=== PATIENT | female | born 1955 | race Caucasian/White ===

== ENCOUNTER 2020-07-22 12:27 | Emergency (ER) | payer MEDICARE, OTHER ==
[2020-07-22 12:44] VITALS: TEMP 98.1
--- NOTE | 2020-07-22 12:52 | ED ---
General Adult HPI - General Chief complaint: Fall Stated complaint: Seizure Time Seen by Provider: 07/22/20 12:30 Source: family, EMS Mode of arrival: EMS Limitations: language barrier, altered mental status - History of Present Illness Initial comments: Patient is a pleasant 65-year-old female presenting to the emergency Department with family with concerns for possible fall/seizure. Patient was yelling and was found on the ground. No seizure was witnessed. Patient does have history of seizures and does get approximately 4 per year with similar type episodes. Patient described symptoms of shaking to family that she previously described with seizures. Patient does have history of previous head injury. Patient has chronic right-sided neglect and some weakness. Patient has difficulty with interpreting pain. Family had difficulty getting patient up off the floor and therefore called EMS. Patient is a poor historian however denies any s ignificant discomfort at this time. Patient was earlier complaining of discomfort of her left lower leg. No head injury. Patient denies headache. Family adds that patient did recently have her antiepileptic medication levels checked however does not know results. - Related Data Home Medications Medication Instructions Recorded Confirmed ALPRAZolam [Xanax] 0.25 mg PO BID PRN 07/22/20 07/22/20 Ascorbic Acid [Vitamin C] 500 mg PO DAILY@89907/22/20 07/22/20 Cholecalciferol [Vitamin D3 (25 25 mcg PO DAILY@0707/22/20 07/22/20 Mcg = 1000 Iu)] Divalproex ER [Depakote ER] 500 mg PO TID 07/22/20 07/22/20 Lacosamide [Vimpat] 300 mg PO HS@89907/22/20 07/22/20 OLANZapine [ZyPREXA] 5 mg PO HS@0907/22/20 07/22/20 Phenytoin Sodium Extended 300 mg PO DAILY@89907/22/20 07/22/20 [Dilantin] Allergies Allergy/AdvReac Type Severity Reaction Status Date / Time cephalexin [From Keflex] Allergy Rash/Hives Verified 07/22/20 13:50 latex Allergy Rash/Hives Verified 07/22/20 13:50 Review of Systems ROS Statement: Those systems with pertinent positive or pertinent negative responses have been documented in the HPI. ROS Other: All systems not noted in ROS Statement are negative. Constitutional: Denies: fever Eyes: Denies: eye pain ENT: Denies: ear pain Respiratory: Reports: cough (Minimal). Denies: dyspnea Cardiovascular: Denies: chest pain Endocrine: Denies: fatigue Gastrointestinal: Denies: abdominal pain Genitourinary: Denies: dysuria Musculoskeletal: Reports: as per HPI. Denies: back pain Skin: Denies: rash Neurological: Denies: headache, weakness Past Medical History Past Medical History: Seizure Disorder Additional Past Medical History / Comment(s): brain injury, perforated colon with infection, frontal lobectomy, right sided neglect, expressive aphasia, History of Any Multi-Drug Resistant Organisms: None Reported Past Surgical History: Breast Surgery Additional Past Surgical History / Comment(s): frontal lobectomy, perforated bowel. Past Psychological History: No Psychological Hx Reported Smoking Status: Never smoker Past Alcohol Use History: None Reported Past Drug Use History: None Reported General Exam Limitations: altered mental status General appearance: alert, in no apparent distress Head exam: Present: atraumatic Eye exam: Present: normal appearance, PERRL, EOMI ENT exam: Present: normal oropharynx Neck exam: Present: normal inspection. Absent: tenderness Respiratory exam: Present: normal lung sounds bilaterally Cardiovascular Exam: Present: regular rate, normal rhythm GI/Abdominal exam: Present: soft. Absent: tenderness Extremities exam: Present: normal inspection, full ROM. Absent: tenderness Neurological exam: Present: alert, CN II-XII intact. Absent: motor sensory deficit Expanded Neurological exam: Present: protecting the airway Motor strength exam: RUE: 5, LUE: 5, RLE: 5, LLE: 5 Psychiatric exam: Present: normal affect, normal mood Skin exam: Present: normal color Course Vital Signs 07/22/20 07/22/20 12:32 13:46 Temperature 98.1 F Pulse Rate 58 L 52 L Respiratory 18 16 Rate Blood Pressure 111/63 111/62 O2 Sat by Pulse 92 L 99 Oximetry - Reevaluation(s) Reevaluation #1: 07/22/20 12:50 Recommended computed tomography scan of brain and cervical spine however family refuses. Patient does not demonstrate ability to make her own medical decisions. EKG Findings - EKG Comments: EKG Findings:: Sinus tachycardia with rate of 55. MS 172. QRS 92. QT 458. QTC 4:30. Left axis. Normal QRS. Lateral T wave inversion. Medical Decision Making - Medical Decision Making Patient reevaluated and resting comfortably in bed. Patient does have flipped T waves on EKG, unclear if these are new or not. No previous EKG available. This was brought up to the family who is also unaware of this. Patient has not had any chest pain or symptoms recently. Case was discussed with Dr. Madina Frias who is covering for Dr. Morales and comfortable with discharge and outpatient workup. This was stressed to patient and family and they do request to be discharged. They were offered admission for further evaluation in the hospital however refus es. Patient will be ambulated prior to discharge. - Lab Data Result diagrams: 07/22/20 14:11 07/22/20 14:11 Lab Results 07/22/20 07/22/20 07/22/20 Range/Units 14:11 14:11 14:11 WBC 6.3 (3.8-10.6) k/uL RBC 4.04 (3.80-5.40) m/uL Hgb 14.0 (11.4-16.0) gm/dL Hct 42.2 (34.0-46.0) % MCV 104.4 H (80.0-100.0) fL MCH 34.6 (25.0-35.0) pg MCHC 33.1 (31.0-37.0) g/dL RDW 13.1 (11.5-15.5) % Plt Count 176 (150-450) k/uL MPV 8.0 Neutrophils % 74 % Lymphocytes % 16 % Monocytes % 8 % Eosinophils % 1 % Basophils % 0 % Neutrophils # 4.7 (1.3-7.7) k/uL Lymphocytes # 1.0 (1.0-4.8) k/uL Monocytes # 0.5 (0-1.0) k/uL Eosinophils # 0.0 (0-0.7) k/uL Basophils # 0.0 (0-0.2) k/uL Macrocytosis Slight PT 11.5 (9.0-12.0) sec INR 1.1 (<1.2) APTT 18.7 L (22.0-30.0) sec Sodium 140 (137-145) mmol/L Potassium 4.5 (3.5-5.1) mmol/L Chloride 106 (98-107) mmol/L Carbon Dioxide 26 (22-30) mmol/L Anion Gap 8 mmol/L BUN 14 (7-17) mg/dL Creatinine 0.77 (0.52-1.04) mg/dL Est GFR (CKD-EPI)AfAm >90 (>60 ml/min/1.73 sqM) Est GFR (CKD-EPI)NonAf 82 (>60 ml/min/1.73 sqM) Glucose 93 (74-99) mg/dL Calcium 9.3 (8.4-10.2) mg/dL Magnesium 1.8 (1.6-2.3) mg/dL Total Bilirubin 0.3 (0.2-1.3) mg/dL AST 62 H (14-36) U/L ALT 36 H (4-34) U/L Alkaline Phosphatase 84 (38-126) U/L Troponin I (0.000-0.034) ng/mL Total Protein 7.4 (6.3-8.2) g/dL Albumin 4.3 (3.5-5.0) g/dL Valproic Acid ug/mL 07/22/20 07/22/20 Range/Units 14:11 14:19 WBC (3.8-10.6) k/uL RBC (3.80-5.40) m/uL Hgb (11.4-16.0) gm/dL Hct (34.0-46.0) % MCV (80.0-100.0) fL MCH (25.0-35.0) pg MCHC (31.0-37.0) g/dL RDW (11.5-15.5) % Plt Count (150-450) k/uL MPV Neutrophils % % Lymphocytes % % Monocytes % % Eosinophils % % Basophils % % Neutrophils # (1.3-7.7) k/uL Lymphocytes # (1.0-4.8) k/uL Monocytes # (0-1.0) k/uL Eosinophils # (0-0.7) k/uL Basophils # (0-0.2) k/uL Macrocytosis PT (9.0-12.0) sec INR (<1.2) APTT (22.0-30.0) sec Sodium (137-145) mmol/L Potassium (3.5-5.1) mmol/L Chloride (98-107) mmol/L Carbon Dioxide (22-30) mmol/L Anion Gap mmol/L BUN (7-17) mg/dL Creatinine (0.52-1.04) mg/dL Est GFR (CKD-EPI)AfAm (>60 ml/min/1.73 sqM) Est GFR (CKD-EPI)NonAf (>60 ml/min/1.73 sqM) Glucose (74-99) mg/dL Calcium (8.4-10.2) mg/dL Magnesium (1.6-2.3) mg/dL Total Bilirubin (0.2-1.3) mg/dL AST (14-36) U/L ALT (4-34) U/L Alkaline Phosphatase (38-126) U/L Troponin I <0.012 (0.000-0.034) ng/mL Total Protein (6.3-8.2) g/dL Albumin (3.5-5.0) g/dL Valproic Acid 90.7 ug/mL - Radiology Data Radiology results: image reviewed (Chest x-ray, pelvis x-ray, left tib-fib, and right humerus x-ray revealed no acute abnormality.) Disposition Clinical Impression: Fall Disposition: HOME SELF-CARE Condition: Stable Instructions (If sedation given, give patient instructions): Fall Prevention for Older Adults (ED) Additional Instructions: Please do follow-up with primary care physician in the next day or 2 for recheck. Have primary care physician review report from today and EKG. Return for chest pain, increased falls, seizures, worsening or changing symptoms or other concerns. Is patient prescribed a controlled substance at d/c from ED?: No Referrals: Jayy Sarmiento MD [Primary Care Provider] - 1-2 days Time of Disposition: 15:54
--- NOTE | 2020-07-22 13:38 | XR ---
EXAMINATION TYPE: XR humerus RT DATE OF EXAM: 07/22/2020 CLINICAL HISTORY: Pain after fall injury and seizure. TECHNIQUE: Two views of the right humerus are obtained. COMPARISON: None. FINDINGS: Osseous structures are demineralized which is noted to lower radiographic sensitivity. In a ddition overlying clothing or blanket material makes evaluation slightly suboptimal. There is no acut e fracture or dislocation seen in the right humerus. The visualized right shoulder and elbow joints appear within normal limits. IMPRESSION: No acute fracture or dislocation is evident in the right humerus.
--- NOTE | 2020-07-22 13:39 | XR ---
EXAMINATION TYPE: XR chest 2V DATE OF EXAM: 07/22/2020 COMPARISON: Chest x-ray October 20, 2011 HISTORY: Pain after fall injury. TECHNIQUE: Frontal and lateral views of the chest are obtained. FINDINGS: There is mild chronic medical changes without suspicious new focal air space opacity, pleu ral effusion, or pneumothorax seen. The cardiac silhouette size is stable and upper limits of normal . The osseous structures remain demineralized. IMPRESSION: No acute cardiopulmonary process.
[2020-07-22 13:47] VITALS: PULSE 52
--- NOTE | 2020-07-22 13:47 | XR ---
Left leg HISTORY: Trauma and pain Frontal and lateral views of the left leg Bone mineralization is reduced. There are overlying artifacts. There is a plantar calcaneus spur. Ent hesophyte present at the insertion of the Achilles tendon. Or soft tissue swelling. Impression: No fracture or dislocation is evident.
--- NOTE | 2020-07-22 13:53 | XR ---
AP pelvis HISTORY: Trauma and pain To go frontal view the pelvis, comparison to abdomen 07/25/2009 Bone mineralization is reduced. Joint spaces and alignment are maintained. Probable phleboliths prese nt within the pelvis. Degenerative disc change present in the visualized spine. IMPRESSION: No radiographically apparent fracture or dislocation, follow-up as indicated.
[2020-07-22 14:34] LABS: Basophils % (A) 0 %; Eosinophils % (A) 1 %; HCT 42.2 % (34.0-46.0); Lymphocytes % (A) 16 %; MCH 34.6 pg (25.0-35.0); MCHC 33.1 g/dL (31.0-37.0); MCV 104.4 fL (80.0-100.0); Macrocytosis Slight; Monocytes # (A) 0.5 k/uL (0-1.0); Monocytes % (A) 8 %; Neutrophils # (A) 4.7 k/uL (1.3-7.7); Neutrophils % (A) 74 %; Platelet Count 176 k/uL (150-450); RBC 4.04 m/uL (3.80-5.40); RDW 13.1 % (11.5-15.5); WBC 6.3 k/uL (3.8-10.6)
[2020-07-22 14:35] LABS: ALT 36 U/L (4-34); AST 62 U/L (14-36); African American GFR (CKD) >90 (>60 ml/min/1.73 sqM); Albumin 4.3 g/dL (3.5-5.0); Alkaline Phosphatase 84 U/L (38-126); Anion Gap 8 mmol/L; Blood Urea Nitrogen 14 mg/dL (7-17); Calcium 9.3 mg/dL (8.4-10.2); Carbon Dioxide 26 mmol/L (22-30); Chloride 106 mmol/L (98-107); Glucose 93 mg/dL (74-99); Magnesium 1.8 mg/dL (1.6-2.3); Non-African American GFR(CKD) 82 (>60 ml/min/1.73 sqM); Potassium 4.5 mmol/L (3.5-5.1); Sodium 140 mmol/L (137-145); Total Bilirubin 0.3 mg/dL (0.2-1.3); Total Protein 7.4 g/dL (6.3-8.2)
[2020-07-22 14:50] LABS: INR 1.1 (<1.2); Prothrombin Time 11.5 sec (9.0-12.0)
[2020-07-22 14:51] LABS: Partial Thromboplastin Time 18.7 sec (22.0-30.0)
[2020-07-22 16:28] VITALS: BP 111/61; RESP 18
== END 2020-07-22 16:20 | disposition home or self-care (01) ==
LOC: EC 12:27
DX: Z04.3 Encounter for examination and observation following other accident (principal); G40.909 Epilepsy, unspecified, not intractable, without status epilepticus
CPT/HCPCS: 36415; 71046; 72170; 80053; 80164; 83735; 84484; 85025; 85610; 85730; 93005; 99284

== ENCOUNTER 2021-01-18 12:01 | Observation (INO) | payer MEDICARE, OTHER ==
[2021-01-18] MEDS ORDERED: SODIUM CHLORIDE 0.9% 1,000 ML IV STA (12:15)
--- NOTE | 2021-01-18 12:27 | ED ---
Weakness HPI - General Chief complaint: Weakness Stated complaint: weakness Time Seen by Provider: 01/18/21 12:04 Source: EMS Mode of arrival: EMS Limitations: no limitations - History of Present Illness Initial comments: Patient presents with report of lethargy and weakness. The patient doesn't answer questions appropriately. She has a history of dementia and brain surgery. She doesn't present further details. No one else in attendance provide more information. - Related Data Home Medications Medication Instructions Recorded Confirmed ALPRAZolam [Xanax] 0.25 mg PO BID PRN 07/22/20 01/18/21 Divalproex ER [Depakote ER] 500 mg PO TID 07/22/20 01/18/21 Lacosamide [Vimpat] 150 mg PO BID 07/22/20 01/18/21 OLANZapine [ZyPREXA] 5 mg PO HS@0900 07/22/20 01/18/21 Phenytoin Sodium Extended 300 mg PO DAILY@0900 07/22/20 01/18/21 [Dilantin] Benzonatate [Tessalon Perles] 100 - 200 mg PO TID PRN 01/18/21 01/18/21 Ergocalciferol [Vitamin D2 (1250 1,250 mcg PO [place]STA 01/18/21 01/18/21 Mcg = 63821 Iu)] Famotidine [Pepcid] 20 mg PO DAILY 01/18/21 01/18/21 Ferrous Sulfate [Feosol] 325 mg PO DAILY 01/18/21 01/18/21 Fexofenadine HCl 180 mg PO DAILY 01/18/21 01/18/21 Folic Acid 0.4 mg PO DAILY 01/18/21 01/18/21 L.acidoph,Paracasei, B.lactis 1 cap PO DAILY 01/18/21 01/18/21 [Probiotic] Allergies Allergy/AdvReac Type Severity Reaction Status Date / Time cephalexin [From Keflex] Allergy Rash/Hives Verified 01/18/21 12:54 latex Allergy Rash/Hives Verified 01/18/21 12:54 Review of Systems ROS Statement: Those systems with pertinent positive or pertinent negative responses have been documented in the HPI. ROS Other: All systems not noted in ROS Statement are negative. Past Medical History Past Medical History: Seizure Disorder Additional Past Medical History / Comment(s): brain injury, perforated colon with infection, frontal lobectomy, right sided neglect, expressive aphasia, History of Any Multi-Drug Resistant Organisms: None Reported Past Surgical History: Breast Surgery Additional Past Surgical History / Comment(s): frontal lobectomy, perforated bowel. Past Psychological History: No Psychological Hx Reported Smoking Status: Never smoker Past Alcohol Use History: None Reported Past Drug Use History: None Reported General Exam Limitations: altered mental status, physical limitation General appearance: alert Head exam: Present: atraumatic Eye exam: Present: EOMI Pupils: Present: normal accommodation ENT exam: Present: normal exam Neck exam: Present: normal inspection Respiratory exam: Present: normal lung sounds bilaterally. Absent: respiratory distress Cardiovascular Exam: Present: regular rate, normal rhythm GI/Abdominal exam: Present: soft. Absent: tenderness Rectal exam: Present: deferred Extremities exam: Present: normal inspection. Absent: tenderness Back exam: Present: normal inspection Neurological exam: Present: alert. Absent: oriented X3 Skin exam: Present: warm, dry Course Vital Signs 01/18/21 01/18/21 01/18/21 12:02 13:32 14:52 Temperature 98.8 F Pulse Rate 82 83 71 Respiratory 18 18 20 Rate Blood Pressure 104/39 104/66 131/67 O2 Sat by Pulse 96 100 Oximetry 01/18/21 15:56 Temperature Pulse Rate 71 Respiratory 20 Rate Blood Pressure 127/71 O2 Sat by Pulse 100 Oximetry EKG Findings - EKG Comments: EKG Findings:: Twelve-lead EKG shows ventricular rate 78 beats per minute, no ST elevation or depression, QRS Compazine normal there do appear to be P waves on my evaluation of the EKG, although the electronic interpretation suggested a ju nctional rhythm. This is interpreted by me as a normal sinus rhythm. Medical Decision Making - Medical Decision Making Patient remains symptomatically. I think she will require GI consult. She will be admitted to the hospital. - Lab Data Result diagrams: 01/18/21 13:07 01/18/21 13:07 Lab Results 01/18/21 01/18/21 01/18/21 Range/Units 13:07 13:07 13:07 WBC 9.6 (3.8-10.6) k/uL RBC 3.74 L (3.80-5.40) m/uL Hgb 12.9 (11.4-16.0) gm/dL Hct 37.8 (34.0-46.0) % MCV 101.3 H (80.0-100.0) fL MCH 34.6 (25.0-35.0) pg MCHC 34.2 (31.0-37.0) g/dL RDW 12.5 (11.5-15.5) % Plt Count 305 (150-450) k/uL MPV 8.7 Neutrophils % 83 % Lymphocytes % 6 % Monocytes % 10 % Eosinophils % 0 % Basophils % 0 % Neutrophils # 8.0 H (1.3-7.7) k/uL Lymphocytes # 0.6 L (1.0-4.8) k/uL Monocytes # 0.9 (0-1.0) k/uL Eosinophils # 0.0 (0-0.7) k/uL Basophils # 0.0 (0-0.2) k/uL PT 10.6 (9.0-12.0) sec INR 1.0 (<1.2) APTT 22.6 (22.0-30.0) sec Sodium (137-145) mmol/L Potassium (3.5-5.1) mmol/L Chloride (98-107) mmol/L Carbon Dioxide (22-30) mmol/L Anion Gap mmol/L BUN (7-17) mg/dL Creatinine (0.52-1.04) mg/dL Est GFR (CKD-EPI)AfAm (>60 ml/min/1.73 sqM) Est GFR (CKD-EPI)NonAf (>60 ml/min/1.73 sqM) Glucose (74-99) mg/dL Plasma Lactic Acid Willy (0.7-2.0) mmol/L Calcium (8.4-10.2) mg/dL Magnesium (1.6-2.3) mg/dL Total Bilirubin (0.2-1.3) mg/dL AST (14-36) U/L ALT (4-34) U/L Alkaline Phosphatase (38-126) U/L Troponin I (0.000-0.034) ng/mL NT-Pro-B Natriuret Pep pg/mL Total Protein (6.3-8.2) g/dL Albumin (3.5-5.0) g/dL Urine Color Yellow Urine Appearance Clear (Clear) Urine pH 5.5 (5.0-8.0) Ur Specific [place] 1.021 (1.001-1.035) Urine Protein Trace H (Negative) Urine Glucose (UA) Negative (Negative) Urine Ketones Trace H (Negative) Urine Blood Negative (Negative) Urine Nitrite Negative (Negative) Urine Bilirubin Negative (Negative) Urine Urobilinogen <2.0 (<2.0) mg/dL Ur Leukocyte Esterase Trace H (Negative) Urine RBC 2 (0-5) /hpf Urine WBC 3 (0-5) /hpf Ur Squamous Epith Cells 1 (0-4) /hpf Hyaline Casts 15 H (0-2) /lpf Urine Mucus Rare H (None) /hpf 01/18/21 01/18/21 01/18/21 Range/Units 13:07 13:07 13:07 WBC (3.8-10.6) k/uL RBC (3.80-5.40) m/uL Hgb (11.4-16.0) gm/dL Hct (34.0-46.0) % MCV (80.0-100.0) fL MCH (25.0-35.0) pg MCHC (31.0-37.0) g/dL RDW (11.5-15.5) % Plt Count (150-450) k/uL MPV Neutrophils % % Lymphocytes % % Monocytes % % Eosinophils % % Basophils % % Neutrophils # (1.3-7.7) k/uL Lymphocytes # (1.0-4.8) k/uL Monocytes # (0-1.0) k/uL Eosinophils # (0-0.7) k/uL Basophils # (0-0.2) k/uL PT (9.0-12.0) sec INR (<1.2) APTT (22.0-30.0) sec Sodium 137 (137-145) mmol/L Potassium 3.7 (3.5-5.1) mmol/L Chloride 102 (98-107) mmol/L Carbon Dioxide 23 (22-30) mmol/L Anion Gap 12 mmol/L BUN 14 (7-17) mg/dL Creatinine 0.75 (0.52-1.04) mg/dL Est GFR (CKD-EPI)AfAm >90 (>60 ml/min/1.73 sqM) Est GFR (CKD-EPI)NonAf 85 (>60 ml/min/1.73 sqM) Glucose 121 H (74-99) mg/dL Plasma Lactic Acid Willy 1.5 (0.7-2.0) mmol/L Calcium 9.4 (8.4-10.2) mg/dL Magnesium 1.8 (1.6-2.3) mg/dL Total Bilirubin 0.3 (0.2-1.3) mg/dL AST 22 (14-36) U/L ALT 10 (4-34) U/L Alkaline Phosphatase 88 (38-126) U/L Troponin I <0.012 (0.000-0.034) ng/mL NT-Pro-B Natriuret Pep pg/mL Total Protein 7.2 (6.3-8.2) g/dL Albumin 3.9 (3.5-5.0) g/dL Urine Color Urine Appearance (Clear) Urine pH (5.0-8.0) Ur Specific [place] (1.001-1.035) Urine Protein (Negative) Urine Glucose (UA) (Negative) Urine Ketones (Negative) Urine Blood (Negative) Urine Nitrite (Negative) Urine Bilirubin (Negative) Urine Urobilinogen (<2.0) mg/dL Ur Leukocyte Esterase (Negative) Urine RBC (0-5) /hpf Urine WBC (0-5) /hpf Ur Squamous Epith Cells (0-4) /hpf Hyaline Casts (0-2) /lpf Urine Mucus (None) /hpf 01/18/21 Range/Units 13:07 WBC (3.8-10.6) k/uL RBC (3.80-5.40) m/uL Hgb (11.4-16.0) gm/dL Hct (34.0-46.0) % MCV (80.0-100.0) fL MCH (25.0-35.0) pg MCHC (31.0-37.0) g/dL RDW (11.5-15.5) % Plt Count (150-450) k/uL MPV Neutrophils % % Lymphocytes % % Monocytes % % Eosinophils % % Basophils % % Neutrophils # (1.3-7.7) k/uL Lymphocytes # (1.0-4.8) k/uL Monocytes # (0-1.0) k/uL Eosinophils # (0-0.7) k/uL Basophils # (0-0.2) k/uL PT (9.0-12.0) sec INR (<1.2) APTT (22.0-30.0) sec Sodium (137-145) mmol/L Potassium (3.5-5.1) mmol/L Chloride (98-107) mmol/L Carbon Dioxide (22-30) mmol/L Anion Gap mmol/L BUN (7-17) mg/dL Creatinine (0.52-1.04) mg/dL Est GFR (CKD-EPI)AfAm (>60 ml/min/1.73 sqM) Est GFR (CKD-EPI)NonAf (>60 ml/min/1.73 sqM) Glucose (74-99) mg/dL Plasma Lactic Acid Willy (0.7-2.0) mmol/L Calcium (8.4-10.2) mg/dL Magnesium (1.6-2.3) mg/dL Total Bilirubin (0.2-1.3) mg/dL AST (14-36) U/L ALT (4-34) U/L Alkaline Phosphatase (38-126) U/L Troponin I (0.000-0.034) ng/mL NT-Pro-B Natriuret Pep 518 pg/mL Total Protein (6.3-8.2) g/dL Albumin (3.5-5.0) g/dL Urine Color Urine Appearance (Clear) Urine pH (5.0-8.0) Ur Specific [place] (1.001-1.035) Urine Protein (Negative) Urine Glucose (UA) (Negative) Urine Ketones (Negative) Urine Blood (Negative) Urine Nitrite (Negative) Urine Bilirubin (Negative) Urine Urobilinogen (<2.0) mg/dL Ur Leukocyte Esterase (Negative) Urine RBC (0-5) /hpf Urine WBC (0-5) /hpf Ur Squamous Epith Cells (0-4) /hpf Hyaline Casts (0-2) /lpf Urine Mucus (None) /hpf Disposition Clinical Impression: GI bleed Disposition: ADMITTED IP TO THIS [facility] Referrals: Jayy Sarmiento MD [Primary Care Provider] - 1-2 days
[2021-01-18 13:29] LABS: Basophils % (A) 0 %; Eosinophils % (A) 0 %; HCT 37.8 % (34.0-46.0); HGB 12.9 gm/dL (11.4-16.0); Lymphocytes # (A) 0.6 k/uL (1.0-4.8); Lymphocytes % (A) 6 %; MCH 34.6 pg (25.0-35.0); MCHC 34.2 g/dL (31.0-37.0); MCV 101.3 fL (80.0-100.0); Mean Platelet Volume 8.7; Monocytes # (A) 0.9 k/uL (0-1.0); Monocytes % (A) 10 %; Neutrophils % (A) 83 %; Platelet Count 305 k/uL (150-450); RBC 3.74 m/uL (3.80-5.40); RDW 12.5 % (11.5-15.5); WBC 9.6 k/uL (3.8-10.6)
--- NOTE | 2021-01-18 13:35 | XR ---
EXAMINATION TYPE: XR chest 1V portable DATE OF EXAM: 01/18/2021 COMPARISON: 07/22/2020 INDICATION: Weakness TECHNIQUE: Single frontal view of the chest is obtained. FINDINGS: The heart size is normal. The pulmonary vasculature is normal. There may be some subtle increase lung markings at the right apex. This could be due to rotation as w ell. Follow up exams can be performed as clinically indicated. IMPRESSION: 1. Minimal increased opacity to the right upper lung field can be related to atelectasis or early pne umonia. There is some rotation on this exam which could create artifact. Follow up exams as clinicall y indicated.
[2021-01-18 13:43] LABS: ALT 10 U/L (4-34); AST 22 U/L (14-36); African American GFR (CKD) >90 (>60 ml/min/1.73 sqM); Albumin 3.9 g/dL (3.5-5.0); Alkaline Phosphatase 88 U/L (38-126); Anion Gap 12 mmol/L; Blood Urea Nitrogen 14 mg/dL (7-17); Calcium 9.4 mg/dL (8.4-10.2); Carbon Dioxide 23 mmol/L (22-30); Chloride 102 mmol/L (98-107); Glucose 121 mg/dL (74-99); Magnesium 1.8 mg/dL (1.6-2.3); Non-African American GFR(CKD) 85 (>60 ml/min/1.73 sqM); Potassium 3.7 mmol/L (3.5-5.1); Sodium 137 mmol/L (137-145); Total Bilirubin 0.3 mg/dL (0.2-1.3); Total Protein 7.2 g/dL (6.3-8.2)
[2021-01-18 13:47] LABS: Partial Thromboplastin Time 22.6 sec (22.0-30.0); Prothrombin Time 10.6 sec (9.0-12.0)
[2021-01-18 17:22] LABS: Appearance,Urine Clear (Clear); Bilirubin,Urine Negative (Negative); Blood,Urine Negative (Negative); Color,Urine Yellow; Glucose,Urine (UA) Negative (Negative); Hyaline Casts,Urine 15 /lpf (0-2); Ketones,Urine Trace (Negative); Leukocyte Esterase,Urine Trace (Negative); Mucus,Urine Rare /hpf; Nitrite,Urine Negative (Negative); PH, Urine 5.5 (5.0-8.0); Protein,Urine Trace (Negative); RBC,Urine 2 /hpf (0-5); Specific Gravity,Urine 1.021 (1.001-1.035); Squamous Epithelial Cell,Urine 1 /hpf (0-4); Urobilinogen,Urine <2.0 mg/dL (<2.0); WBC,Urine 3 /hpf (0-5)
[2021-01-18] MEDS ORDERED: NALOXONE 0.4 MG/ML 1 ML VIAL IV PRN (18:31)
[2021-01-18] MEDS ORDERED: ONDANSETRON 4 MG/2 ML VIAL IVP PRN (18:31)
[2021-01-18] MEDS ORDERED: ALPRAZolam 0.25 MG TAB PO PRN (18:35)
[2021-01-18] MEDS ORDERED: PANTOPRAZOLE 40 MG/10 ML VIAL IVP ONE (19:27)
[2021-01-18 19:46] LABS: Basophils % (A) 0 %; Eosinophils % (A) 0 %; HCT 31.6 % (34.0-46.0); Lymphocytes # (A) 1.3 k/uL (1.0-4.8); Lymphocytes % (A) 17 %; MCHC 34.8 g/dL (31.0-37.0); MCV 100.7 fL (80.0-100.0); Mean Platelet Volume 8.1; Monocytes # (A) 0.9 k/uL (0-1.0); Monocytes % (A) 12 %; Neutrophils # (A) 5.2 k/uL (1.3-7.7); Neutrophils % (A) 69 %; Platelet Count 274 k/uL (150-450); RBC 3.14 m/uL (3.80-5.40); RDW 12.5 % (11.5-15.5); WBC 7.6 k/uL (3.8-10.6)
[2021-01-18] MEDS: LACOSAMIDE 150 MG TABLET PO SCH (21:12)
[2021-01-18] MEDS: DIVALPROEX ER 500 MG TAB.ER.24H PO SCH (21:13)
[2021-01-18] MEDS: SODIUM CHLORIDE 0.9% 1,000 ML IV SCH (21:13)
[2021-01-19] MEDS: SODIUM CHLORIDE 0.9% 1,000 ML IV SCH ×4 (01:25→22:10)
[2021-01-19] MEDS ORDERED: FERROUS SULFATE 325 MG TAB PO SCH (09:00)
[2021-01-19] MEDS: LACOSAMIDE 150 MG TABLET PO SCH ×2 (10:19→22:10)
[2021-01-19] MEDS: PANTOPRAZOLE 40 MG TABLET PO SCH ×2 (10:19→17:05)
[2021-01-19] MEDS: PHENYTOIN SODIUM EXTENDED 100 MG CAP PO SCH (10:19)
[2021-01-19] MEDS: DIVALPROEX ER 500 MG TAB.ER.24H PO SCH ×3 (10:19→22:10)
[2021-01-19] MEDS: OLANZapine 5 MG TAB PO SCH (10:19)
[2021-01-19] MEDS: LORATADINE 10 MG TAB PO SCH (10:19)
--- NOTE | 2021-01-19 12:03 | P.CONS ---
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 The patient herself has a history of colitis according to her sister who I spoke to over the phone. Her sister Rosalia is the patient's DURABLE POWER OF MANUGRAPHER and caregiver. She states that the patient had a bowel movement yesterday and was bright red, had complaints that her stomach hurt, she was pale and diaphoretic. She brought the patient to emergency room for further evaluation. No imaging was completed. WBC 9.6 hemoglobin 12.9 hematocrit 37 platelet count 305,000 pain are 1.0.i nfluenza A and B not detected RSV not detected as well as COVID-19 PCR not detected.the patient has had several soft bowel movement since admitted to the hospital. They have all been brown to greenish in color. Patient denies any nausea or vomiting. She has not been complaining of any abdominal pain. Patient was afebrile. Repeat labs today show hemoglobin 11.0. The patient's sister states her last colonoscopy was in 2008 which at that time she had a perforated colon and Colitis which led to an infection was believed to go to the brain. The patient had been following with Dr. Salmeron and has had a sigmoidoscopy which she states was normal. Review of Systems REVIEW OF SYSTEMS: CARDIOPULMONARY: No chest pain or shortness of breath. Gastrointestinal: Lower abdominal pain yesterday.. No nausea or vomiting. No hematemesis, coffee-ground emesis. Bright red blood per rectum in the toilet per patient's sister's report. Loose bowels over the last 1 week. GENITOURINARY: No dysuria or hematuria. MUSCULOSKELETAL: Reports normal range of motion., Joint pain. SKIN: No rashes. No jaundice. ENDOCRINE: No chills, fevers. No excessive weight gain or loss. No polydipsia or polyuria. PSYCHIATRIC: Unremarkable. NEUROLOGY: No change in mental status. Denies dizziness, headache. ENT: Vision unremarkable. CONSTITUTIONAL: No recent weight loss. No fever, chills, night sweats. Past Medical History Past Medical History: Seizure Disorder Additional Past Medical History / Comment(s): brain injury, perforated colon with infection, frontal lobectomy, right sided neglect, expressive aphasia, History of Any Multi-Drug Resistant Organisms: None Reported Past Surgical History: Breast Surgery Additional Past Surgical History / Comment(s): frontal lobectomy, perforated bowel. Past Psychological History: No Psychological Hx Reported Smoking Status: Never smoker Past Alcohol Use History: None Reported Past Drug Use History: None Reported Medications and Allergies Home Medications Medication Instructions Recorded Confirmed Type ALPRAZolam [Xanax] 0.25 mg PO BID PRN 07/22/20 01/18/21 History Divalproex ER [Depakote ER] 500 mg PO TID 07/22/20 01/18/21 History Lacosamide [Vimpat] 150 mg PO BID 07/22/20 01/18/21 History OLANZapine [ZyPREXA] 5 mg PO HS@0900 07/22/20 01/18/21 History Phenytoin Sodium Extended 300 mg PO DAILY@0900 07/22/20 01/18/21 History [Dilantin] Benzonatate [Tessalon Perles] 100 - 200 mg PO TID PRN 01/18/21 01/18/21 History Ergocalciferol [Vitamin D2 (1250 1,250 mcg PO ACOSTA 01/18/21 01/18/21 History Mcg = 96156 Iu)] Famotidine [Pepcid] 20 mg PO DAILY 01/18/21 01/18/21 History Ferrous Sulfate [Feosol] 325 mg PO DAILY 01/18/21 01/18/21 History Fexofenadine HCl 180 mg PO DAILY 01/18/21 01/18/21 History Folic Acid 0.4 mg PO DAILY 01/18/21 01/18/21 History L.acidoph,Paracasei, B.lactis 1 cap PO DAILY 01/18/21 01/18/21 History [Probiotic] Allergies Allergy/AdvReac Type Severity Reaction Status Date / Time cephalexin [From Keflex] Allergy Rash/Hives Verified 01/18/21 12:54 latex Allergy Rash/Hives Verified 01/18/21 12:54 Physical Exam Vitals: Vital Signs Temp Pulse Pulse Resp BP BP Pulse Ox 01/19/21 02:00 97.9 F 75 94/58 96 01/18/21 20:15 98.0 F 76 20 109/64 97 01/18/21 18:30 73 20 111/57 98 01/18/21 15:56 71 20 127/71 100 01/18/21 14:52 71 20 131/67 100 01/18/21 13:32 98.8 F 83 18 104/66 96 01/18/21 12:02 82 18 104/39 Intake and Output 01/18/21 01/19/21 01/19/21 22:59 06:59 14:59 Other: Voiding Method Diaper # Voids 1 # Bowel Movements 1 1 Weight 72.575 kg General appearance: The patient is alert, oriented, appears in no acute distress. HET: Head is normocephalic and atraumatic. Conjunctiva pink. Sclera anicteric. Neck: Supple without lymphadenopathy. Trachea midline. Heart: S1 S2. Regular rate and rhythm. Lungs: Clear to auscultation. Abdomen: Soft, nontender, nondistended with bowel sounds. No guarding or rigidity. Skin: No rashes. No jaundice. Extremities: Normal skin color and turgor. No pedal edema. Neurological: No focal deficits. Alert and oriented x3. Results CBC & Chem 7: 01/18/21 19:18 01/18/21 13:07 Labs: Abnormal Lab Results - Last 24 Hours (Table) 01/18/21 01/18/21 01/18/21 Range/Units 13:07 13:07 13:07 RBC 3.74 L (3.80-5.40) m/uL Hgb (11.4-16.0) gm/dL Hct (34.0-46.0) % MCV 101.3 H (80.0-100.0) fL Neutrophils # 8.0 H (1.3-7.7) k/uL Lymphocytes # 0.6 L (1.0-4.8) k/uL Glucose 121 H (74-99) mg/dL Urine Protein Trace H (Negative) Urine Ketones Trace H (Negative) Ur Leukocyte Esterase Trace H (Negative) Hyaline Casts 15 H (0-2) /lpf Urine Mucus Rare H (None) /hpf 01/18/21 Range/Units 19:18 RBC 3.14 L (3.80-5.40) m/uL Hgb 11.0 L (11.4-16.0) gm/dL Hct 31.6 L (34.0-46.0) % MCV 100.7 H (80.0-100.0) fL Neutrophils # (1.3-7.7) k/uL Lymphocytes # (1.0-4.8) k/uL Glucose (74-99) mg/dL Urine Protein (Negative) Urine Ketones (Negative) Ur Leukocyte Esterase (Negative) Hyaline Casts (0-2) /lpf Urine Mucus (None) /hpf Assessment and Plan (1) GI bleed Narrative/Plan: 66-year-old female who presented to the emergency department by her sister who had one episode of bright red blood in the toilet. Apparently the patient had been having some loose stools throughout the week and yesterday had an episode of bright red blood in the toilet with the patient complaining of abdominal pain. She had no associated nausea or vomiting. However did become pale and clammy. The report from the sister. The patient has a history in 2008 where she had colitis and underwent a colonoscopy which she had a perforated colon which led to infection and subsequent possible brain infection with seizures and had to undergo a lobectomy. The patient is under the care of her sister. She states that her last colonoscopy was done in 2008 at that time. Since then she is followed with Dr.Bawari chan since undergone a sigmoidoscopy which she states had been normal. Patient does not take any medications for colitis. She is not on any blood thinners. She has no history of peptic ulcer disease. She's had no sick contacts, fevers, or chills. The patient's sister states that they do not want to proceed with the colonoscopy unless absolutely necessary. At this time the patient has no complaints of abdominal pain. She's had no further rectal bleeding or blood in her stool. Actually she's had a couple loose brown stools since admission. Hemoglobin is stable at 10.0. We will collect stool studies. Possible etiology includes acute colitis, possibly infectious, inflammatory, or ischemic. Current Visit: Yes Status: Acute Code(s): K92.2 - GASTROINTESTINAL HEMORR VERITO, UNSPECIFIED SNOMED Code(s): 34303881 (2) Abdominal pain Current Visit: Yes Status: Acute Code(s): R10.9 - UNSPECIFIED ABDOMINAL PAIN SNOMED Code(s): 81541823 (3) Diarrhea Narrative/Plan: C-diff and stool cultures ordered Current Visit: Yes Status: Acute Code(s): R19.7 - DIARRHEA, UNSPECIFIED SNOMED Code(s): 84987492 Plan: 1. Continue symptomatic and supportive care 2. Diet as tolerated 3. Continue to monitor for signs and symptoms of GI bleed 4. C. diff and stool cultures ordered 5. GI bleed likely related to acute colitis or diverticular bleed. No further bleeding noted. No plans on colonoscopy at this time. 6. If C-diff negative may start imodium 1-2 tabs every 6 hours PRN Thank you for this consultation, the patient is cleared by gastroenterolgy for discharge once otherwise medically stable. Dr. Miguel Guevara I agree with the dictator's note, documented as a scribe by Shirley Christine.
--- NOTE | 2021-01-19 21:14 | P.HPIM ---
History of Present Illness H&P Date: 01/19/21 Chief Complaint: Blood per rectum. Patient is a 66-year-old female with known history of CVA, frontal lobectomy, right-sided neglect and expressive aphasia seizure disorder, history of perforated colon with infection who is currently being cared by his sister was brought to the hospital with complaints of bright red blood per rectum and generalized weakness. According to her sister patient has been having diarrhea for the past 4 to 5 days. Yesterday she was having bright red blood per rectum, followed by abdominal discomfort and she was pale and diaphoretic And felt very weak and is unable to walk by herself. Loss of appetite recently. Patient was brought to ER for further evaluation. Patient is a poor historian. Denied any complaints of chest pain or shortness of breath. No complaints of abdominal pain currently. Denies any cough or sputum production. Patient has been afebrile. Patient was recently treated for cough and possible bronchitis with antibiotic course x2. Chest x-ray showed minimal increased opacity to the right upper lobe lung field could be related to atelectasis or early pneumonia. There is some rotation on this exam which could create artifact. Blood pressure was 104/39 pulse is 82 respiration 18 and pulse ox 96% on room air on admission. Laboratory showed WBC 9.6 hemoglobin 12.9 platelets 305 and MCV one 1.3 BUN 14 and creatinine 0.74 and blood sugar is 121 Sodium 137 potassium 3.7 bicarb is 23 anion gap 12 liver enzymes are not elevated and troponin x1 - and BNP is 519 Urinalysis showed trace ketones and trace protein and trace leukocytes trace. Influenza and COVID-19 PCR not detected. Review of Systems Complete review of systems could not be obtained Except as per HPI.. Past Medical History Past Medical History: Seizure Disorder Additional Past Medical History / Comment(s): brain injury, perforated colon with infection, frontal lobectomy, right sided neglect, expressive aphasia, History of Any Multi-Drug Resistant Organisms: None Reported Past Surgical History: Breast Surgery Additional Past Surgical History / Comment(s): frontal lobectomy, perforated bowel. Past Psychological History: No Psychological Hx Reported Smoking Status: Never smoker Past Alcohol Use History: None Reported Past Drug Use History: None Reported Medications and Allergies Home Medications Medication Instructions Recorded Confirmed Type ALPRAZolam [Xanax] 0.25 mg PO BID PRN 07/22/20 01/18/21 History Divalproex ER [Depakote ER] 500 mg PO TID 07/22/20 01/18/21 History Lacosamide [Vimpat] 150 mg PO BID 07/22/20 01/18/21 History OLANZapine [ZyPREXA] 5 mg PO HS@0900 07/22/20 01/18/21 History Phenytoin Sodium Extended 300 mg PO DAILY@0900 07/22/20 01/18/21 History [Dilantin] Benzonatate [Tessalon Perles] 100 - 200 mg PO TID PRN 01/18/21 01/18/21 History Ergocalciferol [Vitamin D2 (1250 1,250 mcg PO ACOSTA 01/18/21 01/18/21 History Mcg = 56508 Iu)] Famotidine [Pepcid] 20 mg PO DAILY 01/18/21 01/18/21 History Ferrous Sulfate [Feosol] 325 mg PO DAILY 01/18/21 01/18/21 History Fexofenadine HCl 180 mg PO DAILY 01/18/21 01/18/21 History Folic Acid 0.4 mg PO DAILY 01/18/21 01/18/21 History L.acidoph,Paracasei, B.lactis 1 cap PO DAILY 01/18/21 01/18/21 History [Probiotic] Allergies Allergy/AdvReac Type Severity Reaction Status Date / Time cephalexin [From Keflex] Allergy Rash/Hives Verified 01/18/21 12:54 latex Allergy Rash/Hives Verified 01/18/21 12:54 Physical Exam Vitals: Vital Signs Temp Pulse Pulse Resp BP BP Pulse Ox 01/19/21 12:30 98.5 F 69 17 110/63 95 01/19/21 02:00 97.9 F 75 94/58 96 01/18/21 20:15 98.0 F 76 20 109/64 97 01/18/21 18:30 73 20 111/57 98 01/18/21 15:56 71 20 127/71 100 Intake and Output 01/19/21 01/19/21 01/19/21 06:59 14:59 22:59 Other: # Bowel Movements 1 PHYSICAL EXAMINATION: Patient is lying in the bed comfortably, no acute distress, awake alert and oriented.. HEENT: Normocephalic. Neck is supple. Pupils reactive. Nostrils clear. Oral cavity is moist. Neck reveals no JVD, carotid bruits, or thyromegaly. CHEST EXAMINATION: Trachea is central. Symmetrical expansion. Lung veliz clear to auscultation and percussion. CARDIAC: Normal S1, S2 with no gallops. No murmurs ABDOMEN: Soft. Bowel sounds normal. No organomegaly. No abdominal bruits. Extremities: reveal no edema. No clubbing or cyanosis Neurologically awake, alert, oriented x2-3 with Right-sided weakness and expressive aphasia. Skin: No rash or skin lesions. Psychiatric: Cooperative. Nonsuicidal Musculoskeletal: No joint swelling or deformity. Results CBC & Chem 7: 01/18/21 19:18 01/18/21 13:07 Labs: Abnormal Lab Results - Last 24 Hours (Table) 01/18/21 01/18/21 Range/Units 13:07 19:18 RBC 3.14 L (3.80-5.40) m/uL Hgb 11.0 L (11.4-16.0) gm/dL Hct 31.6 L (34.0-46.0) % MCV 100.7 H (80.0-100.0) fL Urine Protein Trace H (Negative) Urine Ketones Trace H (Negative) Ur Leukocyte Esterase Trace H (Negative) Hyaline Casts 15 H (0-2) /lpf Urine Mucus Rare H (None) /hpf Thrombosis Risk Factor Assmnt - DVT/VTE Prophylaxis DVT/VTE Prophylaxis: Pharmacologic Prophylaxis ordered Assessment and Plan Assessment: Bright red blood per rectum x1 episode on admission. Currently no active bleeding. Possible colitis versus hemorrhoidal bleed. Acute diarrhea. Rule out C. difficile infection. History of colitis and underwent colonoscopy/perforated colon followed by infection and cerebral abscess status post frontal lobectomy as per her sister. Patient does have right-sided neglect and expressive aphasia. Seizure disorder Iron deficiency anemia patient is on iron supplementation at home. DVT prophylaxis with SCDs. Plan: Patient will be current on IV hydration and monitor hemoglobin. Gastroenterology service was consulted for evaluation. Currently hemoglobin is stable. Continue with home regimen of antiepileptic medications. Continue with PPI and her home medications. Follow-up TSH B12 and folate levels and encourage incentive spirometry and PT OT. Continue to follow closely. Discussed with her sister at bedside in detail. Time with Patient: Greater than 30
[2021-01-20] MEDS: PANTOPRAZOLE 40 MG TABLET PO SCH (08:05)
[2021-01-20] MEDS: OLANZapine 5 MG TAB PO SCH (08:05)
[2021-01-20] MEDS: LACOSAMIDE 150 MG TABLET PO SCH (08:05)
[2021-01-20] MEDS: LORATADINE 10 MG TAB PO SCH (08:05)
[2021-01-20] MEDS: PHENYTOIN SODIUM EXTENDED 100 MG CAP PO SCH (08:05)
[2021-01-20] MEDS: SODIUM CHLORIDE 0.9% 1,000 ML IV SCH (08:06)
[2021-01-20] MEDS: DIVALPROEX ER 500 MG TAB.ER.24H PO SCH (08:06)
[2021-01-20 08:22] VITALS: BP 108/61; PULSE 62; RESP 16; TEMP 97.6
[2021-01-20] MEDS ORDERED: LOPERAMIDE 2 MG CAP PO PRN (08:47)
[2021-01-20 10:57] LABS: Basophils % (A) 0 %; Eosinophils # (A) 0.1 k/uL (0-0.7); Eosinophils % (A) 1 %; HCT 33.8 % (34.0-46.0); HGB 11.2 gm/dL (11.4-16.0); Lymphocytes % (A) 12 %; MCH 34.5 pg (25.0-35.0); MCV 104.5 fL (80.0-100.0); Macrocytosis Slight; Mean Platelet Volume 8.6; Monocytes # (A) 0.7 k/uL (0-1.0); Monocytes % (A) 8 %; Neutrophils % (A) 77 %; Platelet Count 235 k/uL (150-450); RBC 3.24 m/uL (3.80-5.40); RDW 13.1 % (11.5-15.5); WBC 7.9 k/uL (3.8-10.6)
[2021-01-20 11:16] LABS: ALT 8 U/L (4-34); AST 18 U/L (14-36); African American GFR (CKD) >90 (>60 ml/min/1.73 sqM); Albumin 2.8 g/dL (3.5-5.0); Alkaline Phosphatase 46 U/L (38-126); Anion Gap 6 mmol/L; Blood Urea Nitrogen 5 mg/dL (7-17); C Reactive Protein 5.7 mg/dL (<1.0); Calcium 8.3 mg/dL (8.4-10.2); Carbon Dioxide 22 mmol/L (22-30); Chloride 111 mmol/L (98-107); Glucose 82 mg/dL (74-99); Non-African American GFR(CKD) >90 (>60 ml/min/1.73 sqM); Potassium 3.7 mmol/L (3.5-5.1); Sodium 139 mmol/L (137-145); Total Bilirubin 0.3 mg/dL (0.2-1.3); Total Protein 5.9 g/dL (6.3-8.2)
--- NOTE | 2021-01-20 13:00 | P.PN ---
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 The patient herself has a history of colitis according to her sister who I spoke to over the phone. Her sister Rosalia is the patient's DURABLE POWER OF TRAFFIC ENUMERATOR and caregiver. She states that the patient had a bowel movement yesterday and was bright red, had complaints that her stomach hurt, she was pale and diaphoretic. She brought the patient to emergency room for further evaluation. No imaging was completed. WBC 9.6 hemoglobin 12.9 hematocrit 37 platelet count 305,000 pain are 1.0.influenza A and B not detected RSV not detected as well as COVID-19 PCR not detected.the patient has had several soft bowel movement since admitted to the hospital. They have all been brown to greenish in color. Patient denies any nausea or vomiting. She has not been complaining of any abdominal pain. Patient was afebrile. The patient's sister states her last colonoscopy was in 2008 which at that time she had a perforated colon and Colitis which led to an infection was believed to go to the brain. The patient had been following with Dr. Salmeron and has had a sigmoidoscopy which she states was normal. 01/20/2021 The patient was seen and examined lying in bed. She breakfast this morning. She denies any abdominal pain, nausea, or vomiting. She did have some loose bowels through the night however no blood. Stool testing is pending, C. difficile toxin negative. Objective - Vital Signs Vital signs: Vital Signs Temp 97.6 F 01/20/21 08:21 Pulse 62 01/20/21 08:21 Resp 16 01/20/21 08:21 BP 108/61 01/20/21 08:21 Pulse Ox 95 01/20/21 08:21 Intake & Output 01/19/21 01/20/21 01/20/21 18:59 06:59 18:59 Intake Total 240 480 Output Total 400 Balance 240 80 Intake: Oral 240 480 Output: Urine 400 Other: Voiding Method Diaper Diaper # Voids 5 2 # Bowel Movements 5 2 - Exam General appearance: The patient is alert, oriented, appears in no acute distress. HET: Head is normocephalic and atraumatic. Conjunctiva pink. Sclera anicteric. Neck: Supple without lymphadenopathy. Abdomen: Soft, nontender, nondistended with bowel sounds. No guarding or rigidity. Extremities: Normal skin color and turgor. No pedal edema Skin: No rashes, no jaundice Neurological: No focal deficits. Alert and oriented to self and place.. - Labs CBC & Chem 7: 01/20/21 10:07 01/20/21 10:07 Labs: Microbiology - Last 24 Hours (Table) 01/19/21 10:37 Stool Culture - Preliminary Stool Assessment and Plan (1) GI bleed Narrative/Plan: 66-year-old female who presented to the emergency department by her sister who had one episode of bright red blood in the toilet. Apparently the patient had been having some loose stools throughout the week and yesterday had an episode of bright red blood in the toilet with the patient complaining of abdominal pain. She had no associated nausea or vomiting. However did become pale and clammy. The report from the sister. The patient has a history in 2008 where she had colitis and underwent a colonoscopy which she had a perforated colon which led to infection and subsequent possible brain infection with seizures and had to undergo a lobectomy. The patient is under the care of her sister. She states that her last colonoscopy was done in 2008 at that time. Since then she is followed with Dr.Bawari chan since undergone a sigmoidoscopy which she states had been normal. Patient does not take any medications for colitis. She is not on any blood thinners. She has no history of peptic ulcer disease. She's had no sick contacts, fevers, or chills. The patient's sister states that they do not want to proceed with the colonoscopy unless absolutely necessary. At this time the patient has no complaints of abdominal pain. She's had no further rectal bleeding or blood in her stool. Actually she's had a couple loose brown stools since admission. Hemoglobin is stable at 10.0. We will collect stool studies. Possible etiology includes acute colitis, possibly infectious, inflammatory, or ischemic. No GI bleed noted. Patient's had several loose bowel movements however no blood. They have been green and brown. C. difficile toxin negative, stool cultures are pending. Hemoglobin is stable at 11.2. No plans on endoscopic evaluation. Current Visit: Yes Status: Acute Code(s): K92.2 - GASTROINTESTINAL HEMORRHAGE, UNSPECIFIED SNOMED Code(s): 72047464 (2) Abdominal pain Current Visit: Yes Status: Acute Code(s): R10.9 - UNSPECIFIED ABDOMINAL PAIN SNOMED Code(s): 07906551 (3) Diarrhea Narrative/Plan: C-diff and stool cultures ordered. C. diff negative, stool cultures pending. Diarrhea improving. Will add Imodium as needed. No plans on endoscopic evaluation. Current Visit: Yes Status: Acute Code(s): R19.7 - DIARRHEA, UNSPECIFIED SNOMED Code(s): 41810302 Plan: 1. Continue symptomatic and supportive care 2. Diet as tolerated 3. Continue to monitor for signs and symptoms of GI bleed 4. C. diff and stool cultures ordered. C. diff negative. 5. GI bleed likely related to acute colitis or diverticular bleed. No further bleeding noted. No plans on colonoscopy at this time. 6. Imodium 1-2 tablets every 6 hours as needed 7. Patient is cleared for discharge from gastroenterology. Patient are has a follow-up appointment set with Dr. Guevara in February. Patient's sister notified. Thank you for this consultation, we will sign off at this time. Dr. Miguel Guevaar I agree with the dictator's note, documented as a scribe by Shirley Christine.
[2021-01-22] MEDS ORDERED: FERROUS SULFATE 325 MG TAB PO SCH (09:00)
== END 2021-01-20 13:28 | disposition home or self-care (01) ==
LOC: EC 12:01 → EEVIPCON 12:01 → 5NMEDONC 18:31 → 1SOBS 18:52
PROVIDERS: ADMIT Hospitalist; ATTEND Hospitalist
DX: K92.1 Melena (principal); R19.7 Diarrhea, unspecified; R10.9 Unspecified abdominal pain; R53.1 Weakness; R63.0 Anorexia; R61 Generalized hyperhidrosis; F03.90 Unspecified dementia, unspecified severity, without behavioral disturbance, psychotic disturbance, mood disturbance, and anxiety; D50.9 Iron deficiency anemia, unspecified; R41.4 Neurologic neglect syndrome; I69.320 Aphasia following cerebral infarction; G40.909 Epilepsy, unspecified, not intractable, without status epilepticus; Z20.822 Contact with and (suspected) exposure to COVID-19; Z87.820 Personal history of traumatic brain injury; Z87.19 Personal history of other diseases of the digestive system; Z86.61 Personal history of infections of the central nervous system; Z79.899 Other long term (current) drug therapy; Z88.1 Allergy status to other antibiotic agents; Z91.040 Latex allergy status; Z71.89 Other specified counseling
CPT/HCPCS: 96361 ×4; 96374; 99285; 36415; 93005; 97162; 97166; 82747; 83880; 80053 ×2; 84443; 82607; 83605; 83735; 84484; 85025 ×2; 85610; 85730; 86140; 81001; 87324; 87045; 87046; 87636; 71045; G0378 ×3; C9113

== ENCOUNTER 2021-02-11 16:21 | Inpatient (IN) | payer MEDICARE, OTHER ==
[2021-02-11] MEDS ORDERED: SODIUM CHLORIDE 0.9% 500 ML 500 ML IV ONE (16:58)
[2021-02-11] MEDS ORDERED: ACETAMINOPHEN IV (For NPO) 1,000 MG in EMPTY BAG 1 BAG IVPB ONE (16:59)
[2021-02-11 17:13] LABS: Appearance,Urine Turbid (Clear); Bacteria,Urine Occasional /hpf; Bilirubin,Urine Negative (Negative); Blood,Urine Moderate (Negative); Budding Yeast,Urine Many /hpf; Color,Urine Yellow; Glucose,Urine (UA) Negative (Negative); Ketones,Urine Trace (Negative); Leukocyte Esterase,Urine Large (Negative); Mucus,Urine Rare /hpf; Nitrite,Urine Positive (Negative); PH, Urine 6.5 (5.0-8.0); Protein,Urine 1+ (Negative); RBC,Urine 26 /hpf (0-5); Specific Gravity,Urine 1.016 (1.001-1.035); Urobilinogen,Urine <2.0 mg/dL (<2.0); WBC,Urine >182 /hpf (0-5)
--- NOTE | 2021-02-11 17:21 | XR ---
EXAMINATION TYPE: XR chest 2V DATE OF EXAM: 02/11/2021 COMPARISON: 01/18/2021 HISTORY: 66-year-old female confusion, altered mental status TECHNIQUE: AP and lateral views FINDINGS: Heart upper limits of normal in size. Mild hyperinflation. Some focal density in the periphery of the right midlung not well-seen previously. Otherwise, no consolidation or pleural effusion. IMPRESSION: Possible underlying COPD. There is new focal density in the periphery of the right midlung not clearl y seen previously. Consider developing pneumonia. Follow-up after treatment to ensure clearance and e xclude a pulmonary nodule.
[2021-02-11] MEDS ORDERED: LEVOFLOXACIN 250MG-D5W PMX 250 MG in DEXTROSE/WATER 1 50ML.BAG IVPB STA (17:59)
[2021-02-11 18:11] LABS: Glucose,Whole Blood 106 mg/dL (75-99)
[2021-02-11 18:18] LABS: Basophils % (A) 0 %; Eosinophils % (A) 0 %; HCT 33.7 % (34.0-46.0); HGB 11.3 gm/dL (11.4-16.0); Lymphocytes # (A) 0.9 k/uL (1.0-4.8); Lymphocytes % (A) 8 %; MCH 34.4 pg (25.0-35.0); MCHC 33.6 g/dL (31.0-37.0); MCV 102.4 fL (80.0-100.0); Macrocytosis Slight; Mean Platelet Volume 8.4; Monocytes # (A) 1.1 k/uL (0-1.0); Monocytes % (A) 10 %; Neutrophils # (A) 8.7 k/uL (1.3-7.7); Neutrophils % (A) 79 %; Platelet Count 195 k/uL (150-450); RBC 3.29 m/uL (3.80-5.40); RDW 13.4 % (11.5-15.5)
[2021-02-11 18:26] LABS: INR 1.1 (<1.2); Partial Thromboplastin Time 22.2 sec (22.0-30.0); Prothrombin Time 11.2 sec (9.0-12.0)
[2021-02-11 18:32] LABS: ALT 8 U/L (4-34); AST 32 U/L (14-36); African American GFR (CKD) >90 (>60 ml/min/1.73 sqM); Albumin 3.3 g/dL (3.5-5.0); Alkaline Phosphatase 49 U/L (38-126); Anion Gap 6 mmol/L; Blood Urea Nitrogen 11 mg/dL (7-17); Calcium 8.5 mg/dL (8.4-10.2); Carbon Dioxide 24 mmol/L (22-30); Chloride 100 mmol/L (98-107); Glucose 103 mg/dL (74-99); Non-African American GFR(CKD) 78 (>60 ml/min/1.73 sqM); Potassium 3.8 mmol/L (3.5-5.1); Sodium 130 mmol/L (137-145); Total Bilirubin 0.4 mg/dL (0.2-1.3); Total Protein 6.6 g/dL (6.3-8.2)
--- NOTE | 2021-02-11 19:20 | ED ---
General Adult HPI - General Chief complaint: Altered Mental Status Stated complaint: Weakness, difficulty swallowing Time Seen by Provider: 02/11/21 16:58 Source: family, RN notes reviewed Mode of arrival: EMS Limitations: no limitations - History of Present Illness Initial comments: Patient is a 66-year-old female that presents to emergency department with global recruiter notes that she has been not acting herself lately global recruiter notes that she is weak and unable to stand up or assist with transporting. He notes that patient fell down today and she had to call EMS to help give patient back in chair and come emergency room. Guardian notes that she was recently diagnosed with a UTI but did not start antibiotics yet. Guardian notes the patient has b een having difficulty keeping medication, food and fluids down due to vomiting. Patient was febrile. Patient was otherwise well-appearing. Stereo Operator denied any other issues or complaints. - Related Data Home Medications Medication Instructions Recorded Confirmed ALPRAZolam [Xanax] 0.25 mg PO BID PRN 07/22/20 01/18/21 Divalproex ER [Depakote ER] 500 mg PO TID 07/22/20 01/18/21 Lacosamide [Vimpat] 150 mg PO BID 07/22/20 01/18/21 OLANZapine [ZyPREXA] 5 mg PO HS@0900 07/22/20 01/18/21 Phenytoin Sodium Extended 300 mg PO DAILY@0900 07/22/20 01/18/21 [Dilantin] Benzonatate [Tessalon Perles] 100 - 200 mg PO TID PRN 01/18/21 01/18/21 Ergocalciferol [Vitamin D2 (1250 1,250 mcg PO ACOSTA 01/18/21 01/18/21 Mcg = 24060 Iu)] Famotidine [Pepcid] 20 mg PO DAILY 01/18/21 01/18/21 Ferrous Sulfate [Iron (65 MG 325 mg PO DAILY 01/18/21 01/18/21 Elemental)] Fexofenadine HCl 180 mg PO DAILY 01/18/21 01/18/21 Folic Acid 0.4 mg PO DAILY 01/18/21 01/18/21 L.acidoph,Paracasei, B.lactis 1 cap PO DAILY 01/18/21 01/18/21 [Probiotic] Allergies Allergy/AdvReac Type Severity Reaction Status Date / Time cephalexin [From Keflex] Allergy Rash/Hives Verified 02/11/21 16:37 latex Allergy Rash/Hives Verified 02/11/21 16:37 Review of Systems ROS Statement: Those systems with pertinent positive or pertinent negative responses have been documented in the HPI. ROS Other: All systems not noted in ROS Statement are negative. Past Medical History Past Medical History: Seizure Disorder Additional Past Medical History / Comment(s): brain injury, perforated colon with infection, frontal lobectomy, right sided neglect, expressive aphasia, History of Any Multi-Drug Resistant Organisms: None Reported Past Surgical History: Breast Surgery Additional Past Surgical History / Comment(s): frontal lobectomy, perforated bowel. Past Psychological History: No Psychological Hx Reported Smoking Status: Never smoker Past Alcohol Use History: None Reported Past Drug Use History: None Reported General Exam Limitations: no limitations General appearance: alert, in no apparent distress Head exam: Present: atraumatic, normocephalic, normal inspection Eye exam: Present: normal appearance, PERRL, EOMI. Absent: scleral icterus, conjunctival injection, periorbital swelling ENT exam: Present: normal exam, mucous membranes moist Neck exam: Present: normal inspection. Absent: tenderness, meningismus, lymphadenopathy Respiratory exam: Present: normal lung sounds bilaterally. Absent: respiratory distress, wheezes, rales, rhonchi, stridor Cardiovascular Exam: Present: regular rate, normal rhythm, normal heart sounds. Absent: systolic murmur, diastolic murmur, rubs, gallop, clicks GI/Abdominal exam: Present: soft, normal bowel sounds. Absent: distended, tenderness, guarding, rebound, rigid Neurological exam: Present: alert Psychiatric exam: Present: normal affect, normal mood Skin exam: Present: warm, dry, intact, normal color. Absent: rash Course Vital Signs 02/11/21 02/11/21 16:38 19:00 Temperature 103.4 F H 102.0 F H Pulse Rate 82 79 Respiratory 20 18 Rate Blood Pressure 110/72 120/51 O2 Sat by Pulse 95 95 Oximetry EKG Findings - EKG Comments: EKG Findings:: Ventricular rate 81 bpm, MA interval 130 ms, QRS duration 96 ms, QTC 434 ms, normal sinus rhythm, T wave abnormality consider anterior lateral ischemia, abnormal ECG. Medical Decision Making - Medical Decision Making 66-year-old female with weakness and altered mental status per global recruiter. Labs, EKG, panel monitor, chest x-ray, 1 L normal saline, 1000 mg of IV Tylenol ordered. Patient did have a fever of 103.4. Urinalysis shows large quantities of red and white blood cells along with positive nitrates, 250 mg of IV Levaquin ordered. Guardian is leery of taking patient home due to her inability to help transfer or transport. She would rather patient standing the hospital for treatment. Case discussed with Dr. Guo, patient will be admitted. Dr. davila consulted will accept the admit. - Lab Data Result diagrams: 02/11/21 18:04 02/11/21 18:04 Lab Results 02/11/21 02/11/21 02/11/21 Range/Units 16:58 16:58 18:04 WBC 11.0 H (3.8-10.6) k/uL RBC 3.29 L (3.80-5.40) m/uL Hgb 11.3 L (11.4-16.0) gm/dL Hct 33.7 L (34.0-46.0) % MCV 102.4 H (80.0-100.0) fL MCH 34.4 (25.0-35.0) pg MCHC 33.6 (31.0-37.0) g/dL RDW 13.4 (11.5-15.5) % Plt Count 195 (150-450) k/uL MPV 8.4 Neutrophils % 79 % Lymphocytes % 8 % Monocytes % 10 % Eosinophils % 0 % Basophils % 0 % Neutrophils # 8.7 H (1.3-7.7) k/uL Lymphocytes # 0.9 L (1.0-4.8) k/uL Monocytes # 1.1 H (0-1.0) k/uL Eosinophils # 0.0 (0-0.7) k/uL Basophils # 0.0 (0-0.2) k/uL Macrocytosis Slight PT (9.0-12.0) sec INR (<1.2) APTT (22.0-30.0) sec Sodium (137-145) mmol/L Potassium (3.5-5.1) mmol/L Chloride (98-107) mmol/L Carbon Dioxide (22-30) mmol/L Anion Gap mmol/L BUN (7-17) mg/dL Creatinine (0.52-1.04) mg/dL Est GFR (CKD-EPI)AfAm (>60 ml/min/1.73 sqM) Est GFR (CKD-EPI)NonAf (>60 ml/min/1.73 sqM) Glucose (74-99) mg/dL POC Glucose (mg/dL) (75-99) mg/dL POC Glu Compliance Consultant ID Calcium (8.4-10.2) mg/dL Total Bilirubin (0.2-1.3) mg/dL AST (14-36) U/L ALT (4-34) U/L Alkaline Phosphatase (38-126) U/L Troponin I (0.000-0.034) ng/mL Total Protein (6.3-8.2) g/dL Albumin (3.5-5.0) g/dL Urine Color Yellow Urine Appearance Turbid H (Clear) Urine pH 6.5 (5.0-8.0) Ur Specific [place] 1.016 (1.001-1.035) Urine Protein 1+ H (Negative) Urine Glucose (UA) Negative (Negative) Urine Ketones Trace H (Negative) Urine Blood Moderate H (Negative) Urine Nitrite Positive H (Negative) Urine Bilirubin Negative (Negative) Urine Urobilinogen <2.0 (<2.0) mg/dL Ur Leukocyte Esterase Large H (Negative) Urine RBC 26 H (0-5) /hpf Urine WBC >182 H (0-5) /hpf Urine WBC Clumps Many H (None) /hpf Urine Bacteria Occasional H (None) /hpf Urine Mucus Rare H (None) /hpf Urine Yeast (Budding) Many H (None) /hpf Coronavirus (PCR) Not Detected (Not Detectd) 02/11/21 02/11/21 02/11/21 Range/Units 18:04 18:04 18:04 WBC (3.8-10.6) k/uL RBC (3.80-5.40) m/uL Hgb (11.4-16.0) gm/dL Hct (34.0-46.0) % MCV (80.0-100.0) fL MCH (25.0-35.0) pg MCHC (31.0-37.0) g/dL RDW (11.5-15.5) % Plt Count (150-450) k/uL MPV Neutrophils % % Lymphocytes % % Monocytes % % Eosinophils % % Basophils % % Neutrophils # (1.3-7.7) k/uL Lymphocytes # (1.0-4.8) k/uL Monocytes # (0-1.0) k/uL Eosinophils # (0-0.7) k/uL Basophils # (0-0.2) k/uL Macrocytosis PT 11.2 (9.0-12.0) sec INR 1.1 (<1.2) APTT 22.2 (22.0-30.0) sec Sodium 130 L (137-145) mmol/L Potassium 3.8 (3.5-5.1) mmol/L Chloride 100 (98-107) mmol/L Carbon Dioxide 24 (22-30) mmol/L Anion Gap 6 mmol/L BUN 11 (7-17) mg/dL Creatinine 0.80 (0.52-1.04) mg/dL Est GFR (CKD-EPI)AfAm >90 (>60 ml/min/1.73 sqM) Est GFR (CKD-EPI)NonAf 78 (>60 ml/min/1.73 sqM) Glucose 103 H (74-99) mg/dL POC Glucose (mg/dL) (75-99) mg/dL POC Glu Compliance Consultant ID Calcium 8.5 (8.4-10.2) mg/dL Total Bilirubin 0.4 (0.2-1.3) mg/dL AST 32 (14-36) U/L ALT 8 (4-34) U/L Alkaline Phosphatase 49 (38-126) U/L Troponin I <0.012 (0.000-0.034) ng/mL Total Protein 6.6 (6.3-8.2) g/dL Albumin 3.3 L (3.5-5.0) g/dL Urine Color Urine Appearance (Clear) Urine pH (5.0-8.0) Ur Specific [place] (1.001-1.035) Urine Protein (Negative) Urine Glucose (UA) (Negative) Urine Ketones (Negative) Urine Blood (Negative) Urine Nitrite (Negative) Urine Bilirubin (Negative) Urine Urobilinogen (<2.0) mg/dL Ur Leukocyte Esterase (Negative) Urine RBC (0-5) /hpf Urine WBC (0-5) /hpf Urine WBC Clumps (None) /hpf Urine Bacteria (None) /hpf Urine Mucus (None) /hpf Urine Yeast (Budding) (None) /hpf Coronavirus (PCR) (Not Detectd) 02/11/21 Range/Units 18:09 WBC (3.8-10.6) k/uL RBC (3.80-5.40) m/uL Hgb (11.4-16.0) gm/dL Hct (34.0-46.0) % MCV (80.0-100.0) fL MCH (25.0-35.0) pg MCHC (31.0-37.0) g/dL RDW (11.5-15.5) % Plt Count (150-450) k/uL MPV Neutrophils % % Lymphocytes % % Monocytes % % Eosinophils % % Basophils % % Neutrophils # (1.3-7.7) k/uL Lymphocytes # (1.0-4.8) k/uL Monocytes # (0-1.0) k/uL Eosinophils # (0-0.7) k/uL Basophils # (0-0.2) k/uL Macrocytosis PT (9.0-12.0) sec INR (<1.2) APTT (22.0-30.0) sec Sodium (137-145) mmol/L Potassium (3.5-5.1) mmol/L Chloride (98-107) mmol/L Carbon Dioxide (22-30) mmol/L Anion Gap mmol/L BUN (7-17) mg/dL Creatinine (0.52-1.04) mg/dL Est GFR (CKD-EPI)AfAm (>60 ml/min/1.73 sqM) Est GFR (CKD-EPI)NonAf (>60 ml/min/1.73 sqM) Glucose (74-99) mg/dL POC Glucose (mg/dL) 106 H (75-99) mg/dL POC Glu Compliance Consultant ID [facility] Calcium (8.4-10.2) mg/dL Total Bilirubin (0.2-1.3) mg/dL AST (14-36) U/L ALT (4-34) U/L Alkaline Phosphatase (38-126) U/L Troponin I (0.000-0.034) ng/mL Total Protein (6.3-8.2) g/dL Albumin (3.5-5.0) g/dL Urine Color Urine Appearance (Clear) Urine pH (5.0-8.0) Ur Specific [place] (1.001-1.035) Urine Protein (Negative) Urine Glucose (UA) (Negative) Urine Ketones (Negative) Urine Blood (Negative) Urine Nitrite (Negative) Urine Bilirubin (Negative) Urine Urobilinogen (<2.0) mg/dL Ur Leukocyte Esterase (Negative) Urine RBC (0-5) /hpf Urine WBC (0-5) /hpf Urine WBC Clumps (None) /hpf Urine Bacteria (None) /hpf Urine Mucus (None) /hpf Urine Yeast (Budding) (None) /hpf Coronavirus (PCR) (Not Detectd) - EKG Data -: EKG Interpreted by Me EKG shows normal: sinus rhythm Rate: normal When compared to previous EKG there are: no significant change Disposition Clinical Impression: Urinary tract infection, Fever Disposition: ADMITTED IP TO THIS [facility] Condition: Stable Is patient prescribed a controlled substance at d/c from ED?: No Referrals: Jayy Sarmiento MD [Primary Care Provider] - 1-2 days Time of Disposition: 19:22
[2021-02-11] MEDS ORDERED: NALOXONE 0.4 MG/ML 1 ML VIAL IV PRN (19:22)
[2021-02-12] MEDS: SODIUM CHLORIDE 0.9% 1,000 ML IV SCH ×3 (01:09→14:16)
[2021-02-12] MEDS: ACETAMINOPHEN IV (For NPO) 1,000 MG in EMPTY BAG 1 BAG IVPB SCH ×5 (01:13→16:51)
[2021-02-12] MEDS ORDERED: ALPRAZolam 0.25 MG TAB PO PRN (14:37)
[2021-02-12] MEDS ORDERED: ERGOCALCIFEROL 1,250 MCG (50,000 IU) CAPSULE PO SCH (15:00)
[2021-02-12] MEDS: PHENYTOIN SODIUM EXTENDED 100 MG CAP PO SCH (15:42)
[2021-02-12] MEDS: FERROUS SULFATE 325 MG TAB PO SCH (15:43)
[2021-02-12] MEDS: DIVALPROEX ER 500 MG TAB.ER.24H PO SCH ×2 (15:43→20:32)
[2021-02-12] MEDS: FAMOTIDINE 20 MG TAB PO SCH (15:43)
[2021-02-12] MEDS: LACOSAMIDE 150 MG TABLET PO SCH ×2 (15:43→20:43)
[2021-02-12] MEDS: FOLIC ACID 1 MG TAB PO SCH (15:43)
[2021-02-12] MEDS ORDERED: LACTULOSE 20 GM/30 ML CUP PO PRN (18:54)
[2021-02-12] MEDS ORDERED: ACETAMINOPHEN TAB 325 MG TAB PO PRN (18:54)
[2021-02-12] MEDS ORDERED: ONDANSETRON 4 MG/2 ML VIAL IVP PRN (18:54)
[2021-02-12] MEDS ORDERED: CALCIUM CARBONATE 500 MG CHEWABLE PO PRN (18:54)
--- NOTE | 2021-02-12 18:57 | P.HPIM ---
History of Present Illness H&P Date: 02/12/21 Chief Complaint: Tired This is a 66-year-old patient, follows with visiting physicians Dr. Sarmiento. Patient at baseline is a seizure disorder, brain injury with frontal lobectomy with right-sided neglect and expressive dysphasia. Patient presented to the ER with the algebra teacher patient has been not acting herself lately. She is weak and unable to stand up on assist with transportation. Patient fell down yesterday. When she had to call and EMS to help her get her back in a chair. Patient recently diagnosed with UTI but no started on antibiotics. Patient has been vom iting not able to keep her food and medications down. His patient herself is not a good historian. Started on antibiotics for UTI. IV fluids. Had a baseline patient had been using a walker. Recently requiring a belt. Patient's sister is the algebra teacher. Review of systems: GEN.: Tired decreased appetite EYES: None HEENT: None NECK: None RESPIRATORY: None CARDIOVASCULAR: None GASTROINTESTINAL: As above GENITOURINARY: None MUSCULOSKELETAL: Arthritis LYMPHATICS: None HEMATOLOGICAL: None PSYCHIATRY: None NEUROLOGICAL: Expressive dysphasia, uses a walker, right-sided neglect Past medical history to include: Seizure disorder, brain injury, frontal lobectomy, right-sided neglect, expressive dysphasia, uses a walker Social history: No history of smoking or alcohol. Uses a walker. 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 EYES: Pupils equal. Conjunctiva normal. HEENT: External appearance of nose and ears normal, oral cavity grossly normal. NECK: JVD not raised; masses not palpable. HEART: First and second heart sounds are normal; no edema. LUNGS: Respiratory rate normal; clear to auscultation. ABDOMEN: Soft, nontender, liver spleen not palpable, no masses palpable. PSYCH: Unable to assessl. NEUROLOGICAL: [Cranial nerves grossly intact; no facial asymmetry, expressive dysphasia LYMPHATICS: No lymph nodes palpable in the axilla and neck INVESTIGATIONS, reviewed in the clinical context: WBC 11 hemoglobin 11.3 platelets 195 sodium 1:30 potassium 3.8 creatinine 0.8 UA positive for leukoesterase, WBC, bacteria Coronavirus [PCR]: Not detected EKG tracing personally reviewed by me-normal sinus rhythm, rate 81, T-wave changes. Chest x-ray film personally reviewed by me-possible hyperinflation. 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 Normal saline. Home medications resumed. Repeat labs in the morning. Urine culture pending. Subcu Lovenox. Fall precautions. Past Medical History Past Medical History: Seizure Disorder Additional Past Medical History / Comment(s): brain injury, perforated colon with infection, frontal lobectomy, right sided neglect, expressive aphasia, History of Any Multi-Drug Resistant Organisms: C-DIFF, MRSA Date of last positivie culture/infection: [id number] MDRO Source:: . Past Surgical History: Breast Surgery Additional Past Surgical History / Comment(s): frontal lobectomy, perforated bowel. Past Anesthesia/Blood Transfusion Reactions: No Reported Reaction Past Psychological History: No Psychological Hx Reported Smoking Status: Never smoker Past Alcohol Use History: None Reported Past Drug Use History: None Reported Medications and Allergies Home Medications Medication Instructions Recorded Confirmed Type ALPRAZolam [Xanax] 0.25 mg PO BID PRN 07/22/20 02/11/21 History Divalproex ER [Depakote ER] 500 mg PO TID 07/22/20 02/11/21 History Lacosamide [Vimpat] 150 mg PO BID 07/22/20 02/11/21 History OLANZapine [ZyPREXA] 5 mg PO HS 07/22/20 02/11/21 History Phenytoin Sodium Extended 300 mg PO DAILY 07/22/20 02/11/21 History [Dilantin] Ergocalciferol [Vitamin D2 (1250 1,250 mcg PO ACOSTA 01/18/21 02/11/21 History Mcg = 13663 Iu)] Famotidine [Pepcid] 20 mg PO DAILY 01/18/21 02/11/21 History Ferrous Sulfate [Iron (65 MG 325 mg PO DAILY 01/18/21 02/11/21 History Elemental)] Fexofenadine HCl 180 mg PO DAILY 01/18/21 02/11/21 History Folic Acid 0.4 mg PO DAILY 01/18/21 02/11/21 History Mirtazapine 15 mg PO HS 02/11/21 02/11/21 History Allergies Allergy/AdvReac Type Severity Reaction Status Date / Time cephalexin [From Keflex] Allergy Rash/Hives Verified 02/11/21 19:25 latex Allergy Rash/Hives Verified 02/11/21 19:25 Physical Exam Vitals: Vital Signs Temp Pulse Pulse Resp BP BP Pulse Ox 02/12/21 13:14 97.7 F 70 16 92/59 96 02/12/21 02:00 99.7 F H 79 16 97/58 95 02/11/21 22:00 98.8 F 62 16 96/60 95 02/11/21 19:55 101.4 F H 02/11/21 19:00 102.0 F H 79 18 120/51 95 02/11/21 16:38 103.4 F H 82 20 110/72 95 Intake and Output 02/11/21 02/12/21 02/12/21 22:59 06:59 14:59 Intake Total 400 Balance 400 Intake: Intake, IV Titration 400 Amount ACETAMINOPHEN IV (For NPO 400 ) 1,000 mg In Empty Bag 1 bag @ 400 mls/hr IVPB Q6HR [facility] Rx#:[id number] Other: Voiding Method Diaper Diaper # Voids 1 1 # Bowel Movements 1 1 Weight 61.235 kg 61.235 kg Results CBC & Chem 7: 02/11/21 18:04 02/11/21 18:04 Labs: Abnormal Lab Results - Last 24 Hours (Table) 02/11/21 02/11/21 02/11/21 Range/Units 16:58 18:04 18:04 WBC 11.0 H (3.8-10.6) k/uL RBC 3.29 L (3.80-5.40) m/uL Hgb 11.3 L (11.4-16.0) gm/dL Hct 33.7 L (34.0-46.0) % MCV 102.4 H (80.0-100.0) fL Neutrophils # 8.7 H (1.3-7.7) k/uL Lymphocytes # 0.9 L (1.0-4.8) k/uL Monocytes # 1.1 H (0-1.0) k/uL Sodium 130 L (137-145) mmol/L Glucose 103 H (74-99) mg/dL POC Glucose (mg/dL) (75-99) mg/dL Albumin 3.3 L (3.5-5.0) g/dL Urine Appearance Turbid H (Clear) Urine Protein 1+ H (Negative) Urine Ketones Trace H (Negative) Urine Blood Moderate H (Negative) Urine Nitrite Positive H (Negative) Ur Leukocyte Esterase Large H (Negative) Urine RBC 26 H (0-5) /hpf Urine WBC >182 H (0-5) /hpf Urine WBC Clumps Many H (None) /hpf Urine Bacteria Occasional H (None) /hpf Urine Mucus Rare H (None) /hpf Urine Yeast (Budding) Many H (None) /hpf 02/11/21 Range/Units 18:09 WBC (3.8-10.6) k/uL RBC (3.80-5.40) m/uL Hgb (11.4-16.0) gm/dL Hct (34.0-46.0) % MCV (80.0-100.0) fL Neutrophils # (1.3-7.7) k/uL Lymphocytes # (1.0-4.8) k/uL Monocytes # (0-1.0) k/uL Sodium (137-145) mmol/L Glucose (74-99) mg/dL POC Glucose (mg/dL) 106 H (75-99) mg/dL Albumin (3.5-5.0) g/dL Urine Appearance (Clear) Urine Protein (Negative) Urine Ketones (Negative) Urine Blood (Negative) Urine Nitrite (Negative) Ur Leukocyte Esterase (Negative) Urine RBC (0-5) /hpf Urine WBC (0-5) /hpf Urine WBC Clumps (None) /hpf Urine Bacteria (None) /hpf Urine Mucus (None) /hpf Urine Yeast (Budding) (None) /hpf Microbiology - Last 24 Hours (Table) 02/11/21 16:58 Urine Culture - Preliminary Urine,Voided Thrombosis Risk Factor Assmnt - Choose All That Apply Each Risk Factor Represents 2 Points: Age 61-74 years Thrombosis Risk Factor Assessment Total Risk Factor Score: 2 Thrombosis Risk Factor Assessment Level: Low Risk
[2021-02-12] MEDS: ENOXAPARIN 40 MG/0.4 ML SYRINGE SQ SCH (20:31)
[2021-02-12] MEDS: MIRTAZAPINE 15 MG TAB PO SCH (20:32)
[2021-02-12] MEDS: OLANZapine 5 MG TAB PO SCH (20:32)
[2021-02-13] MEDS: SODIUM CHLORIDE 0.9% 1,000 ML IV SCH ×3 (02:30→11:06)
[2021-02-13 06:15] LABS: Basophils % (A) 0 %; Eosinophils % (A) 0 %; HCT 33.3 % (34.0-46.0); HGB 10.7 gm/dL (11.4-16.0); Lymphocytes # (A) 0.6 k/uL (1.0-4.8); Lymphocytes % (A) 7 %; MCH 34.4 pg (25.0-35.0); MCHC 32.2 g/dL (31.0-37.0); MCV 106.8 fL (80.0-100.0); Macrocytosis Moderate; Mean Platelet Volume 8.2; Monocytes # (A) 0.7 k/uL (0-1.0); Monocytes % (A) 8 %; Neutrophils # (A) 7.7 k/uL (1.3-7.7); Neutrophils % (A) 82 %; Platelet Count 180 k/uL (150-450); RBC 3.11 m/uL (3.80-5.40); RDW 13.2 % (11.5-15.5); WBC 9.5 k/uL (3.8-10.6)
[2021-02-13 06:43] LABS: African American GFR (CKD) >90 (>60 ml/min/1.73 sqM); Anion Gap 8 mmol/L; Blood Urea Nitrogen 9 mg/dL (7-17); Calcium 8.1 mg/dL (8.4-10.2); Carbon Dioxide 20 mmol/L (22-30); Chloride 110 mmol/L (98-107); Glucose 63 mg/dL (74-99); Non-African American GFR(CKD) >90 (>60 ml/min/1.73 sqM); Potassium 3.3 mmol/L (3.5-5.1); Sodium 138 mmol/L (137-145)
[2021-02-13] MEDS: LACOSAMIDE 150 MG TABLET PO SCH ×2 (08:48→19:21)
[2021-02-13] MEDS: PHENYTOIN SODIUM EXTENDED 100 MG CAP PO SCH (08:48)
[2021-02-13] MEDS: DIVALPROEX ER 500 MG TAB.ER.24H PO SCH ×3 (08:48→19:21)
[2021-02-13] MEDS: FAMOTIDINE 20 MG TAB PO SCH (08:48)
[2021-02-13] MEDS: FOLIC ACID 1 MG TAB PO SCH (08:48)
[2021-02-13] MEDS: FERROUS SULFATE 325 MG TAB PO SCH (08:49)
[2021-02-13] MEDS: LACTATED RINGERS 1,000 ML IV SCH (11:08)
[2021-02-13] MEDS: ENOXAPARIN 40 MG/0.4 ML SYRINGE SQ SCH (19:21)
[2021-02-13] MEDS: MIRTAZAPINE 15 MG TAB PO SCH (19:21)
[2021-02-13] MEDS: OLANZapine 5 MG TAB PO SCH (19:21)
--- NOTE | 2021-02-13 20:37 | P.PN ---
Progress Note - Text Progress Note Date: 02/13/21 Chief Complaint: Tired This is a 66-year-old patient, follows with visiting physicians Dr. Sarmiento. Patient at baseline is a seizure disorder, brain injury with frontal lobectomy with right-sided neglect and expressive dysphasia. Patient presented to the ER with the commercial baker helper patient has been not acting herself lately. She is weak and unable to stand up on assist with transportation. Patient fell down yesterday. When she had to call and EMS to help her get her back in a chair. Patient recently diagnosed with UTI but no started on antibiotics. Patient has been vomiting not able to keep her food and medications down. His patient herself is not a good historian. Started on antibiotics for UTI. IV fluids. Had a baseline patient had been using a walker. Recently requiring a belt. Patient's sister is the commercial baker helper. Admitted with acute metabolic encephalopathy from acute UTI. On IV ceftriaxone. IV fluids. February 13: Spoke to the nurse. Patient ate breakfast pretty well. Resting. IV fluids. IV ceftriaxone Review of systems: Difficult obtained Active Medications Acetaminophen (Acetaminophen Tab 325 Mg Tab) 650 mg PO Q6HR PRN PRN Reason: Mild Pain or Fever > 100.5 Alprazolam (Alprazolam 0.25 Mg Tab) 0.25 mg PO BID PRN PRN Reason: Agitation or Acute Anxiety Calcium Carbonate/Glycine (Calcium Carbonate 500 Mg Chewable) 1,000 mg PO Q4HR PRN PRN Reason: Dyspepsia Divalproex Sodium (Divalproex Er 500 Mg Tab.Er.24h) 500 mg PO TID [facility] Last Admin: 02/13/21 19:21 Dose: 500 mg Documented by: Enoxaparin Sodium (Enoxaparin 40 Mg/0.4 Ml Syringe) 40 mg SQ DAILY@1900 [facility] Last Admin: 02/13/21 19:21 Dose: 40 mg Documented by: Ergocalciferol (Ergocalciferol 1,250 Mcg (50,000 Iu) Capsule) 1,250 mcg PO ACOSTA [facility] Last Admin: 02/12/21 16:57 Dose: 1,250 mcg Documented by: Famotidine (Famotidine 20 Mg Tab) 20 mg PO DAILY [facility] Last Admin: 02/13/21 08:48 Dose: 20 mg Documented by: Ferrous Sulfate (Ferrous Sulfate 325 Mg Tab) 325 mg PO DAILY [facility] Last Admin: 02/13/21 08:49 Dose: 325 mg Documented by: Folic Acid (Folic Acid 1 Mg Tab) 0.5 mg PO DAILY [facility] Last Admin: 02/13/21 08:48 Dose: 0.5 mg Documented by: Ceftriaxone Sodium 1 gm/ (Sodium Chloride) 50 mls @ 100 mls/hr IVPB Q12HR [facility] Last Admin: 02/13/21 19:21 Dose: 100 mls/hr Documented by: Lactated Ringer's (Lactated Ringers) 1,000 mls @ 75 mls/hr IV .[id number] [facility] Last Admin: 02/13/21 11:08 Dose: 75 mls/hr Documented by: Lacosamide (Lacosamide 150 Mg Tablet) 150 mg PO BID [facility] Last Admin: 02/13/21 19:21 Dose: 150 mg Documented by: Lactulose (Lactulose 20 Gm/30 Ml Cup) 20 gm PO DAILY PRN PRN Reason: Constipation Mirtazapine (Mirtazapine 15 Mg Tab) 15 mg PO HS [facility] Last Admin: 02/13/21 19:21 Dose: 15 mg Documented by: Naloxone HCl (Naloxone 0.4 Mg/Ml 1 Ml Vial) 0.2 mg IV Q2M PRN PRN Reason: Opioid Reversal Olanzapine (Olanzapine 5 Mg Tab) 5 mg PO HS [facility] Last Admin: 02/13/21 19:21 Dose: 5 mg Documented by: Ondansetron HCl (Ondansetron 4 Mg/2 Ml Vial) 4 mg IVP Q8HR PRN PRN Reason: Nausea And Vomiting Phenytoin Sodium (Phenytoin Sodium Extended 100 Mg Cap) 300 mg PO DAILY [facility] Last Admin: 02/13/21 08:48 Dose: 300 mg Documented by: Past medical history to include: Seizure disorder, brain injury, frontal lobectomy, right-sided neglect, expressive dysphasia, uses a walker Social history: No history of smoking or alcohol. Uses a walker. 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 Conjunctiva normal. HEENT: External appearance of nose and ears normal, oral cavity grossly normal. NECK: JVD not raised; masses not palpable. HEART: First and second heart sounds are normal; no edema. LUNGS: Respiratory rate normal; clear to auscultation. ABDOMEN: Soft, nontender, liver spleen not palpable, no masses palpable. PSYCH: Unable to assessl. NEUROLOGICAL: [Cranial nerves grossly intact; no facial asymmetry, expressive dysphasia INVESTIGATIONS, reviewed in the clinical context: Urine culture: Gram-negative bacilli February 13: White count 9.5-year-old woman 10.7 potassium 3.3 sodium 138 creatinine 0.56 WBC 11 hemoglobin 11.3 platelets 195 sodium 1:30 potassium 3.8 creatinine 0.8 UA positive for leukoesterase, WBC, bacteria Coronavirus [PCR]: Not detected EKG tracing personally reviewed by me-normal sinus rhythm, rate 81, T-wave changes. Chest x-ray film personally reviewed by me-possible hyperinflation. 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 Change IV fluids to 75 mL LR. Other medications to continue. DC tomorrow.
[2021-02-13 21:20] VITALS: RESP 20
[2021-02-14] MEDS: LACTATED RINGERS 1,000 ML IV SCH ×2 (03:28→14:01)
[2021-02-14 05:10] VITALS: BP 117/69; PULSE 77; TEMP 98.3
[2021-02-14 07:34] LABS: Glucose,Whole Blood 82 mg/dL (75-99)
[2021-02-14] MEDS: PHENYTOIN SODIUM EXTENDED 100 MG CAP PO SCH (09:40)
[2021-02-14] MEDS: FERROUS SULFATE 325 MG TAB PO SCH (09:40)
[2021-02-14] MEDS: DIVALPROEX ER 500 MG TAB.ER.24H PO SCH (09:40)
[2021-02-14] MEDS: FAMOTIDINE 20 MG TAB PO SCH (09:40)
[2021-02-14] MEDS: FOLIC ACID 1 MG TAB PO SCH (09:40)
[2021-02-14] MEDS: LACOSAMIDE 150 MG TABLET PO SCH (09:40)
[2021-02-14 12:03] LABS: Glucose,Whole Blood 88 mg/dL (75-99)
--- NOTE | 2021-02-14 22:56 | P.DS ---
Providers Date of admission: 02/13/21 10:57 Expected date of discharge: 02/14/21 Attending physician: Federico Turner Primary care physician: Jayy Sarmiento [facility] Course: Chief Complaint: Tired This is a 66-year-old patient, follows with visiting physicians Dr. Sarmiento. Patient at baseline is a seizure disorder, brain injury with frontal lobectomy with right-sided neglect and expressive dysphasia. Patient presented to the ER with the loan processor patient has been not acting herself lately. She is weak and unable to stand up on assist with transportation. Patient fell down yesterday. When she had to call and EMS to help her get her back in a chair. Patient recently diagnosed with UTI but no started on antibiotics. Patient has been vomiting not able to keep her food and medications down. His patient herself is not a good historian. Started on antibiotics for UTI. IV fluids. Had a baseline patient had been using a walker. Recently requiring a belt. Patient's sister is the loan processor. Admitted with acute metabolic encephalopathy from acute UTI. On IV ceftriaxone. IV fluids. Today: Patient has responded well. Cultures came back showing E. coli. I did call the patient's sister updated her. Questions answered. Also spoke to the nurse and case management associate. Patient completed course of Levaquin at home. Discussion and discharge planning more than 35 minutes Past medical history to include: Seizure disorder, brain injury, frontal lobectomy, right-sided neglect, expressive dysphasia, uses a walker Social history: No history of smoking or alcohol. Uses a walker. [employer] sister Family history: Patient cannot tell Physical examination: VITAL SIGNS: 98.3, 77, 20, 11 7 x 69, 98% room air GENERAL: In a recliner, comfortable, awake, EYES: Pupils equal. Conjunctiva normal. HEENT: External appearance of nose and ears normal, oral cavity grossly normal. NECK: JVD not raised; masses not palpable. HEART: First and second heart sounds are normal; no edema. LUNGS: Respiratory rate normal; clear to auscultation. ABDOMEN: Soft, nontender, liver spleen not palpable, no masses palpable. PSYCH: Unable to assessl. NEUROLOGICAL: [Cranial nerves grossly intact; no facial asymmetry, expressive dysphasia INVESTIGATIONS, reviewed in the clinical context: Urine culture: E. coli February 13: White count 9.7-year-old woman 10.7 potassium 3.3 sodium 138 creatinine 0.56 WBC 11 hemoglobin 11.3 platelets 195 sodium 1:30 potassium 3.8 creatinine 0.8 UA positive for leukoesterase, WBC, bacteria Coronavirus [PCR]: Not detected EKG tracing personally reviewed by me-normal sinus rhythm, rate 81, T-wave changes. Chest x-ray film personally reviewed by me-possible hyperinflation. Assessment and plan: -Acute metabolic encephalopathy with decreased mentation at home/delirium from acute UTI: Better -Acute UTI with cystitis, from E. coli IV ceftriaxone. 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 Disposition: Home Plan - Discharge Summary Discharge Rx Participant: No New Discharge Prescriptions: New Levofloxacin [Levaquin] 250 mg PO DAILY #5 tab Continue Phenytoin Sodium Extended [Dilantin] 300 mg PO DAILY OLANZapine [ZyPREXA] 5 mg PO HS Ferrous Sulfate [Iron (65 MG Elemental)] 325 mg PO DAILY Famotidine [Pepcid] 20 mg PO DAILY Lacosamide [Vimpat] 150 mg PO BID Divalproex ER [Depakote ER] 500 mg PO TID ALPRAZolam [Xanax] 0.25 mg PO BID PRN PRN Reason: Agitation Or Acute Anxiety Ergocalciferol [Vitamin D2 (1250 Mcg = 88560 Iu)] 1,250 mcg PO ACOSTA Folic Acid 0.4 mg PO DAILY Mirtazapine 15 mg PO HS Discontinued Fexofenadine HCl 180 mg PO DAILY Discharge Medication List ALPRAZolam [Xanax] 0.25 mg PO BID PRN 07/22/20 [History] Divalproex ER [Depakote ER] 500 mg PO TID 07/22/20 [History] Lacosamide [Vimpat] 150 mg PO BID 07/22/20 [History] OLANZapine [ZyPREXA] 5 mg PO HS 07/22/20 [History] Phenytoin Sodium Extended [Dilantin] 300 mg PO DAILY 07/22/20 [History] Ergocalciferol [Vitamin D2 (1250 Mcg = 57891 Iu)] 1,250 mcg PO ACOSTA 01/18/21 [History] Famotidine [Pepcid] 20 mg PO DAILY 01/18/21 [History] Ferrous Sulfate [Iron (65 MG Elemental)] 325 mg PO DAILY 01/18/21 [History] Folic Acid 0.4 mg PO DAILY 01/18/21 [History] Mirtazapine 15 mg PO HS 02/11/21 [History] Levofloxacin [Levaquin] 250 mg PO DAILY #5 tab 02/14/21 [Rx] Follow up Appointment(s)/Referral(s): Jayy Sarmiento MD [Primary Care Provider] - 02/15/21 (office will call patient with the time for tomorrow) Discharge Disposition: HOME SELF-CARE
== END 2021-02-14 13:10 | disposition home or self-care (01) | DRG 871 ==
LOC: EC 16:21 → 5NMEDONC 19:01 → OBSVTOIN 02-13 10:57
PROVIDERS: ADMIT Hospitalist; ATTEND Hospitalist
DX: A41.9 Sepsis, unspecified organism (principal); G93.41 Metabolic encephalopathy; F05 Delirium due to known physiological condition; E87.1 Hypo-osmolality and hyponatremia; R41.4 Neurologic neglect syndrome; R47.01 Aphasia; Z20.822 Contact with and (suspected) exposure to COVID-19; N30.90 Cystitis, unspecified without hematuria; B96.20 Unspecified Escherichia coli [E. coli] as the cause of diseases classified elsewhere; R13.10 Dysphagia, unspecified; R53.1 Weakness; F51.04 Psychophysiologic insomnia; G40.909 Epilepsy, unspecified, not intractable, without status epilepticus; R26.9 Unspecified abnormalities of gait and mobility; R47.02 Dysphasia; Z79.899 Other long term (current) drug therapy; Z88.1 Allergy status to other antibiotic agents; Z91.040 Latex allergy status; Z86.14 Personal history of Methicillin resistant Staphylococcus aureus infection; Z87.19 Personal history of other diseases of the digestive system
CPT/HCPCS: 36415; 71046; 80048; 80053; 81001; 84484; 85025; 85610; 85730; 87077; 87086; 87186; 87635; 93005; 96365; 96375; 99285

== ENCOUNTER 2021-05-01 17:51 | Inpatient (IN) | payer MEDICARE, OTHER ==
[2021-05-01] MEDS ORDERED: SODIUM CHLORIDE 0.9% 1,000 ML IV STA (22:14)
[2021-05-01] MEDS ORDERED: FAMOTIDINE 20 MG/2 ML VIAL IV STA (22:15)
--- NOTE | 2021-05-01 22:17 | ED ---
General Adult HPI - General Chief complaint: Nausea/Vomiting/Diarrhea Stated complaint: dehydration & C diff Time Seen by Provider: 05/01/21 21:58 Source: patient, family, RN notes reviewed Mode of arrival: wheelchair Limitations: no limitations - History of Present Illness Initial comments: Patient is a pleasant 8 he 6-year-old female presenting to the emergency Department with diarrhea. History is taken from family as patient has history of global aphasia. Patient has been having diarrhea for months, worse the past week. Patient was recently [facility] and tested positive for C. diff. Patient was on Flagyl a month or more ago. Patient was recently started on vancomycin. This was IV and converted to oral. Patient went home 3 days ago. Symptoms have worsened since that time. Patient does have over 20 episodes of watery diarrhea in the past 24 hours. - Related Data Home Medications Medication Instructions Recorded Confirmed ALPRAZolam [Xanax] 0.25 mg PO BID PRN 07/22/20 05/01/21 Divalproex ER [Depakote ER] 500 mg PO TID 07/22/20 05/01/21 Lacosamide [Vimpat] 150 mg PO BID 07/22/20 05/01/21 OLANZapine [ZyPREXA] 5 mg PO HS 07/22/20 05/01/21 Phenytoin Sodium Extended 300 mg PO DAILY 07/22/20 05/01/21 [Dilantin] Ergocalciferol [Vitamin D2 (1250 1,250 mcg PO ACOSTA 01/18/21 05/01/21 Mcg = 47995 Iu)] Ferrous Sulfate [Iron (65 MG 325 mg PO DAILY@0700 01/18/21 05/01/21 Elemental)] Folic Acid 0.4 mg PO DAILY 01/18/21 05/01/21 Mirtazapine 15 mg PO HS 02/11/21 05/01/21 Cholestyramine (with Sugar) 4 gm PO BID PRN 05/01/21 05/01/21 [Cholestyramine Powder] Mesalamine 1,600 mg PO TID 05/01/21 05/01/21 Vancomycin HCl [Vancocin HCl] 125 mg PO Q6H 05/01/21 05/01/21 predniSONE 10 mg PO DIRECTED 05/01/21 05/01/21 Allergies Allergy/AdvReac Type Severity Reaction Status Date / Time cephalexin [From Keflex] Allergy Rash/Hives Verified 05/01/21 18:53 latex Allergy Rash/Hives Verified 05/01/21 18:53 Review of Systems ROS Statement: Those systems with pertinent positive or pertinent negative responses have been documented in the HPI. ROS Other: All systems not noted in ROS Statement are negative. Limitations: ROS unobtainable due to patients medical condition Gastrointestinal: Reports: diarrhea Past Medical History Past Medical History: Seizure Disorder Additional Past Medical History / Comment(s): brain injury, perforated colon with infection, frontal lobectomy, right sided neglect, expressive aphasia, History of Any Multi-Drug Resistant Organisms: C-DIFF, MRSA Date of last positivie culture/infection: [id number] MDRO Source:: . Past Surgical History: Breast Surgery Additional Past Surgical History / Comment(s): frontal lobectomy, perforated bowel. Past Anesthesia/Blood Transfusion Reactions: No Reported Reaction Past Psychological History: No Psychological Hx Reported Smoking Status: Never smoker Past Alcohol Use History: None Reported Past Drug Use History: None Reported General Exam Limitations: no limitations General appearance: alert, in no apparent distress Head exam: Present: normocephalic Eye exam: Present: normal appearance Neck exam: Present: normal inspection Respiratory exam: Present: normal lung sounds bilaterally Cardiovascular Exam: Present: regular rate, normal rhythm GI/Abdominal exam: Present: soft. Absent: distended, tenderness Neurological exam: Present: alert Psychiatric exam: Present: normal affect, normal mood Skin exam: Present: normal color Course Vital Signs 05/01/21 18:53 Temperature 98.2 F Pulse Rate 57 L Respiratory 18 Rate Blood Pressure 99/61 O2 Sat by Pulse 100 Oximetry Medical Decision Making - Medical Decision Making Patient reevaluated and updated. Case discussed with , who will admit covering Dr. Morales - Lab Data Result diagrams: 05/01/21 23:02 05/01/21 23:02 Lab Results 05/01/21 05/01/21 Range/Units 23:02 23:02 WBC 5.6 (3.8-10.6) k/uL RBC 3.46 L (3.80-5.40) m/uL Hgb 11.9 (11.4-16.0) gm/dL Hct 36.2 (34.0-46.0) % MCV 104.4 H (80.0-100.0) fL MCH 34.4 (25.0-35.0) pg MCHC 33.0 (31.0-37.0) g/dL RDW 14.1 (11.5-15.5) % Plt Count 300 (150-450) k/uL MPV 9.0 Neutrophils % 52 % Lymphocytes % 36 % Monocytes % 8 % Eosinophils % 1 % Basophils % 0 % Neutrophils # 2.9 (1.3-7.7) k/uL Lymphocytes # 2.0 (1.0-4.8) k/uL Monocytes # 0.5 (0-1.0) k/uL Eosinophils # 0.0 (0-0.7) k/uL Basophils # 0.0 (0-0.2) k/uL Macrocytosis Slight Sodium 128 L (137-145) mmol/L Potassium 5.1 (3.5-5.1) mmol/L Chloride 96 L (98-107) mmol/L Carbon Dioxide 26 (22-30) mmol/L Anion Gap 6 mmol/L BUN 7 (7-17) mg/dL Creatinine 0.57 (0.52-1.04) mg/dL Est GFR (CKD-EPI)AfAm >90 (>60 ml/min/1.73 sqM) Est GFR (CKD-EPI)NonAf >90 (>60 ml/min/1.73 sqM) Glucose 84 (74-99) mg/dL Calcium 8.4 (8.4-10.2) mg/dL Total Bilirubin 1.1 (0.2-1.3) mg/dL AST 45 H (14-36) U/L ALT 13 (4-34) U/L Alkaline Phosphatase 26 L (38-126) U/L Total Protein 7.2 (6.3-8.2) g/dL Albumin 3.5 (3.5-5.0) g/dL Disposition Clinical Impression: Clostridioides difficile infection, Hyponatremia Disposition: ADMITTED IP TO THIS HOSP Is patient prescribed a controlled substance at d/c from ED?: No Referrals: Jayy Sarmiento MD [Primary Care Provider] - 1-2 days Decision Time: 00:33
[2021-05-01 23:18] LABS: Basophils % (A) 0 %; Eosinophils % (A) 1 %; HCT 36.2 % (34.0-46.0); HGB 11.9 gm/dL (11.4-16.0); Lymphocytes % (A) 36 %; MCH 34.4 pg (25.0-35.0); MCV 104.4 fL (80.0-100.0); Macrocytosis Slight; Monocytes # (A) 0.5 k/uL (0-1.0); Monocytes % (A) 8 %; Neutrophils # (A) 2.9 k/uL (1.3-7.7); Neutrophils % (A) 52 %; Platelet Count 300 k/uL (150-450); RBC 3.46 m/uL (3.80-5.40); RDW 14.1 % (11.5-15.5); WBC 5.6 k/uL (3.8-10.6)
[2021-05-01 23:32] LABS: ALT 13 U/L (4-34); AST 45 U/L (14-36); African American GFR (CKD) >90 (>60 ml/min/1.73 sqM); Albumin 3.5 g/dL (3.5-5.0); Alkaline Phosphatase 26 U/L (38-126); Anion Gap 6 mmol/L; Blood Urea Nitrogen 7 mg/dL (7-17); Calcium 8.4 mg/dL (8.4-10.2); Carbon Dioxide 26 mmol/L (22-30); Chloride 96 mmol/L (98-107); Glucose 84 mg/dL (74-99); Non-African American GFR(CKD) >90 (>60 ml/min/1.73 sqM); Sodium 128 mmol/L (137-145); Total Bilirubin 1.1 mg/dL (0.2-1.3); Total Protein 7.2 g/dL (6.3-8.2)
[2021-05-01 23:36] LABS: Potassium 5.1 mmol/L (3.5-5.1)
[2021-05-02] MEDS ORDERED: NALOXONE 0.4 MG/ML 1 ML VIAL IV PRN (00:33)
[2021-05-02] MEDS ORDERED: ACETAMINOPHEN TAB 325 MG TAB PO PRN (00:33)
[2021-05-02] MEDS: SODIUM CHLORIDE 0.9% 1,000 ML IV SCH ×2 (02:05→18:06)
--- NOTE | 2021-05-02 02:50 | P.HPIM ---
History of Present Illness H&P Date: 05/02/21 The patient is a 66-year-old female with a PMH of brain injury status post frontal lobectomy and global aphasia, seizure disorder, who was brought into the emergency room by family due to complaints of diarrhea. The patient is a poor historian due to underlying aphasia, history thereby obtained from the patient's legal guardian (sister mack Ross) and from the ED physician. The sister reports that the patient was admitted to [facility] for roughly 1 week with she was diagnosed with C. diff and was discharged this past with oral antibiotics complete the course. The sister reports however that although she initially improved during the hospitalization, that she had significant episodes of diarrhea at home, with a 20+ bowel movements within a 24-hour period. There was no reports of blood in the stool or abdominal pain. She reports that her sister is at her baseline mental status. Furthermore, the patient did not endorse any additional complaints to the guardian including fever, chills, chest pain, shortness of breath, vomiting. The patient is asked last any of her complaints, the patient is unable to give any clear answers and has a very disorganized thought process. Laboratory evaluation in the emergency room was remarkable for macrocytosis of 104.4, sodium 128, chloride 96, and AST 45. Review of systems: Unable to perform due to significant aphasia Physical examination: General: non toxic, no distress, appears at stated age, normal weight Derm: no unusual rashes/lesions no unusual ecchymoses, warm, dry Head: atraumatic, normocephalic, symmetric Eyes: EOMI, no lid lag, anicteric sclera, pupils equal round reactive to light ENT: Nose and ears atraumatic, no thrush, no pharyngeal erythema Neck: No thyromegaly, no cervical lymphadenopathy, trachea midline, supple Mouth: no lip lesion, mucus membranes moist Cardiovascular: S1S2 reg, no murmur, positive posterior tibial pulse bilateral, no edema, capillary refill less than 2 seconds Lungs: CTA bilateral, no rhonchi, no rales , no accessory muscle use Abdominal: soft, nontender to palpation, no guarding, no appreciable organomegaly, normal bowel sounds Ext: no gross muscle atrophy, muscle strength 5 out of 5 in all 4 extremities grossly, no contractures, Neuro: CN II-XI grossly intact, light touch intact all 4 extremities, finger to nose within normal limits, Psych: Unable to assess, patient with disorganized thought process, not answering questions appropriately Assessment/plan C diff colitis -Continue with vancomycin 125 mg by mouth every 4 hourly -Also start metronidazole 500 mg every 8 hourly IV Hyponatremia -Suspected secondary to ongoing diarrhea -IV fluids -Monitor for now Chronic conditions: Seizure disorder -Continue home meds DVT prophylaxis -Heparin subcu The patient is admitted with an anticipated greater than 2 midnight stay for evaluation of c diff CODE STATUS: Full Code Discussed with: Patient Anticipated discharge date: 2-[address]: Home Past Medical History Past Medical History: Seizure Disorder Additional Past Medical History / Comment(s): brain injury, perforated colon with infection, frontal lobectomy, right sided neglect, expressive aphasia, History of Any Multi-Drug Resistant Organisms: C-DIFF, MRSA Date of last positivie culture/infection: [id number] MDRO Source:: . Past Surgical History: Breast Surgery Additional Past Surgical History / Comment(s): frontal lobectomy, perforated bowel. Past Anesthesia/Blood Transfusion Reactions: No Reported Reaction Past Psychological History: No Psychological Hx Reported Smoking Status: Never smoker Past Alcohol Use History: None Reported Past Drug Use History: None Reported Medications and Allergies Home Medications Medication Instructions Recorded Confirmed Type ALPRAZolam [Xanax] 0.25 mg PO BID PRN 07/22/20 05/01/21 History Divalproex ER [Depakote ER] 500 mg PO TID 07/22/20 05/01/21 History Lacosamide [Vimpat] 150 mg PO BID 07/22/20 05/01/21 History OLANZapine [ZyPREXA] 5 mg PO HS 07/22/20 05/01/21 History Phenytoin Sodium Extended 300 mg PO DAILY 07/22/20 05/01/21 History [Dilantin] Ergocalciferol [Vitamin D2 (1250 1,250 mcg PO ACOSTA 01/18/21 05/01/21 History Mcg = 60031 Iu)] Ferrous Sulfate [Iron (65 MG 325 mg PO DAILY@0700 01/18/21 05/01/21 History Elemental)] Folic Acid 0.4 mg PO DAILY 01/18/21 05/01/21 History Mirtazapine 15 mg PO HS 02/11/21 05/01/21 History Cholestyramine (with Sugar) 4 gm PO BID PRN 05/01/21 05/01/21 History [Cholestyramine Powder] Mesalamine 1,600 mg PO TID 05/01/21 05/01/21 History Vancomycin HCl [Vancocin HCl] 125 mg PO Q6H 05/01/21 05/01/21 History predniSONE 10 mg PO DIRECTED 05/01/21 05/01/21 History Allergies Allergy/AdvReac Type Severity Reaction Status Date / Time cephalexin [From Keflex] Allergy Rash/Hives Verified 05/01/21 18:53 latex Allergy Rash/Hives Verified 05/01/21 18:53 Physical Exam Vitals: Vital Signs Temp Pulse Resp BP Pulse Ox 05/02/21 00:00 61 16 94/61 96 05/01/21 18:53 98.2 F 57 L 18 99/61 100 Intake and Output 05/01/21 05/01/21 05/02/21 14:59 22:59 06:59 Other: Weight 58.967 kg Results CBC & Chem 7: 05/01/21 23:02 05/01/21 23:02 Labs: Abnormal Lab Results - Last 24 Hours (Table) 05/01/21 05/01/21 Range/Units 23:02 23:02 RBC 3.46 L (3.80-5.40) m/uL MCV 104.4 H (80.0-100.0) fL Sodium 128 L (137-145) mmol/L Chloride 96 L (98-107) mmol/L AST 45 H (14-36) U/L Alkaline Phosphatase 26 L (38-126) U/L
[2021-05-02] MEDS: metroNIDAZOLE-NS PMX 500 MG in SALINE 1 100ML.BAG IVPB SCH ×3 (06:04→19:35)
[2021-05-02] MEDS: VANCOMYCIN 125 MG CAPSULE PO SCH ×4 (07:25→21:48)
[2021-05-02 09:44] LABS: HGB 11.9 gm/dL (11.4-16.0); MCH 34.8 pg (25.0-35.0); MCHC 32.2 g/dL (31.0-37.0); Macrocytosis Moderate; Platelet Count 265 k/uL (150-450); RBC 3.43 m/uL (3.80-5.40); WBC 5.2 k/uL (3.8-10.6)
[2021-05-02 10:07] LABS: ALT 9 U/L (4-34); AST 15 U/L (14-36); African American GFR (CKD) >90 (>60 ml/min/1.73 sqM); Albumin 3.1 g/dL (3.5-5.0); Albumin/Globulin Ratio 0.9; Alkaline Phosphatase 43 U/L (38-126); Anion Gap 2 mmol/L; Blood Urea Nitrogen 5 mg/dL (7-17); Calcium 8.4 mg/dL (8.4-10.2); Carbon Dioxide 25 mmol/L (22-30); Chloride 106 mmol/L (98-107); Globulin 3.4 g/dL; Glucose 77 mg/dL (74-99); Non-African American GFR(CKD) >90 (>60 ml/min/1.73 sqM); Potassium 4.3 mmol/L (3.5-5.1); Sodium 133 mmol/L (137-145); Total Bilirubin 0.3 mg/dL (0.2-1.3); Total Protein 6.5 g/dL (6.3-8.2)
--- NOTE | 2021-05-02 10:38 | P.CONS ---
History of Present Illness - Reason for Consult Consult date: 05/02/21 C. diff Requesting physician: Crow Rinaldi - Chief Complaint Diarrhea - History of Present Illness This is 66-year-old female who has a history of a brain injury status post perforated colon and infection in 2008. She came in with complaints of diarrhea. History is obtained mostly from chart as there is no caregiver at the bedside. The patient's sister Ibeth Silver is her legal guardian. Per the chart the patient has had diarrhea for the last several weeks. He was recently admitted at the [facility] and was reportedly diagnosed with C. difficile toxin and treated. She was discharged home a few days ago and initially had improvement however she had finished her medication and the diarrhea resumed. Reportedly going up to 20 times a day. Reports of blood in her stool. She does not report any abdominal pain, nausea or vomiting. Stool sample has not been sent yet as ordered. He has been afebrile. Review of Systems ROS unobtainable: due to mental status (Patient has history of brain injury) Past Medical History Past Medical History: Seizure Disorder Additional Past Medical History / Comment(s): brain injury, perforated colon with infection, frontal lobectomy, right sided neglect, expressive aphasia, History of Any Multi-Drug Resistant Organisms: C-DIFF, MRSA Year Discovered:: [id number] MDRO Source:: . Past Surgical History: Breast Surgery Additional Past Surgical History / Comment(s): frontal lobectomy, perforated bowel. Past Anesthesia/Blood Transfusion Reactions: No Reported Reaction Past Psychological History: No Psychological Hx Reported Smoking Status: Never smoker Past Alcohol Use History: None Reported Past Drug Use History: None Reported Medications and Allergies Home Medications Medication Instructions Recorded Confirmed Type ALPRAZolam [Xanax] 0.25 mg PO BID PRN 07/22/20 05/01/21 History Divalproex ER [Depakote ER] 500 mg PO TID 07/22/20 05/01/21 History Lacosamide [Vimpat] 150 mg PO BID 07/22/20 05/01/21 History OLANZapine [ZyPREXA] 5 mg PO HS 07/22/20 05/01/21 History Phenytoin Sodium Extended 300 mg PO DAILY 07/22/20 05/01/21 History [Dilantin] Ergocalciferol [Vitamin D2 (1250 1,250 mcg PO ACOSTA 01/18/21 05/01/21 History Mcg = 00054 Iu)] Ferrous Sulfate [Iron (65 MG 325 mg PO DAILY@0700 01/18/21 05/01/21 History Elemental)] Folic Acid 0.4 mg PO DAILY 01/18/21 05/01/21 History Mirtazapine 15 mg PO HS 02/11/21 05/01/21 History Cholestyramine (with Sugar) 4 gm PO BID PRN 05/01/21 05/01/21 History [Cholestyramine Powder] Mesalamine 1,600 mg PO TID 05/01/21 05/01/21 History Vancomycin HCl [Vancocin HCl] 125 mg PO Q6H 05/01/21 05/01/21 History predniSONE See Taper PO DIRECTED 05/01/21 05/01/21 History Allergies Allergy/AdvReac Type Severity Reaction Status Date / Time cephalexin [From Keflex] Allergy Rash/Hives Verified 05/01/21 18:53 latex Allergy Rash/Hives Verified 05/01/21 18:53 Physical Exam Vitals: Vital Signs Temp Pulse Resp BP Pulse Ox 05/02/21 00:00 61 16 94/61 96 05/01/21 18:53 98.2 F 57 L 18 99/61 100 Intake and Output 05/01/21 05/02/21 05/02/21 22:59 06:59 14:59 Other: Weight 58.967 kg General appearance: The patient is alert, oriented, appears in no acute distress. HET: Head is normocephalic and atraumatic. Conjunctiva pink. Sclera anicteric. Neck: Supple without lymphadenopathy. Trachea midline. Heart: S1 S2. Regular rate and rhythm. Lungs: Clear to auscultation. Abdomen: Soft, diffuse tenderness, nondistended with bowel sounds. No guarding or rigidity. Skin: No rashes. No jaundice. Extremities: Normal skin color and turgor. No pedal edema. Neurological: No focal deficits. Alert and oriented x3. Results CBC & Chem 7: 05/02/21 09:23 05/02/21 09:23 Labs: Abnormal Lab Results - Last 24 Hours (Table) 05/01/21 05/01/21 Range/Units 23:02 23:02 RBC 3.46 L (3.80-5.40) m/uL MCV 104.4 H (80.0-100.0) fL Sodium 128 L (137-145) mmol/L Chloride 96 L (98-107) mmol/L AST 45 H (14-36) U/L Alkaline Phosphatase 26 L (38-126) U/L Assessment and Plan (1) Diarrhea Narrative/Plan: A 66-year-old female who presented to the emergency department with complaints of diarrhea. Apparently patient reportedly was at [facility] and was diagnosed with C. difficile toxin and was started on Flagyl and vancomycin. Patient was discharged a few days ago according to the chart which her sister had reportedly stated improved initially but then again returned. Apparently patient has been going to the bathroom up to 20 times a day, loose stool nonbloody. The patient does have a history of brain injury status post perforated colon following colonoscopy and infection in 2008. Stool C. diff has been ordered but uncollected at this time. Will also order stool cultures. Continue with vancomycin and Flagyl as ordered. Current Visit: No Status: Acute Code(s): R19.7 - DIARRHEA, UNSPECIFIED SNOMED Code(s): 17149283 (2) Hyponatremia Current Visit: Yes Status: Acute Code(s): E87.1 - HYPO-OSMOLALITY AND HYPONATREMIA SNOMED Code(s): 83332482 Plan: 1. Continue symptomatic and supportive care 2. Stool culture and C. Diff ordered, please obtain 3. Continue Flagyl and vancomycin as ordered 4. Diet as tolerated Thank you for this consultation, we will continue to follow. Dr. Miguel Guevara I agree with the dictator's note, documented as a scribe by Shirley Christine.
[2021-05-02] MEDS: FOLIC ACID 1 MG TAB PO SCH (11:47)
[2021-05-02] MEDS: LACOSAMIDE 150 MG TABLET PO SCH ×2 (11:47→22:26)
[2021-05-02] MEDS: PHENYTOIN SODIUM EXTENDED 100 MG CAP PO SCH (11:47)
[2021-05-02] MEDS: HEPARIN SODIUM,PORCINE/PF 5,000 UNIT/0.5 ML SYRINGE SQ SCH ×2 (11:48→19:34)
[2021-05-02] MEDS: DIVALPROEX ER 500 MG TAB.ER.24H PO SCH ×3 (11:48→22:26)
--- NOTE | 2021-05-02 18:05 | P.PN ---
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 diff, and MRSA. Patient was brought to the hospital by family on 05/02/21 for chief complaint of diarrhea. It was reported that patient underwent recent admission at [facility] for C. diff and was discharged on and completed course of oral antibiotics. Family reported slight improvement during hospitalization but states after patient returned home she continued with significant episodes of diarrhea. In the emergency department patient was found to have hyponatremia with sodium of 128, hypochloremia with chloride of 96, slightly elevated AST of 45. Patient was started on IV Flagyl and oral vancomycin and admitted under services with consultation to GI. Review of systems: Pertinent positives and negatives as discussed in HPI, a complete review of systems was performed and all other systems are negative. Physical exam: Vital signs reviewed and stable. General: Nontoxic, no distress and appears stated age. Derm: Skin warm and dry, normal coloration for ethnicity. Head: Atraumatic, normocephalic and symmetric. Eyes: EOMs intact, no lid lag, and anicteric sclera Mouth: no lip lesions, mucus membranes moist Cardiovascular: regular rate and rhythm with normal S1S2, no murmur, positive posterior tibial pulses bilaterally, and cap refill < 2 seconds. Lungs: Respirations even, regular, and unlabored on room air. Lungs CTA bilaterally, no rhonchi, no rales, no wheezing, and no accessory muscle usage. Abdominal: soft, nontender to palpation, no guarding, no appreciable organomegaly Ext: ROM intact. No gross muscle atrophy, no edema, no contractures Neuro: Patient with history of TBI resulting in mental delays and global aphasia. Psych: Alert and awake, history of TBI resulting in mental delays and global aphasia Assessment and Plan of Care: Clostridium difficile colitis Continue with oral vancomycin and IV Flagyl Gentle hydration with IV fluids Hyponatremia Hypochloremia Continue gentle hydration with IV fluids History of TBI and seizure disorder -Seizure precautions -Continue daily medication regimen with Vimpat, Dilantin and Depakote. -Safe and supportive care and assistance as needed. CODE STATUS: Full code DVT prophylaxis: Heparin Discussed with: Patient and RN Anticipated discharge date: Clinical course to determine Anticipated discharge place: Home A total of 39 minutes was spent on the care of this complex patient more than 50% of the time was spent in counseling and care coordination. Objective - Vital Signs Vital signs: Vital Signs Temp 98.2 F 05/01/21 18:53 Pulse 61 05/02/21 00:00 Resp 16 05/02/21 00:00 BP 94/61 05/02/21 00:00 Pulse Ox 96 05/02/21 00:00 Intake & Output 05/01/21 05/02/21 05/02/21 18:59 06:59 18:59 Weight 58.967 kg - Labs CBC & Chem 7: 05/02/21 09:23 05/02/21 09:23 Labs: Abnormal Lab Results - Last 24 Hours (Table) 05/01/21 05/01/21 Range/Units 23:02 23:02 RBC 3.46 L (3.80-5.40) m/uL MCV 104.4 H (80.0-100.0) fL Sodium 128 L (137-145) mmol/L Chloride 96 L (98-107) mmol/L AST 45 H (14-36) U/L Alkaline Phosphatase 26 L (38-126) U/L <Johan Verma - Last Filed: 05/02/21 18:46> Subjective I reviewed the documentation as provided by the AZAM above, who is the original author of this note. I agree with the documented assessment and plan, with the following changes: None Objective - Vital Signs Vital signs: Vital Signs Temp 98.4 F 05/02/21 11:52 Pulse 60 05/02/21 17:36 Resp 18 05/02/21 17:36 BP 92/65 05/02/21 17:36 Pulse Ox 100 05/02/21 17:36 Intake & Output 05/01/21 05/02/21 05/02/21 18:59 06:59 18:59 Weight 58.967 kg - Labs CBC & Chem 7: 05/02/21 09:23 05/02/21 09:23 Labs: Abnormal Lab Results - Last 24 Hours (Table) 05/01/21 05/01/21 05/02/21 Range/Units 23:02 23:02 09:23 RBC 3.46 L 3.43 L (3.80-5.40) m/uL MCV 104.4 H 108.0 H (80.0-100.0) fL Sodium 128 L (137-145) mmol/L Chloride 96 L (98-107) mmol/L BUN (7-17) mg/dL AST 45 H (14-36) U/L Alkaline Phosphatase 26 L (38-126) U/L Albumin (3.5-5.0) g/dL 05/02/21 Range/Units 09:23 RBC (3.80-5.40) m/uL MCV (80.0-100.0) fL Sodium 133 L (137-145) mmol/L Chloride (98-107) mmol/L BUN 5 L (7-17) mg/dL AST (14-36) U/L Alkaline Phosphatase (38-126) U/L Albumin 3.1 L (3.5-5.0) g/dL
[2021-05-02] MEDS: OLANZapine 5 MG TAB PO SCH (21:48)
[2021-05-02] MEDS: MIRTAZAPINE 15 MG TAB PO SCH (21:48)
[2021-05-03] MEDS: HEPARIN SODIUM,PORCINE/PF 5,000 UNIT/0.5 ML SYRINGE SQ SCH ×4 (00:07→23:09)
[2021-05-03] MEDS: metroNIDAZOLE-NS PMX 500 MG in SALINE 1 100ML.BAG IVPB SCH ×3 (02:01→18:53)
[2021-05-03] MEDS: VANCOMYCIN 125 MG CAPSULE PO SCH ×4 (02:01→20:43)
[2021-05-03] MEDS: SODIUM CHLORIDE 0.9% 1,000 ML IV SCH ×2 (02:02→17:10)
[2021-05-03] MEDS: DIVALPROEX ER 500 MG TAB.ER.24H PO SCH ×3 (09:21→21:09)
[2021-05-03] MEDS: LACOSAMIDE 150 MG TABLET PO SCH ×2 (09:22→20:43)
[2021-05-03] MEDS: FOLIC ACID 1 MG TAB PO SCH (09:22)
[2021-05-03 09:31] LABS: Basophils # (A) 0.01 X 10*3/uL (0.00-0.10); Basophils % (A) 0.2 %; Eosinophils # (A) 0.04 X 10*3/uL (0.04-0.35); Eosinophils % (A) 0.8 %; HCT 30.6 % (37.2-46.3); HGB 9.8 g/dL (12.0-15.0); Immature Grans, Automated 0.2 %; Lymphocytes # (A) 1.63 X 10*3/uL (0.90-5.00); Lymphocytes % (A) 32.5 %; MCH 33.4 pg (27.0-32.0); MCV 104.4 fL (80.0-97.0); Mean Platelet Volume 11.3 fL (9.5-12.2); Monocytes # (A) 0.51 X 10*3/uL (0.20-1.00); Monocytes % (A) 10.2 %; NRBC Per 100 WBC 0 /100 WBCS (0.0-0.0); Neutrophils # (A) 2.81 X 10*3/uL (1.80-7.70); Neutrophils % (A) 56.1 %; Platelet Count 212 X 10*3/uL (140-440); RBC 2.93 X 10*6/uL (4.10-5.20); RDW 13.5 % (11.5-14.5); WBC 5.01 X 10*3/uL (4.50-10.00)
[2021-05-03 09:43] LABS: BUN/Creat Ratio 6.05 Ratio (12.00-20.00)
[2021-05-03 09:44] LABS: African American GFR (CKD) 113.9 (60.0-200.0); Anion Gap 8.4 mmol/L (10.00-18.00); Blood Urea Nitrogen 3.4 mg/dL (9.0-27.0); Carbon Dioxide 22.1 mmol/L (20.0-27.5); Non-African American GFR(CKD) 98.3 (60.0-200.0)
--- NOTE | 2021-05-03 09:58 | P.PN ---
Subjective Progress Note Date: 05/03/21 Principal diagnosis: Diarrhea 66-year-old female who presented to the emergency department with complaints of ongoing diarrhea. Apparently the patient had recently been admitted to [facility] and diagnosed with C. difficile toxin. Most of the history has been obtained from the chart as patient has brain injury and is unable to answer questions appropriately. It is believed that the patient had been discharged 4-5 days ago on vancomycin and went home with improved diarrhea but then diarrhea continued and she was having up to 20 episodes a day. She has reported one bowel movement today. She is denying any nausea or vomiting. No abdominal pain. Objective - Vital Signs Vital signs: Vital Signs Temp 98.0 F 05/03/21 04:54 Pulse 66 05/03/21 04:54 Resp 18 05/03/21 04:54 BP 95/56 05/03/21 04:54 Pulse Ox 95 05/03/21 04:54 Intake & Output 05/02/21 05/03/21 05/03/21 18:59 06:59 18:59 Intake Total 1100 Balance 1100 Weight 58.967 kg Intake: Intake, IV Titration 700 Amount Sodium Chloride 0.9% 1, 600 000 ml @ 75 mls/hr IV . [id number] REUBEN Rx#:[id number] metroNIDAZOLE-NS PMX 500 100 mg In Saline 1 100ml.bag @ 100 mls/hr IVPB Q8H REUBEN Rx#:[id number] Oral 400 Other: Voiding Method Toilet # Voids 3 # Bowel Movements 1 1 - Exam General appearance: The patient is alert, oriented, appears in no acute distress. HET: Head is normocephalic and atraumatic. Conjunctiva pink. Sclera anicteric. Neck: Supple without lymphadenopathy. Abdomen: Soft, mild lower abdominal tenderness, nondistended with bowel sounds. No guarding or rigidity. Extremities: Normal skin color and turgor. No pedal edema Skin: No rashes, no jaundice Neurological: No focal deficits. Alert and oriented x3. - Labs CBC & Chem 7: 05/03/21 05:48 05/03/21 05:48 Labs: Abnormal Lab Results - Last 24 Hours (Table) 05/02/21 05/03/21 05/03/21 Range/Units 09:23 05:48 05:48 RBC 2.93 L (4.10-5.20) X 10*6/uL Hgb 9.8 L (12.0-15.0) g/dL Hct 30.6 L (37.2-46.3) % MCV 104.4 H (80.0-97.0) fL MCH 33.4 H (27.0-32.0) pg Sodium 133 L (137-145) mmol/L Anion Gap 8.40 L (10.00-18.00) mmol/L BUN 5 L 3.4 L (7-17) mg/dL BUN/Creatinine Ratio 6.05 L (12.00-20.00) Ratio Calcium 8.0 L (8.7-10.3) mg/dL Albumin 3.1 L (3.5-5.0) g/dL Microbiology - Last 24 Hours (Table) 05/02/21 08:53 Stool Culture - Preliminary Stool Assessment and Plan (1) Diarrhea Narrative/Plan: A 66-year-old female who presented to the emergency department with complaints of diarrhea. Apparently patient reportedly was at [facility] and was diagnosed with C. difficile toxin and was started on Flagyl and vancomycin. Patient was discharged a few days ago according to the chart which her sister had reportedly stated improved initially but then again returned. Apparently patient has been going to the bathroom up to 20 times a day, loose stool nonbloody. The patient does have a history of brain injury status post perfora sruthi colon following colonoscopy and infection in 2008. Stool C. diff has been ordered but uncollected at this time. Will also order stool cultures. Continue with vancomycin and Flagyl as ordered. Current Visit: No Status: Acute Code(s): R19.7 - DIARRHEA, UNSPECIFIED SNOMED Code(s): 08663805 (2) Hyponatremia Current Visit: Yes Status: Acute Code(s): E87.1 - HYPO-OSMOLALITY AND HYPONATREMIA SNOMED Code(s): 96177217 Plan: 1. Continue symptomatic and supportive care 2. Stool cultures pending, C. diff negative 3. Continue Flagyl and vancomycin as ordered 4. Diet as tolerated 5. Collect stool lactoferrin Thank you for this consultation, we will continue to follow. Dr. Miguel Guevara I agree with the dictator's note, documented as a scribe by Shirley Christine.
[2021-05-03] MEDS: PHENYTOIN SODIUM EXTENDED 100 MG CAP PO SCH (12:35)
--- NOTE | 2021-05-03 18:14 | P.PN ---
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 diff, and MRSA. Patient was brought to the hospital by family on 05/02/21 for chief complaint of diarrhea. It was reported that patient underwent recent admission at [facility] for C. diff and was discharged on and completed course of oral antibiotics. Family reported slight improvement during hospitalization but states after patient returned home she continued with significant episodes of diarrhea. In the emergency department patient was found to have hyponatremia with sodium of 128, hypochloremia with chloride of 96, slightly elevated AST of 45. Patient was started on IV Flagyl and oral vancomycin and admitted under services with consultation to GI. Physical exam: Patient seen and fully evaluated at the bedside this morning. She remains on IV Flagyl and oral vancomycin. Patient continues to have episodes of diarrhea, but RN reports it is improving and stool is no longer liquid and beginning to have consistency. Patient appeared comfortable and denied having any complaints, she did not show any signs of pain upon palpation of abdomen. Vital signs reviewed and stable. General: Nontoxic, no distress and appears stated age. Derm: Skin warm and dry, normal coloration for ethnicity. Head: Atraumatic, normocephalic and symmetric. Eyes: EOMs intact, no lid lag, and anicteric sclera Mouth: no lip lesions, mucus membranes moist Cardiovascular: regular rate and rhythm with normal S1S2, no murmur, positive posterior tibial pulses bilaterally, and cap refill < 2 seconds. Lungs: Respirations even, regular, and unlabored on room air. Lungs CTA bilaterally, no rhonchi, no rales, no wheezing, and no accessory muscle usage. Abdominal: soft, nontender to palpation, no guarding, no appreciable organomegaly Ext: ROM intact. No gross muscle atrophy, no edema, no contractures Neuro: Patient with history of TBI resulting in mental delays and global aphasia. Psych: Alert and awake, history of TBI resulting in mental delays and global aphasia Assessment and Plan of Care: Diarrhea -Clostridium difficile negative -Continue with oral vancomycin and IV Flagyl -Continue Gentle hydration with IV fluids -Stool cultures and lactoferrin pending Hyponatremia, Resolved with IV fluid hydration Hypochloremia, Resolved with IV fluid hydration History of TBI and seizure disorder -Seizure precautions -Continue daily medication regimen with Vimpat, Dilantin and Depakote. -Safe and supportive care and assistance as needed. CODE STATUS: Full code DVT prophylaxis: Heparin Discussed with: Patient, RN and case management plan discussed with patient's sister Anticipated discharge date: Clinical course to determine Anticipated discharge place: Home A total of 35 minutes was spent on the care of this complex patient more than 50% of the time was spent in counseling and care coordination. I reviewed the documentation as provided by the AZAM above, who is the original author of this note. I agree with the documented assessment and plan, with the following changes: None Objective - Vital Signs Vital signs: Vital Signs Temp 97.6 F 05/03/21 11:17 Pulse 61 05/03/21 11:17 Resp 18 05/03/21 11:17 BP 97/58 05/03/21 11:17 Pulse Ox 97 05/03/21 11:17 Intake & Output 05/02/21 05/03/21 05/03/21 18:59 06:59 18:59 Intake Total 1100 Balance 1100 Weight 58.967 kg Intake: Intake, IV Titration 700 Amount Sodium Chloride 0.9% 1, 600 000 ml @ 75 mls/hr IV . [id number] REUBEN Rx#:[id number] metroNIDAZOLE-NS PMX 500 100 mg In Saline 1 100ml.bag @ 100 mls/hr IVPB Q8H REUBEN Rx#:[id number] Oral 400 Other: Voiding Method Toilet Toilet # Voids 3 1 # Bowel Movements 1 1 - Labs CBC & Chem 7: 05/03/21 05:48 05/03/21 05:48 Labs: Abnormal Lab Results - Last 24 Hours (Table) 05/03/21 05/03/21 Range/Units 05:48 05:48 RBC 2.93 L (4.10-5.20) X 10*6/uL Hgb 9.8 L (12.0-15.0) g/dL Hct 30.6 L (37.2-46.3) % MCV 104.4 H (80.0-97.0) fL MCH 33.4 H (27.0-32.0) pg Anion Gap 8.40 L (10.00-18.00) mmol/L BUN 3.4 L (9.0-27.0) mg/dL BUN/Creatinine Ratio 6.05 L (12.00-20.00) Ratio Calcium 8.0 L (8.7-10.3) mg/dL Microbiology - Last 24 Hours (Table) 05/02/21 08:53 Stool Culture - Preliminary Stool
[2021-05-03] MEDS: MIRTAZAPINE 15 MG TAB PO SCH (20:43)
[2021-05-03] MEDS: OLANZapine 5 MG TAB PO SCH (20:43)
[2021-05-04] MEDS: VANCOMYCIN 125 MG CAPSULE PO SCH ×4 (02:22→22:09)
[2021-05-04] MEDS: metroNIDAZOLE-NS PMX 500 MG in SALINE 1 100ML.BAG IVPB SCH ×2 (02:23→11:10)
[2021-05-04] MEDS: SODIUM CHLORIDE 0.9% 1,000 ML IV SCH ×2 (05:22→18:03)
[2021-05-04] MEDS: HEPARIN SODIUM,PORCINE/PF 5,000 UNIT/0.5 ML SYRINGE SQ SCH ×3 (07:50→23:33)
[2021-05-04] MEDS: PHENYTOIN SODIUM EXTENDED 100 MG CAP PO SCH (07:51)
[2021-05-04] MEDS: FOLIC ACID 1 MG TAB PO SCH (07:51)
[2021-05-04] MEDS: DIVALPROEX ER 500 MG TAB.ER.24H PO SCH ×3 (07:51→22:08)
[2021-05-04] MEDS: LACOSAMIDE 150 MG TABLET PO SCH ×2 (07:51→22:08)
[2021-05-04] MEDS ORDERED: PSYLLIUM HUSK 100% 6 GM PACKET PO SCH (11:00)
[2021-05-04] MEDS: HYDROCORTISONE 2.5% RECTAL CREAM 30 GM TUBE RECTAL SCH ×2 (11:09→21:00)
--- NOTE | 2021-05-04 14:39 | P.PN ---
Subjective Progress Note Date: 05/04/21 Principal diagnosis: Diarrhea 66-year-old female who presented to the emergency department with complaints of ongoing diarrhea. Apparently the patient had recently been admitted to [facility] and diagnosed with C. difficile toxin. The patient has actually a history of chronic diarrhea over the last 15 years. She has a history of colon perforation status post colonoscopy in 2008 and then suffered infection and seizures causing brain injury. Spoke to her sister who said that her diarrhea is worse at night. She went to the [facility] because she had continued episodes of diarrhea up to 20 times in one day. When she was diagnosed at that time with C. diff. Started on vancomycin. Patient states she was on vancomycin for one week at the hospital and discharged home again on vancomycin she was out of it for 1 day but other than that had been taking it. She was home for 3 days and then started having diarrhea worsening so she presented back to the emergency department. Today the patient denies any pain. She has no nausea or vomiting. She is only had one small amount of loose stool. She's been afebrile. Her C. diff did come back negative at this hospital. Objective - Vital Signs Vital signs: Vital Signs Temp 98.1 F 05/04/21 05:00 Pulse 68 05/04/21 05:00 Resp 16 05/04/21 05:00 BP 95/55 05/04/21 05:00 Pulse Ox 97 05/04/21 05:00 Intake & Output 05/03/21 05/04/21 05/04/21 18:59 06:59 18:59 Intake Total 1340 Balance 1340 Intake: Intake, IV Titration 740 Amount Sodium Chloride 0.9% 1, 640 000 ml @ 75 mls/hr IV . [id number] REUBEN Rx#:[id number] metroNIDAZOLE-NS PMX 500 100 mg In Saline 1 100ml.bag @ 100 mls/hr IVPB Q8H REUBEN Rx#:[id number] Oral 600 Other: Voiding Method Toilet Toilet # Voids 4 3 # Bowel Movements 3 3 - Exam General appearance: The patient is alert, oriented, appears in no acute distress. HET: Head is normocephalic and atraumatic. Conjunctiva pink. Sclera anicteric. Neck: Supple without lymphadenopathy. Abdomen: Soft, mild lower abdominal tenderness, nondistended with bowel sounds. No guarding or rigidity. Extremities: Normal skin color and turgor. No pedal edema Skin: No rashes, no jaundice Neurological: No focal deficits. Alert and oriented x3. - Labs CBC & Chem 7: 05/03/21 05:48 05/03/21 05:48 Assessment and Plan (1) Diarrhea Narrative/Plan: A 66-year-old female who presented to the emergency department with complaints of diarrhea. Apparently patient reportedly was at [facility] and was diagnosed with C. difficile toxin and was started on Flagyl and vancomycin. Patient was discharged a few days ago according to the chart which her sister had reportedly stated improved initially but then again returned. Apparently patient has been going to the bathroom up to 20 times a day, loose stool nonbloody. The patient does have a history of brain injury status post perforated colon following colonoscopy and infection in 2008. Stool C. diff has been ordered but uncollected at this time. Will also order stool cultures. Continue with vancomycin and Flagyl as ordered. Current Visit: No Status: Acute Code(s): R19.7 - DIARRHEA, UNSPECIFIED S NOMED Code(s): 28843689 (2) Hyponatremia Current Visit: Yes Status: Acute Code(s): E87.1 - HYPO-OSMOLALITY AND HYPONATREMIA SNOMED Code(s): 53376155 Plan: 1. Continue symptomatic and supportive care 2. Stool cultures pending, C. diff negative 3. Continue Flagyl and vancomycin as ordered 4. Diet as tolerated 5. Collect stool lactoferrin 6. Will add Questran daily 7. No plans on endoscopic evaluation at this time 8. If diarrhea continues to stay improved patient can be discharged with outpatient follow-up. Thank you for this consultation, we will continue to follow. Dr. Miguel Guevara I agree with the dictator's note, documented as a scribe by Shirley Christine.
[2021-05-04] MEDS: CHOLESTYRAMINE (WITH SUGAR) 4 GM PACKET PO SCH ×2 (16:16→20:59)
--- NOTE | 2021-05-04 16:31 | P.PN ---
Progress Note - Text Progress Note Date: 05/04/21 Hospital course: This is a 66-year-old patient, follows with visiting physicians Dr. Sarmiento. Marybel garcia at baseline has seizure disorder, brain injury with frontal lobectomy with right-sided neglect and expressive dysphasia. Patient was brought to the hospital by family on 05/02/21 for chief complaint of diarrhea. It was reported that patient underwent recent admission at [facility] for C. diff and was discharged on and completed course of oral antibiotics. Family reported slight improvement during hospitalization but states after patient returned home she continued with significant episodes of diarrhea. In the emergency department patient was found to have hyponatremia with sodium of 128, hypochloremia with chloride of 96, slightly elevated AST of 45. Patient was started on IV Flagyl and oral vancomycin and admitted under services with consultation to GI. May 04: I assumed care of the patient today. Patient had about BMs last night. On this afternoon. I added Metamucil to bulk from stool. Patient had about 50% of her breakfast. Tired. Active Medications Acetaminophen (Acetaminophen Tab 325 Mg Tab) 650 mg PO Q6HR PRN PRN Reason: Mild Pain or Fever > 100.5 Cholestyramine Resin (Cholestyramine (With Sugar) 4 Gm Packet) 4 gm PO ACHS [facility] Last Admin: 05/04/21 16:16 Dose: 4 gm Documented by: Divalproex Sodium (Divalproex Er 500 Mg Tab.Er.24h) 500 mg PO TID [facility] Last Admin: 05/04/21 16:16 Dose: 500 mg Documented by: Folic Acid (Folic Acid 1 Mg Tab) 0.5 mg PO DAILY [facility] Last Admin: 05/04/21 07:51 Dose: 0.5 mg Documented by: Heparin Sodium (Porcine) (Heparin Sodium,Porcine/Pf 5,000 Unit/0.5 Ml Syringe) 5,000 unit SQ Q8HR [facility] Last Admin: 05/04/21 16:16 Dose: 5,000 unit Documented by: Hydrocortisone (Hydrocortisone 2.5% Rectal Cream 30 Gm Tube) 1 applic RECTAL BID [facility] Last Admin: 05/04/21 11:09 Dose: 1 applic Documented by: Sodium Chloride (Saline 0.9%) 1,000 mls @ 75 mls/hr IV .[id number] [facility] Last Admin: 05/04/21 05:22 Dose: 75 mls/hr Documented by: Metronidazole 500 mg/ IV (Solution) 100 mls @ 100 mls/hr IVPB Q8H REUBEN; Protocol Last Admin: 05/04/21 11:10 Dose: 100 mls/hr Documented by: Lacosamide (Lacosamide 150 Mg Tablet) 150 mg PO BID [facility] Last Admin: 05/04/21 07:51 Dose: 150 mg Documented by: Mirtazapine (Mirtazapine 15 Mg Tab) 15 mg PO HS [facility] Last Admin: 05/03/21 20:43 Dose: 15 mg Documented by: Naloxone HCl (Naloxone 0.4 Mg/Ml 1 Ml Vial) 0.2 mg IV Q2M PRN PRN Reason: Opioid Reversal Olanzapine (Olanzapine 5 Mg Tab) 5 mg PO HS [facility] Last Admin: 05/03/21 20:43 Dose: 5 mg Documented by: Phenytoin Sodium (Phenytoin Sodium Extended 100 Mg Cap) 300 mg PO DAILY [facility] Last Admin: 05/04/21 07:51 Dose: 300 mg Documented by: Vancomycin HCl (Vancomycin 125 Mg Capsule) 125 mg PO Q6H [facility]; Protocol Last Admin: 05/04/21 16:19 Dose: 125 mg Documented by: Past medical history to include: Seizure disorder, brain injury, frontal lobectomy, right-sided neglect, expressive dysphasia, uses a walker Social history: No history of smoking or alcohol. Uses a walker. 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 Conjunctiva normal. HEENT: External appearance of nose and ears normal, oral cavity grossly normal. NECK: JVD not raised; masses not palpable. HEART: First and second heart sounds are normal; no edema. LUNGS: Respiratory rate normal; clear to auscultation. ABDOMEN: Soft, nontender, liver spleen not palpable, no masses palpable. PSYCH: Unable to assess. NEUROLOGICAL: [Cranial nerves grossly intact; no facial asymmetry, expressive dysphasia INVESTIGATIONS, reviewed in the clinical context: White count 5.0 hemoglobin 9.8 platelets 212 potassium 4 creatinine 0.6 Assessment and plan: -Acute C. diff colitis. Recently discharged from [facility] and was treated with Flagyl and vancomycin.: Failed outpatient treatment: Slow to respond By mouth vancomycin. Change to by mouth Flagyl. 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 Diet as tolerated. Gentle hydration.
[2021-05-04] MEDS: metroNIDAZOLE 500 MG TAB PO SCH ×2 (18:03→22:08)
[2021-05-04] MEDS: MIRTAZAPINE 15 MG TAB PO SCH (22:09)
[2021-05-04] MEDS: OLANZapine 5 MG TAB PO SCH (22:09)
[2021-05-05] MEDS: VANCOMYCIN 125 MG CAPSULE PO SCH ×2 (02:17→08:23)
[2021-05-05] MEDS: SODIUM CHLORIDE 0.9% 1,000 ML IV SCH (05:44)
[2021-05-05] MEDS: CHOLESTYRAMINE (WITH SUGAR) 4 GM PACKET PO SCH ×2 (08:21→12:31)
[2021-05-05] MEDS: HEPARIN SODIUM,PORCINE/PF 5,000 UNIT/0.5 ML SYRINGE SQ SCH (08:21)
[2021-05-05] MEDS: LACOSAMIDE 150 MG TABLET PO SCH (08:22)
[2021-05-05] MEDS: metroNIDAZOLE 500 MG TAB PO SCH ×2 (08:22→12:31)
[2021-05-05] MEDS: DIVALPROEX ER 500 MG TAB.ER.24H PO SCH (08:22)
[2021-05-05] MEDS: FOLIC ACID 1 MG TAB PO SCH (08:22)
[2021-05-05] MEDS: PHENYTOIN SODIUM EXTENDED 100 MG CAP PO SCH (08:23)
[2021-05-05 12:00] VITALS: BP 109/64; PULSE 99; RESP 14; TEMP 97.8
[2021-05-05] MEDS: HYDROCORTISONE 2.5% RECTAL CREAM 30 GM TUBE RECTAL SCH (12:48)
--- NOTE | 2021-05-05 13:01 | P.PN ---
Subjective Progress Note Date: 05/05/21 Principal diagnosis: Diarrhea 66-year-old female who presented to the emergency department with complaints of ongoing diarrhea. Apparently the patient had recently been admitted to [facility] and diagnosed with C. difficile toxin. The patient has actually a history of chronic diarrhea over the last 15 years. She has a history of colon perforation status post colonoscopy in 2008 and then suffered infection and seizures causing brain injury. Spoke to her sister who said that her diarrhea is worse at night. She went to the [facility] because she had continued episodes of diarrhea up to 20 times in one day. When she was diagnosed at that time with C. diff. Started on vancomycin. Patient diarrhea has improved. Nursing reports that she had 3 very small amounts of loose stool through the night. No plaque. No bowel movement this mo rning. Denies any abdominal pain. No nausea or vomiting. She's been afebrile. Objective - Vital Signs Vital signs: Vital Signs Temp 97.6 F 05/05/21 04:25 Pulse 62 05/05/21 04:25 Resp 18 05/05/21 04:25 BP 100/60 05/05/21 04:25 Pulse Ox 97 05/05/21 04:25 Intake & Output 05/04/21 05/05/21 05/05/21 18:59 06:59 18:59 Intake Total 2240 1400 Output Total 1200 Balance 1040 1400 Intake: Intake, IV Titration 1000 900 Amount Sodium Chloride 0.9% 1, 900 900 000 ml @ 75 mls/hr IV . [id number] REUBEN Rx#:[id number] metroNIDAZOLE-NS PMX 500 100 mg In Saline 1 100ml.bag @ 100 mls/hr IVPB Q8H REUBEN Rx#:[id number] Oral 1240 500 Output: Urine 1200 Other: Voiding Method Toilet # Voids 2 3 # Bowel Movements 3 3 - Exam General appearance: The patient is alert, oriented, appears in no acute distress. HET: Head is normocephalic and atraumatic. Conjunctiva pink. Sclera anicteric. Neck: Supple without lymphadenopathy. Abdomen: Soft, mild lower abdominal tenderness, nondistended with bowel sounds. No guarding or rigidity. Extremities: Normal skin color and turgor. No pedal edema Skin: No rashes, no jaundice Neurological: No focal deficits. Alert and oriented x3. - Labs CBC & Chem 7: 05/03/21 05:48 05/03/21 05:48 Labs: Abnormal Lab Results - Last 24 Hours (Table) 05/03/21 Range/Units 19:50 Stool Lactoferrin POSITIVE A (NEGATIVE) Microbiology - Last 24 Hours (Table) 05/02/21 08:53 Stool Culture - Preliminary Stool Assessment and Plan (1) Diarrhea Narrative/Plan: A 66-year-old female who presented to the emergency department with complaints of diarrhea. Apparently patient reportedly was at [facility] and was diagnosed with C. difficile toxin and was started on Flagyl and vancomycin. Patient was discharged a few days ago according to the chart which her sister had reportedly stated improved initially but then again returned. Apparently patient has been going to the bathroom up to 20 times a day, loose stool nonbloody. The patient does have a history of brain injury status post perforated colon following colonoscopy and infection in 2008. Stool C. diff has been ordered but uncollected at this time. Will also order stool cultures. Continue with vancomycin and Flagyl as ordered. Current Visit: No Status: Acute Code(s): R19.7 - DIARRHEA, UNSPECIFIED SNO MED Code(s): 18018471 (2) Hyponatremia Current Visit: Yes Status: Acute Code(s): E87.1 - HYPO-OSMOLALITY AND HYPONATREMIA SNOMED Code(s): 47532665 Plan: 1. Continue symptomatic and supportive care 2. Stool cultures pending, C. diff negative 3. Continue Flagyl and vancomycin as ordered 4. Diet as tolerated 5. Collect stool lactoferrin 6. Will add Questran daily 7. No plans on endoscopic evaluation at this time 8. Patient is cleared by gastroenterology for discharge. Continue Questran at home as needed Thank you for allowing us to participate in the care of the patient, the GI service will sign off, gastroenterology will not be available at the hospital this weekend and through next week. If further evaluation by gastroenterology is required the patient will need transfer as per the primary team's discretion. Dr. Miguel Gueavra I agree with the dictator's note, documented as a scribe by Shirley Christine.
--- NOTE | 2021-05-05 18:17 | P.DS ---
Providers Date of admission: 05/02/21 00:33 Expected date of discharge: 05/05/21 Attending physician: Federico Turner Consults: 05/02/21 00:34 Consult Physician Routine Consulting Provider: Yuki Guevara Consult Reason/Comments: c diff Do you want consulting provider notified?: Yes Primary care physician: Jayy Sarmiento [facility] Course: Hospital course: This is a 66-year-old patient, follows with visiting physicians Dr. Sarmiento. 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 Patient was brought to the hospital by family on 05/02/21 for chief complaint of diarrhea. It was reported that patient underwent recent admission at [facility] for C. diff and was discharged on and completed course of oral antibiotics. Family reported slight improvement during hospitalization but states after patient returned home she continued with significant episodes of diarrhea. In the emergency department patient was found to have hyponatremia with sodium of 128, hypochloremia with chloride of 96, slightly elevated AST of 45. Patient was started on IV Flagyl and oral vancomycin and admitted under services with consultation to GI. May 04: I assumed care of the patient today. Patient had about BMs last night. On this afternoon. I added Metamucil to bulk from stool. Patient had about 50% of her breakfast. Tired. May 05: Diarrhea much better. Patient keen to go home. Cleared by GI. We'll discharge on vancomycin and Flagyl. Follow-up with GI. Also to continue Questran. Past medical history to include: Seizure disorder, brain injury, frontal lobectomy, right-sided neglect, expressive dysphasia, uses a walker Social history: No history of smoking or alcohol. Uses a walker. 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 Conjunctiva normal. HEENT: External appearance of nose and ears normal, oral cavity grossly normal. NECK: JVD not raised; masses not palpable. HEART: First and second heart sounds are normal; no edema. LUNGS: Respiratory rate normal; clear to auscultation. ABDOMEN: Soft, nontender, liver spleen not palpable, no masses palpable. PSYCH: Unable to assess. NEUROLOGICAL: [Cranial nerves grossly intact; no facial asymmetry, expressive dysphasia INVESTIGATIONS, reviewed in the clinical context: White count 5.0 hemoglobin 9.8 platelets 212 potassium 4 creatinine 0.6 Assessment and plan: -Acute C. diff colitis. 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 Disposition: Home Plan - Discharge Summary Discharge Rx Participant: No New Discharge Prescriptions: New metroNIDAZOLE [Flagyl] 500 mg PO QID #28 tab Hydrocortisone Pr Cream [Proctosol-Hc 2.5%] 1 applic RECTAL BID #1 cream Continue Phenytoin Sodium Extended [Dilantin] 300 mg PO DAILY OLANZapine [ZyPREXA] 5 mg PO HS Ferrous Sulfate [Iron (65 MG Elemental)] 325 mg PO DAILY@0700 Vancomycin HCl [Vancocin HCl] 125 mg PO Q6H #56 cap Lacosamide [Vimpat] 150 mg PO BID Divalproex ER [Depakote ER] 500 mg PO TID ALPRAZolam [Xanax] 0.25 mg PO BID PRN PRN Reason: Agitation Or Acute Anxiety Ergocalciferol [Vitamin D2 (1250 Mcg = 45534 Iu)] 1,250 mcg PO ACOSTA Folic Acid 0.4 mg PO DAILY Mirtazapine 15 mg PO HS Changed Cholestyramine (with Sugar) [Cholestyramine Powder] 4 gm PO BID #0 Discontinued predniSONE See Taper PO DIRECTED No Action Mesalamine 1,600 mg PO TID Discharge Medication List ALPRAZolam [Xanax] 0.25 mg PO BID PRN 07/22/20 [History] Divalproex ER [Depakote ER] 500 mg PO TID 07/22/20 [History] Lacosamide [Vimpat] 150 mg PO BID 07/22/20 [History] OLANZapine [ZyPREXA] 5 mg PO HS 07/22/20 [History] Phenytoin Sodium Extended [Dilantin] 300 mg PO DAILY 07/22/20 [History] Ergocalciferol [Vitamin D2 (1250 Mcg = 01466 Iu)] 1,250 mcg PO ACOSTA 01/18/21 [History] Ferrous Sulfate [Iron (65 MG Elemental)] 325 mg PO DAILY@0700 01/18/21 [History] Folic Acid 0.4 mg PO DAILY 01/18/21 [History] Mirtazapine 15 mg PO HS 02/11/21 [History] Mesalamine 1,600 mg PO TID 05/01/21 [History] Cholestyramine (with Sugar) [Cholestyramine Powder] 4 gm PO BID #0 05/05/21 [Rx] Hydrocortisone Pr Cream [Proctosol-Hc 2.5%] 1 applic RECTAL BID #1 cream 05/05/21 [Rx] Vancomycin HCl [Vancocin HCl] 125 mg PO Q6H #56 cap 05/05/21 [Rx] metroNIDAZOLE [Flagyl] 500 mg PO QID #28 tab 05/05/21 [Rx] Follow up Appointment(s)/Referral(s): Yuki Guevara MD [STAFF PHYSICIAN] - 05/10/21 4:45 pm Trena Chakraborty [NON-STAFF] - 1 Week Jayy Sarmiento MD [Primary Care Provider] - 1-2 days (visiting physicians will see the patient next week) Patient Instructions/Handouts: Metronidazole (By mouth), Vancomycin (By mouth), Hydrocortisone (Into the rectum), Hyponatremia (DC), Acute Diarrhea (GEN) Activity/Diet/Wound Care/Special Instructions: this is a communication for the pt sister/ guardian - please do not delete, so that it will print out with the pt d/c instructions for the pt psychologist needs: when you call the office to make appt - 1. ask to talk to the information officer or a nurse, 2. ask them if they can review the pt chart notes from [place] [facility] to see if they will forgo the speech therapy 3. you can call the pt insurance company and ask them the names of local psychologist that participate with [employer] insurance - they will give you a list - there might be a dr on there that you did not know about. for the waver program: i spoke with the social worker clinical and she suggested that you talk to the supervisor capacitor processing or [place] onsite case manager with the waver program and let them know that the aide is not showing up. also you might want to ask her in [place] if they are getting charged for someone who is not coming out. Demetriran patient has at home. Mesalamine to be continued per GI Discharge/Stand Alone Forms: Who Do I Call?, Community Resources, Help In The Home, Personal Telegraph Installer Discharge Disposition: HOME SELF-CARE
== END 2021-05-05 17:21 | disposition home or self-care (01) | DRG 372 ==
LOC: EC 17:51 → 5NMEDONC 05-02 00:33
PROVIDERS: ADMIT Hospitalist; ATTEND Hospitalist
DX: A04.72 Enterocolitis due to Clostridium difficile, not specified as recurrent (principal); R41.4 Neurologic neglect syndrome; E87.1 Hypo-osmolality and hyponatremia; E86.0 Dehydration; D75.89 Other specified diseases of blood and blood-forming organs; E87.8 Other disorders of electrolyte and fluid balance, not elsewhere classified; F51.04 Psychophysiologic insomnia; G40.909 Epilepsy, unspecified, not intractable, without status epilepticus; Z86.14 Personal history of Methicillin resistant Staphylococcus aureus infection; R47.02 Dysphasia; Z79.899 Other long term (current) drug therapy; Z87.820 Personal history of traumatic brain injury; Z88.1 Allergy status to other antibiotic agents; Z91.040 Latex allergy status; R26.9 Unspecified abnormalities of gait and mobility
CPT/HCPCS: 36415; 80048; 80053; 83630; 85025; 85027; 87045; 87046; 87324; 96361; 96374; 99284

== ENCOUNTER 2021-06-26 23:14 | Inpatient (IN) | payer MEDICARE, OTHER ==
[2021-06-26] MEDS ORDERED: SODIUM CHLORIDE 0.9% 1,000 ML IV STA (23:26)
--- NOTE | 2021-06-26 23:30 | ED ---
General Adult HPI - General Source: patient, EMS, RN notes reviewed, old records reviewed Limitations: altered mental status <Ronald Weathers - Last Filed: 06/27/21 00:41> <Adrien Park - Last Filed: 06/27/21 10:45> - General Stated complaint: Seizure Time Seen by Provider: 06/26/21 23:17 - History of Present Illness Initial comments: 66-year-old female who presents with witnessed tonic-clonic seizure. Patient has history of seizure disorder has been about 6 months since her last seizure. Daughter called paramedics. They were transporting with stable vitals. Seizure activity had subsided. Patient was noted to have a fever and her daughter currently has coronavirus. Patient is unable to significantly contribute to the history upon Arrival, suspect a postictal state. (Ronald Weathers) - Related Data Home Medications Medication Instructions Recorded Confirmed ALPRAZolam [Xanax] 0.25 mg PO DAILY PRN 07/22/20 06/27/21 Divalproex ER [Depakote ER] 500 mg PO TID 07/22/20 06/27/21 Lacosamide [Vimpat] 150 mg PO BID 07/22/20 06/27/21 OLANZapine [ZyPREXA] 5 mg PO HS 07/22/20 06/27/21 Phenytoin Sodium Extended 300 mg PO DAILY 07/22/20 06/27/21 [Dilantin] Ergocalciferol [Vitamin D2 (1250 1,250 mcg PO ACOSTA 01/18/21 06/27/21 Mcg = 36661 Iu)] Ferrous Sulfate [Iron (65 MG 325 mg PO DAILY@0700 01/18/21 06/27/21 Elemental)] Folic Acid 0.4 mg PO DAILY 01/18/21 06/27/21 Mirtazapine 15 mg PO HS 02/11/21 06/27/21 Mesalamine 1,600 mg PO TID 05/01/21 06/27/21 ALPRAZolam [Xanax] 0.25 mg PO HS 06/27/21 06/27/21 predniSONE See Taper PO DIRECTED 06/27/21 06/27/21 Allergies Allergy/AdvReac Type Severity Reaction Status Date / Time cephalexin [From Keflex] Allergy Rash/Hives Verified 06/27/21 06:34 latex Allergy Rash/Hives Verified 06/27/21 06:34 Review of Systems ROS Other: All systems not noted in ROS Statement are negative. <SarahyRonald Christiano - Last Filed: 06/27/21 00:41> ROS Other: All systems not noted in ROS Statement are negative. <Adrien Park - Last Filed: 06/27/21 10:45> ROS Statement: Those systems with pertinent positive or pertinent negative responses have been documented in the HPI. Past Medical History Past Medical History: Seizure Disorder Additional Past Medical History / Comment(s): brain injury, perforated colon with infection, frontal lobectomy, right sided neglect, expressive and receptive aphasia, History of Any Multi-Drug Resistant Organisms: C-DIFF, MRSA Date of last positivie culture/infection: 03/21/2021 MDRO Source:: . Past Surgical History: Breast Surgery Additional Past Surgical History / Comment(s): frontal lobectomy, perforated bowel. Past Anesthesia/Blood Transfusion Reactions: No Reported Reaction Past Psychological History: No Psychological Hx Reported Smoking Status: Never smoker Past Alcohol Use History: None Reported Past Drug Use History: None Reported <Ronald Weathers - Last Filed: 06/27/21 00:41> - Past Family History Mother Family Medical History: Hypertension Additional Family Medical History / Comment(s): Mother is alive and 89yrs old. Father Family Medical History: Hypertension Additional Family Medical History / Comment(s): Father is . <Adrien Park - Last Filed: 06/27/21 10:45> General Exam General appearance: lethargic Head exam: Present: atraumatic, normocephalic Eye exam: Present: normal appearance, PERRL ENT exam: Present: normal exam Neck exam: Present: normal inspection. Absent: tenderness, meningismus Respiratory exam: Present: normal lung sounds bilaterally. Absent: respiratory distress, wheezes Cardiovascular Exam: Present: regular rate, normal rhythm GI/Abdominal exam: Present: soft. Absent: distended, tenderness, guarding Extremities exam: Present: normal inspection, normal capillary refill Neurological exam: Present: alert, CN II-XII intact. Absent: oriented X3, motor sensory deficit Skin exam: Present: warm, dry, intact. Absent: cyanosis, diaphoretic <Ronald Weathers - Last Filed: 06/27/21 00:41> Course Vital Signs 06/26/21 06/26/21 06/27/21 23:41 23:48 00:48 Temperature 99.6 F Pulse Rate 81 86 68 Respiratory 18 18 18 Rate Blood Pressure 113/68 113/66 O2 Sat by Pulse 96 97 100 Oximetry 06/27/21 06/27/21 06/27/21 01:48 02:19 04:00 Temperature 99.2 F Pulse Rate 67 67 65 Respiratory 18 18 18 Rate Blood Pressure 122/61 115/59 O2 Sat by Pulse 100 97 Oximetry 06/27/21 06/27/21 05:00 07:33 Temperature 100.4 F H 99 F Pulse Rate 67 58 L Respiratory 18 16 Rate Blood Pressure 111/65 95/63 O2 Sat by Pulse 97 98 Oximetry EKG Findings - EKG Comments: EKG Findings:: Sinus rhythm rate 74, FL interval 147, QRS duration 101, QTC 420, no ST segment elevation, tremor artifact. <Ronald Weathers - Last Filed: 06/27/21 00:41> Medical Decision Making - Lab Data Result diagrams: 06/27/21 00:12 06/27/21 00:12 <Adrien Park - Last Filed: 06/27/21 10:45> - Medical Decision Making Patient is 66-year-old woman with serial disorder brought here for evaluation after having had what sounds like a generalized seizure. Patient is found to be coated positive and not able to support herself at bedside or help transfer. The patient family not able to care for her at home will be admitted here possibility of a rehabilitation placement. (Adrien Park) - Lab Data Lab Results 06/27/21 06/27/21 06/27/21 Range/Units 00:12 00:12 00:12 WBC 7.5 (3.8-10.6) k/uL RBC 4.14 (3.80-5.40) m/uL Hgb 14.4 (11.4-16.0) gm/dL Hct 43.9 (34.0-46.0) % MCV 106.0 H (80.0-100.0) fL MCH 34.7 (25.0-35.0) pg MCHC 32.7 (31.0-37.0) g/dL RDW 13.2 (11.5-15.5) % Plt Count 263 (150-450) k/uL MPV 7.9 Neutrophils % 72 % Lymphocytes % 14 % Monocytes % 10 % Eosinophils % 0 % Basophils % 0 % Neutrophils # 5.4 (1.3-7.7) k/uL Lymphocytes # 1.0 (1.0-4.8) k/uL Monocytes # 0.7 (0-1.0) k/uL Eosinophils # 0.0 (0-0.7) k/uL Basophils # 0.0 (0-0.2) k/uL Macrocytosis Moderate Sodium 133 L (137-145) mmol/L Potassium 4.3 (3.5-5.1) mmol/L Chloride 102 (98-107) mmol/L Carbon Dioxide 27 (22-30) mmol/L Anion Gap 4 mmol/L BUN 15 (7-17) mg/dL Creatinine 0.94 (0.52-1.04) mg/dL Est GFR (CKD-EPI)AfAm 74 (>60 ml/min/1.73 sqM) Est GFR (CKD-EPI)NonAf 64 (>60 ml/min/1.73 sqM) Glucose 89 (74-99) mg/dL POC Glucose (mg/dL) (75-99) mg/dL POC Glu Granite Block Paver ID Calcium 8.4 (8.4-10.2) mg/dL Magnesium 2.0 (1.6-2.3) mg/dL Total Bilirubin 0.5 (0.2-1.3) mg/dL AST 29 (14-36) U/L ALT 14 (4-34) U/L Alkaline Phosphatase 32 L (38-126) U/L Total Protein 6.5 (6.3-8.2) g/dL Albumin 3.4 L (3.5-5.0) g/dL Urine Color Urine Appearance (Clear) Urine pH (5.0-8.0) Ur Specific [place] (1.001-1.035) Urine Protein (Negative) Urine Glucose (UA) (Negative) Urine Ketones (Negative) Urine Blood (Negative) Urine Nitrite (Negative) Urine Bilirubin (Negative) Urine Urobilinogen (<2.0) mg/dL Ur Leukocyte Esterase (Negative) Urine RBC (0-5) /hpf Urine WBC (0-5) /hpf Urine Mucus (None) /hpf Coronavirus (PCR) Detected A (Not Detectd) 06/27/21 06/27/21 Range/Units 00:20 00:32 WBC (3.8-10.6) k/uL RBC (3.80-5.40) m/uL Hgb (11.4-16.0) gm/dL Hct (34.0-46.0) % MCV (80.0-100.0) fL MCH (25.0-35.0) pg MCHC (31.0-37.0) g/dL RDW (11.5-15.5) % Plt Count (150-450) k/uL MPV Neutrophils % % Lymphocytes % % Monocytes % % Eosinophils % % Basophils % % Neutrophils # (1.3-7.7) k/uL Lymphocytes # (1.0-4.8) k/uL Monocytes # (0-1.0) k/uL Eosinophils # (0-0.7) k/uL Basophils # (0-0.2) k/uL Macrocytosis Sodium (137-145) mmol/L Potassium (3.5-5.1) mmol/L Chloride (98-107) mmol/L Carbon Dioxide (22-30) mmol/L Anion Gap mmol/L BUN (7-17) mg/dL Creatinine (0.52-1.04) mg/dL Est GFR (CKD-EPI)AfAm (>60 ml/min/1.73 sqM) Est GFR (CKD-EPI)NonAf (>60 ml/min/1.73 sqM) Glucose (74-99) mg/dL POC Glucose (mg/dL) 87 (75-99) mg/dL POC Glu Granite Block Paver ID Parisa Weber Calcium (8.4-10.2) mg/dL Magnesium (1.6-2.3) mg/dL Total Bilirubin (0.2-1.3) mg/dL AST (14-36) U/L ALT (4-34) U/L Alkaline Phosphatase (38-126) U/L Total Protein (6.3-8.2) g/dL Albumin (3.5-5.0) g/dL Urine Color Yellow Urine Appearance Clear (Clear) Urine pH 5.5 (5.0-8.0) Ur Specific [place] 1.018 (1.001-1.035) Urine Protein Negative (Negative) Urine Glucose (UA) Negative (Negative) Urine Ketones Trace H (Negative) Urine Blood Small H (Negative) Urine Nitrite Negative (Negative) Urine Bilirubin Negative (Negative) Urine Urobilinogen <2.0 (<2.0) mg/dL Ur Leukocyte Esterase Negative (Negative) Urine RBC 1 (0-5) /hpf Urine WBC 1 (0-5) /hpf Urine Mucus Rare H (None) /hpf Coronavirus (PCR) (Not Detectd) Disposition <Ronald Weathers - Last Filed: 06/27/21 00:41> Is patient prescribed a controlled substance at d/c from ED?: No <Adrien Park - Last Filed: 06/27/21 10:45> Clinical Impression: Generalized seizure, COVID-19 Disposition: HOME SELF-CARE
[2021-06-27 00:21] LABS: Glucose,Whole Blood 87 mg/dL (75-99)
[2021-06-27 00:46] LABS: Basophils % (A) 0 %; Eosinophils % (A) 0 %; HCT 43.9 % (34.0-46.0); HGB 14.4 gm/dL (11.4-16.0); Lymphocytes % (A) 14 %; MCH 34.7 pg (25.0-35.0); MCHC 32.7 g/dL (31.0-37.0); Macrocytosis Moderate; Mean Platelet Volume 7.9; Monocytes % (A) 10 %; Neutrophils # (A) 5.4 k/uL (1.3-7.7); Neutrophils % (A) 72 %; Platelet Count 263 k/uL (150-450); RBC 4.14 m/uL (3.80-5.40); RDW 13.2 % (11.5-15.5); WBC 7.5 k/uL (3.8-10.6)
[2021-06-27 00:47] LABS: Monocytes # (A) 0.7 k/uL (0-1.0)
[2021-06-27 01:05] LABS: Appearance,Urine Clear (Clear); Bilirubin,Urine Negative (Negative); Blood,Urine Small (Negative); Color,Urine Yellow; Glucose,Urine (UA) Negative (Negative); Ketones,Urine Trace (Negative); Leukocyte Esterase,Urine Negative (Negative); Mucus,Urine Rare /hpf; Nitrite,Urine Negative (Negative); PH, Urine 5.5 (5.0-8.0); Protein,Urine Negative (Negative); RBC,Urine 1 /hpf (0-5); Specific Gravity,Urine 1.018 (1.001-1.035); Urobilinogen,Urine <2.0 mg/dL (<2.0); WBC,Urine 1 /hpf (0-5)
[2021-06-27 01:08] LABS: Albumin 3.4 g/dL (3.5-5.0); Calcium 8.4 mg/dL (8.4-10.2); Potassium 4.3 mmol/L (3.5-5.1); Total Bilirubin 0.5 mg/dL (0.2-1.3); Total Protein 6.5 g/dL (6.3-8.2)
--- NOTE | 2021-06-27 01:13 | CT ---
EXAMINATION TYPE: CT brain wo con DATE OF EXAM: 06/27/2021 COMPARISON: 05/21/2012 HISTORY: seizure activity CT DLP: 1111.6 mGycm Automated exposure control for dose reduction was used. Images obtained of the brain without contrast. There is hypodensity in the left temporal lobe consistent with encephalomalacia. There is left tempor al craniotomy defect. There is enlargement of the left lateral ventricle. There is no midline shift. No sign of intracranial hemorrhage. IMPRESSION: Large area of encephalomalacia in the left temporal lobe without change compared to last exam. No acu te intracranial abnormality.
[2021-06-27] MEDS ORDERED: ACETAMINOPHEN TAB 325 MG TAB PO PRN (03:05)
[2021-06-27] MEDS ORDERED: NALOXONE 0.4 MG/ML 1 ML VIAL IV PRN (03:05)
[2021-06-27] MEDS: SODIUM CHLORIDE 0.9% 1,000 ML IV SCH ×2 (05:22→16:28)
[2021-06-27] MEDS: PHENYTOIN SODIUM EXTENDED 100 MG CAP PO SCH (09:07)
[2021-06-27] MEDS: DIVALPROEX ER 250 MG TAB.ER.24H PO SCH ×2 (09:08→16:21)
[2021-06-27] MEDS: FAMOTIDINE 20 MG TAB PO SCH (09:08)
[2021-06-27] MEDS: LACOSAMIDE 150 MG TABLET PO SCH (11:33)
[2021-06-27 13:16] LABS: C Reactive Protein 5.3 mg/dL (<1.0)
--- NOTE | 2021-06-27 13:29 | P.HPIM ---
History of Present Illness H&P Date: 06/27/21 This is 66-year-old female with past medical history of brain injury, status post frontal lobectomy, global aphasia, seizure disorder with last seizure reported 6 months ago, ulcerative colitis, and multiple other medical issues, resides with her sister/legal guardian Rosalia Ross, height into the ER and a suspected post ictal state. Family reported witnessed tonic-clonic seizure, EMS transported patient to the ER with vital signs stable with seizure activity subsided. Currently no family available at the bedside. Information being obtained staff, chart. Apparently everyone in the family recently sick with covid. Caronovirus detected. T-max 100.4, normal WBC. On admission O2 sat 96% on room air, currently 100% on 2 L nasal cannula.VSS. No further seizure activity reported. Hematology, coagulation, chemistry panels unremarkable with the exception of mild hyponatremia, sodium 177, albumin 3.4. Pro-calcitonin, LDH, CRP pending. Brain CT reported large area of encephalomalacia in the left temporal lobe without change compared to prior exam, no acute intracranial abnormality.Gentle IV fluid hydration initiated. UA negative. Chest x-ray pending. 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 Past Surgical History: Breast Surgery Additional Past Surgical History / Comment(s): frontal lobectomy, perforated bowel. Past Anesthesia/Blood Transfusion Reactions: No Reported Reaction Past Psychological History: No Psychological Hx Reported Smoking Status: Never smoker Past Alcohol Use History: None Reported Past Drug Use History: None Reported - Past Family History Mother Family Medical History: Hypertension Additional Family Medical History / Comment(s): Mother is alive and 89yrs old. Father Family Medical History: Hypertension Additional Family Medical History / Comment(s): Father is . Medications and Allergies Home Medications Medication Instructions Recorded Confirmed Type ALPRAZolam [Xanax] 0.25 mg PO DAILY PRN 07/22/20 06/27/21 History Divalproex ER [Depakote ER] 500 mg PO TID 07/22/20 06/27/21 History Lacosamide [Vimpat] 150 mg PO BID 07/22/20 06/27/21 History OLANZapine [ZyPREXA] 5 mg PO HS 07/22/20 06/27/21 History Phenytoin Sodium Extended 300 mg PO DAILY 07/22/20 06/27/21 History [Dilantin] Ergocalciferol [Vitamin D2 (1250 1,250 mcg PO ACOSTA 01/18/21 06/27/21 History Mcg = 86839 Iu)] Ferrous Sulfate [Iron (65 MG 325 mg PO DAILY@0700 01/18/21 06/27/21 History Elemental)] Folic Acid 0.4 mg PO DAILY 01/18/21 06/27/21 History Mirtazapine 15 mg PO HS 02/11/21 06/27/21 History Mesalamine 1,600 mg PO TID 05/01/21 06/27/21 History ALPRAZolam [Xanax] 0.25 mg PO HS 06/27/21 06/27/21 History predniSONE See Taper PO DIRECTED 06/27/21 06/27/21 History Allergies Allergy/AdvReac Type Severity Reaction Status Date / Time cephalexin [From Keflex] Allergy Rash/Hives Verified 06/27/21 06:34 latex Allergy Rash/Hives Verified 06/27/21 06:34 Physical Exam Vitals: Vital Signs Temp Pulse Resp BP Pulse Ox 06/27/21 07:33 99 F 58 L 16 95/63 98 06/27/21 05:00 100.4 F H 67 18 111/65 97 06/27/21 04:00 65 18 97 06/27/21 02:19 99.2 F 67 18 115/59 100 06/27/21 01:48 67 18 122/61 06/27/21 00:48 68 18 100 06/26/21 23:48 86 18 113/66 97 06/26/21 23:41 99.6 F 81 18 113/68 96 Intake and Output 06/26/21 06/27/21 06/27/21 22:59 06:59 14:59 Other: Weight 70.307 kg 70.307 kg PHYSICAL EXAM: VITAL SIGNS: As above GENERAL: Sitting up in stretcher, no acute distress, calm, confused, alert and oriented to person only HEENT: Atraumatic, normocephalic, symmetric, Conjunctivae normal. eyes normal. NECK: Supple, No JVD. No thyroid enlargement. No LNs CARDIOVASCULAR: S1, S2 regular.No murmur RESPIRATION: Unlabored, Breath sounds diminished in the bases. No rhonchi or crackles. No bronchial breathing. ABDOMEN: Soft, nontender . No guarding. no masses palpable. No ascites, No hepatosplenomegaly.Bowel sounds heard. LEGS: No edema. no swelling PSYCHIATRY: Alert and oriented X1, calm, cooperative NERVOUS SYSTEM: Limited exam, expressive dysphasia. Strength and sensation grossly intact. Skin: Warm and dry ,no rash Results CBC & Chem 7: 06/27/21 00:12 06/27/21 00:12 Labs: Abnormal Lab Results - Last 24 Hours (Table) 06/27/21 06/27/21 06/27/21 Range/Units 00:12 00:12 00:12 MCV 106.0 H (80.0-100.0) fL Sodium 133 L (137-145) mmol/L Alkaline Phosphatase 32 L (38-126) U/L Albumin 3.4 L (3.5-5.0) g/dL Urine Ketones (Negative) Urine Blood (Negative) Urine Mucus (None) /hpf Coronavirus (PCR) Detected A (Not Detectd) 06/27/21 Range/Units 00:32 MCV (80.0-100.0) fL Sodium (137-145) mmol/L Alkaline Phosphatase (38-126) U/L Albumin (3.5-5.0) g/dL Urine Ketones Trace H (Negative) Urine Blood Small H (Negative) Urine Mucus Rare H (None) /hpf Coronavirus (PCR) (Not Detectd) Thrombosis Risk Factor Assmnt - Choose All That Apply Any of the Below Risk Factors Present?: Yes Other Risk Factors: Yes Each Risk Factor Represents 2 Points: Age 61-74 years Other congenital or acquired thrombophilia - If yes, enter type in comment: No Thrombosis Risk Factor Assessment Total Risk Factor Score: 2 Thrombosis Risk Factor Assessment Level: Low Risk Assessment and Plan Assessment: Generalized seizure, family reports witnessed tonic-clonic seizure, upon arrival suspect post ictal state, in a patient with Chronic seizure disorder. Acute Covid infection Acute hypoxic respiratory failure secondary to the above, resolved Chronic expressive dysphasia secondary to frontal lobectomy Chronic gait dysfunction, uses a walker at baseline, fall precautions Chronic insomnia Plan: Continue on current medication regime ,monitoring and symptomatic treatment. Seizure precautions, maintain anti-elliptical medications, Dilantin, Depakote and Vimpat- levels pending. neurology consulted for seizure breakthrough. Vitamin C vitamin D, zinc initiated for Covid cocktail. At this time maintaining O2 sat 100% on 2 L nasal cannula with no respiratory distress, IV Decadron not initiated. Infectious disease consulted. Social work consulted for rehab. The impression and plan of care has been dictated as directed. : I performed a history and examination of this patient, discussed the same with the dictator. I agree with the dictator's note ,documented as a scribe. Any additional findings or plans will be noted.
[2021-06-27] MEDS: ASCORBIC ACID 500 MG TAB PO SCH (13:31)
[2021-06-27] MEDS: CHOLECALCIFEROL 25 MCG (1000 IU) TABLET PO SCH (13:31)
[2021-06-27] MEDS: ZINC SULFATE 220 MG CAP PO SCH (13:31)
--- NOTE | 2021-06-27 13:35 | P.CNNES ---
History of Present Illness Consult date: 06/27/21 Requesting physician: Clarsisa Herrera Reason for Consult: seizure, LOC changes History of Present Illness: This is a 66-year-old woman with history of traumatic brain injury, seizure, reported right-sided neglect with expressive and receptive aphasia and reported frontal lobectomy who presented emergency department on 06/27/2020 for witnessed tonic-clonic seizure. History is obtained from medical record and the patient nurse. It seems that the patient had a witnessed tonic clonic seizure at home and her last seizure prior to this was about 6 month ago. It seems that the patient had the C. diff about 2 weeks ago and her daughter has COVID-19 infection recently. He seems the patient is positive for COVID-19 infection. Patient was transported via EMS and had stable signs and per the nurse did not have any seizures in the ED and slowly improving.\ Her antiepileptic medications consists of dilantin 300 mg daily at bedtime, Depakote 500 mg 1 tablet 3 times a day extended release, Vimpat 150 mg 1 tablet twice a day. Some of the workup in the hospital consisted of: T-max in our facility during this admission is 100.4 Fahrenheit oral. White blood cell is 7.5 thousand and the neutrophils and lymphocytes is within normal limits next line COVID-[address] of the head is reported as large area of encephalomalacia in the left temporal lobe without change compared to last exam in 2012. No acute intracranial abnormality. I personally reviewed the CT of the head and the patient does have and supplements over the left temporal. There is no acute or subacute ischemia. There is no interictal parenchymal hemorrhage. Patient has hydrocephalus over the lateral horn of ventricle predominantly the posterior and has old skull defect over the left temporal region. I did not see any images to compare with in our system. Review of Systems Review of system is limited but the prone positive and negative as per HPI. 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 Past Surgical History: Breast Surgery Additional Past Surgical History / Comment(s): frontal lobectomy, perforated bowel. Past Anesthesia/Blood Transfusion Reactions: No Reported Reaction Past Psychological History: No Psychological Hx Reported Smoking Status: Never smoker Past Alcohol Use History: None Reported Past Drug Use History: None Reported - Past Family History Mother Family Medical History: Hypertension Additional Family Medical History / Comment(s): Mother is alive and 89yrs old. Father Family Medical History: Hypertension Additional Family Medical History / Comment(s): Father is . Medications and Allergies Home Medications Medication Instructions Recorded Confirmed Type ALPRAZolam [Xanax] 0.25 mg PO DAILY PRN 07/22/20 06/27/21 History Divalproex ER [Depakote ER] 500 mg PO TID 07/22/20 06/27/21 History Lacosamide [Vimpat] 150 mg PO BID 07/22/20 06/27/21 History OLANZapine [ZyPREXA] 5 mg PO HS 07/22/20 06/27/21 History Phenytoin Sodium Extended 300 mg PO DAILY 07/22/20 06/27/21 History [Dilantin] Ergocalciferol [Vitamin D2 (1250 1,250 mcg PO ACOSTA 01/18/21 06/27/21 History Mcg = 80248 Iu)] Ferrous Sulfate [Iron (65 MG 325 mg PO DAILY@0700 01/18/21 06/27/21 History Elemental)] Folic Acid 0.4 mg PO DAILY 01/18/21 06/27/21 History Mirtazapine 15 mg PO HS 02/11/21 06/27/21 History Mesalamine 1,600 mg PO TID 05/01/21 06/27/21 History ALPRAZolam [Xanax] 0.25 mg PO HS 06/27/21 06/27/21 History predniSONE See Taper PO DIRECTED 06/27/21 06/27/21 History Allergies Allergy/AdvReac Type Severity Reaction Status Date / Time cephalexin [From Keflex] Allergy Rash/Hives Verified 06/27/21 06:34 latex Allergy Rash/Hives Verified 06/27/21 06:34 Physical Examination - Vital Signs Vital Signs: Vital Signs Temp Pulse Resp BP Pulse Ox 06/27/21 07:33 99 F 58 L 16 95/63 98 06/27/21 05:00 100.4 F H 67 18 111/65 97 06/27/21 04:00 65 18 97 06/27/21 02:19 99.2 F 67 18 115/59 100 06/27/21 01:48 67 18 122/61 06/27/21 00:48 68 18 100 06/26/21 23:48 86 18 113/66 97 06/26/21 23:41 99.6 F 81 18 113/68 96 Intake and Output 06/26/21 06/27/21 06/27/21 22:59 06:59 14:59 Other: Weight 70.307 kg 70.307 kg GENERAL: The patient is lying in bed and is not in acute distress. CHEST: The heart rate is regular rate rhythm. No murmurs to auscultation. LUNG: Clear to auscultation bilaterally no wheezing noted throughout. Not la bored breathing. ABDOMEN/GI: Bowel sounds present in all 4 quadrants. No tenderness to palpation throughout. NEUROLOGICAL: Limited. Higher mental function: The patient is awake, alert, oriented to self only. Kept on telling me she does not known current place or time. Is following few simple commands (thumbs up). Could not assess language because of her cooperaiton. Cranial nerves: The pupils are round, equal and reactive to light. Visual veliz could not assess. Extraocular movement is tracking throughout the room. No facial weakness. No dysarthria. Rest is limited. Motor: The strength is hard to assess invidual muscle strength but is lifting all extremities above gravity. Normal tone and bulk. Cerebellum: Could not assess. Sensation: Unable to assess. Reflexes (right/left): 1+ throughout.. Plantars are mute bilaterally. Results - Laboratory Findings CBC and BMP: 06/27/21 00:12 06/27/21 00:12 Abnormal Lab Findings: Abnormal Labs 06/27/21 06/27/21 06/27/21 00:12 00:12 00:12 MCV 106.0 H Sodium 133 L Alkaline Phosphatase 32 L Lactate Dehydrogenase C-Reactive Protein Albumin 3.4 L Urine Ketones Urine Blood Urine Mucus Coronavirus (PCR) Detected A 06/27/21 06/27/21 00:32 12:30 MCV Sodium Alkaline Phosphatase Lactate Dehydrogenase 271 L C-Reactive Protein 5.3 H Albumin Urine Ketones Trace H Urine Blood Small H Urine Mucus Rare H Coronavirus (PCR) Assessment and Plan Assessment: Break-thru seizure seems provoked due to her recent infection (has COVID-19 and recent C.Diff) Acute COVID-19 infection History of seizure History of traumatic brain injury Encephalomalacia over the left temporal likely due to traumatic brain injury and patient had left temporal skull defect Reported expressive and receptive aphasia and right-sided neglect Plan: I ordered a routine EEG. Patient is continued on her home medication of antiepileptic of Depakote extended release 500 mg 1 tablet 3 times a day, Vimpat 150 mg a tablet twice a day and phenytoin throughout her milligrams daily. I will not change her antiepileptic drugs since her seizure is likely a provoked at. Every 4 hours neuro checks Patient is on seizure precaution and seizure pads Valproic acid, Lamictal and Phenytoin levels are ordered by the primary team is pending Infection disease team is consulted We'll defer the rest of the medical management the primary team. The plan is discussed with the patient's nurse. Thank you for the consultation. Marvin Rodriguez M.D. Neuro-hospitalist Time with Patient: Greater than 30
[2021-06-27 13:39] LABS: Phenytoin (Dilantin) 3.7 ug/mL
[2021-06-27 13:41] LABS: Valproic Acid (Depakene) 60.4 ug/mL
[2021-06-27] MEDS: PANTOPRAZOLE 40 MG/10 ML VIAL IVP SCH (14:48)
--- NOTE | 2021-06-27 15:00 | XR ---
EXAMINATION TYPE: XR chest 1V portable DATE OF EXAM: 06/27/2021 Comparison: 02/11/2021 Clinical History: 66-year-old female Pneumonia Findings: Heart upper limits of normal in size. Aorta and pulmonary vasculature within normal limits. Mild hype rinflation. Slight kyphotic positioning. No consolidation or pleural effusion seen. Some strandy atel ectasis in the lower lungs. Impression: Kyphotic positioning. Mild hyperinflation may relate to emphysema. Clinically correlate. Some strandy basilar atelectasis. No definite acute process seen.
--- NOTE | 2021-06-27 19:12 | EEG ---
ELECTROENCEPHALOGRAM REPORT DATE OF SERVICE: 06/28/2021 CLINICAL HISTORY: This is a 66-year-old woman with history of seizure and left temporal encephalomalacia with skull defect who presented to our ED because of break-through seizure. The video EEG is obtained to evaluate for seizure epileptiform activity. RELEVANT MEDICATION: Depakote, Vimpat and Phenytoin. EEG TYPE: A routine 21-channel EEG is performed with video using the 10/20 electrode system. DESCRIPTION: Wakefulness and drowsiness are obtained. During awake state, the background consists of low to moderate voltage of 6 to 7 hertz activity. There is no physiological stage II sleep architecture seen. There is mild to moderate delta slowing over the left temporal central and parietal region seen. There is high-amplitude activity over the left temporal derivatives consistent with breach rhythm. Interictal and ictal is none. ACTIVATION PROCEDURE: Photic stimulation and hyperventilation are not performed. CLINICAL INTERPRETATION: This is an abnormal routine EEG. The background slowing is suggestive of mild encephalopathy. The focal slowing, as stated above, is suggestive of presence of focal cerebral dysfunction in the involved region. The breach rhythm over the left temporal region is consistent with the patient's history of skull defect. There are no epileptiform discharges or seizure on the EEG. Clinical correlation is recommended. MMODL / IJN: [id number] / MTDD
[2021-06-28] MEDS: LACOSAMIDE 150 MG TABLET PO SCH ×3 (01:38→21:34)
[2021-06-28] MEDS: FAMOTIDINE 20 MG TAB PO SCH ×3 (01:38→21:34)
[2021-06-28] MEDS: ASCORBIC ACID 500 MG TAB PO SCH ×3 (01:38→21:34)
[2021-06-28] MEDS: DIVALPROEX ER 250 MG TAB.ER.24H PO SCH ×5 (04:16→21:34)
--- NOTE | 2021-06-28 07:02 | P.CONS ---
History of Present Illness - Reason for Consult Consult date: 06/27/21 Covid Requesting physician: Clarissa Herrera - Chief Complaint seizure x 1 day - History of Present Illness Patient is a 66-year old female with a past medical history significant for brain injury status post frontal lobectomy and global aphasia seizure disorder history of ulcerative colitis and this patient apparently was recently admitted to [facility] for exacerbation of ulcerative colitis and apparently was diagnosed with a C. difficile colitis, patient has been brought into the ER after apparently the patient did have a witnessed tonic- clonic seizure at home, patient was brought into the ER on arrival to the ER patient did have low-grade fever 99.6 F patient was not hypoxic with O2 sats of 96 to 98% on room air patient did have normal white count with no lymphopenia creatinine was normal liver enzymes are normal urine has been negative patient did have a positive COVID test and apparently the patient family member has been sick so the COVID patient did have a CT of the brain large area of encephalomalacia in the left temporal lobe without change compared to last exam patient has been admitted to hospital infectious disease was consulted with a positive COVID test most information has been obtained from review the chart and talking to nursing staff and the patient herself was not a good historian, patient nurse did mention that the patient did have a soft bowel movement and it was not loose or runny Review of Systems Positive points has been mentioned in HPI complete review could not be obtained because of his underlying mental status Past Medical History Past Medical History: Seizure Disorder Additional Past Medical History / Comment(s): 2 weeks ago pt went to [facility] for ulcerative colitis and has some bowel ischemia and is receiving MANASA, 2009 aquired brain injury/colitis flare/colonoscopy done with perforation/infection w ent to her brain and caused cerebritis and had frontal lobectomy/pt has R sided neglect and expressive dysphasia, gait dysfunction/uses walker, UTI/sepsis, bradycardia, Cdiff 04/2021 [facility] History of Any Multi-Drug Resistant Organisms: C-DIFF, MRSA Year Discovered:: 03/21/2021 MDRO Source:: . Past Surgical History: Breast Surgery Additional Past Surgical History / Comment(s): frontal lobectomy, perforated bowel. Past Anesthesia/Blood Transfusion Reactions: No Reported Reaction Past Psychological History: No Psychological Hx Reported Smoking Status: Never smoker Past Alcohol Use History: None Reported Past Drug Use History: None Reported - Past Family History Mother Family Medical History: Hypertension Additional Family Medical History / Comment(s): Mother is alive and 89yrs old. Father Family Medical History: Hypertension Additional Family Medical History / Comment(s): Father is . Medications and Allergies Home Medications Medication Instructions Recorded Confirmed Type ALPRAZolam [Xanax] 0.25 mg PO DAILY PRN 07/22/20 06/27/21 History Divalproex ER [Depakote ER] 500 mg PO TID 07/22/20 06/27/21 History Lacosamide [Vimpat] 150 mg PO BID 07/22/20 06/27/21 History OLANZapine [ZyPREXA] 5 mg PO HS 07/22/20 06/27/21 History Phenytoin Sodium Extended 300 mg PO DAILY 07/22/20 06/27/21 History [Dilantin] Ergocalciferol [Vitamin D2 (1250 1,250 mcg PO ACOSTA 01/18/21 06/27/21 History Mcg = 92455 Iu)] Ferrous Sulfate [Iron (65 MG 325 mg PO DAILY@0700 01/18/21 06/27/21 History Elemental)] Folic Acid 0.4 mg PO DAILY 01/18/21 06/27/21 History Mirtazapine 15 mg PO HS 02/11/21 06/27/21 History Mesalamine 1,600 mg PO TID 05/01/21 06/27/21 History ALPRAZolam [Xanax] 0.25 mg PO HS 06/27/21 06/27/21 History predniSONE See Taper PO DIRECTED 06/27/21 06/27/21 History Allergies Allergy/AdvReac Type Severity Reaction Status Date / Time cephalexin [From Keflex] Allergy Rash/Hives Verified 06/27/21 06:34 latex Allergy Rash/Hives Verified 06/27/21 06:34 Physical Exam Vitals: Vital Signs Temp Pulse Resp BP Pulse Ox 06/27/21 07:33 99 F 58 L 16 95/63 98 06/27/21 05:00 100.4 F H 67 18 111/65 97 06/27/21 04:00 65 18 97 06/27/21 02:19 99.2 F 67 18 115/59 100 06/27/21 01:48 67 18 122/61 06/27/21 00:48 68 18 100 06/26/21 23:48 86 18 113/66 97 06/26/21 23:41 99.6 F 81 18 113/68 96 Intake and Output 06/26/21 06/27/21 06/27/21 22:59 06:59 14:59 Other: Weight 70.307 kg 70.307 kg GENERAL DESCRIPTION: Middle-aged female lying in bed, no distress. No tachypnea or accessory muscle of respiration use. HEENT: Shows Pallor , no scleral icterus. Oral mucous membrane is dry. No pharyngeal erythema or thrush NECK: Trachea central, no thyromegaly. LUNGS: Unlabored breathing. Clear to auscultation anteriorly. No wheeze or crackle. HEART: S1, S2, regular rate and rhythm. No loud murmur ABDOMEN: Soft, no tenderness , guarding or rigidity, no organomegaly EXTREMITIES: No edema of feet. SKIN: No rash, no masses palpable. NEUROLOGICAL: The patient is awake, alert, oriented x2, mood and affect normal. Results CBC & Chem 7: 06/27/21 00:12 06/27/21 00:12 Labs: Abnormal Lab Results - Last 24 Hours (Table) 06/27/21 06/27/21 06/27/21 Range/Units 00:12 00:12 00:12 MCV 106.0 H (80.0-100.0) fL Sodium 133 L (137-145) mmol/L Alkaline Phosphatase 32 L (38-126) U/L Albumin 3.4 L (3.5-5.0) g/dL Urine Ketones (Negative) Urine Blood (Negative) Urine Mucus (None) /hpf Coronavirus (PCR) Detected A (Not Detectd) 06/27/21 Range/Units 00:32 MCV (80.0-100.0) fL Sodium (137-145) mmol/L Alkaline Phosphatase (38-126) U/L Albumin (3.5-5.0) g/dL Urine Ketones Trace H (Negative) Urine Blood Small H (Negative) Urine Mucus Rare H (None) /hpf Coronavirus (PCR) (Not Detectd) Assessment and Plan (1) COVID-19 Current Visit: Yes Status: Acute Code(s): U07.1 - COVID-19 SNOMED Code(s): 919685302 Plan: 1patient with a positive COVID test in this patient presented to hospital with tonic-clonic seizure patient did have a low-grade fever of 99.6 however the patient is not hypoxic or need for any supplemental oxygen patient lungs were clear to auscultation more likely mild COVID illness and treatment will be mostly supportive. 2we will obtain a chest x-ray CRP procalcitonin D-dimer. 3zinc ascorbic acid and Lovenox, no need for steroids or remdesivir. 4recent history of C. difficile colitis however the patient not having runny stools stool for C. difficile has been requested and will be treated if positive. 5droplet isolation. We will follow on clinical condition and cultures to further adjust medication if needed Thank you for this consultation will follow this patient along with you Time with Patient: Greater than 30
[2021-06-28] MEDS: SODIUM CHLORIDE 0.9% 1,000 ML IV SCH (08:05)
[2021-06-28] MEDS: ENOXAPARIN 40 MG/0.4 ML SYRINGE SQ SCH (08:09)
[2021-06-28] MEDS: ZINC SULFATE 220 MG CAP PO SCH (08:09)
[2021-06-28] MEDS: CHOLECALCIFEROL 25 MCG (1000 IU) TABLET PO SCH (08:09)
[2021-06-28] MEDS: PANTOPRAZOLE 40 MG/10 ML VIAL IVP SCH (08:10)
[2021-06-28] MEDS: PHENYTOIN SODIUM EXTENDED 100 MG CAP PO SCH (08:55)
--- NOTE | 2021-06-28 11:36 | P.PN ---
Subjective Progress Note Date: 06/28/21 H&P Date: 06/27/21 This is 66-year-old female with past medical history of brain injury, status post frontal lobectomy, global aphasia, seizure disorder with last seizure reported 6 months ago, ulcerative colitis, and multiple other medical issues, resides with her sister/legal guardian Rosalia Ross, height into the ER and a suspected post ictal state. Family reported witnessed tonic-clonic seizure, EMS transported patient to the ER with vital signs stable with seizure activity subsided. Currently no family available at the bedside. Information being obtained staff, chart. Apparently everyone in the family recently sick with covid. Caronovirus detected. T-max 100.4, normal WBC. On admission O2 sat 96% on room air, currently 100% on 2 L nasal cannula.VSS. No further seizure activity reported. Hematology, coagulation, chemistry panels unremarkable with the exception of mild hyponatremia, sodium 177, albumin 3.4. Pro-calcitonin, LDH, CRP pending. Brain CT reported large area of encephalomalacia in the left temporal lobe without change compared to prior exam, no acute intracranial abnormality.Gentle IV fluid hydration initiated. UA negative. Chest x-ray pending. 06/28/2021 Evaluated by neurology and infectious disease with recommendations noted and appreciated. No further seizure activity reported. Dilantin level subtherapeutic, 3.7. Maintained on Covid cocktail, pro-calcitonin 0.07 ,H 271, CRP 5.3. C. difficile negative. good diet intake, consuming 75% with no nausea or vomiting or diarrhea. T-max 99.9. Maintaining O2 sats of 100% on room air. Objective - Vital Signs Vital signs: Vital Signs Temp 98.6 F 06/28/21 08:00 Pulse 69 06/28/21 08:00 Resp 17 06/28/21 08:00 BP 93/56 06/28/21 08:00 Pulse Ox 97 06/28/21 08:00 Intake & Output 06/27/21 06/28/21 06/28/21 18:59 06:59 18:59 Weight 70.307 kg - Exam PHYSICAL EXAM: VITAL SIGNS: As above GENERAL: Sitting up in bed, no acute distress, calm, confused, alert and oriented to person only. Appears comfortable. Says No to pain. HEENT: Atraumatic, normocephalic, symmetric, Conjunctivae normal. eyes normal. MMM. NECK: Supple, No JVD. CARDIOVASCULAR: S1, S2 regular.No murmur. RESPIRATION: Unlabored, Breath sounds diminished in the bases. No rhonchi or crackles. ABDOMEN: Soft, nontender . No guarding. no masses palpable. Bowel sounds heard. LEGS: No edema. no swelling PSYCHIATRY: Alert and oriented X1, calm, cooperative NERVOUS SYSTEM: Limited exam, expressive dysphasia. Strength and sensation grossly intact.(Reported right-sided residual weakness-detecting trace right upper extremity weakness) Skin: Warm and dry ,no rash - Labs CBC & Chem 7: 06/27/21 00:12 06/27/21 00:12 Labs: Abnormal Lab Results - Last 24 Hours (Table) 06/27/21 Range/Units 12:30 Lactate Dehydrogenase 271 L (313-618) U/L C-Reactive Protein 5.3 H (<1.0) mg/dL Assessment and Plan Assessment: Breakthrough seizure, family reports witnessed tonic-clonic seizure, upon arrival suspect post ictal state, in a patient with Chronic seizure disorder. Dilantin level subtherapeutic on admission, 3.7, in addition to possibly be pro voked by recent C. diff infection as well as Covid. Acute Covid infection Acute hypoxic respiratory failure secondary to the above, resolved Recent C diff Colitis, C. difficile (EIA) negative. 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 Maintain seizure precautions. antiepileptics as per neurology Neurology workup in progress/EEG. Covid cocktail. ECF at discharge. The impression and plan of care has been dictated as directed. : I performed a history and examination of this patient, discussed the same with the dictator. I agree with the dictator's note ,documented as a scribe. Any a dditional findings or plans will be noted.
--- NOTE | 2021-06-28 12:26 | P.PN ---
Subjective Progress Note Date: 06/28/21 The patient is seen at bedside and per nurse continues to be confused. No seizure activity observed. Objective - Vital Signs Vital signs: Vital Signs Temp 98.6 F 06/28/21 10:05 Pulse 69 06/28/21 10:05 Resp 17 06/28/21 10:05 BP 93/56 06/28/21 10:05 Pulse Ox 97 06/28/21 10:05 Intake & Output 06/27/21 06/28/21 06/28/21 18:59 06:59 18:59 Intake Total 600 Balance 600 Weight 70.307 kg Intake: Intake, IV Titration 600 Amount Sodium Chloride 0.9% 1, 600 000 ml @ 75 mls/hr IV . [id number] [facility] Rx#:[id number] - Exam GENERAL: The patient is lying in bed and is not in acute distress. HENT: Supple neck. NEUROLOGICAL: Limited. Higher mental function: The patient is awake, alert, oriented to self only. Kept on telling me she does not known current place or time. Is following few simple commands (thumbs up). Could not assess language because of her cooperaiton. Cranial nerves: The pupils are round, equal and reactive to light. Visual veliz could not assess. Extraocular movement is tracking throughout the room. No facial weakness. No dysarthria. Rest is limited. Motor: The strength is hard to assess invidual muscle strength but is lifting all extremities above gravity. Normal tone and bulk. Cerebellum: Could not assess. Sensation: Unable to assess. Reflexes (right/left): 1+ throughout.. Plantars are mute bilaterally. SOME OF THE WORK-UP: Valproic acid level is 60.4 (therapeutic). Phenytoin 3.7 (normal is 10-20). White blood cell is 7.5 thousand and the neutrophils and lymphocytes is within normal limits next line COVID-19 PCR is detected C.Diff EIA is negative. CT of the head is reported as large area of encephalomalacia in the left temporal lobe without change compared to last exam in 2012. No acute intracranial abnormality. I personally reviewed the CT of the head and the patient does have and supplements over the left temporal. There is no acute or subacute ischemia. There is no interictal parenchymal hemorrhage. Patient has hydrocephalus over the lateral horn of ventricle predominantly the posterior and has old skull defect over the left temporal region. I did not see any images to compare with in our system. Routine EEG on 06/27/21: Is abnormal. The background slowing is suggestive of mild encephalopathy. The focal slowing is suggestive of focal cerebral dysnfucntion in involved region. The breach rhythm over the left temporal region is consistent with patient history of skull defect. There is no epileptiform discharges or seizure on the EEG. - Labs CBC & Chem 7: 06/27/21 00:12 06/27/21 00:12 Labs: Abnormal Lab Results - Last 24 Hours (Table) 06/27/21 Range/Units 12:30 Lactate Dehydrogenase 271 L (313-618) U/L C-Reactive Protein 5.3 H (<1.0) mg/dL Assessment and Plan Assessment: Break-thru seizure seems provoked due to her recent infection (has COVID-19 and recent C.Diff) also has subtherapeutic phenytoin (unsure if did not receive her medications at her facility). 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 I will not change her antiepileptic drugs since her seizure is likely a provoked. Every 4 hours neuro checks Patient is on seizure precaution and seizure pads Lamictal level pending. Infection disease team is consulted We'll defer the rest of the medical management the primary team. There is no further neurological work-up at this time. The plan is discussed with the patient's nurse. Marvin Rodriguez M.D. Neuro-hospitalist Time with Patient: Less than 30
--- NOTE | 2021-06-29 07:27 | P.PN ---
Subjective Progress Note Date: 06/28/21 Principal diagnosis: Covid 19 infection Patient is a 66-year-old female with a past medical history. For brain injury status post frontal lobectomy global aphasia and seizure disorder presented to hospital for witnessed seizure patient also noticed to have a positive covid test. On today's evaluation that is 06/28/2021, the patient is afebrile the patient is breathing comfortably on room air currently satting 97% denies any chest pain or any worsening cough and specifically no vomiting has been reported. She did have to bowel movement by the nursing staff but could not confirm if it was loose or not Objective - Vital Signs Vital signs: Vital Signs Temp 98.6 F 06/28/21 10:05 Pulse 69 06/28/21 10:05 Resp 17 06/28/21 10:05 BP 93/56 06/28/21 10:05 Pulse Ox 97 06/28/21 10:05 Intake & Output 06/27/21 06/28/21 06/28/21 18:59 06:59 18:59 Intake Total 600 Balance 600 Weight 70.307 kg Intake: Intake, IV Titration 600 Amount Sodium Chloride 0.9% 1, 600 000 ml @ 75 mls/hr IV . [id number] [facility] Rx#:[id number] - Exam GENERAL DESCRIPTION: A middle-aged female lying in bed in no distress RESPIRATORY SYSTEM: Unlabored breathing , decreased breath sounds at bases HEART: S1 S2 regular rate and rhythm , ABDOMEN: Soft , no tenderness EXTREMITIES: No edema feet - Labs CBC & Chem 7: 06/27/21 00:12 06/27/21 00:12 Assessment and Plan (1) COVID-19 Current Visit: Yes Status: Acute Code(s): U07.1 - COVID-19 SNOMED Code(s): 954457429 Plan: 1patient with a positive COVID test in this patient presented to hospital with tonic-clonic seizure patient did have a low-grade fever of 99.6 however the patient is not hypoxic or need for any supplemental oxygen patient lungs were clear to auscultation more likely mild COVID illness and treatment will be mostly supportive. 2chest x-ray did not show any groundglass opacities, inflammatory markers are normal. 3patient to continue zinc ascorbic acid and Lovenox, no need for steroids or remdesivir. 4droplet isolation. Time with Patient: Less than 30
[2021-06-29] MEDS: FAMOTIDINE 20 MG TAB PO SCH ×2 (08:06→20:12)
[2021-06-29] MEDS: DIVALPROEX ER 250 MG TAB.ER.24H PO SCH ×3 (08:06→21:06)
[2021-06-29] MEDS: ZINC SULFATE 220 MG CAP PO SCH (08:06)
[2021-06-29] MEDS: CHOLECALCIFEROL 25 MCG (1000 IU) TABLET PO SCH (08:06)
[2021-06-29] MEDS: ASCORBIC ACID 500 MG TAB PO SCH ×2 (08:06→20:12)
[2021-06-29] MEDS: PHENYTOIN SODIUM EXTENDED 100 MG CAP PO SCH (08:06)
[2021-06-29] MEDS: LACOSAMIDE 150 MG TABLET PO SCH ×2 (08:06→20:12)
[2021-06-29] MEDS: ENOXAPARIN 40 MG/0.4 ML SYRINGE SQ SCH (08:07)
[2021-06-29] MEDS: PANTOPRAZOLE 40 MG TABLET PO SCH (08:07)
--- NOTE | 2021-06-29 10:49 | CDI ---
Documentation Clarification Form Date: 06/29/2021 10:37:09 AM From: Saritha Key CCS, CCDS Admit Date: 06/27/2021 03:09:00 AM Patient Name: Elmira Ross Visit Number: [id number] Discharge Date: ATTENTION: The Clinical Documentation Specialists (CDI) and [facility] Coding Staff appreciate your assistance in clarifying documentation. Please respond to the clarification below the line at the bottom and electronically sign. The CDI & [facility] Coding staff will review the response and follow-up if needed. Please note: Queries are made part of the Legal Health Record. If you have any questions, please contact the author of this message via ITS. Dr. Marvin Rodriguez: Encephalopathy without further specification is documented in the EEG Impression on 06/27 and in the Neurology Progress Note on 06/28. . Additional clarification regarding the type of encephalopathy is requested. History/Risk Factors per the 06/27 H/P: History of Brain Injury status post frontal lobectomy, Global aphasia, Seizure disorder with last seizure reported 6 months ago, Ulcerative colitis and bowel ischemia on Kristina. Clinical Indicators: Presented to the ED 06/26 via EMS with witnessed tonic-clonic seizure, Fever and exposure to COVID (patient's daughter). Admit with Generalized Seizure & COVID-19 06/26 VS: T 99.6, P 81, R 18, BP 113/68, PO 96 RA, 100 2Lnc, BMI: 23.6 06/27 LAB: MCV 106.0; Na 133, Alk Phos 32, LDH 271, CRP 5.3, Albumin 3.4, Procalcitonin 0.07 06/27 UA: Trace ketones, Small Blood. 06/27 C Diff: Negative 06/27 COVID Positive 06/27 CT Brain: Large area of encephalomalacia in the left temporal lobe without change. 06/27 CXR: Kyphotic positioning. Mild hyperinflation may relate to emphysema. Some strand basilar atelectasis, no acute. 06/27 EEG: This is an abnormal routine EEG. The background slowing is suggestive of mild encephalopathy. The focal slowing, as stated above, is suggestive of presence of focal cerebral dysfunction in the involved region. The breach rhythm over the left temporal region is consistent with the patient's history of skull defect. There are no epileptiform discharges or seizure on the EEG. Treatment: 06/27: Blood glucose monitoring, Neuro Assessment, Seizure precautions, O2 2Lnc, IV Na Cl 1,000 mls @ 999 mls/hr q1H, IV Na Cl 1,000 mls @ 75 mls/hr q13H, po Depakote 500 mg TID, po Vimpat 150 mg BID, po Dilantin 300 mg Daily, po Vit D3 50 mcg Daily, po orazinc Daily, Lovenox 40 mg sq Daily. Please clarify the type of encephalopathy, if known: [ ] Metabolic Encephalopathy [ ] Toxic Encephalopathy [ ] Other Encephalopathy, please specify: [ ] Other, please specify: [ ] Unable to determine (Template Last Revised: April 2020) Encephalopathy of unknown etiology MTDD
--- NOTE | 2021-06-29 12:23 | P.DS ---
Providers Date of admission: 06/27/21 03:09 Expected date of discharge: 06/29/21 Attending physician: Ravinder Lozano Consults: 06/27/21 10:12 Consult Physician Routine Consulting Provider: Marvin Rodriguez Consult Reason/Comments: seizures/seizure disorder,LOC changes per Dr. Lozano Do you want consulting provider notified?: Yes 06/27/21 10:16 Consult Physician Routine Consulting Provider: Sonia Daugherty Consult Reason/Comments: COVID Do you want consulting provider notified?: Yes Primary care physician: [facility] Course: Breakthrough seizure, family reports witnessed tonic-clonic seizure, upon arrival suspect post ictal state, in a patient with Chronic seizure disorder. Dilantin level subtherapeutic on admission, 3.7, in addition to possibly be provoked by recent C. diff infection as well as Covid. Acute Covid infection Acute hypoxic respiratory failure secondary to the above, resolved Recent C diff Colitis, C. difficile (EIA) negative. Completed vancomycin regimen in May. Positive diarrhea currently testing negative for C. difficile colitis. 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 Family reported witnessed tonic-clonic seizure, EMS transported patient to the ER with vital signs stable with seizure activity subsided. Currently no family available at the bedside. Information being obtained staff, chart. Apparently everyone in the family recently sick with covid. Caronovirus detected. T-max 100.4, normal WBC. On admission O2 sat 96% on room air, currently 100% on 2 L nasal cannula.VSS. No further seizure activity reported. Hematology, coagulation, chemistry panels unremarkable with the exception of mild hyponatremia, sodium 177, albumin 3.4. Pro-calcitonin, LDH, CRP pending. Brain CT reported large area of encephalomalacia in the left temporal lobe without change compared to prior exam, no acute intracranial abnormality.Gentle IV fluid hydration initiated. UA negative. Chest x-ray pending. 06/28/2021 Evaluated by neurology and infectious disease with recommendations noted and appreciated. No further seizure activity reported. Dilantin level subtherapeutic, 3.7. Maintained on Covid cocktail, pro-calcitonin 0.07 ,H 271, CRP 5.3. C. difficile negative. good diet intake, consuming 75% with no nausea or vomiting or diarrhea. T-max 99.9. Maintaining O2 sats of 100% on room air. Completed vancomycin regimen in May for recent C. difficile colitis. Positive diarrhea during the night and this morning, tested negative for C. diff .Maintained on zinc, ascorbic acid, vitamin D, Lovenox for DVT prophylaxis/did not require steroids or Remdesevir. Maintaining O2 sats in the mid to high 90s on room air. Inflammatory markers normal .Chest x-ray did not report any groundglass opacities. No further breakthrough seizures. Significant clinical improvement. Lamictal level pending, Dilantin level subtherapeutic with uncertainty whether patient had received at home. Neurology at this time does not recommend any dose adjustments. Maintain seizure precautions. Patient will be discharged to ECF/subacute rehab today in a stable condition with guarded prognosis pending final DC recommendations and clearance from both neurology and ID. The impression and plan of care has been dictated as directed. : I performed a history and examination of this patient, discussed the same with the dictator. I agree with the dictator's note ,documented as a scribe. Any additional findings or plans will be noted. Patient Condition at Discharge: Stable Plan - Discharge Summary Discharge Rx Participant: No New Discharge Prescriptions: New Acetaminophen Tab [Tylenol] 650 mg PO Q6HR PRN tab PRN Reason: Mild Pain Or Fever > 100.5 Cholecalciferol [Vitamin D3 (25 Mcg = 1000 Iu)] 50 mcg PO DAILY tablet Zinc Sulfate [Orazinc] 220 mg PO DAILY #30 cap Famotidine [Pepcid] 20 mg PO BID tab Ascorbic Acid [Vitamin C] 500 mg PO BID tab Continue Phenytoin Sodium Extended [Dilantin] 300 mg PO DAILY OLANZapine [ZyPREXA] 5 mg PO HS Ferrous Sulfate [Iron (65 MG Elemental)] 325 mg PO DAILY@0700 Mesalamine 1,600 mg PO TID Lacosamide [Vimpat] 150 mg PO BID Divalproex ER [Depakote ER] 500 mg PO TID Folic Acid 0.4 mg PO DAILY Mirtazapine 15 mg PO HS predniSONE See Taper PO DIRECTED Changed ALPRAZolam [Xanax] 0.25 mg PO Q12H PRN #6 tab PRN Reason: Agitation Or Acute Anxiety Discontinued ALPRAZolam [Xanax] 0.25 mg PO HS Ergocalciferol [Vitamin D2 (1250 Mcg = 23485 Iu)] 1,250 mcg PO ACOSTA Discharge Medication List Divalproex ER [Depakote ER] 500 mg PO TID 07/22/20 [History] Lacosamide [Vimpat] 150 mg PO BID 07/22/20 [History] OLANZapine [ZyPREXA] 5 mg PO HS 07/22/20 [History] Phenytoin Sodium Extended [Dilantin] 300 mg PO DAILY 07/22/20 [History] Ferrous Sulfate [Iron (65 MG Elemental)] 325 mg PO DAILY@0700 01/18/21 [History] Folic Acid 0.4 mg PO DAILY 01/18/21 [History] Mirtazapine 15 mg PO HS 02/11/21 [History] Mesalamine 1,600 mg PO TID 05/01/21 [History] predniSONE See Taper PO DIRECTED 06/27/21 [History] ALPRAZolam [Xanax] 0.25 mg PO Q12H PRN #6 tab 06/29/21 [Rx] Acetaminophen Tab [Tylenol] 650 mg PO Q6HR PRN tab 06/29/21 [Rx] Ascorbic Acid [Vitamin C] 500 mg PO BID tab 06/29/21 [Rx] Cholecalciferol [Vitamin D3 (25 Mcg = 1000 Iu)] 50 mcg PO DAILY tablet 06/29/21 [Rx] Famotidine [Pepcid] 20 mg PO BID tab 06/29/21 [Rx] Zinc Sulfate [Orazinc] 220 mg PO DAILY #30 cap 06/29/21 [Rx] Follow up Appointment(s)/Referral(s): Ravinder Lozano Jr, [Primary Care Provider] - 1 Week (After discharge from subacute rehab) Patient Instructions/Handouts: Seizure/Epilepsy Discharge Instructions & Follow-Up, COVID-19 (Coronavirus Disease 2019) (ED) Activity/Diet/Wound Care/Special Instructions: ECF cbc,bmp in 3 days
[2021-06-29] MEDS: CHOLESTYRAMINE (WITH SUGAR) 4 GM PACKET PO SCH (17:11)
[2021-06-29 17:47] VITALS: TEMP 98.2
--- NOTE | 2021-06-29 22:31 | P.PN ---
Subjective Progress Note Date: 06/29/21 Principal diagnosis: Covid 19 infection Patient is a 66-year-old female with a past medical history. For brain injury status post frontal lobectomy global aphasia and seizure disorder presented to hospital for witnessed seizure patient also noticed to have a positive covid test. On today's evaluation that is 06/29/2021, the patient remains to be afebrile the patient is breathing comfortably on room air , the patient denies any chest pain or any worsening cough and specifically no vomiting has been reported. She did have 5 bowel movement per the nursing staff today Objective - Vital Signs Vital signs: Vital Signs Temp 97.7 F 06/29/21 09:17 Pulse 65 06/29/21 09:17 Resp 18 06/29/21 09:17 BP 94/57 06/29/21 09:17 Pulse Ox 95 06/29/21 09:17 Intake & Output 06/28/21 06/29/21 06/29/21 18:59 06:59 18:59 Intake Total 600 Balance 600 Intake: Intake, IV Titration 600 Amount Sodium Chloride 0.9% 1, 600 000 ml @ 75 mls/hr IV . [id number] [facility] Rx#:[id number] Other: # Voids 2 # Bowel Movements 2 1 - Exam GENERAL DESCRIPTION: A middle-aged female lying in bed in no distress RESPIRATORY SYSTEM: Unlabored breathing , decreased breath sounds at bases HEART: S1 S2 regular rate and rhythm , ABDOMEN: Soft , no tenderness EXTREMITIES: No edema feet - Labs CBC & Chem 7: 06/27/21 00:12 06/27/21 00:12 Assessment and Plan (1) COVID-19 Current Visit: Yes Status: Acute Code(s): U07.1 - COVID-19 SNOMED Code(s): 962847398 Plan: 1patient with a positive COVID test in this patient presented to hospital with tonic-clonic seizure patient did have a low-grade fever of 99.6 however the patient is not hypoxic or need for any supplemental oxygen patient lungs were clear to auscultation more likely mild COVID illness and treatment will be mostly supportive. 2chest x-ray did not show any groundglass opacities, inflammatory markers are normal. 3patient to continue zinc ascorbic acid and Lovenox, no need for steroids or remdesivir. 4diarrhea patient did have a history of C. diff colitis but stool for C. diff was negative this admission, we will add Questran for symptomatic relief Time with Patient: Less than 30
[2021-06-30] MEDS: ZINC SULFATE 220 MG CAP PO SCH (08:32)
[2021-06-30] MEDS: LACOSAMIDE 150 MG TABLET PO SCH (08:32)
[2021-06-30] MEDS: ASCORBIC ACID 500 MG TAB PO SCH (08:32)
[2021-06-30] MEDS: PANTOPRAZOLE 40 MG TABLET PO SCH (08:32)
[2021-06-30] MEDS: FAMOTIDINE 20 MG TAB PO SCH (08:32)
[2021-06-30] MEDS: DIVALPROEX ER 250 MG TAB.ER.24H PO SCH (08:32)
[2021-06-30] MEDS: PHENYTOIN SODIUM EXTENDED 100 MG CAP PO SCH (08:33)
[2021-06-30] MEDS: ENOXAPARIN 40 MG/0.4 ML SYRINGE SQ SCH (08:33)
[2021-06-30] MEDS: CHOLECALCIFEROL 25 MCG (1000 IU) TABLET PO SCH (08:33)
[2021-06-30 10:37] VITALS: BP 90/54; PULSE 66; RESP 19
[2021-06-30] MEDS: CHOLESTYRAMINE (WITH SUGAR) 4 GM PACKET PO SCH (10:43)
--- NOTE | 2021-06-30 17:25 | P.PN ---
Subjective Progress Note Date: 06/30/21 The patient is seen at bedside and is about the same. Objective - Vital Signs Vital signs: Vital Signs Temp 98.2 F 06/30/21 10:00 Pulse 66 06/30/21 10:00 Resp 19 06/30/21 10:00 BP 90/54 06/30/21 10:00 Pulse Ox 96 06/30/21 10:00 Intake & Output 06/29/21 06/30/21 06/30/21 18:59 06:59 18:59 Other: # Voids 2 3 # Bowel Movements 1 1 1 - Exam GENERAL: The patient is lying in bed and is not in acute distress. HENT: Supple neck. NEUROLOGICAL: Limited. Higher mental function: The patient is drwosy but is awakeable to voice. She is oriented to self only. Kept on telling me she does not known current place or time. Is following few simple commands (thumbs up). Could not assess language because of her cooperation. Cranial nerves: The pupils are round, equal and reactive to light. Visual veliz could not assess. Extraocular movement is tracking throughout the room. No facial weakness. No dysarthria. Rest is limited. Motor: The strength is hard to assess invidual muscle strength but is lifting uppers above gravity equally and wiggling her toes equally. Normal tone and bulk. Cerebellum: Could not assess. Sensation: Unable to assess. Reflexes (right/left): 1+ throughout.. Plantars are mute bilaterally. SOME OF THE WORK-UP: Valproic acid level is 60.4 (therapeutic). Phenytoin 3.7 (normal is 10-20). White blood cell is 7.5 thousand and the neutrophils and lymphocytes is within normal limits next line COVID-19 PCR is detected C.Diff EIA is negative. CT of the head is reported as large area of encephalomalacia in the left temporal lobe without change compared to last exam in 2013. No acute intracrani al abnormality. I personally reviewed the CT of the head and the patient does have and supplements over the left temporal. There is no acute or subacute ischemia. There is no interictal parenchymal hemorrhage. Patient has hydrocephalus over the lateral horn of ventricle predominantly the posterior and has old skull defect over the left temporal region. I did not see any images to compare with in our system. Routine EEG on 06/27/21: Is abnormal. The background slowing is suggestive of mild encephalopathy. The focal slowing is suggestive of focal cerebral dysnfucntion in involved region. The breach rhythm over the left temporal region is consistent with patient history of skull defect. There is no epileptiform discharges or seizure on the EEG. - Labs CBC & Chem 7: 06/27/21 00:12 06/27/21 00:12 Assessment and Plan Assessment: Break-thru seizure seems provoked due to her recent infection (has COVID-19 and recent C.Diff) also has subtherapeutic phenytoin (unsure if did not receive her medications at her facility). 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 I will not change her antiepileptic drugs since her seizure is likely a provoked. Every 4 hours neuro checks Patient is on seizure precaution and seizure pads Lamictal level pending. Infection disease team is consulted We'll defer the rest of the medical management the primary team. There is no further neurological work-up at this time. The plan is discussed with the patient's nurse. Marvin Rodriguez M.D. Neuro-hospitalist Time with Patient: Less than 30
== END 2021-06-30 14:29 | DRG 100 ==
LOC: EC 23:14 → 4SSUR 06-27 03:09
PROVIDERS: ADMIT Family Medicine; ATTEND Family Medicine
PROC: 4A10X4Z Monitoring of Central Nervous Electrical Activity, External Approach (ICD-10-PCS; principal; 2021-06-27)
DX: G40.409 Other generalized epilepsy and epileptic syndromes, not intractable, without status epilepticus (principal); J96.01 Acute respiratory failure with hypoxia; U07.1 COVID-19; E87.1 Hypo-osmolality and hyponatremia; G91.9 Hydrocephalus, unspecified; K51.90 Ulcerative colitis, unspecified, without complications; R41.4 Neurologic neglect syndrome; R47.01 Aphasia; G93.40 Encephalopathy, unspecified; R26.9 Unspecified abnormalities of gait and mobility; R47.02 Dysphasia; F51.04 Psychophysiologic insomnia; G93.89 Other specified disorders of brain; Z79.899 Other long term (current) drug therapy; Z82.49 Family history of ischemic heart disease and other diseases of the circulatory system; Z87.820 Personal history of traumatic brain injury; Z88.1 Allergy status to other antibiotic agents; Z91.040 Latex allergy status; Z86.14 Personal history of Methicillin resistant Staphylococcus aureus infection
CPT/HCPCS: 36415; 70450; 71045; 80053; 80164; 80185; 80235; 81001; 83615; 83735; 84145; 85025; 85379; 86140; 87324; 87635; 93005; 95816; 96361; 96374; 99285

== ENCOUNTER 2021-08-07 15:10 | Emergency (ER) | payer MEDICARE, OTHER ==
--- NOTE | 2021-08-07 19:11 | ED ---
Psych HPI - General Chief Complaint: Psychiatric Symptoms Stated Complaint: Mental Health Time Seen by Provider: 08/07/21 18:48 Source: family, RN notes reviewed Mode of arrival: wheelchair Limitations: physical limitation - History of Present Illness Initial Comments: This is a 66-year-old female who presents to the emergency department for a mental health evaluation. She was sent over by her primary care provider for refusing infusions for ulcerative colitis. Her sister is at bedside, and states that she was told that if she does not receive these infusions, she will lose her colon. The first time she received the infusion was at [facility] 2 weeks ago, she had to leave early in morning and returned late at night. Her sister states that she believes that this caused a negative association with the infusions, and may be why she is refusing them. However, her follow up infusions have been scheduled locally and she continues to refuse them. She does have a psychiatric history and takes Zyprexa at night. She had a psychiatrist she was seeing regularly one year ago, however he and she has been unable to see a local provider. States that the local providers have required her to be in talk therapy, however she has both receptive and expressive aphasia secondary to a brain injury, and this is not a possibility. Prior to 2 weeks ago, she was not as aggressive and agitated. She has not had any recent blood work and has not been complaining of any pain or other symptoms. MD Complaint: other (Refusing medical treatment) Onset/Timin -: week(s) - Related Data Home Medications Medication Instructions Recorded Confirmed Divalproex ER [Depakote ER] 500 mg PO TID 07/22/20 06/27/21 Lacosamide [Vimpat] 150 mg PO BID 07/22/20 06/27/21 OLANZapine [ZyPREXA] 5 mg PO HS 07/22/20 06/27/21 Phenytoin Sodium Extended 300 mg PO DAILY 07/22/20 06/27/21 [Dilantin] Ferrous Sulfate [Iron (65 MG 325 mg PO DAILY@0700 01/18/21 06/27/21 Elemental)] Folic Acid 0.4 mg PO DAILY 01/18/21 06/27/21 Mirtazapine 15 mg PO HS 02/11/21 06/27/21 Mesalamine 1,600 mg PO TID 05/01/21 06/27/21 predniSONE See Taper PO DIRECTED 06/27/21 06/27/21 Previous Rx's Medication Instructions Recorded ALPRAZolam [Xanax] 0.25 mg PO Q12H PRN #6 tab 06/29/21 Acetaminophen Tab [Tylenol] 650 mg PO Q6HR PRN tab 06/29/21 Ascorbic Acid [Vitamin C] 500 mg PO BID tab 06/29/21 Cholecalciferol [Vitamin D3 (25 50 mcg PO DAILY tablet 06/29/21 Mcg = 1000 Iu)] Famotidine [Pepcid] 20 mg PO BID tab 06/29/21 Zinc Sulfate [Orazinc] 220 mg PO DAILY #30 cap 06/29/21 Cholestyramine (with Sugar) 4 gm PO BID@1000,1800 #20 packet 06/30/21 [Questran Packet] Allergies Allergy/AdvReac Type Severity Reaction Status Date / Time cephalexin [From Keflex] Allergy Rash/Hives Verified 06/27/21 06:34 latex Allergy Rash/Hives Verified 06/27/21 06:34 Review of Systems ROS Statement: Those systems with pertinent positive or pertinent negative responses have been documented in the HPI. ROS Other: All systems not noted in ROS Statement are negative. 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 Past Surgical History: Breast Surgery Additional Past Surgical History / Comment(s): frontal lobectomy, perforated bowel. Past Anesthesia/Blood Transfusion Reactions: No Reported Reaction Past Psychological History: Unable to Obtain Smoking Status: Never smoker Past Alcohol Use History: None Reported Past Drug Use History: None Reported - Past Family History Mother Family Medical History: Hypertension Additional Family Medical History / Comment(s): Mother is alive and 89yrs old. Father Family Medical History: Hypertension Additional Family Medical History / Comment(s): Father is . General Exam Limitations: physical limitation (expressive and receptive aphasia) General appearance: alert Head exam: Present: atraumatic, normocephalic, normal inspection Neck exam: Present: normal inspection. Absent: tenderness, meningismus, lymphadenopathy Respiratory exam: Present: normal lung sounds bilaterally. Absent: respiratory distress, wheezes, rales, rhonchi, stridor Cardiovascular Exam: Present: regular rate, normal rhythm, normal heart sounds. Absent: systolic murmur, diastolic murmur, rubs, gallop, clicks Neurological exam: Present: alert Psychiatric exam: Present: normal affect, normal mood Skin exam: Present: warm, dry, intact, normal color. Absent: rash Course Vital Signs 08/07/21 08/07/21 08/08/21 15:23 21:00 00:45 Temperature 97.7 F 97.7 F 97.6 F Pulse Rate 71 77 78 Respiratory 18 20 20 Rate Blood Pressure 91/56 102/70 104/70 O2 Sat by Pulse 98 98 97 Oximetry Medical Decision Making - Medical Decision Making This is a 66-year-old female who presents to the emergency department for a psychiatric evaluation. Given that symptoms have worsened over the last 2 weeks, baseline lab work and urinalysis were obtained, and all results were nonactionable. Patient was evaluated by EPS to the best of their ability, however given the patient's receptive and expressive aphasia, this was very difficult. Patient was able to express that she has no thoughts of hurting herself or anyone else. EPS has cleared the patient for discharge home. The patient's sister has been very irate with the staff on the phone regarding the patient's discharge. Her sister states that she has met psychiatric admission criteria in the past, however upon chart review, the patient has never been admitted to psychiatric services at this hospital. Additionally, we reiterated with the patient's sister that because she is her legal guardian, she can force her to have the injections for ulcerative colitis. We also spoke with the pharmacy, and the hospital does not carry the infusion she needs, and we are unable to admit her simply for the infusions. The patient's sister did eventually come to pick her up and continued to be very disrespectful towards staff despite being told multiple times that her sister does not meet admission criteria. Return precautions reviewed in depth, the patient is instructed to return to the emergency department with any new, worsening, or concerning symptoms. Patient's sister verbalized understanding. This case was discussed in detail with the attending ED physician. Presentation, findings, and treatment plan discussed in detail as well. - Lab Data Result diagrams: 08/07/21 19:08/07/21 19: Lab Results 08/07/21 08/07/21 08/07/21 Range/Units 19:26 19: 19: WBC 5.7 (3.8-10.6) k/uL RBC 3.47 L (3.80-5.40) m/uL Hgb 11.8 (11.4-16.0) gm/dL Hct 35.5 (34.0-46.0) % MCV 102.3 H (80.0-100.0) fL MCH 34.0 (25.0-35.0) pg MCHC 33.2 (31.0-37.0) g/dL RDW 12.6 (11.5-15.5) % Plt Count 287 (150-450) k/uL MPV 7.6 Neutrophils % 58 % Lymphocytes % 27 % Monocytes % 9 % Eosinophils % 2 % Basophils % 0 % Neutrophils # 3.3 (1.3-7.7) k/uL Lymphocytes # 1.5 (1.0-4.8) k/uL Monocytes # 0.5 (0-1.0) k/uL Eosinophils # 0.1 (0-0.7) k/uL Basophils # 0.0 (0-0.2) k/uL Macrocytosis Slight Sodium 138 (137-145) mmol/L Potassium 4.8 (3.5-5.1) mmol/L Chloride 109 H (98-107) mmol/L Carbon Dioxide 26 (22-30) mmol/L Anion Gap 3 mmol/L BUN 23 H (7-17) mg/dL Creatinine 0.76 (0.52-1.04) mg/dL Est GFR (CKD-EPI)AfAm >90 (>60 ml/min/1.73 sqM) Est GFR (CKD-EPI)NonAf 84 (>60 ml/min/1.73 sqM) Glucose 94 (74-99) mg/dL Calcium 8.5 (8.4-10.2) mg/dL Total Bilirubin 0.1 L (0.2-1.3) mg/dL AST 18 (14-36) U/L ALT 11 (4-34) U/L Alkaline Phosphatase 50 (38-126) U/L Total Protein 6.6 (6.3-8.2) g/dL Albumin 3.3 L (3.5-5.0) g/dL Urine Color Yellow Urine Appearance Clear (Clear) Urine pH 5.5 (5.0-8.0) Ur Specific [place] 1.017 (1.001-1.035) Urine Protein Negative (Negative) Urine Glucose (UA) Negative (Negative) Urine Ketones Negative (Negative) Urine Blood Negative (Negative) Urine Nitrite Negative (Negative) Urine Bilirubin Negative (Negative) Urine Urobilinogen <2.0 (<2.0) mg/dL Ur Leukocyte Esterase Small H (Negative) Urine RBC 1 (0-5) /hpf Urine WBC 13 H (0-5) /hpf Ur Squamous Epith Cells <1 (0-4) /hpf Urine Mucus Rare H (None) /hpf Urine Opiates Screen (NotDetected) Ur Oxycodone Screen (NotDetected) Urine Methadone Screen (NotDetected) Ur Propoxyphene Screen (NotDetected) Ur Barbiturates Screen (NotDetected) U Tricyclic Antidepress (NotDetected) Ur Phencyclidine Scrn (NotDetected) Ur Amphetamines Screen (NotDetected) U Methamphetamines Scrn (NotDetected) U Benzodiazepines Scrn (NotDetected) Urine Cocaine Screen (NotDetected) U Marijuana (THC) Screen (NotDetected) 08/07/21 Range/Units 21:05 WBC (3.8-10.6) k/uL RBC (3.80-5.40) m/uL Hgb (11.4-16.0) gm/dL Hct (34.0-46.0) % MCV (80.0-100.0) fL MCH (25.0-35.0) pg MCHC (31.0-37.0) g/dL RDW (11.5-15.5) % Plt Count (150-450) k/uL MPV Neutrophils % % Lymphocytes % % Monocytes % % Eosinophils % % Basophils % % Neutrophils # (1.3-7.7) k/uL Lymphocytes # (1.0-4.8) k/uL Monocytes # (0-1.0) k/uL Eosinophils # (0-0.7) k/uL Basophils # (0-0.2) k/uL Macrocytosis Sodium (137-145) mmol/L Potassium (3.5-5.1) mmol/L Chloride (98-107) mmol/L Carbon Dioxide (22-30) mmol/L Anion Gap mmol/L BUN (7-17) mg/dL Creatinine (0.52-1.04) mg/dL Est GFR (CKD-EPI)AfAm (>60 ml/min/1.73 sqM) Est GFR (CKD-EPI)NonAf (>60 ml/min/1.73 sqM) Glucose (74-99) mg/dL Calcium (8.4-10.2) mg/dL Total Bilirubin (0.2-1.3) mg/dL AST (14-36) U/L ALT (4-34) U/L Alkaline Phosphatase (38-126) U/L Total Protein (6.3-8.2) g/dL Albumin (3.5-5.0) g/dL Urine Color Urine Appearance (Clear) Urine pH (5.0-8.0) Ur Specific [place] (1.001-1.035) Urine Protein (Negative) Urine Glucose (UA) (Negative) Urine Ketones (Negative) Urine Blood (Negative) Urine Nitrite (Negative) Urine Bilirubin (Negative) Urine Urobilinogen (<2.0) mg/dL Ur Leukocyte Esterase (Negative) Urine RBC (0-5) /hpf Urine WBC (0-5) /hpf Ur Squamous Epith Cells (0-4) /hpf Urine Mucus (None) /hpf Urine Opiates Screen Not Detected (NotDetected) Ur Oxycodone Screen Not Detected (NotDetected) Urine Methadone Screen Not Detected (NotDetected) Ur Propoxyphene Screen Not Detected (NotDetected) Ur Barbiturates Screen Detected H (NotDetected) U Tricyclic Antidepress Not Detected (NotDetected) Ur Phencyclidine Scrn Not Detected (NotDetected) Ur Amphetamines Screen Not Detected (NotDetected) U Methamphetamines Scrn Not Detected (NotDetected) U Benzodiazepines Scrn Not Detected (NotDetected) Urine Cocaine Screen Not Detected (NotDetected) U Marijuana (THC) Screen Not Detected (NotDetected) Disposition Clinical Impression: Refusal of treatment by patient, Ulcerative colitis Disposition: HOME SELF-CARE Additional Instructions: Return to the emergency department with any new, worsening, or concerning symptoms. EPS has evaluated and cleared the patient, from a psychiatric standpoint there is no indication to admit her. Is patient prescribed a controlled substance at d/c from ED?: No Referrals: Jayy Sarmiento MD [Primary Care Provider] - 1-2 days
[2021-08-07 19:50] LABS: Basophils % (A) 0 %; Eosinophils # (A) 0.1 k/uL (0-0.7); Eosinophils % (A) 2 %; HCT 35.5 % (34.0-46.0); HGB 11.8 gm/dL (11.4-16.0); Lymphocytes # (A) 1.5 k/uL (1.0-4.8); Lymphocytes % (A) 27 %; MCHC 33.2 g/dL (31.0-37.0); MCV 102.3 fL (80.0-100.0); Macrocytosis Slight; Mean Platelet Volume 7.6; Monocytes # (A) 0.5 k/uL (0-1.0); Monocytes % (A) 9 %; Neutrophils # (A) 3.3 k/uL (1.3-7.7); Neutrophils % (A) 58 %; Platelet Count 287 k/uL (150-450); RBC 3.47 m/uL (3.80-5.40); RDW 12.6 % (11.5-15.5); WBC 5.7 k/uL (3.8-10.6)
[2021-08-07 19:53] LABS: ALT 11 U/L (4-34); AST 18 U/L (14-36); African American GFR (CKD) >90 (>60 ml/min/1.73 sqM); Albumin 3.3 g/dL (3.5-5.0); Alkaline Phosphatase 50 U/L (38-126); Anion Gap 3 mmol/L; Blood Urea Nitrogen 23 mg/dL (7-17); Calcium 8.5 mg/dL (8.4-10.2); Carbon Dioxide 26 mmol/L (22-30); Chloride 109 mmol/L (98-107); Glucose 94 mg/dL (74-99); Non-African American GFR(CKD) 84 (>60 ml/min/1.73 sqM); Potassium 4.8 mmol/L (3.5-5.1); Sodium 138 mmol/L (137-145); Total Bilirubin 0.1 mg/dL (0.2-1.3); Total Protein 6.6 g/dL (6.3-8.2)
[2021-08-07 20:12] LABS: Appearance,Urine Clear (Clear); Bilirubin,Urine Negative (Negative); Blood,Urine Negative (Negative); Color,Urine Yellow; Glucose,Urine (UA) Negative (Negative); Ketones,Urine Negative (Negative); Leukocyte Esterase,Urine Small (Negative); Mucus,Urine Rare /hpf; Nitrite,Urine Negative (Negative); PH, Urine 5.5 (5.0-8.0); Protein,Urine Negative (Negative); RBC,Urine 1 /hpf (0-5); Specific Gravity,Urine 1.017 (1.001-1.035); Squamous Epithelial Cell,Urine <1 /hpf (0-4); Urobilinogen,Urine <2.0 mg/dL (<2.0); WBC,Urine 13 /hpf (0-5)
[2021-08-07 21:06] VITALS: RESP 20
[2021-08-07 22:34] LABS: Amphetamine Screen,Urine Not Detected (NotDetected); Benzodiazepines Screen,Urine Not Detected (NotDetected); Cocaine Screen,Urine Not Detected (NotDetected); Methadone Screen, Urine Not Detected (NotDetected); Opiate Screen,Urine Not Detected (NotDetected); Oxycodone Screen, Urine Not Detected (NotDetected); Phencyclidine Screen,Urine Not Detected (NotDetected); Tricyclic Antidepressant,Urine Not Detected (NotDetected); Urn Cannabinoid Scrn Not Detected (NotDetected)
[2021-08-07 22:45] LABS: Barbiturate Screen,Urine Detected (NotDetected)
[2021-08-08 00:51] VITALS: BP 104/70; PULSE 78; TEMP 97.6
== END 2021-08-08 01:09 | disposition home or self-care (01) ==
LOC: EC 15:10
DX: K51.90 Ulcerative colitis, unspecified, without complications (principal); Z53.20 Procedure and treatment not carried out because of patient's decision for unspecified reasons; Z91.040 Latex allergy status; Z88.1 Allergy status to other antibiotic agents
CPT/HCPCS: 36415; 80053; 80306; 81001; 82075; 85025; 87086; 99284

== ENCOUNTER 2021-10-04 13:32 | Inpatient (IN) | payer MEDICARE, OTHER ==
[2021-10-04 13:56] LABS: Glucose,Whole Blood 270 mg/dL (70-110)
[2021-10-04] MEDS ORDERED: SODIUM CHLORIDE 0.9% 1,000 ML IV ONE ×3 (14:06→15:33)
--- NOTE | 2021-10-04 14:09 | ED ---
General Adult HPI - General Chief complaint: Cardiac Arrest/CPR Stated complaint: Cardiac Arrest Time Seen by Provider: 10/04/21 13:45 Source: EMS Mode of arrival: EMS - History of Present Illness Initial comments: 66-year-old female with past medical history of ulcerative colitis, perforated bowel, cerebritis with frontal lobectomy, chronic apahsia and right-sided neglect who presents to the emergency department as a cardiac arrest. Patient was in her room at home where she lives with her sister. The home health family day care provider had gone into the room to check on the patient and noted that she was still asleep. Sister thought that this was odd for her to be sleeping so late and therefore entered the room about 1216 and found that the patient was purple in color. She called EMS and they instructed her to start CPR. Fire arrived on scene. Administered one defibrillations as the patient was in V. fib arrest. EMS arrived. They performed CPR for approximately 20 minutes before they were able to get ROSC. Patient was profoundly bradycardic and therefore she got atropine. She received 3 epis by them and a second defibrillation. Before arriving to the hospital, the patient had lost pulses again. EMS continued CPR. Intubated with a Vinay tube All medications were administed through an IO in the right tibia. Patient arrives pulseless with no spontaneous movements. Pupils fixed and dilated at 6 mm. The sister reports that the patient was awake and alert this morning without any concerning symptoms. - Related Data Home Medications Medication Instructions Recorded Confirmed Divalproex ER [Depakote ER] 500 mg PO TID 07/22/20 10/04/21 Lacosamide [Vimpat] 150 mg PO BID 07/22/20 10/04/21 Phenytoin Sodium Extended 300 mg PO DAILY 07/22/20 10/04/21 [Dilantin] Ferrous Sulfate [Iron (65 MG 325 mg PO DAILY@0700 01/18/21 10/04/21 Elemental)] Folic Acid 0.4 mg PO DAILY 01/18/21 10/04/21 Mirtazapine 15 mg PO HS 02/11/21 10/04/21 Clindamycin [Cleocin] 2 mg PO TID 10/04/21 10/04/21 Hydrocortisone Oint 1 applic TOPICAL BID 10/04/21 10/04/21 [Hydrocortisone 2.5% Oint] OLANZapine [ZyPREXA] 10 mg PO HS 10/04/21 10/04/21 SILVER sulfADIAZINE CREAM 1 applic TOPICAL DAILY 10/04/21 10/04/21 [Silvadene Cream] Previous Rx's Medication Instructions Recorded ALPRAZolam [Xanax] 0.25 mg PO Q12H PRN #6 tab 06/29/21 Acetaminophen Tab [Tylenol] 650 mg PO Q6HR PRN tab 06/29/21 Cholecalciferol [Vitamin D3 (25 50 mcg PO DAILY tablet 06/29/21 Mcg = 1000 Iu)] Allergies Allergy/AdvReac Type Severity Reaction Status Date / Time cephalexin [From Keflex] Allergy Rash/Hives Verified 10/04/21 14:05 latex Allergy Rash/Hives Verified 10/04/21 14:05 Review of Systems ROS Statement: Those systems with pertinent positive or pertinent negative responses have been documented in the HPI. ROS Other: All systems not noted in ROS Statement are negative. 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 Past Surgical History: Breast Surgery Additional Past Surgical History / Comment(s): frontal lobectomy, perforated bowel. Past Anesthesia/Blood Transfusion Reactions: No Reported Reaction Past Psychological History: Unable to Obtain Smoking Status: Never smoker Past Alcohol Use History: None Reported Past Drug Use History: None Reported - Past Family History Mother Family Medical History: Hypertension Additional Family Medical History / Comment(s): Mother is alive and 89yrs old. Father Family Medical History: Hypertension Additional Family Medical History / Comment(s): Father is . General Exam Limitations: altered mental status General appearance: other (unresponsive to painful stimuli. pulsesless. ) Head exam: Present: atraumatic, normocephalic Eye exam: Present: other (fixed, dilated, 6 mm) ENT exam: Present: mucous membranes dry, other (frothy bloody sputum coming from mouth) Respiratory exam: Present: other (no spontanous respirations) Cardiovascular Exam: Present: other (pulseless) Neurological exam: Present: other (unresponsive) Skin exam: Present: mottled Course Vital Signs 10/04/21 10/04/21 10/04/21 13:44 13:46 13:55 Temperature 96.9 F L Pulse Rate 115 H 111 H Respiratory 20 20 Rate Blood Pressure 112/81 114/72 O2 Sat by Pulse 99 99 Oximetry Fraction of 100 Inspired Oxygen (FIO2) 10/04/21 10/04/21 10/04/21 14:04 14:20 14:50 Temperature Pulse Rate 109 H 96 101 H Respiratory 20 20 20 Rate Blood Pressure 100/73 87/61 80/59 O2 Sat by Pulse 99 100 100 Oximetry Fraction of Inspired Oxygen (FIO2) 10/04/21 10/04/21 10/04/21 14:56 15:15 15:26 Temperature Pulse Rate 83 Respiratory 20 Rate Blood Pressure 96/68 O2 Sat by Pulse 100 Oximetry Fraction of 60 60 Inspired Oxygen (FIO2) 10/04/21 15:51 Temperature Pulse Rate 90 Respiratory 20 Rate Blood Pressure 91/76 O2 Sat by Pulse 99 Oximetry Fraction of Inspired Oxygen (FIO2) - Reevaluation(s) Reevaluation #1: Spoke with cardiology in regards to patient here with V. fib arrest 10/04/21 1433 EKG Findings - EKG Comments: EKG Findings:: EKG done at 1340 demonstrates a sinus tachycardia with ST elevation 3, aVR. ST depression V2 through V4. EKG done at 1343 demonstrates sinus rhythm with intraventricular conduction delay. ST depression V2V3. ST elevation 3, aVF. EKG done at [address] depression V2V3. No acute ST segment elevations Procedures - Central Line Placement Right Femoral Consent Obtained: emergent situation Patient Placed on Monitor/Pulse Ox: Yes Prep: mask, gown, gloves Central Line Prep: Chlorhexidine scrub, sterile drapes applied Ultrasound Used for Placement: Yes Central Line Lumen Inserted: triple Bloods Obtained for Lab: Yes Central Line Position: good blood return, all ports aspirated, flushed, capped, sutured in place with nylon Dressing Applied: Tegaderm Post Procedure X-Ray: tip of catheter in good position Patient Tolerated Procedure: well, no complications - Chest Tube Insertion Consent Obtained: emergent situation Side of Procedure: left Indication: Pneumothorax Placed on monitor/pulse oximetry: Yes Site Prep: Chloroprep, Sterile Drape Applied Insertion Site: Other (2nd intercostal space, midclavicular line) Scalpel: #11 Tube Size (Bots[place]an): Other (9) Returns: Air Sutured in Place: No Attached to Suction: Yes Type of Suction: Pleuravac Repeat X-ray Results: Lung Inflated Patient Tolerated Procedure: well, no complications - Intubation Size: 3 Assist Device Used: other (glidescope) ET Tube Size: 7.5 ET Tube Uncuffed: No Tube Secured Depth (cm): 23 Tube Secured Location: teeth Tube Placement Confirmation: visualized tube passing through cords, equal breath sounds bilaterally, no breath sounds over epigastrium, confirmation by capnomet ry Patient Tolerated Procedure: well, no complications Medical Decision Making - Medical Decision Making Upon arrival patient was placed into trauma 2. She does arrive pulseless, intubated with a Vinay tube for which bagging is very difficult per EMS. Chest compressions are being performed by the Josue device and patient moved over to our stretcher. She is intubated with a 7-1/2-[place]an ET tube, 23 cm at the teeth. We do receive color change. CPR is continued for approximately 20 minutes. Patient was given 3 epi, 2 bicarb and 1 calcium. A rhythm check is performed and the patient is found to be in a sinus rhythm. EKG obtained 3. Original EKG demonstrated ischemic changes however these did normalize after the patient's heart beat stabilizes. Laboratory studies are conducted. I did put a central line in the patient's left groin and started her on a Levophed gtt. patient originally had no status however approximately an hour and a half into her stay she is able to open her eyes. She was given 5 mg of Versed for sedation. I reviewed the patient's laboratory studies. Lactic of 11.2. Troponin 0.462. UA positive for bacteria. Chest x-ray was performed which demonstrates airspace disease to the right lung and left intrahilar region. She was started on antibiotics for pneumonia. CT the patient's head was performed to evaluate for anoxic injury. There is some mild generalized brain swelling. It also picks up a small to moderate left sided pneumothorax. Because of this I did place a left Thoravent. Repeat chest x-ray was read as negative for pneumothorax and chest tube is in good position. Patient admitted to Dr. Turner who presents to the emergency department. He speaks in length with the patient's family as to the likely poor outcome of the patient. She remains hypotensive and therefore Vasopressin is ordered for the floor. Dr. Norris accepts the patient into the ICU. Patient taken to the floor in critical condition with a guarded prognosis - Lab Data Result diagrams: 10/07/21 06:05 10/07/21 11:30 Lab Results 10/04/21 10/04/21 10/04/21 Range/Units 13:54 14:08 14:08 WBC 12.6 H (3.8-10.6) k/uL RBC 3.33 L (3.80-5.40) m/uL Hgb 11.1 L (11.4-16.0) gm/dL Hct 36.1 (34.0-46.0) % MCV 108.4 H D (80.0-100.0) fL MCH 33.4 (25.0-35.0) pg MCHC 30.8 L (31.0-37.0) g/dL RDW 11.8 (11.5-15.5) % Plt Count 221 (150-450) k/uL MPV 11.2 Neutrophils % (Manual) 62 % Band Neuts % (Manual) 7 % Lymphocytes % (Manual) 27 % Monocytes % (Manual) 2 % Metamyelocytes % 2 % Myelocytes % 1 % Neutrophils # (Manual) 8.60 H (1.3-7.7) k/uL Lymphocytes # (Manual) 3.40 (1.0-4.8) k/uL Monocytes # (Manual) 0.25 (0-1.0) k/uL Metamyelocytes # (Man) 0.25 H (0) k/uL Myelocytes # (Manual) 0.13 H (0) k/uL Nucleated RBCs 0 (0-0) /100 WBC Manual Slide Review Performed Hypochromasia Marked Macrocytosis Moderate Rouleaux Present PT 12.3 H (9.0-12.0) sec INR 1.2 H (<1.2) APTT 25.3 (22.0-30.0) sec Sample Site ABG pH (7.35-7.45) ABG pCO2 (35-45) mmHg ABG pO2 (83-108) mmHg ABG HCO3 (21-25) mmol/L ABG Total CO2 (19-24) mmol/L ABG O2 Saturation (94-97) % ABG Base Excess mmol/L Win Test FiO2 % Sodium (137-145) mmol/L Potassium (3.5-5.1) mmol/L Chloride (98-107) mmol/L Carbon Dioxide (22-30) mmol/L Anion Gap mmol/L BUN (7-17) mg/dL Creatinine (0.52-1.04) mg/dL Est GFR (CKD-EPI)AfAm (>60 ml/min/1.73 sqM) Est GFR (CKD-EPI)NonAf (>60 ml/min/1.73 sqM) Glucose (74-99) mg/dL POC Glucose (mg/dL) 270 H (70-110) mg/dL POC Glu Automatic Gluing Machine Operator ID GudinoMadeline Lactic Ac Sepsis Rflx Plasma Lactic Acid Willy (0.7-2.0) mmol/L Calcium (8.4-10.2) mg/dL Total Bilirubin (0.2-1.3) mg/dL AST (14-36) U/L ALT (4-34) U/L Alkaline Phosphatase (38-126) U/L Troponin I (0.000-0.034) ng/mL Total Protein (6.3-8.2) g/dL Albumin (3.5-5.0) g/dL Urine Color Urine Appearance (Clear) Urine pH (5.0-8.0) Ur Specific Karn[place] (1.001-1.035) Urine Protein (Negative) Urine Glucose (UA) (Negative) Urine Ketones (Negative) Urine Blood (Negative) Urine Nitrite (Negative) Urine Bilirubin (Negative) Urine Urobilinogen (<2.0) mg/dL Ur Leukocyte Esterase (Negative) Urine RBC (0-5) /hpf Urine WBC (0-5) /hpf Urine Bacteria (None) /hpf Urine Mucus (None) /hpf Urine Opiates Screen (NotDetected) Ur Oxycodone Screen (NotDetected) Urine Methadone Screen (NotDetected) Ur Propoxyphene Screen (NotDetected) Ur Barbiturates Screen (NotDetected) Valproic Acid ug/mL U Tricyclic Antidepress (NotDetected) Ur Phencyclidine Scrn (NotDetected) Ur Amphetamines Screen (NotDetected) U Methamphetamines Scrn (NotDetected) U Benzodiazepines Scrn (NotDetected) Urine Cocaine Screen (NotDetected) U Marijuana (THC) Screen (NotDetected) 10/04/21 10/04/21 10/04/21 Range/Units 14:08 14:08 14:08 WBC (3.8-10.6) k/uL RBC (3.80-5.40) m/uL Hgb (11.4-16.0) gm/dL Hct (34.0-46.0) % MCV (80.0-100.0) fL MCH (25.0-35.0) pg MCHC (31.0-37.0) g/dL RDW (11.5-15.5) % Plt Count (150-450) k/uL MPV Neutrophils % (Manual) % Band Neuts % (Manual) % Lymphocytes % (Manual) % Monocytes % (Manual) % Metamyelocytes % % Myelocytes % % Neutrophils # (Manual) (1.3-7.7) k/uL Lymphocytes # (Manual) (1.0-4.8) k/uL Monocytes # (Manual) (0-1.0) k/uL Metamyelocytes # (Man) (0) k/uL Myelocytes # (Manual) (0) k/uL Nucleated RBCs (0-0) /100 WBC Manual Slide Review Hypochromasia Macrocytosis Rouleaux PT (9.0-12.0) sec INR (<1.2) APTT (22.0-30.0) sec Sample Site ABG pH (7.35-7.45) ABG pCO2 (35-45) mmHg ABG pO2 (83-108) mmHg ABG HCO3 (21-25) mmol/L ABG Total CO2 (19-24) mmol/L ABG O2 Saturation (94-97) % ABG Base Excess mmol/L Win Test FiO2 % Sodium 139 (137-145) mmol/L Potassium 3.6 (3.5-5.1) mmol/L Chloride 107 (98-107) mmol/L Carbon Dioxide 13 L (22-30) mmol/L Anion Gap 19 mmol/L BUN 12 (7-17) mg/dL Creatinine 0.83 (0.52-1.04) mg/dL Est GFR (CKD-EPI)AfAm 87 (>60 ml/min/1.73 sqM) Est GFR (CKD-EPI)NonAf 75 (>60 ml/min/1.73 sqM) Glucose 258 H (74-99) mg/dL POC Glucose (mg/dL) (70-110) mg/dL POC Glu Automatic Gluing Machine Operator ID Lactic Ac Sepsis Rflx Plasma Lactic Acid Willy (0.7-2.0) mmol/L Calcium 8.8 (8.4-10.2) mg/dL Total Bilirubin 0.2 (0.2-1.3) mg/dL AST 304 H (14-36) U/L ALT 185 H (4-34) U/L Alkaline Phosphatase 92 (38-126) U/L Troponin I 0.462 H* (0.000-0.034) ng/mL Total Protein 5.3 L (6.3-8.2) g/dL Albumin 2.5 L (3.5-5.0) g/dL Urine Color Urine Appearance (Clear) Urine pH (5.0-8.0) Ur Specific [place] (1.001-1.035) Urine Protein (Negative) Urine Glucose (UA) (Negative) Urine Ketones (Negative) Urine Blood (Negative) Urine Nitrite (Negative) Urine Bilirubin (Negative) Urine Urobilinogen (<2.0) mg/dL Ur Leukocyte Esterase (Negative) Urine RBC (0-5) /hpf Urine WBC (0-5) /hpf Urine Bacteria (None) /hpf Urine Mucus (None) /hpf Urine Opiates Screen Not Detected (NotDetected) Ur Oxycodone Screen Not Detected (NotDetected) Urine Methadone Screen Not Detected (NotDetected) Ur Propoxyphene Screen Not Detected (NotDetected) Ur Barbiturates Screen Detected H (NotDetected) Valproic Acid 44.1 ug/mL U Tricyclic Antidepress Not Detected (NotDetected) Ur Phencyclidine Scrn Not Detected (NotDetected) Ur Amphetamines Screen Not Detected (NotDetected) U Methamphetamines Scrn Not Detected (NotDetected) U Benzodiazepines Scrn Not Detected (NotDetected) Urine Cocaine Screen Not Detected (NotDetected) U Marijuana (THC) Screen Not Detected (NotDetected) 10/04/21 10/04/21 10/04/21 Range/Units 14:08 14:35 14:43 WBC (3.8-10.6) k/uL RBC (3.80-5.40) m/uL Hgb (11.4-16.0) gm/dL Hct (34.0-46.0) % MCV (80.0-100.0) fL MCH (25.0-35.0) pg MCHC (31.0-37.0) g/dL RDW (11.5-15.5) % Plt Count (150-450) k/uL MPV Neutrophils % (Manual) % Band Neuts % (Manual) % Lymphocytes % (Manual) % Monocytes % (Manual) % Metamyelocytes % % Myelocytes % % Neutrophils # (Manual) (1.3-7.7) k/uL Lymphocytes # (Manual) (1.0-4.8) k/uL Monocytes # (Manual) (0-1.0) k/uL Metamyelocytes # (Man) (0) k/uL Myelocytes # (Manual) (0) k/uL Nucleated RBCs (0-0) /100 WBC Manual Slide Review Hypochromasia Macrocytosis Rouleaux PT (9.0-12.0) sec INR (<1.2) APTT (22.0-30.0) sec Sample Site r brach ABG pH 7.14 L* (7.35-7.45) ABG pCO2 46 H (35-45) mmHg ABG pO2 347 H (83-108) mmHg ABG HCO3 16 L (21-25) mmol/L ABG Total CO2 17 L (19-24) mmol/L ABG O2 Saturation 99.8 H (94-97) % ABG Base Excess -13.3 mmol/L Win Test na FiO2 100 % Sodium (137-145) mmol/L Potassium (3.5-5.1) mmol/L Chloride (98-107) mmol/L Carbon Dioxide (22-30) mmol/L Anion Gap mmol/L BUN (7-17) mg/dL Creatinine (0.52-1.04) mg/dL Est GFR (CKD-EPI)AfAm (>60 ml/min/1.73 sqM) Est GFR (CKD-EPI)NonAf (>60 ml/min/1.73 sqM) Glucose (74-99) mg/dL POC Glucose (mg/dL) (70-110) mg/dL POC Glu Automatic Gluing Machine Operator ID Lactic Ac Sepsis Rflx Plasma Lactic Acid Willy 11.2 H* (0.7-2.0) mmol/L Calcium (8.4-10.2) mg/dL Total Bilirubin (0.2-1.3) mg/dL AST (14-36) U/L ALT (4-34) U/L Alkaline Phosphatase (38-126) U/L Troponin I (0.000-0.034) ng/mL Total Protein (6.3-8.2) g/dL Albumin (3.5-5.0) g/dL Urine Color Light Yellow Urine Appearance Cloudy H (Clear) Urine pH 7.5 (5.0-8.0) Ur Specific [place] 1.011 (1.001-1.035) Urine Protein 3+ H (Negative) Urine Glucose (UA) 3+ H (Negative) Urine Ketones Trace H (Negative) Urine Blood Large H (Negative) Urine Nitrite Negative (Negative) Urine Bilirubin Negative (Negative) Urine Urobilinogen <2.0 (<2.0) mg/dL Ur Leukocyte Esterase Negative (Negative) Urine RBC >182 H (0-5) /hpf Urine WBC 180 H (0-5) /hpf Urine Bacteria Rare H (None) /hpf Urine Mucus Rare H (None) /hpf Urine Opiates Screen (NotDetected) Ur Oxycodone Screen (NotDetected) Urine Methadone Screen (NotDetected) Ur Propoxyphene Screen (NotDetected) Ur Barbiturates Screen (NotDetected) Valproic Acid ug/mL U Tricyclic Antidepress (NotDetected) Ur Phencyclidine Scrn (NotDetected) Ur Amphetamines Screen (NotDetected) U Methamphetamines Scrn (NotDetected) U Benzodiazepines Scrn (NotDetected) Urine Cocaine Screen (NotDetected) U Marijuana (THC) Screen (NotDetected) 10/04/21 Range/Units 15:17 WBC (3.8-10.6) k/uL RBC (3.80-5.40) m/uL Hgb (11.4-16.0) gm/dL Hct (34.0-46.0) % MCV (80.0-100.0) fL MCH (25.0-35.0) pg MCHC (31.0-37.0) g/dL RDW (11.5-15.5) % Plt Count (150-450) k/uL MPV Neutrophils % (Manual) % Band Neuts % (Manual) % Lymphocytes % (Manual) % Monocytes % (Manual) % Metamyelocytes % % Myelocytes % % Neutrophils # (Manual) (1.3-7.7) k/uL Lymphocytes # (Manual) (1.0-4.8) k/uL Monocytes # (Manual) (0-1.0) k/uL Metamyelocytes # (Man) (0) k/uL Myelocytes # (Manual) (0) k/uL Nucleated RBCs (0-0) /100 WBC Manual Slide Review Hypochromasia Macrocytosis Rouleaux PT (9.0-12.0) sec INR (<1.2) APTT (22.0-30.0) sec Sample Site ABG pH (7.35-7.45) ABG pCO2 (35-45) mmHg ABG pO2 (83-108) mmHg ABG HCO3 (21-25) mmol/L ABG Total CO2 (19-24) mmol/L ABG O2 Saturation (94-97) % ABG Base Excess mmol/L Win Test FiO2 % Sodium (137-145) mmol/L Potassium (3.5-5.1) mmol/L Chloride (98-107) mmol/L Carbon Dioxide (22-30) mmol/L Anion Gap mmol/L BUN (7-17) mg/dL Creatinine (0.52-1.04) mg/dL Est GFR (CKD-EPI)AfAm (>60 ml/min/1.73 sqM) Est GFR (CKD-EPI)NonAf (>60 ml/min/1.73 sqM) Glucose (74-99) mg/dL POC Glucose (mg/dL) (70-110) mg/dL POC Glu Automatic Gluing Machine Operator ID Lactic Ac Sepsis Rflx Y Plasma Lactic Acid Willy (0.7-2.0) mmol/L Calcium (8.4-10.2) mg/dL Total Bilirubin (0.2-1.3) mg/dL AST (14-36) U/L ALT (4-34) U/L Alkaline Phosphatase (38-126) U/L Troponin I (0.000-0.034) ng/mL Total Protein (6.3-8.2) g/dL Albumin (3.5-5.0) g/dL Urine Color Urine Appearance (Clear) Urine pH (5.0-8.0) Ur Specific [place] (1.001-1.035) Urine Protein (Negative) Urine Glucose (UA) (Negative) Urine Ketones (Negative) Urine Blood (Negative) Urine Nitrite (Negative) Urine Bilirubin (Negative) Urine Urobilinogen (<2.0) mg/dL Ur Leukocyte Esterase (Negative) Urine RBC (0-5) /hpf Urine WBC (0-5) /hpf Urine Bacteria (None) /hpf Urine Mucus (None) /hpf Urine Opiates Screen (NotDetected) Ur Oxycodone Screen (NotDetected) Urine Methadone Screen (NotDetected) Ur Propoxyphene Screen (NotDetected) Ur Barbiturates Screen (NotDetected) Valproic Acid ug/mL U Tricyclic Antidepress (NotDetected) Ur Phencyclidine Scrn (NotDetected) Ur Amphetamines Screen (NotDetected) U Methamphetamines Scrn (NotDetected) U Benzodiazepines Scrn (NotDetected) Urine Cocaine Screen (NotDetected) U Marijuana (THC) Screen (NotDetected) Critical Care Time Critical Care Time: Yes Critical Care Time: 50 minutes Disposition Clinical Impression: Cardiac arrest, Pulmonary infiltrates, Afib Disposition: ADMITTED IP TO THIS HOSP Condition: Critical Is patient prescribed a controlled substance at d/c from ED?: No Time of Disposition: 15:29 Decision to Admit Reason: Admit from EC Decision Date: 10/04/21 Decision Time: 15:29
[2021-10-04] MEDS: NOREPINEPHRINE 32 MG in SODIUM CHLORIDE 0.9% 218 ML IV SCH (14:19)
[2021-10-04 14:34] LABS: HCT 36.1 % (34.0-46.0); HGB 11.1 gm/dL (11.4-16.0); Hypochromasia Marked; MCH 33.4 pg (25.0-35.0); MCHC 30.8 g/dL (31.0-37.0); Macrocytosis Moderate; Mean Platelet Volume 11.2; RBC 3.33 m/uL (3.80-5.40); RDW 11.8 % (11.5-15.5); WBC 12.6 k/uL (3.8-10.6)
[2021-10-04 14:44] LABS: INR 1.2 (<1.2); Partial Thromboplastin Time 25.3 sec (22.0-30.0); Prothrombin Time 12.3 sec (9.0-12.0)
[2021-10-04 14:47] LABS: ABG Base Excess -13.3 mmol/L; ABG HCO3 16 mmol/L (21-25); ABG Oxygen Saturation 99.8 % (94-97); ABG PCO2 46 mmHg (35-45); ABG PO2 347 mmHg (83-108); ABG TCO2 17 mmol/L (19-24)
[2021-10-04 14:48] LABS: ABG PH 7.14 (7.35-7.45)
[2021-10-04 14:52] LABS: Albumin 2.5 g/dL (3.5-5.0); Calcium 8.8 mg/dL (8.4-10.2); Potassium 3.6 mmol/L (3.5-5.1); Total Bilirubin 0.2 mg/dL (0.2-1.3); Total Protein 5.3 g/dL (6.3-8.2)
[2021-10-04 14:57] LABS: Valproic Acid (Depakene) 44.1 ug/mL
[2021-10-04] MEDS ORDERED: MIDAZOLAM 1 MG/ML 5 ML VIAL IV STA ×2 (14:58→16:07)
[2021-10-04 15:03] LABS: Appearance,Urine Cloudy (Clear); Bacteria,Urine Rare /hpf; Bilirubin,Urine Negative (Negative); Blood,Urine Large (Negative); Color,Urine Light Yellow; Glucose,Urine (UA) 3+ (Negative); Ketones,Urine Trace (Negative); Leukocyte Esterase,Urine Negative (Negative); MCV 108.4 fL (80.0-100.0); Mucus,Urine Rare /hpf; Nitrite,Urine Negative (Negative); PH, Urine 7.5 (5.0-8.0); Protein,Urine 3+ (Negative); RBC,Urine >182 /hpf (0-5); Specific Gravity,Urine 1.011 (1.001-1.035); Urobilinogen,Urine <2.0 mg/dL (<2.0); WBC,Urine 180 /hpf (0-5)
--- NOTE | 2021-10-04 15:06 | XR ---
EXAMINATION TYPE: XR chest 1V portable DATE OF EXAM: 10/04/2021 Comparison: 06/27/2021 Clinical History: 66-year-old female intubation Findings: ET tube satisfactory. Patient is rotated towards the right ultra normal cardiac and mediastinal conto urs. Heart upper limits of normal in size. Mild hyperinflation. Patchy airspace opacity throughout th e right lung and along the left infrahilar region. IVC filter. Impression: Limited, rotated exam. There is airspace disease throughout the right lung and additional infiltrate left infrahilar region.
[2021-10-04 15:07] LABS: Amphetamine Screen,Urine Not Detected (NotDetected); Barbiturate Screen,Urine Detected (NotDetected); Benzodiazepines Screen,Urine Not Detected (NotDetected); Cocaine Screen,Urine Not Detected (NotDetected); Methadone Screen, Urine Not Detected (NotDetected); Opiate Screen,Urine Not Detected (NotDetected); Oxycodone Screen, Urine Not Detected (NotDetected); Phencyclidine Screen,Urine Not Detected (NotDetected); Tricyclic Antidepressant,Urine Not Detected (NotDetected); Urn Cannabinoid Scrn Not Detected (NotDetected)
[2021-10-04] MEDS ORDERED: NALOXONE 0.4 MG/ML 1 ML VIAL IV PRN (15:30)
[2021-10-04 15:36] LABS: Platelet Count 221 k/uL (150-450)
[2021-10-04] MEDS ORDERED: PNEUMONIA PROTOCOL UTILIZED 1 EACH MISC PO PRN (15:38)
[2021-10-04] MEDS ORDERED: LEVOFLOXACIN 750MG-D5W PMX 750 MG in DEXTROSE/WATER 1 150ML.BAG IVPB STA (15:38)
[2021-10-04 15:41] LABS: Band Neutrophils % 7 %; Metamyelocytes # (M) 0.25 k/uL (0); Metamyelocytes % 2 %; Monocytes # (M) 0.25 k/uL (0-1.0); Myelocytes # (M) 0.13 k/uL (0); Myelocytes % 1 %; Neutrophils % (M) 62 %; Nucleated Red Blood Cells 0 /100 WBC (0-0); Total Cells Counted 200
[2021-10-04 15:42] LABS: Rouleaux Present
--- NOTE | 2021-10-04 15:58 | CT ---
EXAMINATION TYPE: CT brain stuartine wo con DATE OF EXAM: 10/04/2021 COMPARISON: Brain 06/27/2021 HISTORY: 66 year-old female altered mental status, cardiac arrest CT DLP: 1426.2 mGycm Automated exposure control for dose reduction was used. Technique: Examination of the head was done in axial plane without intravenous contrast. Coronal and sagittal reconstructions performed. CT of the cervical spine was obtained in axial plane without intravenous injection of contrast mater ial. Coronal and sagittal reformatted images were obtained from the axial views for evaluation of f ractures, spinal alignment and canal. FINDINGS: Head: Redemonstrated is encephalomalacia left temporal lobe related to prior traumatic or vascular insult. No evidence for acute intracranial hemorrhage, acute ischemic change, mass, mass effect, midline shif t, or extra-axial fluid collection. There is unchanged dilatation of the posterior aspect of the left lateral ventricle relating to volum e loss As compared to the 06/27/2021 exam, there may be slight less sulcal prominence. Layering fluid scattered within the paranasal sinuses and also within the posterior nasopharynx. Pebbles ent is intubated. Mastoid air cells are well pneumatized. Orbits and globes are intact. Cervical spine: Patient is intubated with NG tube. No precervical junction abnormality, predental space widening, or prevertebral soft tissue swelling. Accentuated cervical lordosis. Mild degenerative disc disease throughout. Hypertrophic facet and unco vertebral joint arthropathy. No acute fracture of the cervical spine. Mild canal narrowing at C6-C7. Variable mild neuroforaminal narrowing throughout. Patchy airspace disease right greater than left lung. There is a [id number]-sowyevwa size pneumothorax on the left. Anteriorly, this measures up to 2.4 cm. Superiorly, this measures up to 1.8 cm. Sagittal and coronal reformatted images confirm above findings. COMBINED IMPRESSION: 1. Old left temporal lobe infarct with associated volume loss causing ex vacuo enlargement of the pos terior left lateral ventricle. As compared to 06/27/2021, there may be slightly less sulcal prominence . In the setting of cardiac arrest, unable to exclude some mild generalized brain swelling. There is no midline shift, effacement of basal cisterns, acute ischemic change, or herniation seen. 2. Layering fluid throughout the paranasal sinuses probably a products of intubation. 3. No acute fracture or malalignment of the cervical spine. Mild to moderate spondylotic change throu ghout. 4. Yqaov-bn-cvetswhu size left-sided pneumothorax measuring up to 2.4 cm anteriorly. 5. Patchy airspace disease, right greater than left. Findings (1) and (4) called to Dr. Moya in the ER at 3:55pm.
[2021-10-04] MEDS ORDERED: metroNIDAZOLE-NS PMX 500 MG in SALINE 1 100ML.BAG IVPB SCH (16:00)
[2021-10-04] MEDS ORDERED: Potassium Replacement Protocol 1 EACH MISC MISCELLANE PRN (16:10)
[2021-10-04] MEDS: SODIUM CHLORIDE 0.9% 1,000 ML IV SCH (16:25)
[2021-10-04] MEDS ORDERED: propofoL 100 ML IV ONE (16:37)
--- NOTE | 2021-10-04 16:42 | XR ---
EXAMINATION TYPE: XR chest 1V portable DATE OF EXAM: 10/04/2021 COMPARISON: Today HISTORY: Chest tube TECHNIQUE: FINDINGS: The endotracheal tube is 3.5 cm from the matthew. There is left-sided chest tube over the le ft lateral chest. There is pulmonary interstitial and airspace edema that is worse on the right side no definite pneumothorax. Heart size is normal. No pleural effusion. IMPRESSION: No pneumothorax. Chest tube in good position. There is pulmonary edema which is unchanged compared to exam 2 hours ago. Lung disease worse on the right side and this is consistent with pneum onia.
[2021-10-04 16:51] LABS: Glucose,Whole Blood 214 mg/dL (70-110)
[2021-10-04] MEDS: SODIUM CHLORIDE 0.9% 150 ML with VASOPRESSIN 60 UNIT IV SCH ×4 (17:35→22:33)
[2021-10-04] MEDS ORDERED: DIVALPROEX ER 250 MG TAB.ER.24H PO SCH (17:45)
[2021-10-04] MEDS ORDERED: DEXTROSE 50% SYRINGE 50 ML IVP PRN ×2 (17:50)
--- NOTE | 2021-10-04 18:00 | XR ---
EXAMINATION TYPE: XR chest 1V portable DATE OF EXAM: 10/04/2021 COMPARISON: Today HISTORY: Check tube placement TECHNIQUE: FINDINGS: The endotracheal tube is 3.5 cm from the matthew. There is left-sided chest tube over the le ft midlung field. No definite pneumothorax. The tip of the chest tube however appears to project outs karina of the ribs. There is minimal soft tissue air on the left lateral chest wall. There is pulmonary airspace patchy consolidation on the right side. There is mild infiltrate in the left lower lobe. No heart failure seen. Heart size is normal. There is nasogastric tube in the stomach. IMPRESSION: Pulmonary infiltrates mainly on the right side and consistent with pneumonia. No definite pneumothorax. No significant change compared to exam one hour ago. There is revision of the left-jonnie ed chest tube. The chest tube appears to have its tip outside of the bony thorax.
--- NOTE | 2021-10-04 18:05 | P.HPIM ---
History of Present Illness H&P Date: 10/04/21 Chief Complaint: Cardiac arrest Hospital course: This is a 66-year-old patient, follows with visiting physicians Dr. Sarmiento. 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 Patient also follows at [facility] for ulcerative colitis and receives injections for the same. Had a baseline has 10-14 BMs a day. Does use a walker to get about. Has right-sided neglect. Also has underlying anxiety and follows with psychiatry. Patient does wear pull-ups. Patient Sr. Ibeth Walden ir legal guardian and POA. Patient lives with her. Patient's 2 sisters including Ibeth Walden not present in the ER. Patient today was last seen awake on the camera about 12:15 PM. Patient's caregiver had discomfort in the house. Sister noticed to be unresponsive/purple in color.. Started doing CPR. EMS arrived about 12:30 PM. They carried out CPR and shock the patient in around 1 PM patient did get a pulse back. Patient was in V. fib prior to that. Patient was intubated. Prior to support patient had been communicating. At the baseline. Patient only speaks occasionally works because of expressive dysphasia. In the ER patient on the ventilator. Sinus rhythm. Does open eyes spontaneously. On levo fed drip. And a left-sided pneumothorax, Thora-vent in placed. In the past patient had some abnormal T waves on the EKG. Was seen by Dr. Elkins from cardiology Family did not want any further invasive testing. Review of systems: Patient cannot communicate. Supportive history above Past medical history to include: Seizure disorder, brain injury, frontal lobectomy, right-sided neglect, expressive dysphasia, uses a walker Social history: No history of smoking or alcohol. Uses a walker. Supervisor Histology sister, Ibeth Walden who is also the legal guardian Family history: Patient cannot tell Physical examination: VITAL SIGNS: 90, 20, 91/76, 99% on the ventilator GENERAL: Laying in bed, does open eyes spontaneously., Intubated EYES: Pupils equal. Conjunctiva normal. HEENT: External appearance of nose and ears normal, oral cavity dry. ET tube NECK: JVD not raised; masses not palpable. HEART: First and second heart sounds are normal; no edema. LUNGS: Respiratory rate normal; decreased breath sounds ABDOMEN: Soft, nontender, liver spleen not palpable, no masses palpable. PSYCH: Unable to assess. NEUROLOGICAL: Pupils are equal, sluggish to light. Cornea. Does Have a Gag Reflex. Does Responded to Pain INVESTIGATIONS, reviewed in the clinical context: EKG tracing personally reviewed by me-normal sinus rhythm. ST segment depres christina through anterior leads. Chest x-ray film personally reviewed by me-infiltrates White count 12.6 hemoglobin 11.1 platelets 221 sodium 139 potassium 3.6 creatinine 0.83 Lactic acid 11.2 Troponin I 0.462 Urine drug screen positive for barbiturates ABG: PH 7.14 pCO2 46 pO2 347 bicarb 16- FiO2 100% Assessment and plan: -Cardiac arrest, with approximate downtime of about 30 minutes. Before return of circulation. 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 IV vasopressin being ordered. Intubated. Or G-tube to resume oral medications. Consultation to cardiology/wire photo operator/neurology. Prognosis guarded. Advanced care planning: This was discussed with the patient's legal guardian Sr. Ibeth Walden at the bedside. Patient's condition was discussed in detail. In closing on downtime of about 45 minutes. Findings general prognosis was discussed. Patient's baseline quality of life is discussed. Different clinical scenarios were discussed. Questions answered. Patient is to remain full code for now. She will discussed with the family and get back to us with any change of CODE STATUS. 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 Past Surgical History: Breast Surgery Additional Past Surgical History / Comment(s): frontal lobectomy, perforated bowel. Past Anesthesia/Blood Transfusion Reactions: No Reported Reaction Smoking Status: Never smoker - Past Family History Mother Family Medical History: Hypertension Additional Family Medical History / Comment(s): Mother is alive and 89yrs old. Father Family Medical History: Hypertension Additional Family Medical History / Comment(s): Father is . Medications and Allergies Home Medications Medication Instructions Recorded Confirmed Type Divalproex ER [Depakote ER] 500 mg PO TID 07/22/20 10/04/21 History Lacosamide [Vimpat] 150 mg PO BID 07/22/20 10/04/21 History Phenytoin Sodium Extended 300 mg PO DAILY 07/22/20 10/04/21 History [Dilantin] Ferrous Sulfate [Iron (65 MG 325 mg PO DAILY@0700 01/18/21 10/04/21 History Elemental)] Folic Acid 0.4 mg PO DAILY 01/18/21 10/04/21 History Mirtazapine 15 mg PO HS 02/11/21 10/04/21 History ALPRAZolam [Xanax] 0.25 mg PO Q12H PRN #6 tab 06/29/21 10/04/21 Rx Acetaminophen Tab [Tylenol] 650 mg PO Q6HR PRN tab 06/29/21 10/04/21 Rx Cholecalciferol [Vitamin D3 (25 50 mcg PO DAILY tablet 06/29/21 10/04/21 Rx Mcg = 1000 Iu)] Clindamycin [Cleocin] 2 mg PO TID 10/04/21 10/04/21 History Hydrocortisone Oint 1 applic TOPICAL BID 10/04/21 10/04/21 History [Hydrocortisone 2.5% Oint] OLANZapine [ZyPREXA] 10 mg PO HS 10/04/21 10/04/21 History SILVER sulfADIAZINE CREAM 1 applic TOPICAL DAILY 10/04/21 10/04/21 History [Silvadene Cream] Allergies Allergy/AdvReac Type Severity Reaction Status Date / Time cephalexin [From Keflex] Allergy Rash/Hives Verified 10/04/21 14:05 latex Allergy Rash/Hives Verified 10/04/21 14:05 Physical Exam Vitals: Vital Signs Pulse Resp BP Pulse Ox FiO2 10/04/21 17:38 70 10/04/21 15:51 90 20 91/76 99 10/04/21 15:26 60 10/04/21 14:56 60 10/04/21 13:46 100 10/04/21 13:44 115 H 20 112/81 99 Intake and Output 10/04/21 10/04/21 10/04/21 06:59 14:59 22:59 Intake Total 0.361 8.624 Balance 0.361 8.624 Intake: Intake, IV Titration 0.361 8.624 Amount Norepinephrine 32 mg In 0.361 8.624 Sodium Chloride 0.9% 218 ml @ 0.05 MCG/KG/MIN 1. 465 mls/hr IV .Q24H [facility] Rx#:[id number] Other: Weight 62.5 kg 62.5 kg Results CBC & Chem 7: 10/04/21 14:08 10/04/21 14:08 Labs: Abnormal Lab Results - Last 24 Hours (Table) 10/04/21 10/04/21 10/04/21 Range/Units 13:54 14:08 14:08 WBC 12.6 H (3.8-10.6) k/uL RBC 3.33 L (3.80-5.40) m/uL Hgb 11.1 L (11.4-16.0) gm/dL MCV 108.4 H D (80.0-100.0) fL MCHC 30.8 L (31.0-37.0) g/dL Neutrophils # (Manual) 8.60 H (1.3-7.7) k/uL Metamyelocytes # (Man) 0.25 H (0) k/uL Myelocytes # (Manual) 0.13 H (0) k/uL PT 12.3 H (9.0-12.0) sec INR 1.2 H (<1.2) ABG pH (7.35-7.45) ABG pCO2 (35-45) mmHg ABG pO2 (83-108) mmHg ABG HCO3 (21-25) mmol/L ABG Total CO2 (19-24) mmol/L ABG O2 Saturation (94-97) % Carbon Dioxide (22-30) mmol/L Glucose (74-99) mg/dL POC Glucose (mg/dL) 270 H (70-110) mg/dL Plasma Lactic Acid Willy (0.7-2.0) mmol/L AST (14-36) U/L ALT (4-34) U/L Troponin I (0.000-0.034) ng/mL Total Protein (6.3-8.2) g/dL Albumin (3.5-5.0) g/dL Urine Appearance (Clear) Urine Protein (Negative) Urine Glucose (UA) (Negative) Urine Ketones (Negative) Urine Blood (Negative) Urine RBC (0-5) /hpf Urine WBC (0-5) /hpf Urine Bacteria (None) /hpf Urine Mucus (None) /hpf Ur Barbiturates Screen (NotDetected) 10/04/21 10/04/21 10/04/21 Range/Units 14:08 14:08 14:08 WBC (3.8-10.6) k/uL RBC (3.80-5.40) m/uL Hgb (11.4-16.0) gm/dL MCV (80.0-100.0) fL MCHC (31.0-37.0) g/dL Neutrophils # (Manual) (1.3-7.7) k/uL Metamyelocytes # (Man) (0) k/uL Myelocytes # (Manual) (0) k/uL PT (9.0-12.0) sec INR (<1.2) ABG pH (7.35-7.45) ABG pCO2 (35-45) mmHg ABG pO2 (83-108) mmHg ABG HCO3 (21-25) mmol/L ABG Total CO2 (19-24) mmol/L ABG O2 Saturation (94-97) % Carbon Dioxide 13 L (22-30) mmol/L Glucose 258 H (74-99) mg/dL POC Glucose (mg/dL) (70-110) mg/dL Plasma Lactic Acid Willy (0.7-2.0) mmol/L AST 304 H (14-36) U/L ALT 185 H (4-34) U/L Troponin I 0.462 H* (0.000-0.034) ng/mL Total Protein 5.3 L (6.3-8.2) g/dL Albumin 2.5 L (3.5-5.0) g/dL Urine Appearance (Clear) Urine Protein (Negative) Urine Glucose (UA) (Negative) Urine Ketones (Negative) Urine Blood (Negative) Urine RBC (0-5) /hpf Urine WBC (0-5) /hpf Urine Bacteria (None) /hpf Urine Mucus (None) /hpf Ur Barbiturates Screen Detected H (NotDetected) 10/04/21 10/04/21 10/04/21 Range/Units 14:08 14:35 14:43 WBC (3.8-10.6) k/uL RBC (3.80-5.40) m/uL Hgb (11.4-16.0) gm/dL MCV (80.0-100.0) fL MCHC (31.0-37.0) g/dL Neutrophils # (Manual) (1.3-7.7) k/uL Metamyelocytes # (Man) (0) k/uL Myelocytes # (Manual) (0) k/uL PT (9.0-12.0) sec INR (<1.2) ABG pH 7.14 L* (7.35-7.45) ABG pCO2 46 H (35-45) mmHg ABG pO2 347 H (83-108) mmHg ABG HCO3 16 L (21-25) mmol/L ABG Total CO2 17 L (19-24) mmol/L ABG O2 Saturation 99.8 H (94-97) % Carbon Dioxide (22-30) mmol/L Glucose (74-99) mg/dL POC Glucose (mg/dL) (70-110) mg/dL Plasma Lactic Acid Willy 11.2 H* (0.7-2.0) mmol/L AST (14-36) U/L ALT (4-34) U/L Troponin I (0.000-0.034) ng/mL Total Protein (6.3-8.2) g/dL Albumin (3.5-5.0) g/dL Urine Appearance Cloudy H (Clear) Urine Protein 3+ H (Negative) Urine Glucose (UA) 3+ H (Negative) Urine Ketones Trace H (Negative) Urine Blood Large H (Negative) Urine RBC >182 H (0-5) /hpf Urine WBC 180 H (0-5) /hpf Urine Bacteria Rare H (None) /hpf Urine Mucus Rare H (None) /hpf Ur Barbiturates Screen (NotDetected) 10/04/21 Range/Units 16:50 WBC (3.8-10.6) k/uL RBC (3.80-5.40) m/uL Hgb (11.4-16.0) gm/dL MCV (80.0-100.0) fL MCHC (31.0-37.0) g/dL Neutrophils # (Manual) (1.3-7.7) k/uL Metamyelocytes # (Man) (0) k/uL Myelocytes # (Manual) (0) k/uL PT (9.0-12.0) sec INR (<1.2) ABG pH (7.35-7.45) ABG pCO2 (35-45) mmHg ABG pO2 (83-108) mmHg ABG HCO3 (21-25) mmol/L ABG Total CO2 (19-24) mmol/L ABG O2 Saturation (94-97) % Carbon Dioxide (22-30) mmol/L Glucose (74-99) mg/dL POC Glucose (mg/dL) 214 H (70-110) mg/dL Plasma Lactic Acid Willy (0.7-2.0) mmol/L AST (14-36) U/L ALT (4-34) U/L Troponin I (0.000-0.034) ng/mL Total Protein (6.3-8.2) g/dL Albumin (3.5-5.0) g/dL Urine Appearance (Clear) Urine Protein (Negative) Urine Glucose (UA) (Negative) Urine Ketones (Negative) Urine Blood (Negative) Urine RBC (0-5) /hpf Urine WBC (0-5) /hpf Urine Bacteria (None) /hpf Urine Mucus (None) /hpf Ur Barbiturates Screen (NotDetected) Thrombosis Risk Factor Assmnt - Choose All That Apply Any of the Below Risk Factors Present?: Yes Other Risk Factors: Yes Each Risk Factor Represents 2 Points: Age 61-74 years, Patient confined to bed Other congenital or acquired thrombophilia - If yes, enter type in comment: No Thrombosis Risk Factor Assessment Total Risk Factor Score: 4 Thrombosis Risk Factor Assessment Level: Moderate Risk
[2021-10-04 18:08] LABS: ABG Base Excess -12.4 mmol/L; ABG HCO3 16 mmol/L (21-25); ABG Oxygen Saturation 91.6 % (94-97); ABG PCO2 41 mmHg (35-45); ABG PO2 71 mmHg (83-108); ABG TCO2 17 mmol/L (19-24); Allen Test Performed? Yes
[2021-10-04] MEDS ORDERED: SODIUM BICARB 8.4% 50 ML SYR (1 MEQ/ML) IV STA (18:30)
[2021-10-04] MEDS: SODIUM BICARB 8.4% 50 ML SYR (1 MEQ/ML) IV STA (18:48)
[2021-10-04] MEDS: PANTOPRAZOLE 40 MG/10 ML VIAL IV SCH (18:48)
[2021-10-04] MEDS: PIPERACILLIN-TAZOBACTAM 3.375 GM in SODIUM CHLORIDE 0.9% 100 ML IVPB SCH (18:48)
[2021-10-04] MEDS: ENOXAPARIN 40 MG/0.4 ML SYRINGE SQ SCH (18:49)
[2021-10-04] MEDS: INSULIN ASPART (NovoLOG) 100 UNIT/ML VIAL SQ SCH (18:49)
[2021-10-04] MEDS ORDERED: DEXTROSE 5% IN WATER 1,000 ML with SODIUM BICARB (1 MEQ/ML) 150 ML IV SCH (19:00)
[2021-10-04] MEDS: VALPROIC ACID ORAL SOLN 250 MG/5 ML CUP OG-TUBE SCH (19:02)
[2021-10-04 19:28] LABS: Calcium 7.9 mg/dL (8.4-10.2); Magnesium 1.6 mg/dL (1.6-2.3); Potassium 4.5 mmol/L (3.5-5.1)
[2021-10-04 19:33] LABS: HCT 39.8 % (34.0-46.0); HGB 12.2 gm/dL (11.4-16.0); Hypochromasia Moderate; MCH 32.9 pg (25.0-35.0); MCHC 30.8 g/dL (31.0-37.0); MCV 106.9 fL (80.0-100.0); Macrocytosis Moderate; Mean Platelet Volume 8.3; Platelet Count 333 k/uL (150-450); RBC 3.72 m/uL (3.80-5.40); RDW 12.1 % (11.5-15.5); WBC 34.3 k/uL (3.8-10.6)
[2021-10-04] MEDS: POTASSIUM CHLORIDE 10 MEQ in WATER FOR INJECTION 1 100ML.BAG IVPB SCH ×2 (20:06→21:45)
[2021-10-04 20:29] LABS: Band Neutrophils % 5 %; Lymphocytes # (M) 0.69 k/uL (1.0-4.8); Neutrophils % (M) 86 %; Nucleated Red Blood Cells 0 /100 WBC (0-0); Total Cells Counted 100
[2021-10-04] MEDS: MIRTAZAPINE 15 MG TAB PO SCH (20:44)
[2021-10-04] MEDS: OLANZapine 10 MG TAB PO SCH (20:44)
[2021-10-04] MEDS ORDERED: HYDROCORTISONE TOPICAL SCH (21:00)
[2021-10-04] MEDS ORDERED: LACOSAMIDE 150 MG TABLET PO SCH (21:00)
[2021-10-04] MEDS: MAGNESIUM SULFATE-D5W PMX 1 GM in DEXTROSE/WATER 1 100ML.BAG IVPB SCH ×2 (21:43→23:16)
[2021-10-05 00:22] LABS: Glucose,Whole Blood 257 mg/dL (70-110)
[2021-10-05] MEDS: VALPROIC ACID ORAL SOLN 250 MG/5 ML CUP OG-TUBE SCH ×4 (00:25→22:19)
[2021-10-05] MEDS: INSULIN ASPART (NovoLOG) 100 UNIT/ML VIAL SQ SCH ×4 (00:25→17:40)
[2021-10-05] MEDS: CHLORHEXIDINE GLUCONATE 15 ML CUP MUCOUS MEM SCH ×3 (02:00→20:34)
[2021-10-05 02:45] LABS: HCT 40.7 % (34.0-46.0); HGB 12.9 gm/dL (11.4-16.0); MCH 33.5 pg (25.0-35.0); MCHC 31.7 g/dL (31.0-37.0); MCV 105.9 fL (80.0-100.0); Macrocytosis Slight; Mean Platelet Volume 8.6; Platelet Count 353 k/uL (150-450); RBC 3.85 m/uL (3.80-5.40); RDW 12.7 % (11.5-15.5); WBC 48.9 k/uL (3.8-10.6)
[2021-10-05 03:13] LABS: Band Neutrophils % 58 %; Lymphocytes # (M) 1.47 k/uL (1.0-4.8); Monocytes # (M) 2.45 k/uL (0-1.0); Neutrophils % (M) 34 %; Nucleated Red Blood Cells 0 /100 WBC (0-0); Total Cells Counted 200
[2021-10-05 03:14] LABS: Toxic Granulation Present
[2021-10-05 03:49] LABS: Calcium 8.1 mg/dL (8.4-10.2); Magnesium 2.1 mg/dL (1.6-2.3); Potassium 4.1 mmol/L (3.5-5.1)
[2021-10-05] MEDS: SODIUM CHLORIDE 0.9% 150 ML with VASOPRESSIN 60 UNIT IV SCH ×2 (04:04)
[2021-10-05] MEDS: PIPERACILLIN-TAZOBACTAM 3.375 GM in SODIUM CHLORIDE 0.9% 100 ML IVPB SCH ×3 (04:04→17:41)
[2021-10-05 06:33] LABS: ABG Base Excess -5.2 mmol/L; ABG HCO3 21 mmol/L (21-25); ABG Oxygen Saturation 93.6 % (94-97); ABG PCO2 38 mmHg (35-45); ABG PH 7.34 (7.35-7.45); ABG PO2 68 mmHg (83-108); ABG TCO2 22 mmol/L (19-24); Allen Test Performed? Yes
[2021-10-05] MEDS ORDERED: SODIUM CHLORIDE 0.9% 1,000 ML IV ONE ×2 (06:38→09:35)
[2021-10-05 06:50] LABS: Glucose,Whole Blood 238 mg/dL (70-110)
[2021-10-05] MEDS ORDERED: LIDOCAINE 1% INJ 10MG/ML (20 ML MDV) ONE (07:29)
--- NOTE | 2021-10-05 07:33 | XR ---
EXAMINATION TYPE: XR chest 1V portable DATE OF EXAM: 10/05/2021 COMPARISON: NONE HISTORY: SOB, Follow Up FINDINGS: Indwelling tubes and catheters are unchanged. Left-sided chest tube is unchanged in position. There i s now a large left-sided pneumothorax estimated at greater than 60%. No change in diffuse infiltrate throughout the right lung. Stable appearance of the cardio-mediastinal structures at this time. IMPRESSION: 1. Left-sided chest tube is unchanged in position however there is now a large left-sided pneumothora x estimated at greater than 60% which is a new finding. There may be mild mediastinal shift from left to right. A Red level critical message alert has been initiated for Kevin Norris via the [facility] on 10/05/2021 7:30 AM. This message alert has been sent to Kevin Norris via the [employer] provided by the clinician for the receipt of Radiology Critical Findings. Message ID [id number].
--- NOTE | 2021-10-05 08:13 | XR ---
EXAMINATION TYPE: XR chest 1V portable DATE OF EXAM: 10/05/2021 COMPARISON: 10/05/2021 HISTORY: Pneumothorax follow-up FINDINGS: There is a new left-sided chest tube in place. Previously noted large pneumothorax is essentially res olved with a small residual noted at the left lung base. Endotracheal and NG tubes are in place. Persistent patchy density throughout the right lung is stable. Stable appearance of the cardio-mediastinal structures at this time. IMPRESSION: 1. There is a new left-sided chest tube in place. Previously noted large pneumothorax is essentially resolved with a small residual noted at the left lung base.
[2021-10-05 08:34] VITALS: BP 94/61
[2021-10-05] MEDS: SODIUM CHLORIDE 0.9% 1,000 ML IV SCH ×3 (08:47→20:49)
[2021-10-05] MEDS ORDERED: PHENYTOIN SODIUM EXTENDED 100 MG CAP PO SCH (09:00)
[2021-10-05] MEDS: FOLIC ACID 1 MG TAB PO SCH (09:01)
[2021-10-05] MEDS: PHENYTOIN SODIUM INJ 50 MG/ML 2 ML VIAL IVP SCH ×2 (09:01→17:04)
[2021-10-05] MEDS: ENOXAPARIN 40 MG/0.4 ML SYRINGE SQ SCH (09:01)
[2021-10-05] MEDS: PANTOPRAZOLE 40 MG/10 ML VIAL IV SCH (09:02)
[2021-10-05] MEDS: LACOSAMIDE IV 150 MG in SODIUM CHLORIDE 0.9% 50 ML IVPB SCH ×2 (09:25→20:46)
--- NOTE | 2021-10-05 10:40 | OP ---
OPERATIVE REPORT PROCEDURE: Placement of a left-sided chest tube/tube thoracostomy. PREOPERATIVE DIAGNOSIS: Large left-sided pneumothorax. POSTOPERATIVE DIAGNOSIS: Large left-sided pneumothorax. ANESTHESIA USED: 10 mL of 1% lidocaine. This was an emergent procedure. DESCRIPTION OF PROCEDURE: The patient was placed in a supine position. The area of the left chest was prepared in a sterile fashion and drapes were applied. At the level of the fifth intercostal space at the anterior axillary line, the area was locally anesthetized with lidocaine, and a small tiny incision 1.5 cm incision was made at the same site, and the subcutaneous tissue was dissected with index finger and with the Maria Luisa forceps until the pleural space was entered, and there was a significant gush of air noted upon entering the pleural space. Then, a size 28 [place] chest tube was placed into the incision and advanced apically to the left apex. The tube was connected to Pleur-evac and connected to the chest wall suctioning. The area around the chest tube was sutured with 0 Ethibond sutures. Procedure was well tolerated. No complications. Chest x-ray postoperatively showed complete expansion of the left lung and adequate placement of the left-sided chest tube. MMODL / IJN: [id number] /
[2021-10-05] MEDS ORDERED: ASPIRIN 81 MG PO STA (10:54)
--- NOTE | 2021-10-05 11:03 | P.CRDCN ---
History of Present Illness History of present illness: HISTORY OF PRESENTING ILLNESS Patient is a pleasant 66-year-old female with history of seizure disorder, brain injury, frontal lobectomy, ulcerative colitis, previous prolonged hospitalizati on with prior colonoscopy and complications who presents status post cardiopulmonary arrest. Patient lives with a caregiver and had apparently only been gone for 5 minutes when she came back and patient was noted to be unresponsive. CPR was began and EMS was called and found to be in V. fib with a pproximately 20 minutes of resuscitation. Per chart patient had been feeling fine previously without any chest pain, shortness breath. She apparently had been hospitalized 2 weeks ago at [facility] for ulcerative colitis. No history of coronary artery disease. Secondary to CPR patient had a pneumothorax and a thoravent was placed. CT brain showed chronic changes from surgery however no bleed. Patient is currently intubated and sedated however does open eyes however does not follow commands. There was some concern initially about EKG changes however appeared mostly related to metabolic abnormalities with improvement however continued ST depressions and per chart family not desiring or invasive testing at this time. She did require norepinephrine as well as vasopressin however has been able to be decreased on the norepinephrine. Initial EKG shows sinus tachycardia, right bundle branch type wide-complex with diffuse ST depressions repeat EKG 10/04/2021 shows normal sinus rhythm, or overlying ST elevation inferiorly, diffuse ST depressions V1 through V6. Initial troponin 2.46 however no repeats. AST elevated at 304, ALT 185, albumin 2.5, urinalysis shows red blood cells as well as white blood cells, creatinine 0.8, lactic acid 11.2, white blood cell count 12.6, low hemoglobin 11.1. REVIEW OF SYSTEMS At the time of my exam: Unable to perform secondary to intubation and sedation PHYSICAL EXAMINATION Vital signs reviewed. CONSTITUTIONAL: No apparent distress, intubated and sedated, chronically ill- appearing HEENT: Head is normocephalic. Pupils are equal, round. Sclerae anicteric. Mucous membranes of the mouth are moist. No JVD. No carotid bruit. CHEST EXAMINATION: Lungs are clear to auscultation. No chest wall tenderness is noted on palpation or with deep breathing. HEART EXAMINATION: Regular rate and rhythm. S1, S2 heard. No murmurs, gallops or rub. ABDOMEN: Soft, nontender. Positive bowel sounds. EXTREMITIES: 2+ peripheral pulses, no lower extremity edema and no calf tenderness. NEUROLOGIC EXAMINATION: Patient is sedated and intubated, unresponsive ASSESSMENT 1. Status post cardiac arrest, initial rhythm V. fib with concern of possible acute coronary syndrome 2. Non-STEMI 3. Diffuse ST depressions concerning for ischemia 4. Shock, unclear cardiac versus possibly sepsis with UTI 5. Prior history of brain injury, frontal lobectomy 6. Ulcerative colitis 7. Mild anemia 8. Severe metabolic acidosis 9. Altered mental status PLAN Concern of possible cardiac etiology of cardiac arrest. Initial rhythm V. fib with ST changes and non-STEMI. Continue with current medical therapy, aspirin, heparin. Check 2-D echo. Possible seizure with history of seizure however appears concerning for acute coronary syndrome. Monitor neurologic response and if improves patient will need an ischemic workup. 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 Past Surgical History: Breast Surgery Additional Past Surgical History / Comment(s): frontal lobectomy, perforated b owel. Past Anesthesia/Blood Transfusion Reactions: No Reported Reaction Past Psychological History: Unable to Obtain Smoking Status: Never smoker Past Alcohol Use History: None Reported Past Drug Use History: None Reported - Past Family History Mother Family Medical History: Hypertension Additional Family Medical History / Comment(s): Mother is alive and 89yrs old. Father Family Medical History: Hypertension Additional Family Medical History / Comment(s): Father is . Medications and Allergies Home Medications Medication Instructions Recorded Confirmed Type Divalproex ER [Depakote ER] 500 mg PO TID 07/22/20 10/04/21 History Lacosamide [Vimpat] 150 mg PO BID 07/22/20 10/04/21 History Phenytoin Sodium Extended 300 mg PO DAILY 07/22/20 10/04/21 History [Dilantin] Ferrous Sulfate [Iron (65 MG 325 mg PO DAILY@0700 01/18/21 10/04/21 History Elemental)] Folic Acid 0.4 mg PO DAILY 01/18/21 10/04/21 History Mirtazapine 15 mg PO HS 02/11/21 10/04/21 History ALPRAZolam [Xanax] 0.25 mg PO Q12H PRN #6 tab 06/29/21 10/04/21 Rx Acetaminophen Tab [Tylenol] 650 mg PO Q6HR PRN tab 06/29/21 10/04/21 Rx Cholecalciferol [Vitamin D3 (25 50 mcg PO DAILY tablet 06/29/21 10/04/21 Rx Mcg = 1000 Iu)] Clindamycin [Cleocin] 2 mg PO TID 10/04/21 10/04/21 History Hydrocortisone Oint 1 applic TOPICAL BID 10/04/21 10/04/21 History [Hydrocortisone 2.5% Oint] OLANZapine [ZyPREXA] 10 mg PO HS 10/04/21 10/04/21 History SILVER sulfADIAZINE CREAM 1 applic TOPICAL DAILY 10/04/21 10/04/21 History [Silvadene Cream] Allergies Allergy/AdvReac Type Severity Reaction Status Date / Time cephalexin [From Keflex] Allergy Rash/Hives Verified 10/04/21 14:05 latex Allergy Rash/Hives Verified 10/04/21 14:05 Physical Exam Vitals: Vital Signs Temp Pulse Pulse Resp BP Pulse Ox FiO2 10/05/21 09:30 82 25 H 96 10/05/21 09:15 82 24 96 10/05/21 09:00 80 24 97 50 10/05/21 08:45 80 24 97 10/05/21 08:30 78 24 97 10/05/21 08:19 50 10/05/21 08:15 79 20 96 10/05/21 08:00 78 20 97 70 10/05/21 07:45 77 20 94/61 99 10/05/21 07:30 80 20 95/69 95 10/05/21 07:15 81 20 95/69 90 L 10/05/21 07:00 82 20 95/35 93 L 10/05/21 06:45 86 20 94/48 93 L 10/05/21 06:30 91 20 88/60 93 L 08/18/22 06:15 90 20 83/40 10/05/21 06:00 89 20 88/47 93 L 10/05/21 05:45 89 20 93/55 92 L 10/05/21 05:30 89 20 101/26 10/05/21 05:15 90 21 88/61 94 L 10/05/21 05:00 91 30 H 92/32 94 L 10/05/21 04:45 90 30 H 81/61 93 L 10/05/21 04:31 60 10/05/21 04:30 91 22 92/71 93 L 10/05/21 04:15 92 28 H 99/64 94 L 10/05/21 04:00 96.8 F L 93 98 23 94/63 94 L 70 10/05/21 03:45 93 31 H 93/65 94 L 10/05/21 03:30 93 26 H 93/65 93 L 10/05/21 03:15 93 30 H 94/72 93 L 10/05/21 03:00 95 26 H 102/64 93 L 10/05/21 02:45 94 29 H 86/59 92 L 10/05/21 02:30 93 20 87/60 10/05/21 02:15 91 26 H 86/62 10/05/21 02:00 92 30 H 89/63 95 10/05/21 01:45 93 20 89/62 96 10/05/21 01:30 93 22 89/67 95 10/05/21 01:15 95 29 H 91/63 95 10/05/21 01:00 94 22 92/63 94 L 10/05/21 00:45 97 22 92/58 88 L 10/05/21 00:30 97 25 H 90/62 91 L 10/05/21 00:15 97 22 89/62 75 L 10/05/21 00:09 60 10/05/21 00:00 96.7 F L 98 98 27 H 86/63 70 10/04/21 23:45 102 H 19 85/23 10/04/21 23:30 106 H 28 H 86/45 10/04/21 23:15 111 H 24 89/72 10/04/21 23:11 111 H 30 H 89/72 10/04/21 23:00 109 H 20 89/68 10/04/21 22:45 112 H 27 H 86/69 10/04/21 22:30 112 H 24 92/30 10/04/21 22:15 113 H 19 79/46 10/04/21 22:00 117 H 20 101/62 10/04/21 21:45 115 H 19 95/57 10/04/21 21:30 112 H 21 80/47 10/04/21 21:15 111 H 20 73/28 10/04/21 21:11 70 10/04/21 21:00 109 H 14 81/55 10/04/21 20:45 106 H 30 H 79/55 10/04/21 20:30 101 H 30 H 88/25 10/04/21 20:15 103 H 29 H 70/47 93 L 10/04/21 20:00 96.6 F L 103 H 98 20 71/45 95 70 10/04/21 19:45 96 26 H 78/43 10/04/21 19:30 91 27 H 72/53 92 L 10/04/21 19:15 95 27 H 82/51 10/04/21 19:00 84 28 H 71/48 91 L 70 10/04/21 18:45 95 23 76/55 10/04/21 18:30 87 22 79/58 93 L 10/04/21 18:15 75 25 H 83/59 10/04/21 18:00 94.4 F L 70 27 H 93 L 70 10/04/21 17:45 74 27 H 106/61 91 L 10/04/21 17:38 70 10/04/21 17:30 75 28 H 97/81 91 L 10/04/21 17:15 85 26 H 84/60 93 L 10/04/21 17:00 93.7 F L 85 28 H 109/67 93 L 70 10/04/21 16:50 60 10/04/21 16:48 80 27 H 10/04/21 16:45 98 26 H 70 10/04/21 15:51 90 20 91/76 99 10/04/21 15:26 60 10/04/21 15:15 83 20 96/68 100 10/04/21 14:56 60 10/04/21 14:50 101 H 20 80/59 100 10/04/21 14:20 96 20 87/61 100 10/04/21 14:04 109 H 20 100/73 99 10/04/21 13:55 111 H 20 114/72 99 10/04/21 13:46 100 10/04/21 13:44 96.9 F L 115 H 20 112/81 99 Intake and Output 10/04/21 10/05/21 10/05/21 22:59 06:59 14:59 Intake Total 4963.910 8322.875 580.363 Output Total 95 15 125 Balance 6781.078 0565.875 455.363 Intake: IV 1750 1100 450 Dextrose 5% in Water 1, 150 600 150 000 ml @ 75 mls/hr IV . [id number] REUBEN with Sodium Bicarb (1 Meq/ml) 150 ml Rx#:[id number] Lacosamide IV 150 mg In 50 Sodium Chloride 0.9% 50 ml @ 100 mls/hr IVPB BID REUBEN Rx#:[id number] Magnesium Sulfate-D5w Pmx 100 100 1 gm In Dextrose/Water 1 100ml.bag @ 100 mls/hr IVPB Q1H REUBEN Rx#: [id number] Potassium Chloride 10 meq 200 In Water For Injection 1 100ml.bag @ 100 mls/hr IVPB Q1H REUBEN Rx#: [id number] Sodium Chloride 0.9% 1, 1300 400 250 000 ml @ 50 mls/hr IV . Q20H REUBEN Rx#:[id number] Intake, IV Titration 165.822 46.875 130.363 Amount Norepinephrine 32 mg In 28.792 46.875 67.393 Sodium Chloride 0.9% 218 ml @ 0.05 MCG/KG/MIN 1. 465 mls/hr IV .Q24H REUBEN Rx#:[id number] Piperacillin-Tazobactam 3 100 .375 gm In Sodium Chloride 0.9% 100 ml @ 25 mls/hr IVPB Q8H REUBEN Rx#: [id number] propofoL 1,000 mg In 37.030 62.97 Empty Bag 1 bag @ 5 MCG/ KG/MIN 1.875 mls/hr IV . Q24H REUBEN Rx#:[id number] Other 60 Output: Chest Tube Drainage 0 Chest Tube Left Anterior 0 Chest Urine 95 15 125 Other: Voiding Method Indwelling Catheter Indwelling Catheter Weight 62.5 kg 74 kg 74 kg ABP, PAP, CO, CI - Last 8 Hours Arterial Blood Pressure 104/58 Arterial Blood Pressure 106/58 Arterial Blood Pressure 110/59 Arterial Blood Pressure 106/56 Arterial Blood Pressure 106/55 Arterial Blood Pressure 109/55 Arterial Blood Pressure 112/57 Results 10/05/21 02:00 10/05/21 02:00 Cardiac Enzymes 10/04/21 10/04/21 Range/Units 14:08 14:08 AST 304 H (14-36) U/L Troponin I 0.462 H* (0.000-0.034) ng/mL Coagulation 10/04/21 Range/Units 14:08 PT 12.3 H (9.0-12.0) sec APTT 25.3 (22.0-30.0) sec CBC 10/04/21 10/04/21 10/05/21 Range/Units 14:08 18:57 02:00 WBC 12.6 H 34.3 H 48.9 H (3.8-10.6) k/uL RBC 3.33 L 3.72 L 3.85 (3.80-5.40) m/uL Hgb 11.1 L 12.2 12.9 (11.4-16.0) gm/dL Hct 36.1 39.8 40.7 (34.0-46.0) % Plt Count 221 333 353 (150-450) k/uL Comprehensive Metabolic Panel 10/04/21 10/04/21 10/05/21 Range/Units 14:08 18:57 02:00 Sodium 139 141 140 (137-145) mmol/L Potassium 3.6 4.5 4.1 (3.5-5.1) mmol/L Chloride 107 109 H 107 (98-107) mmol/L Carbon Dioxide 13 L 17 L 16 L (22-30) mmol/L BUN 12 16 20 H (7-17) mg/dL Creatinine 0.83 1.13 H 1.49 H (0.52-1.04) mg/dL Glucose 258 H 200 H 251 H (74-99) mg/dL Calcium 8.8 7.9 L 8.1 L (8.4-10.2) mg/dL AST 304 H (14-36) U/L ALT 185 H (4-34) U/L Alkaline Phosphatase 92 (38-126) U/L Total Protein 5.3 L (6.3-8.2) g/dL Albumin 2.5 L (3.5-5.0) g/dL Current Medications Generic Name Dose Route Start Last Admin Trade Name Bianca PRN Reason Stop Dose Admin Chlorhexidine Gluconate 15 ml 10/05/21 01:00 10/05/21 09:15 Chlorhexidine Gluconate 15 Ml Cup MUCOUS MEM 15 ml BID REUBEN Administration Dextrose/Water 25 ml 10/04/21 17:50 Dextrose 50% Syringe 50 Ml IVP PER PROTOCOL PRN Hypoglycemia Protocol Dextrose/Water 50 ml 10/04/21 17:50 Dextrose 50% Syringe 50 Ml IVP PER PROTOCOL PRN Hypoglycemia Protocol Enoxaparin Sodium 40 mg 10/04/21 18:15 10/05/21 09:01 Enoxaparin 40 Mg/0.4 Ml Syringe SQ 40 mg DAILY REUBEN Administration Folic Acid 0.5 mg 10/05/21 09:00 10/05/21 09:01 Folic Acid 1 Mg Tab PO 0.5 mg DAILY REUBEN Administration Norepinephrine Bitartrate 32 250 mls @ 1.465 mls/hr 10/04/21 14:15 10/05/21 09:35 mg/ Sodium Chloride IV 0.12 mcg/kg/min .Q24H REUBEN 3.516 mls/hr Titration Protocol 0.05 MCG/KG/MIN Vasopressin 60 unit/ Sodium 153 mls @ 4.59 mls/hr 10/04/21 15:45 10/05/21 04:04 Chloride IV 4.59 mls/hr .Q24H REUBEN Administration 0.03 UNITS/MIN Propofol 1,000 mg/ IV Solution 100 mls @ 1.875 mls/hr 10/04/21 17:45 10/05/21 07:20 IV Infused .Q24H REUBEN Titration Protocol 5 MCG/KG/MIN Piperacillin Sod/Tazobactam 100 mls @ 25 mls/hr 10/04/21 18:00 10/05/21 04:04 Sod 3.375 gm/ Sodium Chloride IVPB 25 mls/hr Q8H REUBEN Administration Protocol Lacosamide 150 mg/ Sodium 65 mls @ 100 mls/hr 10/05/21 09:00 10/05/21 09:25 Chloride IVPB 100 mls/hr BID REUBEN Administration Sodium Chloride 1,000 mls @ 100 mls/hr 10/05/21 10:46 Saline 0.9% IV .Q10H REUBEN Insulin Aspart 0 unit 10/04/21 18:00 10/05/21 07:01 Insulin Aspart (Novolog) 100 Unit/Ml Vial SQ 2 unit Q6H REUBEN Administration Protocol Mirtazapine 15 mg 10/04/21 21:00 10/04/21 20:44 Mirtazapine 15 Mg Tab PO 15 mg HS REUBEN Administration Miscellaneous Information 1 each 10/04/21 15:38 Pneumonia Protocol Utilized 1 Each Misc PO ONCE PRN Per Protocol Miscellaneous Information 1 each 10/04/21 16:10 Potassium Replacement Protocol 1 Each Misc MISCELLANE DAILY PRN Per Protocol Protocol Naloxone HCl 0.2 mg 10/04/21 15:30 Naloxone 0.4 Mg/Ml 1 Ml Vial IV Q2M PRN Opioid Reversal Olanzapine 10 mg 10/04/21 21:00 10/04/21 20:44 Olanzapine 10 Mg Tab PO 10 mg HS REUBEN Administration Pantoprazole Sodium 40 mg 10/04/21 18:15 10/05/21 09:02 Pantoprazole 40 Mg/10 Ml Vial IV 40 mg DAILY REUBEN Administration Phenytoin Sodium 100 mg 10/05/21 08:00 10/05/21 09:01 Phenytoin Sodium Inj 50 Mg/Ml 2 Ml Vial IVP 100 mg Q8HR REUBEN Administration Valproic Acid 500 mg 10/04/21 20:00 10/05/21 09:02 Valproic Acid Oral Soln 250 Mg/5 Ml Cup OG-TUBE 500 mg TID REUBEN Administration Intake and Output 10/04/21 10/05/21 10/05/21 22:59 06:59 14:59 Intake Total 7912.298 5914.875 580.363 Output Total 95 15 125 Balance 2500.057 1719.875 455.363 Intake: IV 1750 1100 450 Dextrose 5% in Water 1, 150 600 150 000 ml @ 75 mls/hr IV . [id number] REUBEN with Sodium Bicarb (1 Meq/ml) 150 ml Rx#:[id number] Lacosamide IV 150 mg In 50 Sodium Chloride 0.9% 50 ml @ 100 mls/hr IVPB BID REUBEN Rx#:[id number] Magnesium Sulfate-D5w Pmx 100 100 1 gm In Dextrose/Water 1 100ml.bag @ 100 mls/hr IVPB Q1H REUBEN Rx#: [id number] Potassium Chloride 10 meq 200 In Water For Injection 1 100ml.bag @ 100 mls/hr IVPB Q1H REUBEN Rx#: [id number] Sodium Chloride 0.9% 1, 1300 400 250 000 ml @ 50 mls/hr IV . Q20H REUBEN Rx#:[id number] Intake, IV Titration 165.822 46.875 130.363 Amount Norepinephrine 32 mg In 28.792 46.875 67.393 Sodium Chloride 0.9% 218 ml @ 0.05 MCG/KG/MIN 1. 465 mls/hr IV .Q24H REUBEN Rx#:[id number] Piperacillin-Tazobactam 3 100 .375 gm In Sodium Chloride 0.9% 100 ml @ 25 mls/hr IVPB Q8H REUBEN Rx#: [id number] propofoL 1,000 mg In 37.030 62.97 Empty Bag 1 bag @ 5 MCG/ KG/MIN 1.875 mls/hr IV . Q24H REUBEN Rx#:[id number] Other 60 Output: Chest Tube Drainage 0 Chest Tube Left Anterior 0 Chest Urine 95 15 125 Other: Voiding Method Indwelling Catheter Indwelling Catheter Weight 62.5 kg 74 kg 74 kg Patient Weight 10/06/21 06:59 Weight 74 kg 10/05/21 02:00 10/05/21 02:00
[2021-10-05] MEDS ORDERED: HEPARIN SODIUM 1,000 UN/ML (10ML VL) IV ONE (11:05)
[2021-10-05] MEDS ORDERED: HEPARIN SODIUM 1,000 UN/ML (10ML VL) IV PRN (11:05)
--- NOTE | 2021-10-05 11:18 | P.CNPUL ---
History of Present Illness Consult date: 10/05/21 Requesting physician: Federico Turner Reason for consult: other Chief complaint: Cardiac arrest History of present illness: This is a 66-year-old female patient with traumatic brain injury, with history of reported frontal lobectomy expressive and receptive aphasia and right-sided neglect, history of seizures, gait dysfunction, history of COVID 19 infection in June 2021, C. diff infection, who resides with her sister who is a full-time caregiver for the patient for the past 13 years. On 10/04/2021 patient was brought into the emergency department per EMS after suffering cardiac arrest at home. The sister found the patient unresponsive and blue. She called EMS and they instructed to start CPR. 5 department arrived on scene, they administered to defibrillations for V. fib arrest. CPR was performed for approximately 20 minutes following that with return of spontaneous circulation. Patient received a dose of atropine for severe bradycardia, and 3 A of epinephrine and received another defibrillation. Upon arriving to the hospital patient suffered another cardiac arrest, she was intubated, and received further ACLS interventions with return of spontaneous circulation. Chest x-ray showed airspace disease throughout the right lung and additional infiltrate in the left infrahilar region. Patient was placed on a ventilator, she required high doses of vasopressors including norepinephrine and vasopressin. Laboratory evaluation on admission showed a white blood cell count of 12.6, hemoglobin of 11.1, CO2 is 13, the rest of electrolytes and renal profile were unremarkable AST was 304, ALT was 185, alk phos was 92, lactic acid was 11.2, troponin was positive at 0.46, urinalysis showed 3+ protein and glucose, large number of white blood cells and rare bacteria. Urine drug screen showed barbiturates. CT of the brain showed old left temporal lobe infarct with associated volume loss, with the possibility of some mild generalized brain swelling. No midline shift, effacement of basal cisterns, acute ischemic changes or herniation was noted. There was clearing of fluid throughout the paranasal sinuses, no acute fracture of C-spine, there was a small to moderate-sized left-sided pneumothorax measuring up to 2.4 cm anteriorly, with patchy airspace disease on the right greater than the left. Left-sided Thoravent chest tube was placed in the emergency department. Patient was stabilized, and transferred to the intensive care unit, follow-up chest x-ray this morning showed a large left-sided pneumothorax greater than 60% despite the left-sided Thoravent, with mediastinal shift from the left to the right. Left-sided chest tube was placed emergently at the bedside by Dr. Hopper, subsequent chest x-ray showed essentially resolved left-sided pneumothorax with a small residual at the left lung base. Thoravent was removed Review of Systems All systems: negative Constitutional: Denies chills, Denies fever Eyes: denies blurred vision, denies pain Ears, nose, mouth and throat: Denies headache, Denies sore throat Cardiovascular: Denies chest pain, Denies shortness of breath Respiratory: Denies cough Gastrointestinal: Denies abdominal pain, Denies diarrhea, Denies nausea, Denies vomiting Genitourinary: Denies dysuria, Denies hematuria Musculoskeletal: Denies myalgias Integumentary: Denies pruritus, Denies rash Neurological: Reports aphasia, Reports change in mentation, Reports gait dysfunction, Reports lack of coordination, Reports spasticity, Denies numbness, Denies weakness Psychiatric: Denies anxiety, Denies depression Endocrine: Denies fatigue, Denies weight change Past Medical History Past Medical History: Seizure Disorder Additional Past Medical History / Comment(s): 2 weeks ago pt went to [facility] for ulcerative colitis and has some bowel ischemia and is receiving MANASA, 2009 aquired brain injury/colitis flare/colonoscopy done with perforation/infection 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 Past Surgical History: Breast Surgery Additional Past Surgical History / Comment(s): frontal lobectomy, perforated bowel. Past Anesthesia/Blood Transfusion Reactions: No Reported Reaction Past Psychological History: Unable to Obtain Smoking Status: Never smoker Past Alcohol Use History: None Reported Past Drug Use History: None Reported - Past Family History Mother Family Medical History: Hypertension Additional Family Medical History / Comment(s): Mother is alive and 89yrs old. Father Family Medical History: Hypertension Additional Family Medical History / Comment(s): Father is . Medications and Allergies Home Medications Medication Instructions Recorded Confirmed Type Divalproex ER [Depakote ER] 500 mg PO TID 07/22/20 10/04/21 History Lacosamide [Vimpat] 150 mg PO BID 07/22/20 10/04/21 History Phenytoin Sodium Extended 300 mg PO DAILY 07/22/20 10/04/21 History [Dilantin] Ferrous Sulfate [Iron (65 MG 325 mg PO DAILY@0700 01/18/21 10/04/21 History Elemental)] Folic Acid 0.4 mg PO DAILY 01/18/21 10/04/21 History Mirtazapine 15 mg PO HS 02/11/21 10/04/21 History ALPRAZolam [Xanax] 0.25 mg PO Q12H PRN #6 tab 06/29/21 10/04/21 Rx Acetaminophen Tab [Tylenol] 650 mg PO Q6HR PRN tab 06/29/21 10/04/21 Rx Cholecalciferol [Vitamin D3 (25 50 mcg PO DAILY tablet 06/29/21 10/04/21 Rx Mcg = 1000 Iu)] Clindamycin [Cleocin] 2 mg PO TID 10/04/21 10/04/21 History Hydrocortisone Oint 1 applic TOPICAL BID 10/04/21 10/04/21 History [Hydrocortisone 2.5% Oint] OLANZapine [ZyPREXA] 10 mg PO HS 10/04/21 10/04/21 History SILVER sulfADIAZINE CREAM 1 applic TOPICAL DAILY 10/04/21 10/04/21 History [Silvadene Cream] Allergies Allergy/AdvReac Type Severity Reaction Status Date / Time cephalexin [From Keflex] Allergy Rash/Hives Verified 10/04/21 14:05 latex Allergy Rash/Hives Verified 10/04/21 14:05 Physical Exam Vitals: Vital Signs Temp Pulse Pulse Resp BP Pulse Ox FiO2 10/05/21 09:30 82 25 H 96 10/05/21 09:15 82 24 96 10/05/21 09:00 80 24 97 50 10/05/21 08:45 80 24 97 10/05/21 08:30 78 24 97 10/05/21 08:19 50 10/05/21 08:15 79 20 96 10/05/21 08:00 78 20 97 70 10/05/21 07:45 77 20 94/61 99 08/18/22 07:30 80 20 95/69 95 10/05/21 07:15 81 20 95/69 90 L 10/05/21 07:00 82 20 95/35 93 L 10/05/21 06:45 86 20 94/48 93 L 10/05/21 06:30 91 20 88/60 93 L 10/05/21 06:15 90 20 83/40 10/05/21 06:00 89 20 88/47 93 L 10/05/21 05:45 89 20 93/55 92 L 10/05/21 05:30 89 20 101/26 10/05/21 05:15 90 21 88/61 94 L 10/05/21 05:00 91 30 H 92/32 94 L 10/05/21 04:45 90 30 H 81/61 93 L 10/05/21 04:31 60 10/05/21 04:30 91 22 92/71 93 L 10/05/21 04:15 92 28 H 99/64 94 L 10/05/21 04:00 96.8 F L 93 98 23 94/63 94 L 70 10/05/21 03:45 93 31 H 93/65 94 L 10/05/21 03:30 93 26 H 93/65 93 L 10/05/21 03:15 93 30 H 94/72 93 L 10/05/21 03:00 95 26 H 102/64 93 L 10/05/21 02:45 94 29 H 86/59 92 L 10/05/21 02:30 93 20 87/60 10/05/21 02:15 91 26 H 86/62 10/05/21 02:00 92 30 H 89/63 95 10/05/21 01:45 93 20 89/62 96 10/05/21 01:30 93 22 89/67 95 10/05/21 01:15 95 29 H 91/63 95 10/05/21 01:00 94 22 92/63 94 L 10/05/21 00:45 97 22 92/58 88 L 10/05/21 00:30 97 25 H 90/62 91 L 10/05/21 00:15 97 22 89/62 75 L 10/05/21 00:09 60 10/05/21 00:00 96.7 F L 98 98 27 H 86/63 70 10/04/21 23:45 102 H 19 85/23 10/04/21 23:30 106 H 28 H 86/45 10/04/21 23:15 111 H 24 89/72 10/04/21 23:11 111 H 30 H 89/72 10/04/21 23:00 109 H 20 89/68 10/04/21 22:45 112 H 27 H 86/69 10/04/21 22:30 112 H 24 92/30 10/04/21 22:15 113 H 19 79/46 10/04/21 22:00 117 H 20 101/62 10/04/21 21:45 115 H 19 95/57 10/04/21 21:30 112 H 21 80/47 10/04/21 21:15 111 H 20 73/28 10/04/21 21:11 70 10/04/21 21:00 109 H 14 81/55 10/04/21 20:45 106 H 30 H 79/55 10/04/21 20:30 101 H 30 H 88/25 10/04/21 20:15 103 H 29 H 70/47 93 L 10/04/21 20:00 96.6 F L 103 H 98 20 71/45 95 70 10/04/21 19:45 96 26 H 78/43 10/04/21 19:30 91 27 H 72/53 92 L 10/04/21 19:15 95 27 H 82/51 10/04/21 19:00 84 28 H 71/48 91 L 70 10/04/21 18:45 95 23 76/55 10/04/21 18:30 87 22 79/58 93 L 10/04/21 18:15 75 25 H 83/59 10/04/21 18:00 94.4 F L 70 27 H 93 L 70 10/04/21 17:45 74 27 H 106/61 91 L 10/04/21 17:38 70 10/04/21 17:30 75 28 H 97/81 91 L 10/04/21 17:15 85 26 H 84/60 93 L 10/04/21 17:00 93.7 F L 85 28 H 109/67 93 L 70 10/04/21 16:50 60 10/04/21 16:48 80 27 H 10/04/21 16:45 98 26 H 70 10/04/21 15:51 90 20 91/76 99 10/04/21 15:26 60 10/04/21 15:15 83 20 96/68 100 10/04/21 14:56 60 10/04/21 14:50 101 H 20 80/59 100 10/04/21 14:20 96 20 87/61 100 10/04/21 14:04 109 H 20 100/73 99 10/04/21 13:55 111 H 20 114/72 99 10/04/21 13:46 100 10/04/21 13:44 96.9 F L 115 H 20 112/81 99 Intake and Output 10/04/21 10/05/21 10/05/21 22:59 06:59 14:59 Intake Total 0641.591 3327.875 580.363 Output Total 95 15 125 Balance 5790.238 5248.875 455.363 Intake: IV 1750 1100 450 Dextrose 5% in Water 1, 150 600 150 000 ml @ 75 mls/hr IV . [id number] [facility] with Sodium Bicarb (1 Meq/ml) 150 ml Rx#:[id number] Lacosamide IV 150 mg In 50 Sodium Chloride 0.9% 50 ml @ 100 mls/hr IVPB BID [facility] Rx#:[id number] Magnesium Sulfate-D5w Pmx 100 100 1 gm In Dextrose/Water 1 100ml.bag @ 100 mls/hr IVPB Q1H [facility] Rx#: [id number] Potassium Chloride 10 meq 200 In Water For Injection 1 100ml.bag @ 100 mls/hr IVPB Q1H [facility] Rx#: [id number] Sodium Chloride 0.9% 1, 1300 400 250 000 ml @ 50 mls/hr IV . Q20H [facility] Rx#:[id number] Intake, IV Titration 165.822 46.875 130.363 Amount Norepinephrine 32 mg In 28.792 46.875 67.393 Sodium Chloride 0.9% 218 ml @ 0.05 MCG/KG/MIN 1. 465 mls/hr IV .Q24H [facility] Rx#:[id number] Piperacillin-Tazobactam 3 100 .375 gm In Sodium Chloride 0.9% 100 ml @ 25 mls/hr IVPB Q8H [facility] Rx#: [id number] propofoL 1,000 mg In 37.030 62.97 Empty Bag 1 bag @ 5 MCG/ KG/MIN 1.875 mls/hr IV . Q24H [facility] Rx#:[id number] Other 60 Output: Chest Tube Drainage 0 Chest Tube Left Anterior 0 Chest Urine 95 15 125 Other: Voiding Method Indwelling Catheter Indwelling Catheter Weight 62.5 kg 74 kg 74 kg ABP, PAP, CO, CI - Last 8 Hours Arterial Blood Pressure 104/58 Arterial Blood Pressure 106/58 Arterial Blood Pressure 110/59 Arterial Blood Pressure 106/56 Arterial Blood Pressure 106/55 Arterial Blood Pressure 109/55 Arterial Blood Pressure 112/57 GENERAL EXAM: Sedated, intubated, 66-year-old white female, on assist-control mode of ventilation, vasopressor support, comfortable in no apparent distress. HEAD: Normocephalic/atraumatic. EYES: Normal reaction of pupils, equal size. Conjunctiva pink, sclera white. NOSE: Clear with pink turbinates. THROAT: No erythema or exudates. NECK: No masses, no JVD, no thyroid enlargement, no adenopathy. CHEST: No chest wall deformity. Symmetrical expansion. Left anterior Thoravent removed, left sided chest tube in place to wall suction LUNGS: Equal air entry with no crackles, wheeze, rhonchi or dullness. CVS: Regular rate and rhythm, normal S1 and S2, no gallops, no murmurs, no rubs ABDOMEN: Soft, nontender. No hepatosplenomegaly, normal bowel sounds, no guarding or rigidity. EXTREMITIES: No clubbing, no edema, no cyanosis, 2+ pulses and upper and lower extremities. MUSCULOSKELETAL: Muscle strength and tone is atrophied SPINE: No scoliosis or deformity SKIN: No rashes CENTRAL NERVOUS SYSTEM: Sedated, intubated Results - Laboratory Findings CBC and BMP: 10/05/21 02:00 10/05/21 02:00 ABG ABG pH 7.34 (7.35-7.45) L 10/05/21 06:32 ABG pCO2 38 mmHg (35-45) 10/05/21 06:32 ABG pO2 68 mmHg (83-108) L 10/05/21 06:32 ABG O2 Saturation 93.6 % (94-97) L 10/05/21 06:32 PT/INR, D-dimer PT 12.3 sec (9.0-12.0) H 10/04/21 14:08 INR 1.2 (<1.2) H 10/04/21 14:08 Abnormal lab findings: Abnormal Labs 10/04/21 10/04/21 10/04/21 13:54 14:08 14:08 WBC 12.6 H RBC 3.33 L Hgb 11.1 L MCV 108.4 H D MCHC 30.8 L Neutrophils # (Manual) 8.60 H Lymphocytes # (Manual) Monocytes # (Manual) Metamyelocytes # (Man) 0.25 H Myelocytes # (Manual) 0.13 H PT 12.3 H INR 1.2 H ABG pH ABG pCO2 ABG pO2 ABG HCO3 ABG Total CO2 ABG O2 Saturation Chloride Carbon Dioxide BUN Creatinine Glucose POC Glucose (mg/dL) 270 H Plasma Lactic Acid Willy Calcium AST ALT Troponin I Total Protein Albumin Urine Appearance Urine Protein Urine Glucose (UA) Urine Ketones Urine Blood Urine RBC Urine WBC Urine Bacteria Urine Mucus Ur Barbiturates Screen 10/04/21 10/04/21 10/04/21 14:08 14:08 14:08 WBC RBC Hgb MCV MCHC Neutrophils # (Manual) Lymphocytes # (Manual) Monocytes # (Manual) Metamyelocytes # (Man) Myelocytes # (Manual) PT INR ABG pH ABG pCO2 ABG pO2 ABG HCO3 ABG Total CO2 ABG O2 Saturation Chloride Carbon Dioxide 13 L BUN Creatinine Glucose 258 H POC Glucose (mg/dL) Plasma Lactic Acid Willy Calcium AST 304 H ALT 185 H Troponin I 0.462 H* Total Protein 5.3 L Albumin 2.5 L Urine Appearance Urine Protein Urine Glucose (UA) Urine Ketones Urine Blood Urine RBC Urine WBC Urine Bacteria Urine Mucus Ur Barbiturates Screen Detected H 10/04/21 10/04/21 10/04/21 14:08 14:35 14:43 WBC RBC Hgb MCV MCHC Neutrophils # (Manual) Lymphocytes # (Manual) Monocytes # (Manual) Metamyelocytes # (Man) Myelocytes # (Manual) PT INR ABG pH 7.14 L* ABG pCO2 46 H ABG pO2 347 H ABG HCO3 16 L ABG Total CO2 17 L ABG O2 Saturation 99.8 H Chloride Carbon Dioxide BUN Creatinine Glucose POC Glucose (mg/dL) Plasma Lactic Acid Willy 11.2 H* Calcium AST ALT Troponin I Total Protein Albumin Urine Appearance Cloudy H Urine Protein 3+ H Urine Glucose (UA) 3+ H Urine Ketones Trace H Urine Blood Large H Urine RBC >182 H Urine WBC 180 H Urine Bacteria Rare H Urine Mucus Rare H Ur Barbiturates Screen 10/04/21 10/04/21 10/04/21 16:50 18:06 18:57 WBC RBC Hgb MCV MCHC Neutrophils # (Manual) Lymphocytes # (Manual) Monocytes # (Manual) Metamyelocytes # (Man) Myelocytes # (Manual) PT INR ABG pH 7.20 L ABG pCO2 ABG pO2 71 L ABG HCO3 16 L ABG Total CO2 17 L ABG O2 Saturation 91.6 L Chloride Carbon Dioxide BUN Creatinine Glucose POC Glucose (mg/dL) 214 H Plasma Lactic Acid Willy 6.9 H* Calcium AST ALT Troponin I Total Protein Albumin Urine Appearance Urine Protein Urine Glucose (UA) Urine Ketones Urine Blood Urine RBC Urine WBC Urine Bacteria Urine Mucus Ur Barbiturates Screen 10/04/21 10/04/21 10/04/21 18:57 18:57 22:17 WBC 34.3 H RBC 3.72 L Hgb MCV 106.9 H MCHC 30.8 L Neutrophils # (Manual) 31.20 H Lymphocytes # (Manual) 0.69 L Monocytes # (Manual) 2.40 H Metamyelocytes # (Man) Myelocytes # (Manual) PT INR ABG pH ABG pCO2 ABG pO2 ABG HCO3 ABG Total CO2 ABG O2 Saturation Chloride 109 H Carbon Dioxide 17 L BUN Creatinine 1.13 H Glucose 200 H POC Glucose (mg/dL) Plasma Lactic Acid Willy 6.7 H* Calcium 7.9 L AST ALT Troponin I Total Protein Albumin Urine Appearance Urine Protein Urine Glucose (UA) Urine Ketones Urine Blood Urine RBC Urine WBC Urine Bacteria Urine Mucus Ur Barbiturates Screen 10/05/21 10/05/21 10/05/21 00:21 02:00 02:00 WBC 48.9 H RBC Hgb MCV 105.9 H MCHC Neutrophils # (Manual) 44.90 H Lymphocytes # (Manual) Monocytes # (Manual) 2.45 H Metamyelocytes # (Man) Myelocytes # (Manual) PT INR ABG pH ABG pCO2 ABG pO2 ABG HCO3 ABG Total CO2 ABG O2 Saturation Chloride Carbon Dioxide 16 L BUN 20 H Creatinine 1.49 H Glucose 251 H POC Glucose (mg/dL) 257 H Plasma Lactic Acid Willy Calcium 8.1 L AST ALT Troponin I Total Protein Albumin Urine Appearance Urine Protein Urine Glucose (UA) Urine Ketones Urine Blood Urine RBC Urine WBC Urine Bacteria Urine Mucus Ur Barbiturates Screen 10/05/21 10/05/21 10/05/21 02:00 06:32 06:37 WBC RBC Hgb MCV MCHC Neutrophils # (Manual) Lymphocytes # (Manual) Monocytes # (Manual) Metamyelocytes # (Man) Myelocytes # (Manual) PT INR ABG pH 7.34 L ABG pCO2 ABG pO2 68 L ABG HCO3 ABG Total CO2 ABG O2 Saturation 93.6 L Chloride Carbon Dioxide BUN Creatinine Glucose POC Glucose (mg/dL) Plasma Lactic Acid Willy 7.6 H* 8.5 H* Calcium AST ALT Troponin I Total Protein Albumin Urine Appearance Urine Protein Urine Glucose (UA) Urine Ketones Urine Blood Urine RBC Urine WBC Urine Bacteria Urine Mucus Ur Barbiturates Screen 10/05/21 06:48 WBC RBC Hgb MCV MCHC Neutrophils # (Manual) Lymphocytes # (Manual) Monocytes # (Manual) Metamyelocytes # (Man) Myelocytes # (Manual) PT INR ABG pH ABG pCO2 ABG pO2 ABG HCO3 ABG Total CO2 ABG O2 Saturation Chloride Carbon Dioxide BUN Creatinine Glucose POC Glucose (mg/dL) 238 H Plasma Lactic Acid Willy Calcium AST ALT Troponin I Total Protein Albumin Urine Appearance Urine Protein Urine Glucose (UA) Urine Ketones Urine Blood Urine RBC Urine WBC Urine Bacteria Urine Mucus Ur Barbiturates Screen - Diagnostic Findings Chest x-ray: report reviewed, image reviewed Additional studies: 3 sets of EKGs from the emergency department, CT of the head and cervical spine in follow-up chest x-rays have been reviewed Assessment and Plan Plan: Assessment: #1. Acute cardiac arrest, with prolonged downtime, of unknown etiology, with return of spontaneous circulation #2. Large left pneumothorax with mediastinal shift, patient initially received a Thoravent in the emergency department for initially moderate-sized pneumothorax on the left, however it went on to develop a larger pneumothorax, requiring left-sided chest tube on 10/05/2021 with subsequent reexpansion of the left lung #3. Acute hypotension, multifactorial, likely related to suspected underlying sepsis and tension pneumothorax, patient remains on high dose of norepinephrine, and vasopressin #4. Acute metabolic acidosis #5. Acute hypoxic respiratory failure related to the above, requiring ventilatory support #6. Acute lactic acidosis on presentation lactic acid was 11.2, this may partially be related to underlying sepsis, also hypoperfusion related to cardiac arrest #7. Troponin leak #8. Acute urinary tract infection #9. History of traumatic brain injury with history of frontal lobectomy #10. Seizure disorder #11. History of right-sided neglect with expressive and receptive aphasia #12. History of COVID 19 infection in June 2021 #13. History of gait dysfunction Plan: Left-sided chest tube has been inserted for tension pneumothorax, and subsequent chest x-ray showed reexpansion and almost complete resolution of left-sided pneumothorax We will remove the Thoravent We'll continue fluid resuscitation Necessary vent adjustments have been made Continue antibiotics Titrate vasopressors, patient is currently on norepinephrine and vasopressin EEG and a neurology consultation Prognosis this poor Discussed patient's condition and prognosis with patient's sister at the bedside She wants to continue with treatment in full CODE STATUS for now Cardiology consultation, echocardiogram has been ordered and pending We will obtain pancultures Daily labs, blood gases and chest x-ray I have personally seen and examined the patient, performed the documentation and the assessment and plan as written. Number of minutes spent on the visit: [15] Time with Patient: Greater than 30
--- NOTE | 2021-10-05 11:31 | P.CNNES ---
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 Some of the history is obtained from the patient's sister was at bedside. It seems that the patient was at home and a visiting physician was supposed to come Patient was seen sleeping but then found looking purplish/bluish yesterday in the face around 1220ish p.m. yesterday. Last seen normal and awake on camera was around 12:15pm yesterday. Seems that the patient's sister performed CPR and then [facility] de[facility]ment came to scene and perfomed CPR. As well as EMS. Patient was in the facet arrest. It seems that patient had CPR for 20 minutes before they're able to get lost. She received the defibrillator and it seems twice. While in the hospital the patient has lost pulse again according to the ED note. It is reported the patient had no spontaneous movement. Her pupils are fixed and dilated 6 mm. Of note the patient has been having seizures since 2008 and the she sees a neurologist (Dr. Martines). A scent is on Depakote, Vimpat, phenytoin her last seizure was in June 2021 and it was provoked due to COVID-19 per her neurologist according to sister. Patient had seizures since 2008 she had perforated colon after colonscopy according to daughter that lead to cerebritis and lead to uncontrolled seizures as result she had lobectomy and reported as frontal at [facility]. She has aphasia and per sister global and seems she can follow some commands and get few words out. Some of the workup turned our hospital visit consisted of: initial white blood cell is 12.6 and most recent one is 40.9. Patient is afebrile Plasma lactic acid venous is 11.2 on presentation and most current one is 8.5. Urine analysis appears urinary tract infection Valproic acid is a level is 44.1 reduction in is positive for barbiturate otherwise rest is not detected. AST of 304 and ALT of 585. CT of the head and CT cervical spine are reported as old left temporal lobe infarct with associated volume loss causing ex vacuo enlargement of the posterior left lateral ventricle. As compared to 06/27/2021. There may be slight less sulcal prominence in the setting of cardiac arrest unable to exclude some mild generalized brain swelling. There is no midline shift, effacement of the basal cisterns acute ischemic change or herniation seen. Learning of fluid throughout the paranasal sinuses probably a product of intubation. No acute fracture or misalignment of the cervical spine. Mild to moderate spondylitic changes throughout. Small to moderate left sided pneumothorax measuring up to 2.4 cm anteriorly. I personally reviewed the CT of the head and there is no at acute and stroke. There is no appreciable significant cerebral edema. There is no midline shift. There is no typical hemorrhage. 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 Past Surgical History: Breast Surgery Additional Past Surgical History / Comment(s): frontal lobectomy, perforated bowel. Past Anesthesia/Blood Transfusion Reactions: No Reported Reaction Past Psychological History: Unable to Obtain Smoking Status: Never smoker Past Alcohol Use History: None Reported Past Drug Use History: None Reported - Past Family History Mother Family Medical History: Hypertension Additional Family Medical History / Comment(s): Mother is alive and 89yrs old. Father Family Medical History: Hypertension Additional Family Medical History / Comment(s): Father is . Medications and Allergies Home Medications Medication Instructions Recorded Confirmed Type Divalproex ER [Depakote ER] 500 mg PO TID 07/22/20 10/04/21 History Lacosamide [Vimpat] 150 mg PO BID 07/22/20 10/04/21 History Phenytoin Sodium Extended 300 mg PO DAILY 07/22/20 10/04/21 History [Dilantin] Ferrous Sulfate [Iron (65 MG 325 mg PO DAILY@0700 01/18/21 10/04/21 History Elemental)] Folic Acid 0.4 mg PO DAILY 01/18/21 10/04/21 History Mirtazapine 15 mg PO HS 02/11/21 10/04/21 History ALPRAZolam [Xanax] 0.25 mg PO Q12H PRN #6 tab 06/29/21 10/04/21 Rx Acetaminophen Tab [Tylenol] 650 mg PO Q6HR PRN tab 06/29/21 10/04/21 Rx Cholecalciferol [Vitamin D3 (25 50 mcg PO DAILY tablet 06/29/21 10/04/21 Rx Mcg = 1000 Iu)] Clindamycin [Cleocin] 2 mg PO TID 10/04/21 10/04/21 History Hydrocortisone Oint 1 applic TOPICAL BID 10/04/21 10/04/21 History [Hydrocortisone 2.5% Oint] OLANZapine [ZyPREXA] 10 mg PO HS 10/04/21 10/04/21 History SILVER sulfADIAZINE CREAM 1 applic TOPICAL DAILY 10/04/21 10/04/21 History [Silvadene Cream] Allergies Allergy/AdvReac Type Severity Reaction Status Date / Time cephalexin [From Keflex] Allergy Rash/Hives Verified 10/04/21 14:05 latex Allergy Rash/Hives Verified 10/04/21 14:05 Physical Examination - Vital Signs Vital Signs: Vital Signs Temp Pulse Pulse Resp BP Pulse Ox FiO2 10/05/21 09:30 82 25 H 96 10/05/21 09:15 82 24 96 10/05/21 09:00 80 24 97 50 10/05/21 08:45 80 24 97 10/05/21 08:30 78 24 97 10/05/21 08:19 50 10/05/21 08:15 79 20 96 10/05/21 08:00 78 20 97 70 10/05/21 07:45 77 20 94/61 99 10/05/21 07:30 80 20 95/69 95 10/05/21 07:15 81 20 95/69 90 L 10/05/21 07:00 82 20 95/35 93 L 10/05/21 06:45 86 20 94/48 93 L 10/05/21 06:30 91 20 88/60 93 L 10/05/21 06:15 90 20 83/40 10/05/21 06:00 89 20 88/47 93 L 10/05/21 05:45 89 20 93/55 92 L 10/05/21 05:30 89 20 101/26 10/05/21 05:15 90 21 88/61 94 L 10/05/21 05:00 91 30 H 92/32 94 L 10/05/21 04:45 90 30 H 81/61 93 L 10/05/21 04:31 60 10/05/21 04:30 91 22 92/71 93 L 10/05/21 04:15 92 28 H 99/64 94 L 10/05/21 04:00 96.8 F L 93 98 23 94/63 94 L 70 10/05/21 03:45 93 31 H 93/65 94 L 10/05/21 03:30 93 26 H 93/65 93 L 10/05/21 03:15 93 30 H 94/72 93 L 10/05/21 03:00 95 26 H 102/64 93 L 10/05/21 02:45 94 29 H 86/59 92 L 10/05/21 02:30 93 20 87/60 10/05/21 02:15 91 26 H 86/62 10/05/21 02:00 92 30 H 89/63 95 10/05/21 01:45 93 20 89/62 96 10/05/21 01:30 93 22 89/67 95 10/05/21 01:15 95 29 H 91/63 95 10/05/21 01:00 94 22 92/63 94 L 10/05/21 00:45 97 22 92/58 88 L 10/05/21 00:30 97 25 H 90/62 91 L 10/05/21 00:15 97 22 89/62 75 L 10/05/21 00:09 60 10/05/21 00:00 96.7 F L 98 98 27 H 86/63 70 10/04/21 23:45 102 H 19 85/23 10/04/21 23:30 106 H 28 H 86/45 10/04/21 23:15 111 H 24 89/72 10/04/21 23:11 111 H 30 H 89/72 10/04/21 23:00 109 H 20 89/68 10/04/21 22:45 112 H 27 H 86/69 10/04/21 22:30 112 H 24 92/30 10/04/21 22:15 113 H 19 79/46 10/04/21 22:00 117 H 20 101/62 10/04/21 21:45 115 H 19 95/57 10/04/21 21:30 112 H 21 80/47 10/04/21 21:15 111 H 20 73/28 10/04/21 21:11 70 10/04/21 21:00 109 H 14 81/55 10/04/21 20:45 106 H 30 H 79/55 10/04/21 20:30 101 H 30 H 88/25 10/04/21 20:15 103 H 29 H 70/47 93 L 10/04/21 20:00 96.6 F L 103 H 98 20 71/45 95 70 10/04/21 19:45 96 26 H 78/43 10/04/21 19:30 91 27 H 72/53 92 L 10/04/21 19:15 95 27 H 82/51 10/04/21 19:00 84 28 H 71/48 91 L 70 10/04/21 18:45 95 23 76/55 10/04/21 18:30 87 22 79/58 93 L 10/04/21 18:15 75 25 H 83/59 10/04/21 18:00 94.4 F L 70 27 H 93 L 70 10/04/21 17:45 74 27 H 106/61 91 L 10/04/21 17:38 70 10/04/21 17:30 75 28 H 97/81 91 L 10/04/21 17:15 85 26 H 84/60 93 L 10/04/21 17:00 93.7 F L 85 28 H 109/67 93 L 70 10/04/21 16:50 60 10/04/21 16:48 80 27 H 10/04/21 16:45 98 26 H 70 10/04/21 15:51 90 20 91/76 99 10/04/21 15:26 60 10/04/21 15:15 83 20 96/68 100 10/04/21 14:56 60 10/04/21 14:50 101 H 20 80/59 100 10/04/21 14:20 96 20 87/61 100 10/04/21 14:04 109 H 20 100/73 99 10/04/21 13:55 111 H 20 114/72 99 10/04/21 13:46 100 10/04/21 13:44 96.9 F L 115 H 20 112/81 99 Intake and Output 10/04/21 10/05/21 10/05/21 22:59 06:59 14:59 Intake Total 7071.152 1098.875 580.363 Output Total 95 15 125 Balance 8376.389 1687.875 455.363 Intake: IV 1750 1100 450 Dextrose 5% in Water 1, 150 600 150 000 ml @ 75 mls/hr IV . [id number] REUBEN with Sodium Bicarb (1 Meq/ml) 150 ml Rx#:[id number] Lacosamide IV 150 mg In 50 Sodium Chloride 0.9% 50 ml @ 100 mls/hr IVPB BID REUBEN Rx#:[id number] Magnesium Sulfate-D5w Pmx 100 100 1 gm In Dextrose/Water 1 100ml.bag @ 100 mls/hr IVPB Q1H [facility] Rx#: [id number] Potassium Chloride 10 meq 200 In Water For Injection 1 100ml.bag @ 100 mls/hr IVPB Q1H [facility] Rx#: [id number] Sodium Chloride 0.9% 1, 1300 400 250 000 ml @ 50 mls/hr IV . Q20H [facility] Rx#:[id number] Intake, IV Titration 165.822 46.875 130.363 Amount Norepinephrine 32 mg In 28.792 46.875 67.393 Sodium Chloride 0.9% 218 ml @ 0.05 MCG/KG/MIN 1. 465 mls/hr IV .Q24H [facility] Rx#:[id number] Piperacillin-Tazobactam 3 100 .375 gm In Sodium Chloride 0.9% 100 ml @ 25 mls/hr IVPB Q8H [facility] Rx#: [id number] propofoL 1,000 mg In 37.030 62.97 Empty Bag 1 bag @ 5 MCG/ KG/MIN 1.875 mls/hr IV . Q24H [facility] Rx#:[id number] Other 60 Output: Chest Tube Drainage 0 Chest Tube Left Anterior 0 Chest Urine 95 15 125 Other: Voiding Method Indwelling Catheter Indwelling Catheter Weight 62.5 kg 74 kg 74 kg ABP, PAP, CO, CI - Last 8 Hours Arterial Blood Pressure 104/58 Arterial Blood Pressure 106/58 Arterial Blood Pressure 110/59 Arterial Blood Pressure 106/56 Arterial Blood Pressure 106/55 Arterial Blood Pressure 109/55 Arterial Blood Pressure 112/57 GENERAL: The patient is lying in bed and does not appear in acute distress. CHEST: The heart rate is regular rate rhythm. No murmurs to auscultation. LUNG: Clear to auscultation bilaterally no wheezing noted throughout. Not labored breathing. Intubated on ventilator. ABDOMEN/GI: Bowel sounds present in all 4 quadrants. No tenderness to palpation throughout. NEUROLOGICAL: IV Propofol 20mcg/kg/min and held since 7am today. Higher mental function: GCS 9 (E3, VT1, M5). No following commands or attempting to communicate. Cranial nerves: Primary gaze is midline upon opening her eyes. With painful stimuli opened her eyes and then later with sister attempting to talk to her, she would open her eyes. The pupils are round, equal and reactive to light. Positive corneal reflex bilaterally. Minimal right nasolabial flattening. Motor: The strength is hard to assess but with painful stimuli she attempted to withdrawal in lowers (left > right). Normal tone and bulk. Cerebellum: Unable to assess. Sensation: Unable to assess light touch but to painful stimuli she is localizing in lowers. Reflexes (right/left): 1+ throughout. Plantars are mute bilaterally. Results - Laboratory Findings CBC and BMP: 10/05/21 02:00 10/05/21 02:00 Abnormal Lab Findings: Abnormal Labs 10/04/21 10/04/21 10/04/21 13:54 14:08 14:08 WBC 12.6 H RBC 3.33 L Hgb 11.1 L MCV 108.4 H D MCHC 30.8 L Neutrophils # (Manual) 8.60 H Lymphocytes # (Manual) Monocytes # (Manual) Metamyelocytes # (Man) 0.25 H Myelocytes # (Manual) 0.13 H PT 12.3 H INR 1.2 H ABG pH ABG pCO2 ABG pO2 ABG HCO3 ABG Total CO2 ABG O2 Saturation Chloride Carbon Dioxide BUN Creatinine Glucose POC Glucose (mg/dL) 270 H Plasma Lactic Acid Willy Calcium AST ALT Troponin I Total Protein Albumin Urine Appearance Urine Protein Urine Glucose (UA) Urine Ketones Urine Blood Urine RBC Urine WBC Urine Bacteria Urine Mucus Ur Barbiturates Screen 10/04/21 10/04/21 10/04/21 14:08 14:08 14:08 WBC RBC Hgb MCV MCHC Neutrophils # (Manual) Lymphocytes # (Manual) Monocytes # (Manual) Metamyelocytes # (Man) Myelocytes # (Manual) PT INR ABG pH ABG pCO2 ABG pO2 ABG HCO3 ABG Total CO2 ABG O2 Saturation Chloride Carbon Dioxide 13 L BUN Creatinine Glucose 258 H POC Glucose (mg/dL) Plasma Lactic Acid Willy Calcium AST 304 H ALT 185 H Troponin I 0.462 H* Total Protein 5.3 L Albumin 2.5 L Urine Appearance Urine Protein Urine Glucose (UA) Urine Ketones Urine Blood Urine RBC Urine WBC Urine Bacteria Urine Mucus Ur Barbiturates Screen Detected H 10/04/21 10/04/21 10/04/21 14:08 14:35 14:43 WBC RBC Hgb MCV MCHC Neutrophils # (Manual) Lymphocytes # (Manual) Monocytes # (Manual) Metamyelocytes # (Man) Myelocytes # (Manual) PT INR ABG pH 7.14 L* ABG pCO2 46 H ABG pO2 347 H ABG HCO3 16 L ABG Total CO2 17 L ABG O2 Saturation 99.8 H Chloride Carbon Dioxide BUN Creatinine Glucose POC Glucose (mg/dL) Plasma Lactic Acid Willy 11.2 H* Calcium AST ALT Troponin I Total Protein Albumin Urine Appearance Cloudy H Urine Protein 3+ H Urine Glucose (UA) 3+ H Urine Ketones Trace H Urine Blood Large H Urine RBC >182 H Urine WBC 180 H Urine Bacteria Rare H Urine Mucus Rare H Ur Barbiturates Screen 10/04/21 10/04/21 10/04/21 16:50 18:06 18:57 WBC RBC Hgb MCV MCHC Neutrophils # (Manual) Lymphocytes # (Manual) Monocytes # (Manual) Metamyelocytes # (Man) Myelocytes # (Manual) PT INR ABG pH 7.20 L ABG pCO2 ABG pO2 71 L ABG HCO3 16 L ABG Total CO2 17 L ABG O2 Saturation 91.6 L Chloride Carbon Dioxide BUN Creatinine Glucose POC Glucose (mg/dL) 214 H Plasma Lactic Acid Willy 6.9 H* Calcium AST ALT Troponin I Total Protein Albumin Urine Appearance Urine Protein Urine Glucose (UA) Urine Ketones Urine Blood Urine RBC Urine WBC Urine Bacteria Urine Mucus Ur Barbiturates Screen 10/04/21 10/04/21 10/04/21 18:57 18:57 22:17 WBC 34.3 H RBC 3.72 L Hgb MCV 106.9 H MCHC 30.8 L Neutrophils # (Manual) 31.20 H Lymphocytes # (Manual) 0.69 L Monocytes # (Manual) 2.40 H Metamyelocytes # (Man) Myelocytes # (Manual) PT INR ABG pH ABG pCO2 ABG pO2 ABG HCO3 ABG Total CO2 ABG O2 Saturation Chloride 109 H Carbon Dioxide 17 L BUN Creatinine 1.13 H Glucose 200 H POC Glucose (mg/dL) Plasma Lactic Acid Willy 6.7 H* Calcium 7.9 L AST ALT Troponin I Total Protein Albumin Urine Appearance Urine Protein Urine Glucose (UA) Urine Ketones Urine Blood Urine RBC Urine WBC Urine Bacteria Urine Mucus Ur Barbiturates Screen 10/05/21 10/05/21 10/05/21 00:21 02:00 02:00 WBC 48.9 H RBC Hgb MCV 105.9 H MCHC Neutrophils # (Manual) 44.90 H Lymphocytes # (Manual) Monocytes # (Manual) 2.45 H Metamyelocytes # (Man) Myelocytes # (Manual) PT INR ABG pH ABG pCO2 ABG pO2 ABG HCO3 ABG Total CO2 ABG O2 Saturation Chloride Carbon Dioxide 16 L BUN 20 H Creatinine 1.49 H Glucose 251 H POC Glucose (mg/dL) 257 H Plasma Lactic Acid Willy Calcium 8.1 L AST ALT Troponin I Total Protein Albumin Urine Appearance Urine Protein Urine Glucose (UA) Urine Ketones Urine Blood Urine RBC Urine WBC Urine Bacteria Urine Mucus Ur Barbiturates Screen 10/05/21 10/05/21 10/05/21 02:00 06:32 06:37 WBC RBC Hgb MCV MCHC Neutrophils # (Manual) Lymphocytes # (Manual) Monocytes # (Manual) Metamyelocytes # (Man) Myelocytes # (Manual) PT INR ABG pH 7.34 L ABG pCO2 ABG pO2 68 L ABG HCO3 ABG Total CO2 ABG O2 Saturation 93.6 L Chloride Carbon Dioxide BUN Creatinine Glucose POC Glucose (mg/dL) Plasma Lactic Acid Willy 7.6 H* 8.5 H* Calcium AST ALT Troponin I Total Protein Albumin Urine Appearance Urine Protein Urine Glucose (UA) Urine Ketones Urine Blood Urine RBC Urine WBC Urine Bacteria Urine Mucus Ur Barbiturates Screen 10/05/21 06:48 WBC RBC Hgb MCV MCHC Neutrophils # (Manual) Lymphocytes # (Manual) Monocytes # (Manual) Metamyelocytes # (Man) Myelocytes # (Manual) PT INR ABG pH ABG pCO2 ABG pO2 ABG HCO3 ABG Total CO2 ABG O2 Saturation Chloride Carbon Dioxide BUN Creatinine Glucose POC Glucose (mg/dL) 238 H Plasma Lactic Acid Willy Calcium AST ALT Troponin I Total Protein Albumin Urine Appearance Urine Protein Urine Glucose (UA) Urine Ketones Urine Blood Urine RBC Urine WBC Urine Bacteria Urine Mucus Ur Barbiturates Screen Assessment and Plan Assessment: Cardiopulmonary arrest and had at least CPR for more than 20 minutes (unsure exact total down time). Initial rhythm is V-fib. Anoxic encephalopathy/brain injury due to above Non-STEMI Shock. Appears cardiac and cannot rule out in addition septic due to acute UTI Probable acute urinary tract infection History of epilepsy since 2008 History of cerebritis status post reported left frontal but on imaging it seems temporal with residual aphasia and right-sided weakness and neglect Ulcerative colitis Plan: An EEG is ordered and pending. We'll resume the patient's home antiepileptic drugs of Dilantin 300 mg daily, Vimpat 150 mg twice a day and Depakote extended release 500 3 times a day. I ordered ammonia level I'll get a repeat CT of the head by tomorrow to see if there is any changes compared to the initial Cardiology is on board We'll defer the rest of the medical management to the primary and ICU team The patient condition is very guarded. She is not brain and she has few brainstem reflexes. The plan is discussed with the patient's sister was at bedside as well as the nurse Thank you for the consultation Marvin Rodriguez M.D. Neuro-hospitalist Time with Patient: Greater than 30
[2021-10-05] MEDS: HEPARIN SOD,PORK IN 0.45% NACL 25,000 UNIT in 0.45% NACL 1 250ML.BAG IV SCH (11:38)
[2021-10-05 12:02] LABS: Glucose,Whole Blood 156 mg/dL (70-110)
--- NOTE | 2021-10-05 12:23 | P.PN ---
Progress Note - Text Progress Note Date: 10/05/21 Chief Complaint: Cardiac arrest Hospital course: This is a 66-year-old patient, follows with visiting physicians Dr. Sarmiento. 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 Patient also follows at [facility] for ulcerative colitis and receives injections for the same. Had a baseline has 10-14 BMs a day. Does use a walker to get about. Has right-sided neglect. Also has underlying anxiety and follows with psychiatry. Patient does wear pull-ups. Patient Sr. Ibeth Walden ir legal guardian and POA. Patient lives with her. Patient's 2 sisters including Ibeth Walden not present in the ER. Patient today was last seen awake on the camera about 12:15 PM. Patient's caregiver had discomfort in the house. Sister noticed to be unresponsive/purple in color.. Started doing CPR. EMS arrived about 12:30 PM. They carried out CPR and shock the patient in around 1 PM patient did get a pulse back. Patient was in V. fib prior to that. Patient was intubated. Prior to support patient had been communicating. At the baseline. Patient only speaks occasionally works because of expressive dysphasia. In the ER patient on the ventilator. Sinus rhythm. D oes open eyes spontaneously. On levo fed drip. And a left-sided pneumothorax, Thora-vent in placed. In the past patient had some abnormal T waves on the EKG. Was seen by Dr. Elkins from cardiology Family did not want any further invasive testing. October 05: ICU: Intubated. FiO2 15 of PEEP of 5. Drips include norepinephrine/vasopressin. Telemetry shows sinus rhythm. Does open eyes. Left-sided chest tube. No family present. Did try to call the sister Ibeth Walden, went into voicemail. On IV heparin Active Medications Aspirin (Aspirin 81 Mg) 81 mg PO DAILY [facility] Chlorhexidine Gluconate (Chlorhexidine Gluconate 15 Ml Cup) 15 ml MUCOUS MEM BID REUBEN Last Admin: 10/05/21 09:15 Dose: 15 ml Dextrose/Water (Dextrose 50% Syringe 50 Ml) 25 ml IVP PER PROTOCOL PRN; Protocol PRN Reason: Hypoglycemia Dextrose/Water (Dextrose 50% Syringe 50 Ml) 50 ml IVP PER PROTOCOL PRN; Protocol PRN Reason: Hypoglycemia Folic Acid (Folic Acid 1 Mg Tab) 0.5 mg PO DAILY REUBEN Last Admin: 10/05/21 09:01 Dose: 0.5 mg Heparin Sodium (Porcine) (Heparin Sodium 1,000 Un/Ml (10ml Vl)) 0 unit IV PER PROTOCOL PRN; Protocol PRN Reason: Low PTT Norepinephrine Bitartrate 32 (mg/ Sodium Chloride) 250 mls @ 1.465 mls/hr IV .Q24H REUBEN; Protocol Last Titration: 10/05/21 11:25 Dose: 0.04 mcg/kg/min, 1.172 mls/hr Vasopressin 60 unit/ Sodium (Chloride) 153 mls @ 4.59 mls/hr IV .Q24H REUBEN Last Admin: 10/05/21 04:04 Dose: 4.59 mls/hr Propofol 1,000 mg/ IV Solution 100 mls @ 1.875 mls/hr IV .Q24H REUBEN; Protocol Last Titration: 10/05/21 07:20 Dose: Infused Piperacillin Sod/Tazobactam (Sod 3.375 gm/ Sodium Chloride) 100 mls @ 25 mls/hr IVPB Q8H REUBEN; Protocol Last Admin: 10/05/21 11:19 Dose: 25 mls/hr Lacosamide 150 mg/ Sodium (Chloride) 65 mls @ 100 mls/hr IVPB BID REUBEN Last Admin: 10/05/21 09:25 Dose: 100 mls/hr Sodium Chloride (Saline 0.9%) 1,000 mls @ 100 mls/hr IV .Q10H REUBEN Last Admin: 10/05/21 09:00 Dose: 100 mls/hr Heparin Sodium/Sodium Chloride (25,000 unit/ Sodium Chloride) 250 mls @ 8.88 mls/hr IV .Q24H REUBEN; Protocol Last Admin: 10/05/21 11:38 Dose: 12 units/kg/hr, 8.88 mls/hr Insulin Aspart (Insulin Aspart (Novolog) 100 Unit/Ml Vial) 0 unit SQ Q6H REUBEN; Protocol Last Admin: 10/05/21 07:01 Dose: 2 unit Mirtazapine (Mirtazapine 15 Mg Tab) 15 mg PO HS REUBEN Last Admin: 10/04/21 20:44 Dose: 15 mg Miscellaneous Information (Pneumonia Protocol Utilized 1 Each Misc) 1 each PO ONCE PRN PRN Reason: Per Protocol Miscellaneous Information (Potassium Replacement Protocol 1 Each Misc) 1 each MISCELLANE DAILY PRN; Protocol PRN Reason: Per Protocol Naloxone HCl (Naloxone 0.4 Mg/Ml 1 Ml Vial) 0.2 mg IV Q2M PRN PRN Reason: Opioid Reversal Olanzapine (Olanzapine 10 Mg Tab) 10 mg PO HS [facility] Last Admin: 10/04/21 20:44 Dose: 10 mg Pantoprazole Sodium (Pantoprazole 40 Mg/10 Ml Vial) 40 mg IV DAILY [facility] Last Admin: 10/05/21 09:02 Dose: 40 mg Phenytoin Sodium (Phenytoin Sodium Inj 50 Mg/Ml 2 Ml Vial) 100 mg IVP Q8HR [facility] Last Admin: 10/05/21 09:01 Dose: 100 mg Valproic Acid (Valproic Acid Oral Soln 250 Mg/5 Ml Cup) 500 mg OG-TUBE TID [facility] Last Admin: 10/05/21 09:02 Dose: 500 mg Past medical history to include: Seizure disorder, brain injury, frontal lobectomy, right-sided neglect, expressive dysphasia, uses a walker Social history: No history of smoking or alcohol. Uses a walker. [employer] sister, Ibeth Walden who is also the legal guardian Family history: Patient cannot tell Physical examination: VITAL SIGNS: 75, 24, 108/56, 99% on ventilator GENERAL: Laying in bed, does open eyes spontaneously., Intubated EYES: Pupils equal. Conjunctiva normal. HEENT: External appearance of nose and ears normal, oral cavity dry. ET tube NECK: JVD not raised; masses not palpable. HEART: First and second heart sounds are normal; no edema. LUNGS: Respiratory rate increased; decreased breath sounds ABDOMEN: Soft, nontender, liver spleen not palpable, no masses palpable. PSYCH: Unable to assess. NEUROLOGICAL: Pupils are equal, sluggish to light. Cornea reflex absent. Positive Gag Reflex. Does Responded to Pain INVESTIGATIONS, reviewed in the clinical context: October 05: WBC 48.9 hemoglobin 12.9 potassium 4.1 BUN 20 creatinine 1.49 lactic acid 7.6 EKG tracing personally reviewed by me-normal sinus rhythm. ST segment depression through anterior leads. Chest x-ray film personally reviewed by me-infiltrates White count 12.6 hemoglobin 11.1 platelets 221 sodium 139 potassium 3.6 creatinine 0.83 Lactic acid 11.2 Troponin I 0.462 Urine drug screen positive for barbiturates ABG: PH 7.14 pCO2 46 pO2 347 bicarb 16- FiO2 100% Assessment and plan: -Cardiac arrest, with approximate downtime of about 15 minutes. Patient was resuscitated for about 30 minutes, before -Non-ST elevation OR. Dressing changes. IV heparin -Hypoxic brain injury. Some preservation of brainstem reflexes. 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 IV heparin. Intubated. Antiseizure medications. Tried to call the sister went into voicemail. Prognosis guarded.
[2021-10-05 15:03] LABS: Lactic Acid, Venous 2.8 mmol/L (0.7-2.0)
[2021-10-05 17:13] LABS: Glucose,Whole Blood 140 mg/dL (70-110)
[2021-10-05] MEDS: NOREPINEPHRINE 32 MG in SODIUM CHLORIDE 0.9% 218 ML IV SCH (20:19)
[2021-10-05] MEDS: MIRTAZAPINE 15 MG TAB PO SCH (20:34)
[2021-10-05] MEDS: OLANZapine 10 MG TAB PO SCH (20:34)
[2021-10-05 20:47] LABS: Glucose,Whole Blood 175 mg/dL (70-110)
--- NOTE | 2021-10-05 21:34 | EEG ---
ELECTROENCEPHALOGRAM REPORT CLINICAL HISTORY: This is a 66-year-old woman with history of seizure, who has outside cardiac arrest and continues to have altered mental status. The video EEG is obtained to evaluate for seizure and epileptiform discharges. RELEVANT MEDICATIONS: Vimpat, Dilantin., Depakote and IV propofol. EEG TYPE: A routine 21-channel EEG is performed with video using the 10/20 electrode placement system. DESCRIPTION: The patient is intubated on a ventilator. The background consists of burst suppression. During the burst activity, the patient has diffuse nonrhythmic delta activity lasting between 1 to 6 seconds. There is no epileptiform discharges during burst activity. During the suppression activity, the patient had diffuse suppression activity lasting between 1 to 4 seconds. There is no focal slowing. There is no seizure activity noted. Photic stimulation and hyperventilation are not performed. CLINICAL INTERPRETATION: This is an abnormal routine EEG. The background slowing is suggestive of severe encephalopathy. The burst suppression seen during the study possibly could be as a result of the cardiopulmonary arrest. Clinical correlation is recommended. MMMARCI / KEYUR: [id number] / MTDD
[2021-10-05 23:20] LABS: Glucose,Whole Blood 164 mg/dL (70-110)
[2021-10-06] MEDS: PHENYTOIN SODIUM INJ 50 MG/ML 2 ML VIAL IVP SCH ×4 (01:02→23:33)
[2021-10-06] MEDS: INSULIN ASPART (NovoLOG) 100 UNIT/ML VIAL SQ SCH ×5 (01:02→23:32)
[2021-10-06] MEDS: PIPERACILLIN-TAZOBACTAM 3.375 GM in SODIUM CHLORIDE 0.9% 100 ML IVPB SCH ×3 (02:48→19:48)
[2021-10-06 05:08] LABS: ABG HCO3 20 mmol/L (21-25); ABG Oxygen Saturation 99.2 % (94-97); ABG PCO2 28 mmHg (35-45); ABG PH 7.46 (7.35-7.45); ABG PO2 133 mmHg (83-108); ABG TCO2 21 mmol/L (19-24); Allen Test Performed? Yes
[2021-10-06 05:37] LABS: Glucose,Whole Blood 168 mg/dL (70-110)
[2021-10-06 05:52] LABS: Basophils % (A) 0 %; Eosinophils % (A) 0 %; HCT 31.2 % (34.0-46.0); HGB 10.2 gm/dL (11.4-16.0); Lymphocytes # (A) 1.4 k/uL (1.0-4.8); Lymphocytes % (A) 6 %; MCH 33.5 pg (25.0-35.0); MCHC 32.7 g/dL (31.0-37.0); MCV 102.4 fL (80.0-100.0); Macrocytosis Slight; Mean Platelet Volume 9.4; Monocytes # (A) 0.9 k/uL (0-1.0); Monocytes % (A) 4 %; Neutrophils # (A) 20.4 k/uL (1.3-7.7); Neutrophils % (A) 89 %; Platelet Count 181 k/uL (150-450); RBC 3.05 m/uL (3.80-5.40); RDW 12.4 % (11.5-15.5)
[2021-10-06 06:10] LABS: Albumin 2.2 g/dL (3.5-5.0); Potassium 3.9 mmol/L (3.5-5.1); Total Bilirubin 0.1 mg/dL (0.2-1.3); Total Protein 4.7 g/dL (6.3-8.2)
--- NOTE | 2021-10-06 06:14 | XR ---
EXAMINATION TYPE: XR chest 1V portable DATE OF EXAM: 10/06/2021 CLINICAL HISTORY: Difficulty breathing progress study. TECHNIQUE: Single AP portable semiupright view of the chest is obtained. COMPARISON: Chest x-ray from one day earlier and older studies FINDINGS: Stable endotracheal tube. Orogastric tube has been retracted in the interval terminating j ust below diaphragm, advise advancing 6 cm. Persistent increased multifocal right lung opacities. Some interval retraction of left-sided chest tu be with adjacent but improving subcutaneous emphysema redemonstrated. No definitive visualized left-s ided pneumothorax. Stable patchy left basilar opacity. No mediastinal shift. Stable mild cardiomegaly . Multilevel spurring in the spine redemonstrated. IMPRESSION: 1. Orogastric tube slightly retracted in the interval, recommend advancing 6 cm to be in more ideal p osition. 2. Multifocal right lung acute infiltrates redemonstrated and fairly stable. Stable patchy left basil ar atelectasis and/or developing infiltrate. Slight retraction of left-sided chest tube without visua lized pneumothorax.
[2021-10-06] MEDS: SODIUM CHLORIDE 0.9% 1,000 ML IV SCH ×2 (06:57→11:12)
--- NOTE | 2021-10-06 07:29 | P.PN ---
Subjective HISTORY OF PRESENTING ILLNESS Patient is a pleasant 66-year-old female with history of seizure disorder, brain injury, frontal lobectomy, ulcerative colitis, previous prolonged hospitalization with prior colonoscopy and complications who presents status post cardiopulmonary arrest. Patient lives with a caregiver and had apparently only been gone for 5 minutes when she came back and patient was noted to be unresponsive. CPR was began and EMS was called and found to be in V. fib with approximately 20 minutes of resuscitation. Per chart patient had been feeling fine previously without any chest pain, shortness breath. She apparently had be en hospitalized 2 weeks ago at [facility] for ulcerative colitis. No history of coronary artery disease. Secondary to CPR patient had a pneumothorax and a thoravent was placed. CT brain showed chronic changes from surgery however no bleed. Patient is currently intubated and sedated however does open eyes however does not follow commands. There was some concern initially about EKG changes however appeared mostly related to metabolic abnormalities with improvement however continued ST depressions and per chart family not desiring or invasive testing at this time. She did require norepinephrine as well as vasopressin however has been able to be decreased on the norepinephrine. Initial EKG shows sinus tachycardia, right bundle branch type wide-complex with diffuse ST depressions repeat EKG 10/04/2021 shows normal sinus rhythm, or overlying ST elevation inferiorly, diffuse ST depressions V1 through V6. Initial troponin 2.46 however no repeats. AST elevated at 304, ALT 185, albumin 2.5, urinalysis shows red blood cells as well as white blood cells, creatinine 0.8, lactic acid 11.2, white blood cell count 12.6, low hemoglobin 11.1. 10/06 Patient seen and examined. Patient remains on ventilator FiO2 30% and a PEEP of 5. Currently on vasopressin as well as norepinephrine at 0.07. Troponins increased 34 up to 103 and leveled off down to 76. Creatinine increased up to 1.7. PHYSICAL EXAMINATION Vital signs reviewed. CONSTITUTIONAL: No apparent distress, intubated and sedated, chronically ill- appearing HEENT: Head is normocephalic. Pupils are equal, round. Sclerae anicteric. Mucous membranes of the mouth are moist. No JVD. No carotid bruit. CHEST EXAMINATION: Lungs are clear to auscultation. No chest wall tenderness is noted on palpation or with deep breathing. HEART EXAMINATION: Regular rate and rhythm. S1, S2 heard. No murmurs, gallops or rub. ABDOMEN: Soft, nontender. Positive bowel sounds. EXTREMITIES: 2+ peripheral pulses, no lower extremity edema and no calf tenderness. NEUROLOGIC EXAMINATION: Patient is sedated and intubated, unresponsive ASSESSMENT 1. Status post cardiac arrest, initial rhythm V. fib with concern of possible acute coronary syndrome 2. Non-STEMI 3. Diffuse ST depressions concerning for ischemia 4. Shock, unclear cardiac versus possibly sepsis with UTI 5. Prior history of brain injury, frontal lobectomy 6. Ulcerative colitis 7. Mild anemia 8. Severe metabolic acidosis 9. Altered mental status PLAN Concern of acute coronary syndrome, plaque rupture as source of cardiac arrest with initial ischemic-appearing EKG changes. Awaiting 2-D echo. Monitor neurologic status. Patient will need heart catheterization pending neurologic progress. Continue supportive care. Monitor creatinine. Prognosis guarded. Objective - Vital Signs Vital signs: Vital Signs Temp 98.8 F 10/06/21 04:00 Pulse 73 10/06/21 07:00 Resp 24 10/06/21 07:00 BP 94/61 10/05/21 07:45 Pulse Ox 97 10/06/21 07:00 FiO2 40 10/06/21 07:00 Intake & Output 10/05/21 10/06/21 10/06/21 18:59 06:59 18:59 Intake Total 2691.486 1585.081 188.125 Output Total 373 532 30 Balance 2318.486 1053.081 158.125 Weight 74 kg 75.4 kg Intake: IV 2400 1300 100 Dextrose 5% in Water 1, 150 000 ml @ 75 mls/hr IV . [id number] REUBEN with Sodium Bicarb (1 Meq/ml) 150 ml Rx#:[id number] Lacosamide IV 150 mg In 100 Sodium Chloride 0.9% 50 ml @ 100 mls/hr IVPB BID REUBEN Rx#:[id number] Piperacillin-Tazobactam 3 200 .375 gm In Sodium Chloride 0.9% 100 ml @ 25 mls/hr IVPB Q8H REUBEN Rx#: [id number] Sodium Chloride 0.9% 1, 700 1300 100 000 ml @ 100 mls/hr IV . Q10H REUBEN Rx#:[id number] Sodium Chloride 0.9% 1, 250 000 ml @ 50 mls/hr IV . Q20H REUBEN Rx#:[id number] Sodium Chloride 0.9% 1, 1000 000 ml @ 999 mls/hr IV . Q1H1M ONE Rx#:[id number] Intake, IV Titration 201.486 25.081 68.125 Amount Heparin Sod,Pork in 0.45% 59.607 0 NaCl 25,000 unit In 0.45 % NaCl 1 250ml.bag @ 12 UNITS/KG/HR 8.88 mls/hr IV .Q24H REUBEN Rx#: [id number] Norepinephrine 32 mg In 78.909 25.081 Sodium Chloride 0.9% 218 ml @ 0.05 MCG/KG/MIN 1. 465 mls/hr IV .Q24H REUBEN Rx#:[id number] propofoL 1,000 mg In 62.97 68.125 Empty Bag 1 bag @ 5 MCG/ KG/MIN 1.875 mls/hr IV . Q24H REUBEN Rx#:[id number] Tube Feeding 60 260 20 Other 30 Output: Chest Tube Drainage 0 47 Chest Tube Left Anterior 0 47 Chest Urine 373 485 30 Other: Voiding Method Indwelling Catheter Indwelling Catheter # Bowel Movements 1 ABP, PAP, CO, CI - Last Documented Arterial Blood Pressure 116/52 - Labs CBC & Chem 7: 10/06/21 04:54 10/06/21 04:54 Labs: Abnormal Lab Results - Last 24 Hours (Table) 10/05/21 10/05/21 10/05/21 Range/Units 06:37 06:37 06:37 WBC (3.8-10.6) k/uL RBC (3.80-5.40) m/uL Hgb (11.4-16.0) gm/dL Hct (34.0-46.0) % MCV (80.0-100.0) fL Neutrophils # (1.3-7.7) k/uL APTT (22.0-30.0) sec ABG pH (7.35-7.45) ABG pCO2 (35-45) mmHg ABG pO2 (83-108) mmHg ABG HCO3 (21-25) mmol/L ABG O2 Saturation (94-97) % Chloride (98-107) mmol/L Carbon Dioxide (22-30) mmol/L BUN (7-17) mg/dL Creatinine (0.52-1.04) mg/dL Glucose (74-99) mg/dL POC Glucose (mg/dL) (70-110) mg/dL Plasma Lactic Acid Willy 8.5 H* (0.7-2.0) mmol/L Calcium (8.4-10.2) mg/dL Total Bilirubin (0.2-1.3) mg/dL AST (14-36) U/L ALT (4-34) U/L Ammonia (<30) umol/L Troponin I 34.000 H* (0.000-0.034) ng/mL Total Protein (6.3-8.2) g/dL Albumin (3.5-5.0) g/dL Free Phenytoin <0.8 L (0.8-2.0) ug/mL 10/05/21 10/05/21 10/05/21 Range/Units 12:00 12:00 14:00 WBC (3.8-10.6) k/uL RBC (3.80-5.40) m/uL Hgb (11.4-16.0) gm/dL Hct (34.0-46.0) % MCV (80.0-100.0) fL Neutrophils # (1.3-7.7) k/uL APTT (22.0-30.0) sec ABG pH (7.35-7.45) ABG pCO2 (35-45) mmHg ABG pO2 (83-108) mmHg ABG HCO3 (21-25) mmol/L ABG O2 Saturation (94-97) % Chloride (98-107) mmol/L Carbon Dioxide (22-30) mmol/L BUN (7-17) mg/dL Creatinine (0.52-1.04) mg/dL Glucose (74-99) mg/dL POC Glucose (mg/dL) 156 H (70-110) mg/dL Plasma Lactic Acid Willy 3.3 H* 2.8 H* (0.7-2.0) mmol/L Calcium (8.4-10.2) mg/dL Total Bilirubin (0.2-1.3) mg/dL AST (14-36) U/L ALT (4-34) U/L Ammonia 39 H (<30) umol/L Troponin I (0.000-0.034) ng/mL Total Protein (6.3-8.2) g/dL Albumin (3.5-5.0) g/dL Free Phenytoin (0.8-2.0) ug/mL 10/05/21 10/05/21 10/05/21 Range/Units 16:20 17:11 17:15 WBC (3.8-10.6) k/uL RBC (3.80-5.40) m/uL Hgb (11.4-16.0) gm/dL Hct (34.0-46.0) % MCV (80.0-100.0) fL Neutrophils # (1.3-7.7) k/uL APTT 181.0 H* (22.0-30.0) sec ABG pH (7.35-7.45) ABG pCO2 (35-45) mmHg ABG pO2 (83-108) mmHg ABG HCO3 (21-25) mmol/L ABG O2 Saturation (94-97) % Chloride (98-107) mmol/L Carbon Dioxide (22-30) mmol/L BUN (7-17) mg/dL Creatinine (0.52-1.04) mg/dL Glucose (74-99) mg/dL POC Glucose (mg/dL) 140 H (70-110) mg/dL Plasma Lactic Acid Willy (0.7-2.0) mmol/L Calcium (8.4-10.2) mg/dL Total Bilirubin (0.2-1.3) mg/dL AST (14-36) U/L ALT (4-34) U/L Ammonia (<30) umol/L Troponin I 103.000 H* (0.000-0.034) ng/mL Total Protein (6.3-8.2) g/dL Albumin (3.5-5.0) g/dL Free Phenytoin (0.8-2.0) ug/mL 10/05/21 10/05/21 10/05/21 Range/Units 20:44 23:17 23:19 WBC (3.8-10.6) k/uL RBC (3.80-5.40) m/uL Hgb (11.4-16.0) gm/dL Hct (34.0-46.0) % MCV (80.0-100.0) fL Neutrophils # (1.3-7.7) k/uL APTT (22.0-30.0) sec ABG pH (7.35-7.45) ABG pCO2 (35-45) mmHg ABG pO2 (83-108) mmHg ABG HCO3 (21-25) mmol/L ABG O2 Saturation (94-97) % Chloride (98-107) mmol/L Carbon Dioxide (22-30) mmol/L BUN (7-17) mg/dL Creatinine (0.52-1.04) mg/dL Glucose (74-99) mg/dL POC Glucose (mg/dL) 175 H 164 H (70-110) mg/dL Plasma Lactic Acid Willy (0.7-2.0) mmol/L Calcium (8.4-10.2) mg/dL Total Bilirubin (0.2-1.3) mg/dL AST (14-36) U/L ALT (4-34) U/L Ammonia (<30) umol/L Troponin I 76.800 H* (0.000-0.034) ng/mL Total Protein (6.3-8.2) g/dL Albumin (3.5-5.0) g/dL Free Phenytoin (0.8-2.0) ug/mL 10/06/21 10/06/21 10/06/21 Range/Units 02:16 04:54 04:54 WBC 23.0 H (3.8-10.6) k/uL RBC 3.05 L (3.80-5.40) m/uL Hgb 10.2 L (11.4-16.0) gm/dL Hct 31.2 L (34.0-46.0) % MCV 102.4 H (80.0-100.0) fL Neutrophils # 20.4 H (1.3-7.7) k/uL APTT 58.2 H (22.0-30.0) sec ABG pH (7.35-7.45) ABG pCO2 (35-45) mmHg ABG pO2 (83-108) mmHg ABG HCO3 (21-25) mmol/L ABG O2 Saturation (94-97) % Chloride 112 H (98-107) mmol/L Carbon Dioxide 19 L (22-30) mmol/L BUN 27 H (7-17) mg/dL Creatinine 1.70 H (0.52-1.04) mg/dL Glucose 148 H (74-99) mg/dL POC Glucose (mg/dL) (70-110) mg/dL Plasma Lactic Acid Willy (0.7-2.0) mmol/L Calcium 7.0 L (8.4-10.2) mg/dL Total Bilirubin 0.1 L (0.2-1.3) mg/dL AST 246 H (14-36) U/L ALT 159 H (4-34) U/L Ammonia (<30) umol/L Troponin I (0.000-0.034) ng/mL Total Protein 4.7 L (6.3-8.2) g/dL Albumin 2.2 L (3.5-5.0) g/dL Free Phenytoin (0.8-2.0) ug/mL 10/06/21 10/06/21 10/06/21 Range/Units 04:54 05:04 05:35 WBC (3.8-10.6) k/uL RBC (3.80-5.40) m/uL Hgb (11.4-16.0) gm/dL Hct (34.0-46.0) % MCV (80.0-100.0) fL Neutrophils # (1.3-7.7) k/uL APTT (22.0-30.0) sec ABG pH 7.46 H (7.35-7.45) ABG pCO2 28 L (35-45) mmHg ABG pO2 133 H (83-108) mmHg ABG HCO3 20 L (21-25) mmol/L ABG O2 Saturation 99.2 H (94-97) % Chloride (98-107) mmol/L Carbon Dioxide (22-30) mmol/L BUN (7-17) mg/dL Creatinine (0.52-1.04) mg/dL Glucose (74-99) mg/dL POC Glucose (mg/dL) 168 H (70-110) mg/dL Plasma Lactic Acid Willy (0.7-2.0) mmol/L Calcium (8.4-10.2) mg/dL Total Bilirubin (0.2-1.3) mg/dL AST (14-36) U/L ALT (4-34) U/L Ammonia (<30) umol/L Troponin I 67.700 H* (0.000-0.034) ng/mL Total Protein (6.3-8.2) g/dL Albumin (3.5-5.0) g/dL Free Phenytoin (0.8-2.0) ug/mL Microbiology - Last 24 Hours (Table) 10/04/21 22:17 Blood Culture - Preliminary Blood No Growth after 24 hours 10/04/21 22:15 Blood Culture - Preliminary Blood No Growth after 24 hours 10/04/21 14:08 Urine Culture - Final Urine,Voided 10/04/21 14:08 Gram Stain - Preliminary Sputum Sputum Culture - Preliminary
[2021-10-06 07:35] LABS: INR 1.5 (<1.2); Prothrombin Time 15.3 sec (9.0-12.0)
[2021-10-06] MEDS: ASPIRIN 81 MG PO SCH (08:11)
[2021-10-06] MEDS: FOLIC ACID 1 MG TAB PO SCH (08:11)
[2021-10-06] MEDS: CHLORHEXIDINE GLUCONATE 15 ML CUP MUCOUS MEM SCH ×2 (08:11→20:35)
[2021-10-06] MEDS: PANTOPRAZOLE 40 MG/10 ML VIAL IV SCH (08:11)
[2021-10-06] MEDS: VALPROIC ACID ORAL SOLN 250 MG/5 ML CUP OG-TUBE SCH ×3 (08:13→20:36)
--- NOTE | 2021-10-06 09:46 | CT ---
EXAMINATION TYPE: CT brain wo con DATE OF EXAM: 10/06/2021 COMPARISON: 10/04/2021 HISTORY: cardiac arrest. assess cerebral edema CT DLP: 1247.4 mGycm Automated exposure control for dose reduction was used. FINDINGS: Craniocervical junction maintained. There appears to be asymmetric effacement of the sulci of the rig ht cerebral hemispheres. Area of low attenuation bilateral frontal lobe could be artifactual though e cande ischemia would be in the differential diagnosis. Findings suspicious for cerebral edema. Additio nal areas of low attenuation in the bilateral frontal lobe could represent early ischemic change. Ex vacuole dilation evidence of remote ischemia and encephalomalacia involving the left temporal horn and temporal lobe. No midline shift or mass effect. Additional areas of focal and confluent low-atte nuation in the white matter is nonspecific but most typical remote ischemic change. Orbits are symmetric. Calvarium intact. Hyperostosis of the calvarium. Endotracheal tube noted. Barrera es of sinusitis seen. No acute hemorrhage. Report called to the patient's nurse 9:40 AM 10/06/2021. IMPRESSION: 1. No acute hemorrhage. However, there is to be asymmetric appearance of the sulci in the right cereb ral hemisphere. Findings are suspicious for diffuse ischemia and edema. Correlate with MRI.
--- NOTE | 2021-10-06 10:27 | XR ---
EXAMINATION TYPE: XR chest 1V portable DATE OF EXAM: 10/06/2021 CLINICAL HISTORY: Left-sided chest tube repositioning. TECHNIQUE: Single AP portable supine view of the chest is obtained. COMPARISON: Chest x-ray from earlier today and older studies FINDINGS: Improved appearance of orogastric tube after presumed advancement. Stable satisfactory pepe earance of the endotracheal tube. Improved positioning of the left-sided chest tube after slightly ad vancing. No visualized left-sided pneumothorax. Small amount of subcutaneous edema left chest wall re josue present. Patchy and confluent right lung opacities remain present greatest in the lower lung. Patient more rot ated to the right on current study. Stable mild cardiomegaly. Osseous structures are intact. IMPRESSION: Improved appearance of left-sided chest tube and orogastric tube after repositioning. No visualized left-sided pneumothorax.
[2021-10-06 10:53] VITALS: BMI 26.0
--- NOTE | 2021-10-06 11:35 | CA ---
Transthoracic Echo Report Name: Elmira Ross Age: 66 Gender: F : 1955 Exam Date: 10/05/2021 12:41 Exam Location: [facility] Ht (in): 65 Wt (lb): 199 Ordering Physician: Juliano Block DO ([id number]) Attending/Referring Phys: Plate Mounter Mary Juarez RDCS Procedure CPT: Indications: re: CPA Cardiac Hx: Technical Quality: Fair Contrast 1: Total Dose (mL): Contrast 2: Total Dose (mL): MEASUREMENTS (Male / Female) Normal Values 2D ECHO LV Diastolic Diameter PLAX 3.8 cm 4.2 - 5.9 / 3.9 - 5.3 cm LV Systolic Diameter PLAX 2.5 cm IVS Diastolic Thickness 1.1 cm 0.6 - 1.0 / 0.6 - 0.9 cm LVPW Diastolic Thickness 1.0 cm 0.6 - 1.0 / 0.6 - 0.9 cm LV Relative Wall Thickness 0.6 RV Internal Dim ED PLAX 2.7 cm LA Systolic Diameter LX 3.6 cm 3.0 - 4.0 / 2.7 - 3.8 cm LV Diastolic Volume MOD 4C 64.0 cm??? LV Systolic Volume MOD 4C 43.1 cm??? LV Ejection Fraction MOD 4C 32.6 % LV Diastolic Length 4C 7.0 cm LV Systolic Length 4C 6.4 cm LV Diastolic Volume MOD 2C 49.0 cm??? LV Systolic Volume MOD 2C 31.7 cm??? LV Ejection Fraction MOD 2C 35.4 % LV Diastolic Length 2C 6.6 cm LV Systolic Length 2C 5.8 cm LA Volume 22.3 cm??? 18 - 58 / 22 - 52 cm??? M-MODE Aortic Root Diameter MM 3.4 cm MV E Point Septal Separation 1.5 cm AV Cusp Separation MM 2.3 cm DOPPLER AV Peak Velocity 80.9 cm/s AV Peak Gradient 2.6 mmHg MV Area PHT 3.2 cm??? Mitral E Point Velocity 32.4 cm/s Mitral A Point Velocity 64.2 cm/s Mitral E to A Ratio 0.5 MV Deceleration Time 236.0 ms TR Peak Velocity 257.2 cm/s TR Peak Gradient 26.5 mmHg Right Ventricular Systolic Press 30.7 mmHg FINDINGS Left Ventricle Left ventricular ejection fraction is estimated at 40-45 %. Left ventricular cavity size normal. Borderline left ventricular hypertrophy. Infero basal hypokinesis Right Ventricle Normal right ventricular size and function. Right ventricular systolic pressure within normal limits. Right Atrium Normal right atrial size. Left Atrium Normal left atrial size. No evidence for an atrial septal defect. Mitral Valve Mitral valve thickened. Mild mitral annular calcification. Aortic Valve Aortic valve not well visualized. No aortic valve stenosis or regurgitation. Tricuspid Valve Mild tricuspid regurgitation. Pulmonic Valve Pulmonic valve not well visualized. Pericardium Normal pericardium. Aorta Normal size aortic root and proximal ascending aorta. CONCLUSIONS Mildly impaired LV function with EF between 40-45% Previewed by: Dr. Elias Ambrose MD (Electronically Signed) Final Date: 06 October 2021 11:34
[2021-10-06] MEDS: LACOSAMIDE IV 150 MG in SODIUM CHLORIDE 0.9% 50 ML IVPB SCH ×2 (11:52→21:05)
[2021-10-06 12:19] LABS: Glucose,Whole Blood 130 mg/dL (70-110)
--- NOTE | 2021-10-06 13:05 | P.PN ---
Subjective Progress Note Date: 10/06/21 Principal diagnosis: Acute hypoxic respiratory failure secondary to cardiac arrest This is a 66-year-old female patient with traumatic brain injury, with history of reported frontal lobectomy expressive and receptive aphasia and right-sided neglect, history of seizures, gait dysfunction, history of COVID 19 infection in June 2021, C. diff infection, who resides with her sister who is a full-time caregiver for the patient for the past 13 years. On 10/04/2021 patient was brought into the emergency department per EMS after suffering cardiac arrest at home. The sister found the patient unresponsive and blue. She called EMS and they instructed to start CPR. 5 department arrived on scene, they administered to defibrillations for V. fib arrest. CPR was performed for approximately 20 minutes following that with return of spontaneous circulation. Patient received a dose of atropine for severe bradycardia, and 3 A of epinephrine and received another defibrillation. Upon arriving to the hospital patient suffered another cardiac arrest, she was intubated, and received further ACLS interventions with return of spontaneous circulation. Chest x-ray showed airspace disease throughout the right lung and additional infiltrate in the left infrahilar region. Patient was placed on a ventilator, she required high doses of vasopressors including norepinephrine and vasopressin. Laboratory evaluation on admission showed a white blood cell count of 12.6, hemoglobin of 11.1, CO2 is 13, the rest of electrolytes and renal profile were unremarkable AST was 304, ALT was 185, alk phos was 92, lactic acid was 11.2, troponin was positive at 0.46, urinalysis showed 3+ protein and glucose, large number of white blood cells and rare bacteria. Urine drug screen showed barbiturates. CT of the brain showed old left temporal lobe infarct with associated volume loss, with the possibility of some mild generalized brain swelling. No midline shift, effacement of basal cisterns, acute ischemic changes or herniation was noted. There was clearing of fluid throughout the paranasal sinuses, no acute fracture of C-spine, there was a small to moderate-sized left-sided pneumothorax measuring up to 2.4 cm anteriorly, with patchy airspace disease on the right greater than the left. Left-sided Thoravent chest tube was placed in the emergency department. Patient was stabilized, and transferred to the intensive care unit, follow-up chest x-ray this morning showed a large left-sided pneumothorax greater than 60% despite the left-sided Thoravent, with mediastinal shift from the left to the right. Left-sided chest tube was placed emergently at the bedside by Dr. Hopper, subsequent chest x-ray showed essentially resolved left-sided pneumothorax with a small residual at the left lung base. Thoravent was removed Reevaluated today on 10/06/2021, patient remains in the ICU, intubated and mechanically ventilated. On assist control rate of 24th of volume 450 FiO2 30% PEEP of 5 ABG showed a pO2 of 133 pCO2 of 28 pH of 7.46. Patient is still requiring multiple drips including vasopressin at 0.03 she is also on propofol at 25 mcg/kg/m and saline at 100 mL per hour. Chest x-ray showed no evidence of pneumothorax, however the chest tube needed to be advanced few CM as it was noted to be almost out of the pleural cavity. This was done uneventfully at bedside. And follow-up chest x-ray showed adequate placement of the chest tube.again no evidence of pneumothorax. WBC count today is 23.0 hemoglobin is 10.2 PTT is therapeutic at 58 basic metabolic profile is normal renal profile is worse with a creatinine of 1.7, baseline creatinine is 0.83. A recent the patient developed acute tumor necrosis and acute kidney injury. Troponin is significantly high at 67 and the patient was seen by cardiology recommended that she stays on heparin. Chest x-ray shows right lung opacity consistent with aspiration pneumonia. Patient is on Zosyn empirically cultures of the blood s putum and urine are negative so far Objective - Vital Signs Vital signs: Vital Signs Temp 98.1 F 10/06/21 12:00 Pulse 72 10/06/21 12:00 Resp 24 10/06/21 12:00 BP 94/61 10/05/21 07:45 Pulse Ox 98 10/06/21 12:00 FiO2 50 10/06/21 12:00 Intake & Output 10/05/21 10/06/21 10/06/21 18:59 06:59 18:59 Intake Total 2691.486 1585.081 721.375 Output Total 373 532 325 Balance 2318.486 1053.081 396.375 Weight 74 kg 75.4 kg 75.4 kg Intake: IV 2400 1300 600 Dextrose 5% in Water 1, 150 000 ml @ 75 mls/hr IV . [id number] REUBEN with Sodium Bicarb (1 Meq/ml) 150 ml Rx#:[id number] Lacosamide IV 150 mg In 100 Sodium Chloride 0.9% 50 ml @ 100 mls/hr IVPB BID [facility] Rx#:[id number] Piperacillin-Tazobactam 3 200 .375 gm In Sodium Chloride 0.9% 100 ml @ 25 mls/hr IVPB Q8H [facility] Rx#: [id number] Sodium Chloride 0.9% 1, 700 1300 600 000 ml @ 100 mls/hr IV . Q10H [facility] Rx#:[id number] Sodium Chloride 0.9% 1, 250 000 ml @ 50 mls/hr IV . Q20H [facility] Rx#:[id number] Sodium Chloride 0.9% 1, 1000 000 ml @ 999 mls/hr IV . Q1H1M ONE Rx#:[id number] Intake, IV Titration 201.486 25.081 101.375 Amount Heparin Sod,Pork in 0.45% 59.607 0 NaCl 25,000 unit In 0.45 % NaCl 1 250ml.bag @ 12 UNITS/KG/HR 8.88 mls/hr IV .Q24H [facility] Rx#: [id number] Norepinephrine 32 mg In 78.909 25.081 Sodium Chloride 0.9% 218 ml @ 0.05 MCG/KG/MIN 1. 465 mls/hr IV .Q24H [facility] Rx#:[id number] propofoL 1,000 mg In 62.97 101.375 Empty Bag 1 bag @ 5 MCG/ KG/MIN 1.875 mls/hr IV . Q24H [facility] Rx#:[id number] Tube Feeding 60 260 20 Other 30 Output: Chest Tube Drainage 0 47 Chest Tube Left Anterior 0 47 Chest Urine 373 485 325 Other: Voiding Method Indwelling Catheter Indwelling Catheter Indwelling Catheter # Bowel Movements 1 ABP, PAP, CO, CI - Last Documented Arterial Blood Pressure 112/41 - Exam GENERAL EXAM: Revealed 66-year-old female sedated in no distress, intubated and mechanically ventilated. HEAD: Normocephalic/atraumatic. EYES: Normal reaction of pupils, equal size. Conjunctiva pink, sclera white. NOSE: Clear with pink turbinates. THROAT: No erythema or exudates. Endotracheal tube and orogastric tube are intact. NECK: No masses, no JVD, no thyroid enlargement, no adenopathy. CHEST: Symmetrical chest expansion left-sided chest tube is noted crackles at the bases no rhonchi and no wheezes Extremities: No clubbing , no edema, no cyanosis, 2+ pulses and upper and lower extremities. MUSCULOSKELGeneralized muscle atrophy is noted SKIN: No rashes CENTRAL NERVOUS SYStem : cannot assess sedated and intubated - Labs CBC & Chem 7: 10/06/21 04:54 10/06/21 04:54 Labs: Abnormal Lab Results - Last 24 Hours (Table) 10/05/21 10/05/21 10/05/21 Range/Units 06:37 06:37 14:00 WBC (3.8-10.6) k/uL RBC (3.80-5.40) m/uL Hgb (11.4-16.0) gm/dL Hct (34.0-46.0) % MCV (80.0-100.0) fL Neutrophils # (1.3-7.7) k/uL PT (9.0-12.0) sec INR (<1.2) APTT (22.0-30.0) sec ABG pH (7.35-7.45) ABG pCO2 (35-45) mmHg ABG pO2 (83-108) mmHg ABG HCO3 (21-25) mmol/L ABG O2 Saturation (94-97) % Chloride (98-107) mmol/L Carbon Dioxide (22-30) mmol/L BUN (7-17) mg/dL Creatinine (0.52-1.04) mg/dL Glucose (74-99) mg/dL POC Glucose (mg/dL) (70-110) mg/dL Plasma Lactic Acid Willy 2.8 H* (0.7-2.0) mmol/L Calcium (8.4-10.2) mg/dL Total Bilirubin (0.2-1.3) mg/dL AST (14-36) U/L ALT (4-34) U/L Ammonia 39 H (<30) umol/L Troponin I 34.000 H* (0.000-0.034) ng/mL Total Protein (6.3-8.2) g/dL Albumin (3.5-5.0) g/dL Free Phenytoin <0.8 L (0.8-2.0) ug/mL 10/05/21 10/05/21 10/05/21 Range/Units 16:20 17:11 17:15 WBC (3.8-10.6) k/uL RBC (3.80-5.40) m/uL Hgb (11.4-16.0) gm/dL Hct (34.0-46.0) % MCV (80.0-100.0) fL Neutrophils # (1.3-7.7) k/uL PT (9.0-12.0) sec INR (<1.2) APTT 181.0 H* (22.0-30.0) sec ABG pH (7.35-7.45) ABG pCO2 (35-45) mmHg ABG pO2 (83-108) mmHg ABG HCO3 (21-25) mmol/L ABG O2 Saturation (94-97) % Chloride (98-107) mmol/L Carbon Dioxide (22-30) mmol/L BUN (7-17) mg/dL Creatinine (0.52-1.04) mg/dL Glucose (74-99) mg/dL POC Glucose (mg/dL) 140 H (70-110) mg/dL Plasma Lactic Acid Willy (0.7-2.0) mmol/L Calcium (8.4-10.2) mg/dL Total Bilirubin (0.2-1.3) mg/dL AST (14-36) U/L ALT (4-34) U/L Ammonia (<30) umol/L Troponin I 103.000 H* (0.000-0.034) ng/mL Total Protein (6.3-8.2) g/dL Albumin (3.5-5.0) g/dL Free Phenytoin (0.8-2.0) ug/mL 10/05/21 10/05/21 10/05/21 Range/Units 20:44 23:17 23:19 WBC (3.8-10.6) k/uL RBC (3.80-5.40) m/uL Hgb (11.4-16.0) gm/dL Hct (34.0-46.0) % MCV (80.0-100.0) fL Neutrophils # (1.3-7.7) k/uL PT (9.0-12.0) sec INR (<1.2) APTT (22.0-30.0) sec ABG pH (7.35-7.45) ABG pCO2 (35-45) mmHg ABG pO2 (83-108) mmHg ABG HCO3 (21-25) mmol/L ABG O2 Saturation (94-97) % Chloride (98-107) mmol/L Carbon Dioxide (22-30) mmol/L BUN (7-17) mg/dL Creatinine (0.52-1.04) mg/dL Glucose (74-99) mg/dL POC Glucose (mg/dL) 175 H 164 H (70-110) mg/dL Plasma Lactic Acid Willy (0.7-2.0) mmol/L Calcium (8.4-10.2) mg/dL Total Bilirubin (0.2-1.3) mg/dL AST (14-36) U/L ALT (4-34) U/L Ammonia (<30) umol/L Troponin I 76.800 H* (0.000-0.034) ng/mL Total Protein (6.3-8.2) g/dL Albumin (3.5-5.0) g/dL Free Phenytoin (0.8-2.0) ug/mL 10/06/21 10/06/21 10/06/21 Range/Units 02:16 02:16 04:54 WBC 23.0 H (3.8-10.6) k/uL RBC 3.05 L (3.80-5.40) m/uL Hgb 10.2 L (11.4-16.0) gm/dL Hct 31.2 L (34.0-46.0) % MCV 102.4 H (80.0-100.0) fL Neutrophils # 20.4 H (1.3-7.7) k/uL PT 15.3 H (9.0-12.0) sec INR 1.5 H (<1.2) APTT 58.2 H (22.0-30.0) sec ABG pH (7.35-7.45) ABG pCO2 (35-45) mmHg ABG pO2 (83-108) mmHg ABG HCO3 (21-25) mmol/L ABG O2 Saturation (94-97) % Chloride (98-107) mmol/L Carbon Dioxide (22-30) mmol/L BUN (7-17) mg/dL Creatinine (0.52-1.04) mg/dL Glucose (74-99) mg/dL POC Glucose (mg/dL) (70-110) mg/dL Plasma Lactic Acid Willy (0.7-2.0) mmol/L Calcium (8.4-10.2) mg/dL Total Bilirubin (0.2-1.3) mg/dL AST (14-36) U/L ALT (4-34) U/L Ammonia (<30) umol/L Troponin I (0.000-0.034) ng/mL Total Protein (6.3-8.2) g/dL Albumin (3.5-5.0) g/dL Free Phenytoin (0.8-2.0) ug/mL 10/06/21 10/06/21 10/06/21 Range/Units 04:54 04:54 05:04 WBC (3.8-10.6) k/uL RBC (3.80-5.40) m/uL Hgb (11.4-16.0) gm/dL Hct (34.0-46.0) % MCV (80.0-100.0) fL Neutrophils # (1.3-7.7) k/uL PT (9.0-12.0) sec INR (<1.2) APTT (22.0-30.0) sec ABG pH 7.46 H (7.35-7.45) ABG pCO2 28 L (35-45) mmHg ABG pO2 133 H (83-108) mmHg ABG HCO3 20 L (21-25) mmol/L ABG O2 Saturation 99.2 H (94-97) % Chloride 112 H (98-107) mmol/L Carbon Dioxide 19 L (22-30) mmol/L BUN 27 H (7-17) mg/dL Creatinine 1.70 H (0.52-1.04) mg/dL Glucose 148 H (74-99) mg/dL POC Glucose (mg/dL) (70-110) mg/dL Plasma Lactic Acid Willy (0.7-2.0) mmol/L Calcium 7.0 L (8.4-10.2) mg/dL Total Bilirubin 0.1 L (0.2-1.3) mg/dL AST 246 H (14-36) U/L ALT 159 H (4-34) U/L Ammonia (<30) umol/L Troponin I 67.700 H* (0.000-0.034) ng/mL Total Protein 4.7 L (6.3-8.2) g/dL Albumin 2.2 L (3.5-5.0) g/dL Free Phenytoin (0.8-2.0) ug/mL 10/06/21 10/06/21 Range/Units 05:35 12:18 WBC (3.8-10.6) k/uL RBC (3.80-5.40) m/uL Hgb (11.4-16.0) gm/dL Hct (34.0-46.0) % MCV (80.0-100.0) fL Neutrophils # (1.3-7.7) k/uL PT (9.0-12.0) sec INR (<1.2) APTT (22.0-30.0) sec ABG pH (7.35-7.45) ABG pCO2 (35-45) mmHg ABG pO2 (83-108) mmHg ABG HCO3 (21-25) mmol/L ABG O2 Saturation (94-97) % Chloride (98-107) mmol/L Carbon Dioxide (22-30) mmol/L BUN (7-17) mg/dL Creatinine (0.52-1.04) mg/dL Glucose (74-99) mg/dL POC Glucose (mg/dL) 168 H 130 H (70-110) mg/dL Plasma Lactic Acid Willy (0.7-2.0) mmol/L Calcium (8.4-10.2) mg/dL Total Bilirubin (0.2-1.3) mg/dL AST (14-36) U/L ALT (4-34) U/L Ammonia (<30) umol/L Troponin I (0.000-0.034) ng/mL Total Protein (6.3-8.2) g/dL Albumin (3.5-5.0) g/dL Free Phenytoin (0.8-2.0) ug/mL Microbiology - Last 24 Hours (Table) 10/04/21 14:08 Gram Stain - Final Sputum Sputum Culture - Final 10/04/21 22:17 Blood Culture - Preliminary Blood No Growth after 24 hours 10/04/21 22:15 Blood Culture - Preliminary Blood No Growth after 24 hours 10/04/21 14:08 Urine Culture - Final Urine,Voided Assessment and Plan Assessment: Impression: Cardiac arrest with prolonged time until return of spontaneous circulation Suspect anoxic brain injury Multiple rib fractures and left sided pneumothorax, induced by CPR. Non-ST elevation myocardial infarction and elevated troponin Severe metabolic acidosis on presentation secondary to hypoperfusion and cardiac arrest. History of ulcerative colitis. Prior history of frontal lobectomy Suspect underlying ischemic cardiomyopathy with LV dysfunction, ejection fraction of 40%. Acute kidney injury/acute tubular necrosis secondary to cardiac arrest. Suspect aspiration pneumonia. Acute urinary tract infection History of seizure disorder History of expressive and receptive aphasia History of COVID-19 infection in June 19 0. Chronic gait dysfunction. Recommendation: Continue ventilatory support. Continue chest tube to suction GI and DVT prophylaxis. Hemodynamic support. Continue pressors Enteral feeding Continue antibiotics/Zosyn Patient is being assessed by neurology for anoxic brain injury Continue to update sister on her overall condition, I did discuss her condition with the sister yesterday, and she would like to think about CODE STATUS and possible comfort care measures for now. Overall prognosis is extremely poor and guarded We will continue to follow. Critical care time is over 30 minutes. Time with Patient: Greater than 30
--- NOTE | 2021-10-06 15:02 | P.PN ---
Subjective Progress Note Date: 10/06/21 Hospital course: This is a 66-year-old patient, follows with visiting physicians Dr. Sarmiento. 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 Patient also follows at [facility] for ulcerative colitis and receives injections for the same. Had a baseline has 10-14 BMs a day. Does use a walker to get about. Has right-sided neglect. Also has underlying anxiety and follows with psychiatry. Patient does wear pull-ups. Patient Sr. Ibeth Walden ir legal guardian and POA. Patient lives with her. Patient's 2 sisters including Ibeth Walden not present in the ER. Patient today was last seen awake on the camera about 12:15 PM. Patient's caregiver had discomfort in the house. Sister noticed to be unresponsive/purple in color.. Started doing CPR. EMS arrived about 12:30 PM. They carried out CPR and shock the patient in around 1 PM patient did get a pulse back. Patient was in V. fib prior to that. Patient was intubated. Prior to support patient had been communicating. At the baseline. Patient only speaks occasionally works because of expressive dysphasia. In the ER patient on the ventilator. Sinus rhythm. Does open eyes spontaneously. On levo fed drip. And a left-sided pneumothorax, Thora-vent in placed. In the past patient had some abnormal T waves on the EKG. Was seen by Dr. Elkins from cardiology Family did not want any further invasive testing. October 05: ICU: Intubated. FiO2 15 of PEEP of 5. Drips include norepinephrine/vasopressin. Telemetry shows sinus rhythm. Does open eyes. Left-sided chest tube. No family present. Did try to call the sister Ibeth Walden, went into voicemail. On IV heparin 10/06/2021 Patient is seen this morning in the ICU with mother and sister at the bedside. Patient has been made no code and are discussing with other family members about possibly proceeding forward with comfort care measures. Patient is continued on mechanical ventilation with an FiO2 of 50% and PEEP is 5. Patient also continues to require pressor support and also maintained on IV Dilantin, propofol, Levophed. Chest x-ray today shows no visualized left-sided pneumot horax with left-sided chest tube slightly advanced and a small amount of subcutaneous edema in the left chest wall present with stable mild cardiomegaly. Patient also had a brain CT this morning showing no acute hemorrhage although there is an asymmetric appearance in the focally in the right cerebral hemisphere and findings are suspicious for diffuse acute ischemia or edema. Neurology is following as well. Kidney functions are trending up and current creatinine is 1.7, troponin is elevated at 67 and LFTs are elevated. White count is elevated at 23 and is maintained on IV antibiotics. Cultures thus far have been negative. Overall prognosis is extremely poor and guarded at this time. Active Medications Aspirin (Aspirin 81 Mg) 81 mg PO DAILY [facility] Chlorhexidine Gluconate (Chlorhexidine Gluconate 15 Ml Cup) 15 ml MUCOUS MEM BI D REUBEN Last Admin: 10/05/21 09:15 Dose: 15 ml Dextrose/Water (Dextrose 50% Syringe 50 Ml) 25 ml IVP PER PROTOCOL PRN; Protocol PRN Reason: Hypoglycemia Dextrose/Water (Dextrose 50% Syringe 50 Ml) 50 ml IVP PER PROTOCOL PRN; Protocol PRN Reason: Hypoglycemia Folic Acid (Folic Acid 1 Mg Tab) 0.5 mg PO DAILY [facility] Last Admin: 10/05/21 09:01 Dose: 0.5 mg Heparin Sodium (Porcine) (Heparin Sodium 1,000 Un/Ml (10ml Vl)) 0 unit IV PER PROTOCOL PRN; Protocol PRN Reason: Low PTT Norepinephrine Bitartrate 32 (mg/ Sodium Chloride) 250 mls @ 1.465 mls/hr IV .Q24H RE[facility]; Protocol Last Titration: 10/05/21 11:25 Dose: 0.04 mcg/kg/min, 1.172 mls/hr Vasopressin 60 unit/ Sodium (Chloride) 153 mls @ 4.59 mls/hr IV .Q24H RE[facility] Last Admin: 10/05/21 04:04 Dose: 4.59 mls/hr Propofol 1,000 mg/ IV Solution 100 mls @ 1.875 mls/hr IV .Q24H RE[facility]; Protocol Last Titration: 10/05/21 07:20 Dose: Infused Piperacillin Sod/Tazobactam (Sod 3.375 gm/ Sodium Chloride) 100 mls @ 25 mls/hr IVPB Q8H [facility]; Protocol Last Admin: 10/05/21 11:19 Dose: 25 mls/hr Lacosamide 150 mg/ Sodium (Chloride) 65 mls @ 100 mls/hr IVPB BID REUB[facility] Last Admin: 10/05/21 09:25 Dose: 100 mls/hr Sodium Chloride (Saline 0.9%) 1,000 mls @ 100 mls/hr IV .Q10H [facility] Last Admin: 10/05/21 09:00 Dose: 100 mls/hr Heparin Sodium/Sodium Chloride (25,000 unit/ Sodium Chloride) 250 mls @ 8.88 mls/hr IV .Q24H [facility]; Protocol Last Admin: 10/05/21 11:38 Dose: 12 units/kg/hr, 8.88 mls/hr Insulin Aspart (Insulin Aspart (Novolog) 100 Unit/Ml Vial) 0 unit SQ Q6H [facility]; Protocol Last Admin: 10/05/21 07:01 Dose: 2 unit Mirtazapine (Mirtazapine 15 Mg Tab) 15 mg PO HS [facility] Last Admin: 10/04/21 20:44 Dose: 15 mg Miscellaneous Information (Pneumonia Protocol Utilized 1 Each Misc) 1 each PO ONCE PRN PRN Reason: Per Protocol Miscellaneous Information (Potassium Replacement Protocol 1 Each Misc) 1 each MISCELLANE DAILY PRN; Protocol PRN Reason: Per Protocol Naloxone HCl (Naloxone 0.4 Mg/Ml 1 Ml Vial) 0.2 mg IV Q2M PRN PRN Reason: Opioid Reversal Olanzapine (Olanzapine 10 Mg Tab) 10 mg PO HS [facility] Last Admin: 10/04/21 20:44 Dose: 10 mg Pantoprazole Sodium (Pantoprazole 40 Mg/10 Ml Vial) 40 mg IV DAILY [facility] Last Admin: 10/05/21 09:02 Dose: 40 mg Phenytoin Sodium (Phenytoin Sodium Inj 50 Mg/Ml 2 Ml Vial) 100 mg IVP Q8HR [facility] Last Admin: 10/05/21 09:01 Dose: 100 mg Valproic Acid (Valproic Acid Oral Soln 250 Mg/5 Ml Cup) 500 mg OG-TUBE TID [facility] Last Admin: 10/05/21 09:02 Dose: 500 mg Physical examination: GENERAL: Laying in bed, Intubated and sedated EYES: Pupils equal. Conjunctiva normal. HEENT: External appearance of nose and ears normal, oral cavity dry. ET tube NECK: JVD not raised; masses not palpable. HEART: First and second heart sounds are normal; no edema. LUNGS: Respiratory rate increased; decreased breath sounds ABDOMEN: Soft, nontender, liver spleen not palpable, no masses palpable. PSYCH: Unable to assess. NEUROLOGICAL: Pupils are equal, sluggish to light. Cornea reflex absent. Positive Gag Reflex. Does Responded to Pain Assessment: -Cardiac arrest, with approximate downtime of about 15 minutes. Patient was resuscitated for about 30 minutes, before -Non-ST elevation [place]. -Hypoxic brain injury. Some preservation of brainstem reflexes. -IV heparin monitoring -Cardiogenic shock -Acute hypoxic respiratory failure from cardiac arrest: Requiring mechanical ventilation Ventilator 50/5 -Chronic ulcerative colitis with a baseline 10-14 BMs a day -Aspiration pneumonia from cardiac arrest -Seizure disorder followed by prior frontal lobectomy -Chronic gait dysfunction, uses a walker at baseline -Chronic insomnia -Chronic expressive aphasia secondary to frontal lobectomy -No code Plan: Recommend continue with ICU monitoring as patient is mechanically intubated and sedated. Patient also continues to require pressor support with multiple medical consultations following. Patient is also on empiric antibiotics as patient appears to be high risk for aspiration pneumonia. Blood cultures and sputum and urine cultures have been negative. Patient is also being followed by neurology and repeat CT as mentioned previously. Family has addressed the CODE STATUS and made the patient no code and discussing further with family members about possibly pursuing comfort measures. Provided emotional support to the mother and sister who is her caregiver that she lives with and questions and concerns were answered to best of our ability. Overall prognosis remains extremely poor and guarded and will follow-up with the patient's family in regards to comfort measures. The impression and plan of care has been dictated by Gaye Poe, Nurse Practitioner as directed. Dr. Ana MD I have performed a history and examination and MDM of this patient, discussed the same with the dictator, and agree with the dictator's assessment and plan as written ,documented as a scribe. Based on total visit time, I have performed more than 50% of the visit. Objective - Vital Signs Vital signs: Vital Signs Temp 98.8 F 10/06/21 04:00 Pulse 73 10/06/21 07:00 Resp 24 10/06/21 07:00 BP 94/61 10/05/21 07:45 Pulse Ox 97 10/06/21 07:00 FiO2 30 10/06/21 08:28 Intake & Output 10/05/21 10/06/21 10/06/21 18:59 06:59 18:59 Intake Total 2691.486 1585.081 188.125 Output Total 373 532 30 Balance 2318.486 1053.081 158.125 Weight 74 kg 75.4 kg Intake: IV 2400 1300 100 Dextrose 5% in Water 1, 150 000 ml @ 75 mls/hr IV . [id number] REUB[facility] with Sodium Bicarb (1 Meq/ml) 150 ml Rx#:[id number] Lacosamide IV 150 mg In 100 Sodium Chloride 0.9% 50 ml @ 100 mls/hr IVPB BID [facility] Rx#:[id number] Piperacillin-Tazobactam 3 200 .375 gm In Sodium Chloride 0.9% 100 ml @ 25 mls/hr IVPB Q8H [facility] Rx#: [id number] Sodium Chloride 0.9% 1, 700 1300 100 000 ml @ 100 mls/hr IV . Q10H [facility] Rx#:[id number] Sodium Chloride 0.9% 1, 250 000 ml @ 50 mls/hr IV . Q20H [facility] Rx#:[id number] Sodium Chloride 0.9% 1, 1000 000 ml @ 999 mls/hr IV . Q1H1M ONE Rx#:[id number] Intake, IV Titration 201.486 25.081 68.125 Amount Heparin Sod,Pork in 0.45% 59.607 0 NaCl 25,000 unit In 0.45 % NaCl 1 250ml.bag @ 12 UNITS/KG/HR 8.88 mls/hr IV .Q24H [facility] Rx#: [id number] Norepinephrine 32 mg In 78.909 25.081 Sodium Chloride 0.9% 218 ml @ 0.05 MCG/KG/MIN 1. 465 mls/hr IV .Q24H [facility] Rx#:[id number] propofoL 1,000 mg In 62.97 68.125 Empty Bag 1 bag @ 5 MCG/ KG/MIN 1.875 mls/hr IV . Q24H [facility] Rx#:[id number] Tube Feeding 60 260 20 Other 30 Output: Chest Tube Drainage 0 47 Chest Tube Left Anterior 0 47 Chest Urine 373 485 30 Other: Voiding Method Indwelling Catheter Indwelling Catheter # Bowel Movements 1 ABP, PAP, CO, CI - Last Documented Arterial Blood Pressure 116/52 - Labs CBC & Chem 7: 10/06/21 04:54 10/06/21 04:54 Labs: Abnormal Lab Results - Last 24 Hours (Table) 10/05/21 10/05/21 10/05/21 Range/Units 06:37 06:37 12:00 WBC (3.8-10.6) k/uL RBC (3.80-5.40) m/uL Hgb (11.4-16.0) gm/dL Hct (34.0-46.0) % MCV (80.0-100.0) fL Neutrophils # (1.3-7.7) k/uL PT (9.0-12.0) sec INR (<1.2) APTT (22.0-30.0) sec ABG pH (7.35-7.45) ABG pCO2 (35-45) mmHg ABG pO2 (83-108) mmHg ABG HCO3 (21-25) mmol/L ABG O2 Saturation (94-97) % Chloride (98-107) mmol/L Carbon Dioxide (22-30) mmol/L BUN (7-17) mg/dL Creatinine (0.52-1.04) mg/dL Glucose (74-99) mg/dL POC Glucose (mg/dL) (70-110) mg/dL Plasma Lactic Acid Willy 3.3 H* (0.7-2.0) mmol/L Calcium (8.4-10.2) mg/dL Total Bilirubin (0.2-1.3) mg/dL AST (14-36) U/L ALT (4-34) U/L Ammonia (<30) umol/L Troponin I 34.000 H* (0.000-0.034) ng/mL Total Protein (6.3-8.2) g/dL Albumin (3.5-5.0) g/dL Free Phenytoin <0.8 L (0.8-2.0) ug/mL 10/05/21 10/05/21 10/05/21 Range/Units 12:00 14:00 16:20 WBC (3.8-10.6) k/uL RBC (3.80-5.40) m/uL Hgb (11.4-16.0) gm/dL Hct (34.0-46.0) % MCV (80.0-100.0) fL Neutrophils # (1.3-7.7) k/uL PT (9.0-12.0) sec INR (<1.2) APTT (22.0-30.0) sec ABG pH (7.35-7.45) ABG pCO2 (35-45) mmHg ABG pO2 (83-108) mmHg ABG HCO3 (21-25) mmol/L ABG O2 Saturation (94-97) % Chloride (98-107) mmol/L Carbon Dioxide (22-30) mmol/L BUN (7-17) mg/dL Creatinine (0.52-1.04) mg/dL Glucose (74-99) mg/dL POC Glucose (mg/dL) 156 H (70-110) mg/dL Plasma Lactic Acid Willy 2.8 H* (0.7-2.0) mmol/L Calcium (8.4-10.2) mg/dL Total Bilirubin (0.2-1.3) mg/dL AST (14-36) U/L ALT (4-34) U/L Ammonia 39 H (<30) umol/L Troponin I 103.000 H* (0.000-0.034) ng/mL Total Protein (6.3-8.2) g/dL Albumin (3.5-5.0) g/dL Free Phenytoin (0.8-2.0) ug/mL 10/05/21 10/05/21 10/05/21 Range/Units 17:11 17:15 20:44 WBC (3.8-10.6) k/uL RBC (3.80-5.40) m/uL Hgb (11.4-16.0) gm/dL Hct (34.0-46.0) % MCV (80.0-100.0) fL Neutrophils # (1.3-7.7) k/uL PT (9.0-12.0) sec INR (<1.2) APTT 181.0 H* (22.0-30.0) sec ABG pH (7.35-7.45) ABG pCO2 (35-45) mmHg ABG pO2 (83-108) mmHg ABG HCO3 (21-25) mmol/L ABG O2 Saturation (94-97) % Chloride (98-107) mmol/L Carbon Dioxide (22-30) mmol/L BUN (7-17) mg/dL Creatinine (0.52-1.04) mg/dL Glucose (74-99) mg/dL POC Glucose (mg/dL) 140 H 175 H (70-110) mg/dL Plasma Lactic Acid Willy (0.7-2.0) mmol/L Calcium (8.4-10.2) mg/dL Total Bilirubin (0.2-1.3) mg/dL AST (14-36) U/L ALT (4-34) U/L Ammonia (<30) umol/L Troponin I (0.000-0.034) ng/mL Total Protein (6.3-8.2) g/dL Albumin (3.5-5.0) g/dL Free Phenytoin (0.8-2.0) ug/mL 10/05/21 10/05/21 10/06/21 Range/Units 23:17 23:19 02:16 WBC (3.8-10.6) k/uL RBC (3.80-5.40) m/uL Hgb (11.4-16.0) gm/dL Hct (34.0-46.0) % MCV (80.0-100.0) fL Neutrophils # (1.3-7.7) k/uL PT 15.3 H (9.0-12.0) sec INR 1.5 H (<1.2) APTT (22.0-30.0) sec ABG pH (7.35-7.45) ABG pCO2 (35-45) mmHg ABG pO2 (83-108) mmHg ABG HCO3 (21-25) mmol/L ABG O2 Saturation (94-97) % Chloride (98-107) mmol/L Carbon Dioxide (22-30) mmol/L BUN (7-17) mg/dL Creatinine (0.52-1.04) mg/dL Glucose (74-99) mg/dL POC Glucose (mg/dL) 164 H (70-110) mg/dL Plasma Lactic Acid Willy (0.7-2.0) mmol/L Calcium (8.4-10.2) mg/dL Total Bilirubin (0.2-1.3) mg/dL AST (14-36) U/L ALT (4-34) U/L Ammonia (<30) umol/L Troponin I 76.800 H* (0.000-0.034) ng/mL Total Protein (6.3-8.2) g/dL Albumin (3.5-5.0) g/dL Free Phenytoin (0.8-2.0) ug/mL 10/06/21 10/06/21 10/06/21 Range/Units 02:16 04:54 04:54 WBC 23.0 H (3.8-10.6) k/uL RBC 3.05 L (3.80-5.40) m/uL Hgb 10.2 L (11.4-16.0) gm/dL Hct 31.2 L (34.0-46.0) % MCV 102.4 H (80.0-100.0) fL Neutrophils # 20.4 H (1.3-7.7) k/uL PT (9.0-12.0) sec INR (<1.2) APTT 58.2 H (22.0-30.0) sec ABG pH (7.35-7.45) ABG pCO2 (35-45) mmHg ABG pO2 (83-108) mmHg ABG HCO3 (21-25) mmol/L ABG O2 Saturation (94-97) % Chloride 112 H (98-107) mmol/L Carbon Dioxide 19 L (22-30) mmol/L BUN 27 H (7-17) mg/dL Creatinine 1.70 H (0.52-1.04) mg/dL Glucose 148 H (74-99) mg/dL POC Glucose (mg/dL) (70-110) mg/dL Plasma Lactic Acid Willy (0.7-2.0) mmol/L Calcium 7.0 L (8.4-10.2) mg/dL Total Bilirubin 0.1 L (0.2-1.3) mg/dL AST 246 H (14-36) U/L ALT 159 H (4-34) U/L Ammonia (<30) umol/L Troponin I (0.000-0.034) ng/mL Total Protein 4.7 L (6.3-8.2) g/dL Albumin 2.2 L (3.5-5.0) g/dL Free Phenytoin (0.8-2.0) ug/mL 10/06/21 10/06/21 10/06/21 Range/Units 04:54 05:04 05:35 WBC (3.8-10.6) k/uL RBC (3.80-5.40) m/uL Hgb (11.4-16.0) gm/dL Hct (34.0-46.0) % MCV (80.0-100.0) fL Neutrophils # (1.3-7.7) k/uL PT (9.0-12.0) sec INR (<1.2) APTT (22.0-30.0) sec ABG pH 7.46 H (7.35-7.45) ABG pCO2 28 L (35-45) mmHg ABG pO2 133 H (83-108) mmHg ABG HCO3 20 L (21-25) mmol/L ABG O2 Saturation 99.2 H (94-97) % Chloride (98-107) mmol/L Carbon Dioxide (22-30) mmol/L BUN (7-17) mg/dL Creatinine (0.52-1.04) mg/dL Glucose (74-99) mg/dL POC Glucose (mg/dL) 168 H (70-110) mg/dL Plasma Lactic Acid Willy (0.7-2.0) mmol/L Calcium (8.4-10.2) mg/dL Total Bilirubin (0.2-1.3) mg/dL AST (14-36) U/L ALT (4-34) U/L Ammonia (<30) umol/L Troponin I 67.700 H* (0.000-0.034) ng/mL Total Protein (6.3-8.2) g/dL Albumin (3.5-5.0) g/dL Free Phenytoin (0.8-2.0) ug/mL Microbiology - Last 24 Hours (Table) 10/04/21 14:08 Gram Stain - Final Sputum Sputum Culture - Final 10/04/21 22:17 Blood Culture - Preliminary Blood No Growth after 24 hours 10/04/21 22:15 Blood Culture - Preliminary Blood No Growth after 24 hours 10/04/21 14:08 Urine Culture - Final Urine,Voided
--- NOTE | 2021-10-06 15:02 | OP ---
OPERATIVE REPORT PROCEDURE: Placement of a right brachial arterial line. PREOPERATIVE DIAGNOSIS: Cardiac arrest. POSTOPERATIVE DIAGNOSIS: Cardiac arrest. ANESTHESIA USED: None deployed. DESCRIPTION OF PROCEDURE: The patient was placed in the supine position. The area of the right brachial region was prepared in a sterile fashion with drapes were applied. The right brachial artery was palpated, cannulated easily and a guidewire was placed. A Cook catheter was inserted over the guidewire, and the guidewire was removed. Good blood flow, good waveform noted, no complications. Line was secured using 3.0 silk sutures. MMODL / IJN: [id number] /
--- NOTE | 2021-10-06 15:17 | CDI ---
Documentation Clarification Form Date: 10/06/2021 02:38:29 PM From: Dayanara Amador RN CDDS Admit Date: 10/04/2021 03:31:00 PM Patient Name: Elmira Ross Visit Number: [id number] Discharge Date: ATTENTION: The Clinical Documentation Specialists (CDI) and [facility] Coding Staff appreciate your assistance in clarifying documentation. Please respond to the clarification below the line at the bottom and electronically sign. The CDI & [facility] Coding staff will review the response and follow-up if needed. Please note: Queries are made part of the Legal Health Record. If you have any questions, please contact the author of this message via ITS. Dr. Federico Turner The patient is diagnosed with Cardiac arrest what is was chiefly responsible for cardiac arrest- has not been clearly identified and clarification is requested. The patient presented intubated, in atrial fibrillation, pulmonary infiltrates after cardiac arrest. History/Risk factors:66-year-old female was found to be purple by family. EMS was called and Fire arrived on the scene and administered two defibrillations as the patient was in V. fib arrest. EMS arrived performed CPR for 20 minutes before they were able to get ROSC. Had to defibrillated again prior to arrival. Medical History: Ulcerative colitis and bowel ischemia. Acquired brain injury, Right sided neglect and expressive dysphasia, gait dysfunction and bradycardia. Clinical Indicators: Lab findings: 10/04 Wbc 12.6; Hgb 11.1 Neutrophils 8.60; INR 1.2; Lactic acid 11.2; 6.9; 6.7 AST 304; ALT 185; Troponin 0.462; 34.00; Total protein 5.3; Albumin 2.5. Urine culture: 10/04 No growth after 18 hours EK/17 Sinus tachycardia, right bundle branch type wide-complex with diffuse ST depressions. Repeat EKG 10/04 shows normal sinus rhythm, overlying ST elevation inferiorly, diffuse ST depressions V1 through V6. (Cardiology consult 10/05) Vital Signs: 10/04 B/P 112/81; HR 115; Temp 96.9 F Axillary; SpO2 99% Mechanical ventilation. Cardiology consult: 10/05 Status post cardiac arrest, initial rhythm V.fib with concern of possible ACS. Non-STEMI. Treatment: 10/05 Heparin ivpb; 10/04 Versed IV x 1; 10/04 Norepinephrine Bitrate IVPB; 10/04 Zosyn IVPB Q8H; Sodium Bicarb IV x 1; 10/04 0.9NS 3L IV x Bolus; 10/04 Vasopressin IV. In your professional opinion, can you please clarify which diagnosis, after study, was the reason chiefly responsible for the cardiac arrest? [ ] Cardiac arrest due to non-STEMI [ ] Cardiac arrest due to [ ] Other, please specify [ ] Unable to determine (Template Last Revised: April 2020) cardiac arrest due to non-STEMI MTDD
--- NOTE | 2021-10-06 15:55 | P.PN ---
Subjective Progress Note Date: 10/06/21 The patient seen at bedside and per the patient nurse there is no improvement in the patient condition. Her troponin is trending up and she is on heparin drip. She is currently on IV propofol 25mcg/kg/min. She is also on norepinephrine. She continues to be on a ventilator. Objective - Vital Signs Vital signs: Vital Signs Temp 98.1 F 10/06/21 12:00 Pulse 73 10/06/21 15:00 Resp 24 10/06/21 14:30 BP 94/61 10/05/21 07:45 Pulse Ox 96 10/06/21 15:00 FiO2 30 10/06/21 15:29 Intake & Output 10/05/21 10/06/21 10/06/21 18:59 06:59 18:59 Intake Total 2691.486 7259.012 9642.375 Output Total 373 532 500 Balance 2318.486 1053.081 521.375 Weight 74 kg 75.4 kg 75.4 kg Intake: IV 2400 1300 900 Dextrose 5% in Water 1, 150 000 ml @ 75 mls/hr IV . [id number] [facility]EN with Sodium Bicarb (1 Meq/ml) 150 ml Rx#:[id number] Lacosamide IV 150 mg In 100 Sodium Chloride 0.9% 50 ml @ 100 mls/hr IVPB BID [facility] Rx#:[id number] Piperacillin-Tazobactam 3 200 .375 gm In Sodium Chloride 0.9% 100 ml @ 25 mls/hr IVPB Q8H [facility] Rx#: [id number] Sodium Chloride 0.9% 1, 700 1300 900 000 ml @ 100 mls/hr IV . Q10H [facility] Rx#:[id number] Sodium Chloride 0.9% 1, 250 000 ml @ 50 mls/hr IV . Q20H [facility] Rx#:[id number] Sodium Chloride 0.9% 1, 1000 000 ml @ 999 mls/hr IV . Q1H1M ONE Rx#:[id number] Intake, IV Titration 201.486 25.081 101.375 Amount Heparin Sod,Pork in 0.45% 59.607 0 NaCl 25,000 unit In 0.45 % NaCl 1 250ml.bag @ 12 UNITS/KG/HR 8.88 mls/hr IV .Q24H [facility] Rx#: [id number] Norepinephrine 32 mg In 78.909 25.081 Sodium Chloride 0.9% 218 ml @ 0.05 MCG/KG/MIN 1. 465 mls/hr IV .Q24H [facility] Rx#:[id number] propofoL 1,000 mg In 62.97 101.375 Empty Bag 1 bag @ 5 MCG/ KG/MIN 1.875 mls/hr IV . Q24H [facility] Rx#:[id number] Tube Feeding 60 260 20 Other 30 Output: Chest Tube Drainage 0 47 Chest Tube Left Anterior 0 47 Chest Urine 373 485 500 Other: Voiding Method Indwelling Catheter Indwelling Catheter Indwelling Catheter # Bowel Movements 1 ABP, PAP, CO, CI - Last Documented Arterial Blood Pressure 119/42 - Exam GENERAL: The patient is lying in bed and does not appear in acute distress. LUNG: Intubated on ventilator. NEUROLOGICAL: IV Propofol 25mcg/kg/min and held since 7am today. Higher mental function: Patient is comatose. GC6 9 (E1, VT1, M4). No following commands or attempting to communicate. Cranial nerves: Primary gaze is midline. The pupils are round, equal and reactive to light. Positive corneal reflex bilaterally. Minimal right nasolabial flattening. Motor: The strength is hard to assess but with painful stimuli she minimally attempted to withdrawal in lowers (left > right). Normal tone and bulk. Cerebellum: Unable to assess. Sensation: Unable to assess light touch but to painful stimuli she is localizing in lowers. Reflexes (right/left): 1+ throughout. Plantars are mute bilaterally. Some of the workup turned our hospital visit consisted of: initial white blood cell is 12.6 and most recent one is 40.9. Patient is afebrile Plasma lactic acid venous is 11.2 on presentation and most current one is 8.5. Urine analysis appears urinary tract infection Valproic acid is a level is 44.1 Pheytoin level is <0.8 UDS is positive for barbiturate otherwise rest is not detected. AST of 304 and ALT of 585. Ammonia level is 39 CT of the head and CT cervical spine are reported as old left temporal lobe infarct with associated volume loss causing ex vacuo enlargement of the posterior left lateral ventricle. As compared to 06/27/2021. There may be slight less sulcal prominence in the setting of cardiac arrest unable to exclude some mild generalized brain swelling. There is no midline shift, effacement of the basal cisterns acute ischemic change or herniation seen. Learning of fluid throughout the paranasal sinuses probably a product of intubation. No acute fracture or misalignment of the cervical spine. Mild to moderate spondylitic changes throughout. Small to moderate left sided pneumothorax measuring up to 2.4 cm anteriorly. I personally reviewed the CT of the head and there is no at acute and stroke. There is no appreciable significant cerebral edema. There is no midline shift. There is no typical hemorrhage. Routine EEG on 10/05/2021 is abnormal. The back was SUGGESTIVE of severe encephalopathy. The burst suppression seen during the study could be as a result of cardiopulmonary arrest. Clinical correlation recommended. - Labs CBC & Chem 7: 10/06/21 04:54 10/06/21 04:54 Labs: Abnormal Lab Results - Last 24 Hours (Table) 10/05/21 10/05/21 10/05/21 Range/Units 06:37 16:20 17:11 WBC (3.8-10.6) k/uL RBC (3.80-5.40) m/uL Hgb (11.4-16.0) gm/dL Hct (34.0-46.0) % MCV (80.0-100.0) fL Neutrophils # (1.3-7.7) k/uL PT (9.0-12.0) sec INR (<1.2) APTT (22.0-30.0) sec ABG pH (7.35-7.45) ABG pCO2 (35-45) mmHg ABG pO2 (83-108) mmHg ABG HCO3 (21-25) mmol/L ABG O2 Saturation (94-97) % Chloride (98-107) mmol/L Carbon Dioxide (22-30) mmol/L BUN (7-17) mg/dL Creatinine (0.52-1.04) mg/dL Glucose (74-99) mg/dL POC Glucose (mg/dL) 140 H (70-110) mg/dL Calcium (8.4-10.2) mg/dL Total Bilirubin (0.2-1.3) mg/dL AST (14-36) U/L ALT (4-34) U/L Troponin I 103.000 H* (0.000-0.034) ng/mL Total Protein (6.3-8.2) g/dL Albumin (3.5-5.0) g/dL Free Phenytoin <0.8 L (0.8-2.0) ug/mL 10/05/21 10/05/21 10/05/21 Range/Units 17:15 20:44 23:17 WBC (3.8-10.6) k/uL RBC (3.80-5.40) m/uL Hgb (11.4-16.0) gm/dL Hct (34.0-46.0) % MCV (80.0-100.0) fL Neutrophils # (1.3-7.7) k/uL PT (9.0-12.0) sec INR (<1.2) APTT 181.0 H* (22.0-30.0) sec ABG pH (7.35-7.45) ABG pCO2 (35-45) mmHg ABG pO2 (83-108) mmHg ABG HCO3 (21-25) mmol/L ABG O2 Saturation (94-97) % Chloride (98-107) mmol/L Carbon Dioxide (22-30) mmol/L BUN (7-17) mg/dL Creatinine (0.52-1.04) mg/dL Glucose (74-99) mg/dL POC Glucose (mg/dL) 175 H 164 H (70-110) mg/dL Calcium (8.4-10.2) mg/dL Total Bilirubin (0.2-1.3) mg/dL AST (14-36) U/L ALT (4-34) U/L Troponin I (0.000-0.034) ng/mL Total Protein (6.3-8.2) g/dL Albumin (3.5-5.0) g/dL Free Phenytoin (0.8-2.0) ug/mL 10/05/21 10/06/21 10/06/21 Range/Units 23:19 02:16 02:16 WBC (3.8-10.6) k/uL RBC (3.80-5.40) m/uL Hgb (11.4-16.0) gm/dL Hct (34.0-46.0) % MCV (80.0-100.0) fL Neutrophils # (1.3-7.7) k/uL PT 15.3 H (9.0-12.0) sec INR 1.5 H (<1.2) APTT 58.2 H (22.0-30.0) sec ABG pH (7.35-7.45) ABG pCO2 (35-45) mmHg ABG pO2 (83-108) mmHg ABG HCO3 (21-25) mmol/L ABG O2 Saturation (94-97) % Chloride (98-107) mmol/L Carbon Dioxide (22-30) mmol/L BUN (7-17) mg/dL Creatinine (0.52-1.04) mg/dL Glucose (74-99) mg/dL POC Glucose (mg/dL) (70-110) mg/dL Calcium (8.4-10.2) mg/dL Total Bilirubin (0.2-1.3) mg/dL AST (14-36) U/L ALT (4-34) U/L Troponin I 76.800 H* (0.000-0.034) ng/mL Total Protein (6.3-8.2) g/dL Albumin (3.5-5.0) g/dL Free Phenytoin (0.8-2.0) ug/mL 10/06/21 10/06/21 10/06/21 Range/Units 04:54 04:54 04:54 WBC 23.0 H (3.8-10.6) k/uL RBC 3.05 L (3.80-5.40) m/uL Hgb 10.2 L (11.4-16.0) gm/dL Hct 31.2 L (34.0-46.0) % MCV 102.4 H (80.0-100.0) fL Neutrophils # 20.4 H (1.3-7.7) k/uL PT (9.0-12.0) sec INR (<1.2) APTT (22.0-30.0) sec ABG pH (7.35-7.45) ABG pCO2 (35-45) mmHg ABG pO2 (83-108) mmHg ABG HCO3 (21-25) mmol/L ABG O2 Saturation (94-97) % Chloride 112 H (98-107) mmol/L Carbon Dioxide 19 L (22-30) mmol/L BUN 27 H (7-17) mg/dL Creatinine 1.70 H (0.52-1.04) mg/dL Glucose 148 H (74-99) mg/dL POC Glucose (mg/dL) (70-110) mg/dL Calcium 7.0 L (8.4-10.2) mg/dL Total Bilirubin 0.1 L (0.2-1.3) mg/dL AST 246 H (14-36) U/L ALT 159 H (4-34) U/L Troponin I 67.700 H* (0.000-0.034) ng/mL Total Protein 4.7 L (6.3-8.2) g/dL Albumin 2.2 L (3.5-5.0) g/dL Free Phenytoin (0.8-2.0) ug/mL 10/06/21 10/06/21 10/06/21 Range/Units 05:04 05:35 12:18 WBC (3.8-10.6) k/uL RBC (3.80-5.40) m/uL Hgb (11.4-16.0) gm/dL Hct (34.0-46.0) % MCV (80.0-100.0) fL Neutrophils # (1.3-7.7) k/uL PT (9.0-12.0) sec INR (<1.2) APTT (22.0-30.0) sec ABG pH 7.46 H (7.35-7.45) ABG pCO2 28 L (35-45) mmHg ABG pO2 133 H (83-108) mmHg ABG HCO3 20 L (21-25) mmol/L ABG O2 Saturation 99.2 H (94-97) % Chloride (98-107) mmol/L Carbon Dioxide (22-30) mmol/L BUN (7-17) mg/dL Creatinine (0.52-1.04) mg/dL Glucose (74-99) mg/dL POC Glucose (mg/dL) 168 H 130 H (70-110) mg/dL Calcium (8.4-10.2) mg/dL Total Bilirubin (0.2-1.3) mg/dL AST (14-36) U/L ALT (4-34) U/L Troponin I (0.000-0.034) ng/mL Total Protein (6.3-8.2) g/dL Albumin (3.5-5.0) g/dL Free Phenytoin (0.8-2.0) ug/mL Microbiology - Last 24 Hours (Table) 10/04/21 14:08 Gram Stain - Final Sputum Sputum Culture - Final 10/04/21 22:17 Blood Culture - Preliminary Blood No Growth after 24 hours 10/04/21 22:15 Blood Culture - Preliminary Blood No Growth after 24 hours 10/04/21 14:08 Urine Culture - Final Urine,Voided Assessment and Plan Assessment: Cardiopulmonary arrest and had at least CPR for more than 20 minutes (unsure exact total down time). Initial rhythm is V-fib. Likely Anoxic brain injury due to above Non-STEMI Shock. 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 However there is asymmetric appearance of the sulci in the right cerebral hemisphere. Finding are suspicious for diffuse ischemia and edema. Correlate with MRI. I personally reviewed the CT and was hard to the appreciate any difference compared to the prior CT from 2 days ago Continue home antiepileptic drugs of Dilantin 300 mg daily, Vimpat 150 mg twice a day and Depakote extended release 500 3 times a day. Will defer the management of elevated ammonia to primary team. Cardiology is on board We'll defer the rest of the medical management to the primary and ICU team The patient condition is very critical and appears poor. She is not brain and she has few brainstem reflexes. The plan is discussed with the patient's sister (via phone) and her nurse. CODE STATUS was addressed by the family and made her DO NOT RESUSCITATE. Per the patient's nurse the family is considering comfort care measure. Marvin Rodriguez M.D. Neuro-hospitalist Time with Patient: Less than 30
[2021-10-06] MEDS: HEPARIN SOD,PORK IN 0.45% NACL 25,000 UNIT in 0.45% NACL 1 250ML.BAG IV SCH ×2 (16:58→23:46)
[2021-10-06] MEDS: NOREPINEPHRINE 32 MG in SODIUM CHLORIDE 0.9% 218 ML IV SCH (16:59)
[2021-10-06] MEDS: SODIUM CHLORIDE 0.9% 150 ML with VASOPRESSIN 60 UNIT IV SCH ×2 (16:59)
[2021-10-06 17:21] LABS: Glucose,Whole Blood 171 mg/dL (70-110)
[2021-10-06] MEDS: OLANZapine 10 MG TAB PO SCH (20:35)
[2021-10-06] MEDS: MIRTAZAPINE 15 MG TAB PO SCH (20:35)
[2021-10-06 23:31] LABS: Glucose,Whole Blood 206 mg/dL (70-110)
[2021-10-07] MEDS: PIPERACILLIN-TAZOBACTAM 3.375 GM in SODIUM CHLORIDE 0.9% 100 ML IVPB SCH ×2 (01:56→08:14)
[2021-10-07 05:34] LABS: Glucose,Whole Blood 196 mg/dL (70-110)
[2021-10-07] MEDS: SODIUM CHLORIDE 0.9% 1,000 ML IV SCH ×2 (05:36→11:55)
[2021-10-07] MEDS: INSULIN ASPART (NovoLOG) 100 UNIT/ML VIAL SQ SCH ×2 (05:40→11:53)
[2021-10-07 06:10] LABS: ABG Base Excess -2.9 mmol/L; ABG HCO3 21 mmol/L (21-25); ABG Oxygen Saturation 98.1 % (94-97); ABG PCO2 27 mmHg (35-45); ABG PH 7.49 (7.35-7.45); ABG PO2 90 mmHg (83-108); ABG TCO2 21 mmol/L (19-24); Allen Test Performed? Yes
[2021-10-07 06:13] LABS: Albumin 1.8 g/dL (3.5-5.0); Calcium 6.8 mg/dL (8.4-10.2); Potassium 3.5 mmol/L (3.5-5.1); Total Bilirubin 0.2 mg/dL (0.2-1.3)
[2021-10-07 06:22] LABS: HCT 20.9 % (34.0-46.0); MCH 33.8 pg (25.0-35.0); MCHC 33.3 g/dL (31.0-37.0); MCV 101.5 fL (80.0-100.0); Macrocytosis Slight; Mean Platelet Volume 11.2; Platelet Count 139 k/uL (150-450); RBC 2.06 m/uL (3.80-5.40); RDW 13.1 % (11.5-15.5); WBC 17.1 k/uL (3.8-10.6)
[2021-10-07] MEDS ORDERED: POTASSIUM BICARBONATE/CIT AC 20 MEQ TABLET.EFF NG-TUBE SCH (06:45)
--- NOTE | 2021-10-07 07:42 | XR ---
EXAMINATION TYPE: XR chest 1V portable DATE OF EXAM: 10/07/2021 5:35 AM COMPARISON: Chest radiographs from 10/06/2021 TECHNIQUE: XR chest 1V portable Frontal view of the chest. CLINICAL INDICATION:Female, 66 years old with history of Tube placement; FINDINGS: Lungs/Pleura: Decreased aeration of lungs on today's exam. Bilateral blunting of the costophrenic ang les. Airspace opacities within the right chest are worsened. Pulmonary vascularity: Unremarkable. Heart/mediastinum: Cardiomediastinal silhouette is enlarged and stable. Musculoskeletal: No acute osseous pathology. Lines/Tubes: Endotracheal tube with distal tip 2.3 cm above the matthew Nasogastric tube with its distal tip and side-port projecting under the diaphragm. Left thoracotomy tube is present without evidence of pneumothorax. IMPRESSION: 1. Endotracheal and nasogastric tubes in appropriate position. 2. Left thoracotomy tube in place without large pneumothorax identified. 3. Right chest airspace opacities which appears more radiodense and could be due to phase of inspira tion.
[2021-10-07] MEDS: VALPROIC ACID ORAL SOLN 250 MG/5 ML CUP OG-TUBE SCH (08:14)
[2021-10-07] MEDS: CHLORHEXIDINE GLUCONATE 15 ML CUP MUCOUS MEM SCH (08:14)
[2021-10-07] MEDS: PANTOPRAZOLE 40 MG/10 ML VIAL IV SCH (08:14)
[2021-10-07] MEDS: FOLIC ACID 1 MG TAB PO SCH (08:14)
[2021-10-07] MEDS: ASPIRIN 81 MG PO SCH (08:14)
[2021-10-07] MEDS: HEPARIN SOD,PORK IN 0.45% NACL 25,000 UNIT in 0.45% NACL 1 250ML.BAG IV SCH (08:15)
[2021-10-07] MEDS: PHENYTOIN SODIUM INJ 50 MG/ML 2 ML VIAL IVP SCH (08:15)
[2021-10-07] MEDS ORDERED: FUROSEMIDE 10 MG/ML 4 ML VIAL IV STA (08:47)
[2021-10-07] MEDS: LACOSAMIDE IV 150 MG in SODIUM CHLORIDE 0.9% 50 ML IVPB SCH (10:19)
--- NOTE | 2021-10-07 10:30 | P.PN ---
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 diff infection, who resides with her sister who is a full-time caregiver for the patient for the past 13 years. On 10/04/2021 patient was brought into the emergency department per EMS after suffering cardiac arrest at home. The sister found the patient unresponsive and blue. She called EMS and they instructed to start CPR. 5 department arrived on scene, they administered to defibrillations for V. fib arrest. CPR was performed for approximately 20 minutes following that with return of spontaneous circulation. Patient received a dose of atropine for severe bradycardia, and 3 A of epinephrine and received another defibrillation. Upon arriving to the hospital patient suffered another cardiac arrest, she was intubated, and received further ACLS interventions with return of spontaneous circulation. Chest x-ray showed airspace disease throughout the right lung and additional infiltrate in the left infrahilar region. Patient was placed on a ventilator, she required high doses of vasopressors including norepinephrine and vasopressin. Laboratory evaluation on admission showed a white blood cell count of 12.6, hemoglobin of 11.1, CO2 is 13, the rest of electrolytes and renal profile were unremarkable AST was 304, ALT was 185, alk phos was 92, lactic acid was 11.2, troponin was positive at 0.46, urinalysis showed 3+ protein and glucose, large number of white blood cells and rare bacteria. Urine drug screen showed barbiturates. CT of the brain showed old left temporal lobe infarct with associated volume loss, with the possibility of some mild generalized brain swelling. No midline shift, effacement of basal cisterns, acute ischemic changes or herniation was noted. There was clearing of fluid throughout the paranasal sinuses, no acute fracture of C-spine, there was a small to moderate-sized left-sided pneumothorax measuring up to 2.4 cm anteriorly, with patchy airspace disease on the right greater than the left. Left-sided Thoravent chest tube was placed in the emergency department. Patient was stabilized, and transferred to the intensive care unit, follow-up chest x-ray this morning showed a large left-sided pneumothorax greater than 60% despite the left-sided Thoravent, with mediastinal shift from the left to the right. Left-sided chest tube was placed emergently at the bedside by Dr. Hopper, subsequent chest x-ray showed essentially resolved left-sided pneumothorax with a small residual at the left lung base. Thoravent was removed Reevaluated today on 10/06/2021, patient remains in the ICU, intubated and mechanically ventilated. On assist control rate of 24th of volume 450 FiO2 30% PEEP of 5 ABG showed a pO2 of 133 pCO2 of 28 pH of 7.46. Patient is still requiring multiple drips including vasopressin at 0.03 she is also on propofol at 25 mcg/kg/m and saline at 100 mL per hour. Chest x-ray showed no evidence of pneumothorax, however the chest tube needed to be advanced few CM as it was noted to be almost out of the pleural cavity. This was done uneventfully at bedside. And follow-up chest x-ray showed adequate placement of the chest tube.again no evidence of pneumothorax. WBC count today is 23.0 hemoglobin is 10.2 PTT is therapeutic at 58 basic metabolic profile is normal renal profile is worse with a creatinine of 1.7, baseline creatinine is 0.83. A recent the patient developed acute tumor necrosis and acute kidney injury. Troponin is significantly high at 67 and the patient was seen by cardiology recommended that she stays on heparin. Chest x-ray shows right lung opacity consistent with aspiration pneumonia. Patient is on Zosyn empirically cultures of the blood s putum and urine are negative so far , patient remains in the ICU, intubated and mechanically ventilated. She is on assist control of 24th of volume 450 FiO2 30% PEEP of 5. ABG showed a pO2 of 90 pCO2 27 pH of 7.49. Chest tube remains in place, she has intermittently noted. She is on vasopressin at 0.03 however her norepinephrine has been discontinued. IV fluid is 0.9 normal saline at 100 mL per hour. He is on enteral tube feeding at 53 mL per hour. Neurologically the patient is about, opened eyes, but no other responses to deep painful stimuli or verbal stimuli, and no purposeful responses noted. Chest x-ray continues to show evidence of right sided pneumonia/infiltrates, possibly some component of interstitial edema. Patient remains on antibiotics, she is also on diuretics as needed. WBC count is 17 hemoglobin is 7 patient drop her hemoglobin to 7 and she was on he geronimo which has been discontinued by cardiology. Her electrolytes are normal renal profile showed a BUN of 51 creatinine 1.51, improving compared to yesterday for creatinine was 1.7 Objective - Vital Signs Vital signs: Vital Signs Temp 98.1 F 10/07/21 08:00 Pulse 78 10/07/21 09:00 Resp 24 10/07/21 09:00 BP 94/61 10/05/21 07:45 Pulse Ox 95 10/07/21 09:00 FiO2 30 10/07/21 08:27 Intake & Output 10/06/21 10/07/21 10/07/21 18:59 06:59 18:59 Intake Total 0369.389 8568.157 761.839 Output Total 830 838 795 Balance 340.235 2951.157 -33.161 Weight 75.4 kg 78.9 kg Intake: IV 1300 1350 410 Lacosamide IV 150 mg In 50 50 Sodium Chloride 0.9% 50 ml @ 100 mls/hr IVPB BID [facility] Rx#:[id number] Piperacillin-Tazobactam 3 200 100 .375 gm In Sodium Chloride 0.9% 100 ml @ 25 mls/hr IVPB Q8H [facility] Rx#: [id number] Sodium Chloride 0.9% 1, 1300 1100 260 000 ml @ 100 mls/hr IV . Q10H [facility] Rx#:[id number] Intake, IV Titration 297.512 59.157 49.839 Amount Heparin Sod,Pork in 0.45% 136.419 45.288 49.839 NaCl 25,000 unit In 0.45 % NaCl 1 250ml.bag @ 12 UNITS/KG/HR 8.88 mls/hr IV .Q24H [facility] Rx#: [id number] Norepinephrine 32 mg In 59.718 13.869 Sodium Chloride 0.9% 218 ml @ 0.05 MCG/KG/MIN 1. 465 mls/hr IV .Q24H [facility] Rx#:[id number] propofoL 1,000 mg In 101.375 Empty Bag 1 bag @ 5 MCG/ KG/MIN 1.875 mls/hr IV . Q24H [facility] Rx#:[id number] Tube Feeding 20 500 212 Other 90 90 Output: Chest Tube Drainage 88 Chest Tube Left Anterior 88 Chest Urine 830 750 795 Other: Voiding Method Indwelling Catheter Indwelling Catheter Indwelling Catheter ABP, PAP, CO, CI - Last Documented Arterial Blood Pressure 104/47 - Exam GENERAL EXAM: Revealed 66-year-old female sedated in no distress, intubated and mechanically ventilated. HEAD: Normocephalic/atraumatic. EYES: Normal reaction of pupils, equal size. Conjunctiva pink, sclera white. NOSE: Clear with pink turbinates. THROAT: No erythema or exudates. Endotracheal tube and orogastric tube are intact. NECK: No masses, no JVD, no thyroid enlargement, no adenopathy. CHEST: Symmetrical chest expansion left-sided chest tube is noted crackles at the bases no rhonchi and no wheezes, intermittently noted in the pleural VAC Extremities: No clubbing , no edema, no cyanosis, 2+ pulses and upper and lower extremities. MUSCULOSKELGeneralized muscle atrophy is noted SKIN: No rashes CENTRAL NERVOUS SYStem : cannot assess sedated and intubated - Labs CBC & Chem 7: 10/07/21 06:05 10/07/21 05:30 Labs: Abnormal Lab Results - Last 24 Hours (Table) 10/06/21 10/06/21 10/06/21 Range/Units 12:18 17:19 23:29 WBC (3.8-10.6) k/uL RBC (3.80-5.40) m/uL Hgb (11.4-16.0) gm/dL Hct (34.0-46.0) % MCV (80.0-100.0) fL Plt Count (150-450) k/uL ABG pH (7.35-7.45) ABG pCO2 (35-45) mmHg ABG O2 Saturation (94-97) % Chloride (98-107) mmol/L BUN (7-17) mg/dL Creatinine (0.52-1.04) mg/dL Glucose (74-99) mg/dL POC Glucose (mg/dL) 130 H 171 H 206 H (70-110) mg/dL Calcium (8.4-10.2) mg/dL AST (14-36) U/L ALT (4-34) U/L Total Protein (6.3-8.2) g/dL Albumin (3.5-5.0) g/dL 10/07/21 10/07/21 10/07/21 Range/Units 05:30 05:32 06:05 WBC 17.1 H (3.8-10.6) k/uL RBC 2.06 L (3.80-5.40) m/uL Hgb 7.0 L D (11.4-16.0) gm/dL Hct 20.9 L (34.0-46.0) % MCV 101.5 H (80.0-100.0) fL Plt Count 139 L (150-450) k/uL ABG pH (7.35-7.45) ABG pCO2 (35-45) mmHg ABG O2 Saturation (94-97) % Chloride 115 H (98-107) mmol/L BUN 31 H (7-17) mg/dL Creatinine 1.51 H (0.52-1.04) mg/dL Glucose 177 H (74-99) mg/dL POC Glucose (mg/dL) 196 H (70-110) mg/dL Calcium 6.8 L (8.4-10.2) mg/dL AST 117 H (14-36) U/L ALT 87 H (4-34) U/L Total Protein 4.0 L (6.3-8.2) g/dL Albumin 1.8 L (3.5-5.0) g/dL 10/07/21 Range/Units 06:08 WBC (3.8-10.6) k/uL RBC (3.80-5.40) m/uL Hgb (11.4-16.0) gm/dL Hct (34.0-46.0) % MCV (80.0-100.0) fL Plt Count (150-450) k/uL ABG pH 7.49 H (7.35-7.45) ABG pCO2 27 L (35-45) mmHg ABG O2 Saturation 98.1 H (94-97) % Chloride (98-107) mmol/L BUN (7-17) mg/dL Creatinine (0.52-1.04) mg/dL Glucose (74-99) mg/dL POC Glucose (mg/dL) (70-110) mg/dL Calcium (8.4-10.2) mg/dL AST (14-36) U/L ALT (4-34) U/L Total Protein (6.3-8.2) g/dL Albumin (3.5-5.0) g/dL Microbiology - Last 24 Hours (Table) 10/04/21 22:15 Blood Culture - Preliminary Blood No Growth after 48 hours 10/04/21 22:17 Blood Culture - Preliminary Blood No Growth after 48 hours 10/04/21 14:08 Gram Stain - Final Sputum Sputum Culture - Final Assessment and Plan Assessment: Impression: Cardiac arrest with prolonged time until return of spontaneous circulation Suspect anoxic brain injury Multiple rib fractures and left sided pneumothorax, induced by CPR. Non-ST elevation myocardial infarction and elevated troponin Severe metabolic acidosis on presentation secondary to hypoperfusion and cardiac arrest. History of ulcerative colitis. Prior history of frontal lobectomy Suspect underlying ischemic cardiomyopathy with LV dysfunction, ejection fraction of 40%. Acute kidney injury/acute tubular necrosis secondary to cardiac arrest. Suspect aspiration pneumonia. Acute urinary tract infection History of seizure disorder History of expressive and receptive aphasia History of COVID-19 infection in June 19 0. Chronic gait dysfunction. Recommendation: Continue ventilatory support. Continue chest tube to suction GI and DVT prophylaxis. Hemodynamic support. Patient is now off norepinephrine and maintain on vasopressin Enteral feeding patient is up to goal. Continue antibiotics/Zosyn Patient is being assessed by neurology for anoxic brain injury Continue to update sister on her overall condition, I did discuss her condition with the sister yesterday, and she would like to think about CODE STATUS and possible comfort care measures for now. Overall prognosis is extremely poor and guarded We will continue to follow. Critical care time is over 30 minutes. Time with Patient: Greater than 30
[2021-10-07] MEDS ORDERED: LORazepam 2 MG/ML INJ IV STA (10:57)
[2021-10-07 11:35] LABS: Glucose,Whole Blood 211 mg/dL (70-110)
[2021-10-07] MEDS ORDERED: LACOSAMIDE IV 200 MG in SODIUM CHLORIDE 0.9% 50 ML IVPB ONE (12:00)
[2021-10-07] MEDS ORDERED: LACOSAMIDE IV 100 MG in SODIUM CHLORIDE 0.9% 50 ML IVPB ONE (12:00)
[2021-10-07] MEDS ORDERED: SODIUM CHLORIDE 0.9% 1,000 ML IV SCH (12:00)
--- NOTE | 2021-10-07 13:48 | P.PN ---
Subjective HISTORY OF PRESENTING ILLNESS Patient is a pleasant 66-year-old female with history of seizure disorder, brain injury, frontal lobectomy, ulcerative colitis, previous prolonged hospitalization with prior colonoscopy and complications who presents status post cardiopulmonary arrest. Patient lives with a caregiver and had apparently only been gone for 5 minutes when she came back and patient was noted to be unresponsive. CPR was began and EMS was called and found to be in V. fib with approximately 20 minutes of resuscitation. Per chart patient had been feeling fine previously without any chest pain, shortness breath. She apparently had be en hospitalized 2 weeks ago at [facility] for ulcerative colitis. No history of coronary artery disease. Secondary to CPR patient had a pneumothorax and a thoravent was placed. CT brain showed chronic changes from surgery however no bleed. Patient is currently intubated and sedated however does open eyes however does not follow commands. There was some concern initially about EKG changes however appeared mostly related to metabolic abnormalities with improvement however continued ST depressions and per chart family not desiring or invasive testing at this time. She did require norepinephrine as well as vasopressin however has been able to be decreased on the norepinephrine. Initial EKG shows sinus tachycardia, right bundle branch type wide-complex with diffuse ST depressions repeat EKG 10/04/2021 shows normal sinus rhythm, or overlying ST elevation inferiorly, diffuse ST depressions V1 through V6. Initial troponin 2.46 however no repeats. AST elevated at 304, ALT 185, albumin 2.5, urinalysis shows red blood cells as well as white blood cells, creatinine 0.8, lactic acid 11.2, white blood cell count 12.6, low hemoglobin 11.1. 10/06 Patient seen and examined. Patient remains on ventilator FiO2 30% and a PEEP of 5. Currently on vasopressin as well as norepinephrine at 0.07. Troponins increased 34 up to 103 and leveled off down to 76. Creatinine increased up to 1.7. 10/07 Patient seen and examined. Patient remains intubated on 30% FiO2 and a PEEP of 5. Still on vasopressin and norepinephrine currently on low dose 0.02. No significant neurologic recovery thus far. Hemoglobin dropped from 10.2 down to 7.0 with no source of bleeding. Heparin was therefore stopped. Has been off of sedation since yesterday. Echocardiogram shows EF 40-45% with inferior hypokinesis. PHYSICAL EXAMINATION Vital signs reviewed. CONSTITUTIONAL: No apparent distress, intubated and sedated, chronically ill- appearing HEENT: Head is normocephalic. Pupils are equal, round. Sclerae anicteric. Mucous membranes of the mouth are moist. No JVD. No carotid bruit. CHEST EXAMINATION: Lungs are clear to auscultation. No chest wall tenderness is noted on palpation or with deep breathing. HEART EXAMINATION: Regular rate and rhythm. S1, S2 heard. No murmurs, gallops or rub. ABDOMEN: Soft, nontender. Positive bowel sounds. EXTREMITIES: 2+ peripheral pulses, no lower extremity edema and no calf tenderness. NEUROLOGIC EXAMINATION: Patient is sedated and intubated, unresponsive ASSESSMENT 1. Status post cardiac arrest, initial rhythm V. fib with concern of possible acute coronary syndrome 2. Non-STEMI 3. Diffuse ST depressions concerning for ischemia 4. Shock, unclear cardiac versus possibly sepsis with UTI 5. Prior history of brain injury, frontal lobectomy 6. Ulcerative colitis 7. Anemia, no source of bleed 8. Severe metabolic acidosis 9. Altered mental status 10. Mild cardiomyopathy EF 40-45% PLAN Concern of acute coronary syndrome with likely inferior infarct with inferior hypokinesis. Unfortunately patient is not having significant neurologic re covery. Heparin was stopped secondary to anemia. Continue supportive care. Prognosis guarded. Objective - Vital Signs Vital signs: Vital Signs Temp 98.1 F 10/07/21 08:00 Pulse 78 10/07/21 09:00 Resp 24 10/07/21 09:00 BP 94/61 10/05/21 07:45 Pulse Ox 95 10/07/21 09:00 FiO2 30 10/07/21 12:00 Intake & Output 10/06/21 10/07/21 10/07/21 18:59 06:59 18:59 Intake Total 0717.877 4556.157 1057.839 Output Total 208 460 8373 Balance 781.406 8097.157 -237.161 Weight 75.4 kg 78.9 kg Intake: IV 1300 1350 540 Lacosamide IV 150 mg In 50 50 Sodium Chloride 0.9% 50 ml @ 100 mls/hr IVPB BID [facility] Rx#:[id number] Piperacillin-Tazobactam 3 200 100 .375 gm In Sodium Chloride 0.9% 100 ml @ 25 mls/hr IVPB Q8H [facility] Rx#: [id number] Sodium Chloride 0.9% 1, 1300 1100 390 000 ml @ 100 mls/hr IV . Q10H [facility] Rx#:[id number] Intake, IV Titration 297.512 59.157 49.839 Amount Heparin Sod,Pork in 0.45% 136.419 45.288 49.839 NaCl 25,000 unit In 0.45 % NaCl 1 250ml.bag @ 12 UNITS/KG/HR 8.88 mls/hr IV .Q24H [facility] Rx#: [id number] Norepinephrine 32 mg In 59.718 13.869 Sodium Chloride 0.9% 218 ml @ 0.05 MCG/KG/MIN 1. 465 mls/hr IV .Q24H [facility] Rx#:[id number] propofoL 1,000 mg In 101.375 Empty Bag 1 bag @ 5 MCG/ KG/MIN 1.875 mls/hr IV . Q24H [facility] Rx#:[id number] Tube Feeding 20 500 318 Other 90 150 Output: Chest Tube Drainage 88 Chest Tube Left Anterior 88 Chest Urine 020 920 0600 Other: Voiding Method Indwelling Catheter Indwelling Catheter Indwelling Catheter ABP, PAP, CO, CI - Last Documented Arterial Blood Pressure 104/47 - Labs CBC & Chem 7: 10/07/21 06:05 10/07/21 11:30 Labs: Abnormal Lab Results - Last 24 Hours (Table) 10/06/21 10/06/21 10/07/21 Range/Units 17:19 23:29 05:30 WBC (3.8-10.6) k/uL RBC (3.80-5.40) m/uL Hgb (11.4-16.0) gm/dL Hct (34.0-46.0) % MCV (80.0-100.0) fL Plt Count (150-450) k/uL ABG pH (7.35-7.45) ABG pCO2 (35-45) mmHg ABG O2 Saturation (94-97) % Chloride 115 H (98-107) mmol/L BUN 31 H (7-17) mg/dL Creatinine 1.51 H (0.52-1.04) mg/dL Glucose 177 H (74-99) mg/dL POC Glucose (mg/dL) 171 H 206 H (70-110) mg/dL Calcium 6.8 L (8.4-10.2) mg/dL AST 117 H (14-36) U/L ALT 87 H (4-34) U/L Total Protein 4.0 L (6.3-8.2) g/dL Albumin 1.8 L (3.5-5.0) g/dL 10/07/21 10/07/21 10/07/21 Range/Units 05:32 06:05 06:08 WBC 17.1 H (3.8-10.6) k/uL RBC 2.06 L (3.80-5.40) m/uL Hgb 7.0 L D (11.4-16.0) gm/dL Hct 20.9 L (34.0-46.0) % MCV 101.5 H (80.0-100.0) fL Plt Count 139 L (150-450) k/uL ABG pH 7.49 H (7.35-7.45) ABG pCO2 27 L (35-45) mmHg ABG O2 Saturation 98.1 H (94-97) % Chloride (98-107) mmol/L BUN (7-17) mg/dL Creatinine (0.52-1.04) mg/dL Glucose (74-99) mg/dL POC Glucose (mg/dL) 196 H (70-110) mg/dL Calcium (8.4-10.2) mg/dL AST (14-36) U/L ALT (4-34) U/L Total Protein (6.3-8.2) g/dL Albumin (3.5-5.0) g/dL 10/07/21 Range/Units 11:33 WBC (3.8-10.6) k/uL RBC (3.80-5.40) m/uL Hgb (11.4-16.0) gm/dL Hct (34.0-46.0) % MCV (80.0-100.0) fL Plt Count (150-450) k/uL ABG pH (7.35-7.45) ABG pCO2 (35-45) mmHg ABG O2 Saturation (94-97) % Chloride (98-107) mmol/L BUN (7-17) mg/dL Creatinine (0.52-1.04) mg/dL Glucose (74-99) mg/dL POC Glucose (mg/dL) 211 H (70-110) mg/dL Calcium (8.4-10.2) mg/dL AST (14-36) U/L ALT (4-34) U/L Total Protein (6.3-8.2) g/dL Albumin (3.5-5.0) g/dL Microbiology - Last 24 Hours (Table) 10/04/21 22:15 Blood Culture - Preliminary Blood No Growth after 48 hours 10/04/21 22:17 Blood Culture - Preliminary Blood No Growth after 48 hours
[2021-10-07 13:50] VITALS: TEMP 98
--- NOTE | 2021-10-07 14:19 | P.PN ---
Subjective Progress Note Date: 10/07/21 Hospital course: This is a 66-year-old patient, follows with visiting physicians Dr. Sarmiento. 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 Patient also follows at [facility] for ulcerative colitis and receives injections for the same. Had a baseline has 10-14 BMs a day. Does use a walker to get about. Has right-sided neglect. Also has underlying anxiety and follows with psychiatry. Patient does wear pull-ups. Patient Sr. Ibeth Walden ir legal guardian and POA. Patient lives with her. Patient's 2 sisters including Ibeth Walden not present in the ER. Patient today was last seen awake on the camera about 12:15 PM. Patient's caregiver had discomfort in the house. Sister noticed to be unresponsive/purple in color.. Started doing CPR. EMS arrived about 12:30 PM. They carried out CPR and shock the patient in around 1 PM patient did get a pulse back. Patient was in V. fib prior to that. Patient was intubated. Prior to support patient had been communicating. At the baseline. Patient only speaks occasionally works because of expressive dysphasia. In the ER patient on the ventilator. Sinus rhythm. Does open eyes spontaneously. On levo fed drip. And a left-sided pneumothorax, Thora-vent in placed. In the past patient had some abnormal T waves on the EKG. Was seen by Dr. Elkins from cardiology Family did not want any further invasive testing. October 05: ICU: Intubated. FiO2 15 of PEEP of 5. Drips include norepinephrine/vasopressin. Telemetry shows sinus rhythm. Does open eyes. Left-sided chest tube. No family present. Did try to call the sister Ibeth Walden, went into voicemail. On IV heparin 10/06/2021 Patient is seen this morning in the ICU with mother and sister at the bedside. Patient has been made no code and are discussing with other family members about possibly proceeding forward with comfort care measures. Patient is continued on mechanical ventilation with an FiO2 of 50% and PEEP is 5. Patient also continues to require pressor support and also maintained on IV Dilantin, propofol, Levophed. Chest x-ray today shows no visualized left-sided pneumot horax with left-sided chest tube slightly advanced and a small amount of subcutaneous edema in the left chest wall present with stable mild cardiomegaly. Patient also had a brain CT this morning showing no acute hemorrhage although there is an asymmetric appearance in the focally in the right cerebral hemisphere and findings are suspicious for diffuse acute ischemia or edema. Neurology is following as well. Kidney functions are trending up and current creatinine is 1.7, troponin is elevated at 67 and LFTs are elevated. White count is elevated at 23 and is maintained on IV antibiotics. Cultures thus far have been negative. Overall prognosis is extremely poor and guarded at this time. 10/07/2021 Patient continues to be monitored closely with multiple medical consultations following and has been maintained off sedation and continues to be on the vent with an FI02 of 30% and peep of 5. Pulmonary street light servicer,cardiology,and neuro following. Patient had significant drop in hemoglobin with no active bleeding noted and possibly secondary to IV heparin and is being discontinued per card iology. Patient is continued on IV abx and also vasopressin. Levophed being weaned. Chest xray shows no increasing pneumothorax with continued chest tube noted Active Medications Aspirin (Aspirin 81 Mg) 81 mg PO DAILY [facility] Last Admin: 10/07/21 08:14 Dose: 81 mg Chlorhexidine Gluconate (Chlorhexidine Gluconate 15 Ml Cup) 15 ml MUCOUS MEM BID [facility] Last Admin: 10/07/21 08:14 Dose: 15 ml Dextrose/Water (Dextrose 50% Syringe 50 Ml) 25 ml IVP PER PROTOCOL PRN; Protocol PRN Reason: Hypoglycemia Dextrose/Water (Dextrose 50% Syringe 50 Ml) 50 ml IVP PER PROTOCOL PRN; Protocol PRN Reason: Hypoglycemia Folic Acid (Folic Acid 1 Mg Tab) 0.5 mg PO DAILY [facility] Last Admin: 10/07/21 08:14 Dose: 0.5 mg Heparin Sodium (Porcine) (Heparin Sodium 1,000 Un/Ml (10ml Vl)) 0 unit IV PER PROTOCOL PRN; Protocol PRN Reason: Low PTT Norepinephrine Bitartrate 32 (mg/ Sodium Chloride) 250 mls @ 1.465 mls/hr IV .Q24H [facility]; Protocol Last Titration: 10/07/21 13:48 Dose: 0.02 mcg/kg/min, 0.586 mls/hr Vasopressin 60 unit/ Sodium (Chloride) 153 mls @ 4.59 mls/hr IV .Q24H [facility] Last Admin: 10/06/21 16:59 Dose: 4.59 mls/hr Propofol 1,000 mg/ IV Solution 100 mls @ 1.875 mls/hr IV .Q24H [facility]; Protocol Last Admin: 10/06/21 19:49 Dose: Not Given Piperacillin Sod/Tazobactam (Sod 3.375 gm/ Sodium Chloride) 100 mls @ 25 mls/hr IVPB Q8H [facility]; Protocol Last Admin: 10/07/21 08:14 Dose: 25 mls/hr Lacosamide 150 mg/ Sodium (Chloride) 65 mls @ 100 mls/hr IVPB BID [facility] Last Admin: 10/07/21 10:19 Dose: 100 mls/hr Sodium Chloride (Saline 0.9%) 1,000 mls @ 100 mls/hr IV .Q10H [facility] Last Admin: 10/07/21 11:55 Dose: Not Given Heparin Sodium/Sodium Chloride (25,000 unit/ Sodium Chloride) 250 mls @ 8.88 mls/hr IV .Q24H [facility]; Protocol Last Admin: 10/07/21 08:15 Dose: Not Given Sodium Chloride (Saline 0.9%) 1,000 mls @ 20 mls/hr IV .Q24H [facility] Last Admin: 10/07/21 13:48 Dose: 20 mls/hr Insulin Aspart (Insulin Aspart (Novolog) 100 Unit/Ml Vial) 0 unit SQ Q6H [facility]; Protocol Last Admin: 10/07/21 11:53 Dose: 2 unit Mirtazapine (Mirtazapine 15 Mg Tab) 15 mg PO HS [facility] Last Admin: 10/06/21 20:35 Dose: 15 mg Miscellaneous Information (Pneumonia Protocol Utilized 1 Each Misc) 1 each PO ONCE PRN PRN Reason: Per Protocol Miscellaneous Information (Potassium Replacement Protocol 1 Each Misc) 1 each MISCELLANE DAILY PRN; Protocol PRN Reason: Per Protocol Naloxone HCl (Naloxone 0.4 Mg/Ml 1 Ml Vial) 0.2 mg IV Q2M PRN PRN Reason: Opioid Reversal Olanzapine (Olanzapine 10 Mg Tab) 10 mg PO HS [facility] Last Admin: 10/06/21 20:35 Dose: 10 mg Pantoprazole Sodium (Pantoprazole 40 Mg/10 Ml Vial) 40 mg IV DAILY [facility] Last Admin: 10/07/21 08:14 Dose: 40 mg Phenytoin Sodium (Phenytoin Sodium Inj 50 Mg/Ml 2 Ml Vial) 100 mg IVP Q8HR [facility] Last Admin: 10/07/21 08:15 Dose: 100 mg Potassium Bicarbonate (Potassium Bicarbonate/Cit Ac 20 Meq Tablet.Eff) 20 meq NG-TUBE Q1HR [facility]; Protocol Stop: 10/08/21 06:46 Last Admin: 10/07/21 06:49 Dose: 20 meq Valproic Acid (Valproic Acid Oral Soln 250 Mg/5 Ml Cup) 500 mg OG-TUBE TID [facility] Last Admin: 10/07/21 08:14 Dose: 500 mg Physical examination: GENERAL: Laying in bed, Intubated and off sedation, unresponsive with spontaneous eye opening and not following any commands and also no response to painful stimuli EYES: Pupils equal. Conjunctiva normal. HEENT: External appearance of nose and ears normal, oral cavity dry. ET tube NECK: JVD not raised; masses not palpable. HEART: First and second heart sounds are normal; no edema. LUNGS: Respiratory rate increased; decreased breath sounds, chest tube noted ABDOMEN: Soft, nontender, liver spleen not palpable, no masses palpable. PSYCH: Unable to assess. NEUROLOGICAL: Pupils are equal, sluggish to light. Cornea reflex absent. Positive Gag Reflex. spontaneous eye opening with no other responses noted Assessment: -Cardiac arrest, with approximate downtime of about 15 minutes. Patient was resuscitated for about 30 minutes, before -Non-ST elevation HI. -Hypoxic brain injury. Some preservation of brainstem reflexes. 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 Patient being weaned off levophed and is on vasopressin with multiple medical consultations following. Patient is also on empiric antibiotics as patient appears to be high risk for aspiration pneumonia. Family has addressed the CODE STATUS and made the patient no code and discussing further with family members about possibly pursuing comfort measures. Overall prognosis remains extremely poor and guarded and will follow-up with the patient's family in regards to comfort measures. The impression and plan of care has been dictated by Gaye Poe, Nurse Practitioner as directed. Dr. Ana MD I have performed a history and examination and MDM of this patient, discussed the same with the dictator, and agree with the dictator's assessment and plan as written ,documented as a scribe. Based on total visit time, I have performed more than 50% of the visit. Objective - Vital Signs Vital signs: Vital Signs Temp 98.1 F 10/07/21 08:00 Pulse 78 10/07/21 08:00 Resp 24 10/07/21 08:00 BP 94/61 10/05/21 07:45 Pulse Ox 95 10/07/21 08:00 FiO2 30 10/07/21 08:27 Intake & Output 10/06/21 10/07/21 10/07/21 18:59 06:59 18:59 Intake Total 8583.448 2353.157 485.839 Output Total 830 838 145 Balance 450.645 6939.157 340.839 Weight 75.4 kg 78.9 kg Intake: IV 1300 1350 300 Lacosamide IV 150 mg In 50 Sodium Chloride 0.9% 50 ml @ 100 mls/hr IVPB BID [facility] Rx#:[id number] Piperacillin-Tazobactam 3 200 100 .375 gm In Sodium Chloride 0.9% 100 ml @ 25 mls/hr IVPB Q8H [facility] Rx#: [id number] Sodium Chloride 0.9% 1, 1300 1100 200 000 ml @ 100 mls/hr IV . Q10H [facility] Rx#:[id number] Intake, IV Titration 297.512 59.157 49.839 Amount Heparin Sod,Pork in 0.45% 136.419 45.288 49.839 NaCl 25,000 unit In 0.45 % NaCl 1 250ml.bag @ 12 UNITS/KG/HR 8.88 mls/hr IV .Q24H [facility] Rx#: [id number] Norepinephrine 32 mg In 59.718 13.869 Sodium Chloride 0.9% 218 ml @ 0.05 MCG/KG/MIN 1. 465 mls/hr IV .Q24H [facility] Rx#:[id number] propofoL 1,000 mg In 101.375 Empty Bag 1 bag @ 5 MCG/ KG/MIN 1.875 mls/hr IV . Q24H [facility] Rx#:[id number] Tube Feeding 20 500 106 Other 90 30 Output: Chest Tube Drainage 88 Chest Tube Left Anterior 88 Chest Urine 830 750 145 Other: Voiding Method Indwelling Catheter Indwelling Catheter Indwelling Catheter ABP, PAP, CO, CI - Last Documented Arterial Blood Pressure 111/48 - Labs CBC & Chem 7: 10/07/21 06:05 10/07/21 11:30 Labs: Abnormal Lab Results - Last 24 Hours (Table) 10/06/21 10/06/21 10/06/21 Range/Units 12:18 17:19 23:29 WBC (3.8-10.6) k/uL RBC (3.80-5.40) m/uL Hgb (11.4-16.0) gm/dL Hct (34.0-46.0) % MCV (80.0-100.0) fL Plt Count (150-450) k/uL ABG pH (7.35-7.45) ABG pCO2 (35-45) mmHg ABG O2 Saturation (94-97) % Chloride (98-107) mmol/L BUN (7-17) mg/dL Creatinine (0.52-1.04) mg/dL Glucose (74-99) mg/dL POC Glucose (mg/dL) 130 H 171 H 206 H (70-110) mg/dL Calcium (8.4-10.2) mg/dL AST (14-36) U/L ALT (4-34) U/L Total Protein (6.3-8.2) g/dL Albumin (3.5-5.0) g/dL 10/07/21 10/07/21 10/07/21 Range/Units 05:30 05:32 06:05 WBC 17.1 H (3.8-10.6) k/uL RBC 2.06 L (3.80-5.40) m/uL Hgb 7.0 L D (11.4-16.0) gm/dL Hct 20.9 L (34.0-46.0) % MCV 101.5 H (80.0-100.0) fL Plt Count 139 L (150-450) k/uL ABG pH (7.35-7.45) ABG pCO2 (35-45) mmHg ABG O2 Saturation (94-97) % Chloride 115 H (98-107) mmol/L BUN 31 H (7-17) mg/dL Creatinine 1.51 H (0.52-1.04) mg/dL Glucose 177 H (74-99) mg/dL POC Glucose (mg/dL) 196 H (70-110) mg/dL Calcium 6.8 L (8.4-10.2) mg/dL AST 117 H (14-36) U/L ALT 87 H (4-34) U/L Total Protein 4.0 L (6.3-8.2) g/dL Albumin 1.8 L (3.5-5.0) g/dL 10/07/21 Range/Units 06:08 WBC (3.8-10.6) k/uL RBC (3.80-5.40) m/uL Hgb (11.4-16.0) gm/dL Hct (34.0-46.0) % MCV (80.0-100.0) fL Plt Count (150-450) k/uL ABG pH 7.49 H (7.35-7.45) ABG pCO2 27 L (35-45) mmHg ABG O2 Saturation 98.1 H (94-97) % Chloride (98-107) mmol/L BUN (7-17) mg/dL Creatinine (0.52-1.04) mg/dL Glucose (74-99) mg/dL POC Glucose (mg/dL) (70-110) mg/dL Calcium (8.4-10.2) mg/dL AST (14-36) U/L ALT (4-34) U/L Total Protein (6.3-8.2) g/dL Albumin (3.5-5.0) g/dL Microbiology - Last 24 Hours (Table) 10/04/21 22:15 Blood Culture - Preliminary Blood No Growth after 48 hours 10/04/21 22:17 Blood Culture - Preliminary Blood No Growth after 48 hours 10/04/21 14:08 Gram Stain - Final Sputum Sputum Culture - Final
--- NOTE | 2021-10-07 15:05 | P.PN ---
Subjective Progress Note Date: 10/07/21 Per the patient's nurse patient is not making recovery and continues to be intubated on ventilator. She is off sedation since yesterday about 7am yesterday. Her hemoglobin is trending down on presented with hgb of 11.1 and now it 7.0. As result heparin was stopped. Stool occult blood test is negative. The family has made her DN&R and are considering comfort care. Objective - Vital Signs Vital signs: Vital Signs Temp 98 F 10/07/21 12:08 Pulse 87 10/07/21 13:00 Resp 25 H 10/07/21 13:00 BP 94/61 10/05/21 07:45 Pulse Ox 97 10/07/21 13:00 FiO2 30 10/07/21 14:47 Intake & Output 10/06/21 10/07/21 10/07/21 18:59 06:59 18:59 Intake Total 7865.502 3575.157 1100.839 Output Total 900 290 2894 Balance 295.046 3180.157 -469.161 Weight 75.4 kg 78.9 kg Intake: IV 1300 1350 500 Lacosamide IV 150 mg In 50 50 Sodium Chloride 0.9% 50 ml @ 100 mls/hr IVPB BID [facility] Rx#:[id number] Piperacillin-Tazobactam 3 200 100 .375 gm In Sodium Chloride 0.9% 100 ml @ 25 mls/hr IVPB Q8H [facility] Rx#: [id number] Sodium Chloride 0.9% 1, 1300 1100 350 000 ml @ 100 mls/hr IV . Q10H [facility] Rx#:[id number] Intake, IV Titration 297.512 59.157 49.839 Amount Heparin Sod,Pork in 0.45% 136.419 45.288 49.839 NaCl 25,000 unit In 0.45 % NaCl 1 250ml.bag @ 12 UNITS/KG/HR 8.88 mls/hr IV .Q24H [facility] Rx#: [id number] Norepinephrine 32 mg In 59.718 13.869 0 Sodium Chloride 0.9% 218 ml @ 0.05 MCG/KG/MIN 1. 465 mls/hr IV .Q24H [facility] Rx#:[id number] propofoL 1,000 mg In 101.375 Empty Bag 1 bag @ 5 MCG/ KG/MIN 1.875 mls/hr IV . Q24H [facility] Rx#:[id number] Tube Feeding 20 500 371 Other 90 180 Output: Chest Tube Drainage 88 Chest Tube Left Anterior 88 Chest Urine 157 134 6056 Other: Voiding Method Indwelling Catheter Indwelling Catheter Indwelling Catheter ABP, PAP, CO, CI - Last Documented Arterial Blood Pressure 93/42 - Exam GENERAL: The patient is lying in bed and does not appear in acute distress. LUNG: Intubated on ventilator. NEUROLOGICAL: Off Propofol held since 7am yesterday. Higher mental function: Patient is comatose. GC6 9 (E1, VT1, M4). No following commands or attempting to communicate. Cranial nerves: Primary gaze is right gaze deviation bilaterally. The pupils are round, equal and reactive to light. Positive corneal reflex bilaterally. No occulocephalic reflex. Minimal right nasolabial flattening. Has minimal cough to suction. Motor: The strength is hard to assess but with painful stimuli she minimally attempted to withdrawal in lowers (left > right). Normal tone and bulk. Cerebellum: Unable to assess. Sensation: Unable to assess light touch but to painful stimuli she is localizing in lowers. Reflexes (right/left): 1+ throughout. Plantars are mute bilaterally. Some of the workup turned our hospital visit consisted of: initial white blood cell is 12.6 and most recent one is 40.9. Patient is afebrile Plasma lactic acid venous is 11.2 on presentation and most current one is 8.5. Urine analysis appears urinary tract infection Valproic acid is a level is 44.1 Pheytoin level is <0.8 UDS is positive for barbiturate otherwise rest is not detected. AST of 304 and ALT of 585. 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 As compared to 06/27/2021. There may be slight less sulcal prominence in the setting of cardiac arrest unable to exclude some mild generalized brain swelling. There is no midline shift, effacement of the basal cisterns acute ischemic change or herniation seen. Learning of fluid throughout the paranasal sinuses probably a product of intubation. No acute fracture or misalignment of the cervical spine. Mild to moderate spondylitic changes throughout. Small to moderate left sided pneumothorax measuring up to 2.4 cm anteriorly. I personally reviewed the CT of the head and there is no at acute and stroke. There is no appreciable significant cerebral edema. There is no midline shift. There is no typical hemorrhage. Routine EEG on 10/05/2021 is abnormal. The back was SUGGESTIVE of severe encephalopathy. The burst suppression seen during the study could be as a result of cardiopulmonary arrest. Clinical correlation recommended. - Labs CBC & Chem 7: 10/07/21 06:05 10/07/21 11:30 Labs: Abnormal Lab Results - Last 24 Hours (Table) 10/06/21 10/06/21 10/07/21 Range/Units 17:19 23:29 05:30 WBC (3.8-10.6) k/uL RBC (3.80-5.40) m/uL Hgb (11.4-16.0) gm/dL Hct (34.0-46.0) % MCV (80.0-100.0) fL Plt Count (150-450) k/uL ABG pH (7.35-7.45) ABG pCO2 (35-45) mmHg ABG O2 Saturation (94-97) % Chloride 115 H (98-107) mmol/L BUN 31 H (7-17) mg/dL Creatinine 1.51 H (0.52-1.04) mg/dL Glucose 177 H (74-99) mg/dL POC Glucose (mg/dL) 171 H 206 H (70-110) mg/dL Calcium 6.8 L (8.4-10.2) mg/dL AST 117 H (14-36) U/L ALT 87 H (4-34) U/L Total Protein 4.0 L (6.3-8.2) g/dL Albumin 1.8 L (3.5-5.0) g/dL 10/07/21 10/07/21 10/07/21 Range/Units 05:32 06:05 06:08 WBC 17.1 H (3.8-10.6) k/uL RBC 2.06 L (3.80-5.40) m/uL Hgb 7.0 L D (11.4-16.0) gm/dL Hct 20.9 L (34.0-46.0) % MCV 101.5 H (80.0-100.0) fL Plt Count 139 L (150-450) k/uL ABG pH 7.49 H (7.35-7.45) ABG pCO2 27 L (35-45) mmHg ABG O2 Saturation 98.1 H (94-97) % Chloride (98-107) mmol/L BUN (7-17) mg/dL Creatinine (0.52-1.04) mg/dL Glucose (74-99) mg/dL POC Glucose (mg/dL) 196 H (70-110) mg/dL Calcium (8.4-10.2) mg/dL AST (14-36) U/L ALT (4-34) U/L Total Protein (6.3-8.2) g/dL Albumin (3.5-5.0) g/dL 10/07/21 Range/Units 11:33 WBC (3.8-10.6) k/uL RBC (3.80-5.40) m/uL Hgb (11.4-16.0) gm/dL Hct (34.0-46.0) % MCV (80.0-100.0) fL Plt Count (150-450) k/uL ABG pH (7.35-7.45) ABG pCO2 (35-45) mmHg ABG O2 Saturation (94-97) % Chloride (98-107) mmol/L BUN (7-17) mg/dL Creatinine (0.52-1.04) mg/dL Glucose (74-99) mg/dL POC Glucose (mg/dL) 211 H (70-110) mg/dL Calcium (8.4-10.2) mg/dL AST (14-36) U/L ALT (4-34) U/L Total Protein (6.3-8.2) g/dL Albumin (3.5-5.0) g/dL Microbiology - Last 24 Hours (Table) 10/04/21 22:15 Blood Culture - Preliminary Blood No Growth after 48 hours 10/04/21 22:17 Blood Culture - Preliminary Blood No Growth after 48 hours Assessment and Plan Assessment: Cardiopulmonary arrest and had at least CPR for more than 20 minutes (unsure exact total down time). Initial rhythm is V-fib. Likely Anoxic brain injury due to above Non-STEMI Shock. Appears cardiac and cannot rule out in addition septic due to acute UTI Acute on chronic anemia. Heparin drip was stopped. 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 However there is asymmetric appearance of the sulci in the right cerebral hemisphere. Finding are suspicious for diffuse ischemia and edema. Correlate with MRI. I personally reviewed the CT and was hard to the appreciate any difference compared to the prior CT from 2 days ago Patient had right gaze fixation on examination there is a concern for seizure. As a result order to milligram of Ativan and a loading dose of Vimpat 100 mg. Continue home antiepileptic drugs of Dilantin 300 mg daily and Depakote extended release 500 3 times a day. Vimpat 150 mg twice a day will be increased to 200mg bid. Will defer the management of elevated ammonia to primary team. Cardiology is on board We'll defer the rest of the medical management to the primary and ICU team The patient condition is very critical and appears poor. She is not brain and she has few brainstem reflexes and localizing to pain. The plan is discussed with the patient's nurse. Per the patient's nurse the family is considering comfort care measure. Marvin Rodriguez M.D. Neuro-hospitalist Time with Patient: Less than 30
[2021-10-07] MEDS: NOREPINEPHRINE 32 MG in SODIUM CHLORIDE 0.9% 218 ML IV SCH (15:35)
[2021-10-07] MEDS ORDERED: MORPHINE SULFATE 4 MG/ML SYRINGE IVP ONE (15:57)
[2021-10-07] MEDS ORDERED: LORazepam 2 MG/ML INJ IV PRN (15:57)
[2021-10-07] MEDS ORDERED: ATROPINE OPHTH SOLN 1% 5ML BTL SUBLINGUAL PRN (15:57)
[2021-10-07] MEDS ORDERED: MORPHINE SULFATE 4 MG/ML SYRINGE IV PRN (15:57)
[2021-10-07] MEDS ORDERED: MORPHINE SULFATE (100 MG/2 ML) 100 MG in SODIUM CHLORIDE 0.9% 100 ML IV SCH (16:00)
[2021-10-07 19:16] VITALS: PULSE 86; RESP 27
[2021-10-07] MEDS ORDERED: LACOSAMIDE IV 200 MG in SODIUM CHLORIDE 0.9% 50 ML IVPB SCH (21:00)
--- NOTE | 2021-10-09 09:18 | P.DS ---
Providers Date of admission: 10/04/21 15:31 Expected date of discharge: 10/08/21 Attending physician: Federico Turner Consults: 10/04/21 15:30 Consult Physician Stat Consulting Provider: Kevin Norris Consult Reason/Comments: vfib arrest Do you want consulting provider notified?: Yes 10/04/21 15:34 Consult Physician Urgent Consulting Provider: [facility] Consult Reason/Comments: vfib arrest Do you want consulting provider notified?: Yes 10/04/21 16:25 Consult Physician Urgent Consulting Provider: Marvin Rodriguez Consult Reason/Comments: cerebral edema, s/p cardiac arrest, hx lobectomy Do you want consulting provider notified?: Yes 10/04/21 18:01 Consult Physician Urgent Consulting Provider: Marvin Rodriguez Consult Reason/Comments: anoxic brain injury Do you want consulting provider notified?: Yes Primary care physician: Jayy Sarmiento [place] [facility] Course: Preliminary cause of Cardiac arrest secondary to ventricular fibrillation with anoxic brain injury Final diagnosis -Cardiac arrest, with approximate downtime of about 15 minutes. Patient was resuscitated for about 30 minutes, before -Non-ST elevation MA. -Hypoxic brain injury. Some preservation of brainstem reflexes. 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 Patient was found by sister unresponsive and blue and called 911 and started CPR. Per documentation approximately 20 minutes of down time before spontaneous circulation and had been intubated and continued on ACLS protocol. Patient was requiring pressor support and sent to the ICU. CT of the brain showed an old left temporal lobe infarct with volume loss and possibly some generalized brain swelling. Patient also was noted to have a left-sided pneumothorax and chest tube was placed most likely secondary to CPR being administered. Patient continued in the ICU with no clinical improvement and had been off sedation and family had opted for no code with the possibility of comfort measures. Neurology evaluated the patient with no changes in neurological status and proceeded with comfort care measures. According to nursing documentation the time of was 1812 on 10/07/2021 after comfort measures were initiated and patient was extubated. [facility] Please refer to previous documentations and health diagnostics teacher along with neurology documentation for further HPI. The impression and plan of care has been dictated by Gaye Poe, Nurse Practitioner as directed. Dr. Ana MD I have performed a history and examination and MDM of this patient, discussed the same with the dictator, and agree with the dictator's assessment and plan as written ,documented as a scribe. Based on total visit time, I have performed more than 50% of the visit. Patient Condition at Discharge: Critical Plan - Discharge Summary Discharge Rx Participant: No New Discharge Prescriptions: No Action Phenytoin Sodium Extended [Dilantin] 300 mg PO DAILY Ferrous Sulfate [Iron (65 MG Elemental)] 325 mg PO DAILY@0700 Acetaminophen Tab [Tylenol] 650 mg PO Q6HR PRN tab PRN Reason: Mild Pain Or Fever > 100.5 Cholecalciferol [Vitamin D3 (25 Mcg = 1000 Iu)] 50 mcg PO DAILY tablet OLANZapine [ZyPREXA] 10 mg PO HS Hydrocortisone Oint [Hydrocortisone 2.5% Oint] 1 applic TOPICAL BID SILVER sulfADIAZINE CREAM [Silvadene Cream] 1 applic TOPICAL DAILY Clindamycin [Cleocin] 2 mg PO TID Lacosamide [Vimpat] 150 mg PO BID Divalproex ER [Depakote ER] 500 mg PO TID Folic Acid 0.4 mg PO DAILY Mirtazapine 15 mg PO HS ALPRAZolam [Xanax] 0.25 mg PO Q12H PRN #6 tab PRN Reason: Agitation Or Acute Anxiety Discharge Medication List Divalproex ER [Depakote ER] 500 mg PO TID 07/22/20 [History] Lacosamide [Vimpat] 150 mg PO BID 07/22/20 [History] Phenytoin Sodium Extended [Dilantin] 300 mg PO DAILY 07/22/20 [History] Ferrous Sulfate [Iron (65 MG Elemental)] 325 mg PO DAILY@0700 01/18/21 [History] Folic Acid 0.4 mg PO DAILY 01/18/21 [History] Mirtazapine 15 mg PO HS 02/11/21 [History] ALPRAZolam [Xanax] 0.25 mg PO Q12H PRN #6 tab 06/29/21 [Rx] Acetaminophen Tab [Tylenol] 650 mg PO Q6HR PRN tab 06/29/21 [Rx] Cholecalciferol [Vitamin D3 (25 Mcg = 1000 Iu)] 50 mcg PO DAILY tablet 06/29/21 [Rx] Clindamycin [Cleocin] 2 mg PO TID 10/04/21 [History] Hydrocortisone Oint [Hydrocortisone 2.5% Oint] 1 applic TOPICAL BID 10/04/21 [History] OLANZapine [ZyPREXA] 10 mg PO HS 10/04/21 [History] SILVER sulfADIAZINE CREAM [Silvadene Cream] 1 applic TOPICAL DAILY 10/04/21 [History] Follow up Appointment(s)/Referral(s): Jayy Sarmiento MD [Primary Care Provider] - 1-2 days Discharge Disposition: - Preliminary Cause of Preliminary Cause of : Cardiac arrest secondary to ventricular fibrillation with anoxic brain inju
--- NOTE | 2021-10-11 09:13 | CDI ---
Documentation Clarification Form Date: 10/11/21 From: Adilene Witt Admit Date: 10/04/2021 03:31:00 PM Patient Name: Elmira Ross Visit Number: [id number] Discharge Date: 10/07/2021 11:13:00 PM ATTENTION: The Clinical Documentation Specialists (CDI) and [facility] Coding Staff appreciate your assistance in clarifying documentation. Please respond to the clarification below the line at the bottom and electronically sign. The CDI & [facility] Coding staff will review the response and follow-up if needed. Please note: Queries are made part of the Legal Health Record. If you have any questions, please contact the author of this message via ITS. Dr. Eloy Perez, Possible sepsis is documented in the ED Note, Dr Norris's consult, PNs - Dr Block on 10/06 & 10/07, but is not noted in subsequent documentation. Clarification is requested. History/Risk Factors: V fib, NSTEMI, cardiac arrest due to underlying cardiac condition, aspiration pneumonia, acute hypoxic respiratory failure, ATN, anoxic brain damage, acidosis, pneumothorax, acidosis, neurologic neglect syndrome, aphasia, ulcerative colitis, UTI, cardiogenic shock Clinical Indicators: WBC 12.6 up to 48.9, Neutrophils 8.60 up to 44.90, lactic acid 11.2 VS: T96.9, P 115, R 20, BP 112/81, on mechanical ventilation Treatment: IV fluids, IV Levaquin, IV Zoysn Please clarify if the sepsis with shock is: [ x ] Sepsis with shock. POA due to UTI [ ] Sepsis without shock, POA due to UTI [ ] No sepsis & no UTI [ ] Other condition, please specify [ ] Unable to determine MTDD
== END 2021-10-07 23:13 | disposition expired ==
LOC: EC 13:32 → 2SICU 15:31
PROVIDERS: ADMIT Hospitalist; ATTEND Hospitalist
PROC: 06HN33Z Insertion of Infusion Device into Left Femoral Vein, Percutaneous Approach (ICD-10-PCS; principal; 2021-10-04)
PROC: 3E043XZ Introduction of Vasopressor into Central Vein, Percutaneous Approach (ICD-10-PCS; principal; 2021-10-04)
PROC: 5A1945Z Respiratory Ventilation, 24-96 Consecutive Hours (ICD-10-PCS; principal; 2021-10-04)
PROC: 0D9670Z Drainage of Stomach with Drainage Device, Via Natural or Artificial Opening (ICD-10-PCS; 2021-10-04)
PROC: 0BH17EZ Insertion of Endotracheal Airway into Trachea, Via Natural or Artificial Opening (ICD-10-PCS; 2021-10-04)
PROC: 5A1221J Performance of Cardiac Output, Continuous, Automated (ICD-10-PCS; 2021-10-04)
PROC: 3E0G76Z Introduction of Nutritional Substance into Upper GI, Via Natural or Artificial Opening (ICD-10-PCS; 2021-10-05)
PROC: 0W9B30Z Drainage of Left Pleural Cavity with Drainage Device, Percutaneous Approach (ICD-10-PCS; 2021-10-05)
PROC: 0W9B30Z Drainage of Left Pleural Cavity with Drainage Device, Percutaneous Approach (ICD-10-PCS; 2021-10-05)
PROC: 03HY32Z Insertion of Monitoring Device into Upper Artery, Percutaneous Approach (ICD-10-PCS; 2021-10-06)
PROC: 4A133J1 Monitoring of Arterial Pulse, Peripheral, Percutaneous Approach (ICD-10-PCS; 2021-10-06)
PROC: 4A133B1 Monitoring of Arterial Pressure, Peripheral, Percutaneous Approach (ICD-10-PCS; 2021-10-06)
DX: I21.4 Non-ST elevation (NSTEMI) myocardial infarction (principal); A41.9 Sepsis, unspecified organism; J69.0 Pneumonitis due to inhalation of food and vomit; J96.01 Acute respiratory failure with hypoxia; N17.0 Acute kidney failure with tubular necrosis; Q04.3 Other reduction deformities of brain; G93.1 Anoxic brain damage, not elsewhere classified; E87.2 Acidosis; J95.811 Postprocedural pneumothorax; R41.4 Neurologic neglect syndrome; R47.01 Aphasia; K51.90 Ulcerative colitis, unspecified, without complications; N39.0 Urinary tract infection, site not specified; M96.89 Other intraoperative and postprocedural complications and disorders of the musculoskeletal system; I49.01 Ventricular fibrillation; I46.2 Cardiac arrest due to underlying cardiac condition; I48.91 Unspecified atrial fibrillation; G40.909 Epilepsy, unspecified, not intractable, without status epilepticus; Z66 Do not resuscitate; Z51.5 Encounter for palliative care; Z28.310 Unvaccinated for COVID-19; I25.5 Ischemic cardiomyopathy; D64.9 Anemia, unspecified; F41.9 Anxiety disorder, unspecified; F51.04 Psychophysiologic insomnia; R47.02 Dysphasia; R26.9 Unspecified abnormalities of gait and mobility; Z79.899 Other long term (current) drug therapy; Z86.16 Personal history of COVID-19; Z86.61 Personal history of infections of the central nervous system; Z87.440 Personal history of urinary (tract) infections; Z86.14 Personal history of Methicillin resistant Staphylococcus aureus infection; Z86.73 Personal history of transient ischemic attack (TIA), and cerebral infarction without residual deficits; Z74.01 Bed confinement status; Z88.1 Allergy status to other antibiotic agents; Z91.040 Latex allergy status; Y84.8 Other medical procedures as the cause of abnormal reaction of the patient, or of later complication, without mention of misadventure at the time of the procedure; Y92.230 Patient room in hospital as the place of occurrence of the external cause; Z82.49 Family history of ischemic heart disease and other diseases of the circulatory system
CPT/HCPCS: 31500; 32551; 36415; 36556; 36600; 70450; 71045; 72125; 80048; 80053; 80164; 80186; 80306; 81001; 82140; 82272; 82805; 83036; 83605; 83735; 84132; 84484; 85025; 85027; 85610; 85730; 87040; 87070; 87086; 87205; 92950; 93005; 93306; 94002; 94003; 95822; 96361; 96374; 99291